=== PATIENT | male | born 1945 | race Caucasian/White ===

== ENCOUNTER 2016-03-31 12:54 | Emergency (ER) | payer MEDICAID, MEDICARE ==
--- NOTE | 2016-03-31 14:04 | ER Document Report ---
ED Respiratory Problem - General Chief Complaint: Shortness Of Breath Stated Complaint: DIFFICULTY BREATHING Mode of Arrival: Medic Information source: Patient, Relative, Emergency Med Personnel TRAVEL OUTSIDE OF THE [place] IN LAST 30 DAYS: No - HPI Patient complains to provider of: Cough, Short of breath, Other - CONGESTED Onset: This morning Duration: Intermittent episodes Quality of pain: No pain Context: Hx CHF, Other - OBESITY, NON-AMBULATORY Short of Breath: Mild Cough: Productive Sputum amount: Small Sputum color: White Sputum consistency: Mucoid At home treatment: CPAP - VENT @ NIGHT EMS treatments: Bronchodilators Associated symptoms: Congestion, Cough. denies: Ankle/leg swelling, Chills, Fever, Hurts to breathe, Sweaty, Wheezing Similar symptoms previously: Yes - NOT RECENT Recently seen / treated by doctor: No - Related Data Allergies/Adverse Reactions: indomethacin [From Indocin] Allergy (Unknown, Verified 01/09/16 12:57) Past Medical History - General Information source: Patient, Relative - Social History Smoking Status: Unknown if Ever Smoked Frequency of alcohol use: None Drug Abuse: None Family History: CAD Patient has suicidal ideation: No Patient has homicidal ideation: No - Past Medical History Cardiac Medical History: Reports: Hx Congestive Heart Failure, Hx Coronary Artery Disease, Hx Heart Attack - 2004, Hx Hypercholesterolemia, Hx Hypertension Pulmonary Medical History: Reports: Hx COPD - home O2 at 2-4 lmp, 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 Denies: Hx Peritoneal Dialysis Psychiatric Medical History: Reports: Hx Depression Past Surgical History: Reports: Hx Appendectomy, Hx Cardiac Surgery - bypass X 2 , CABG, Hx Coronary Artery Bypass Graft, Hx Tonsillectomy, Other - Tracheostomy Review of Systems - Review of Systems Constitutional: No symptoms reported EENT: No symptoms reported Cardiovascular: No symptoms reported Respiratory: See HPI Gastrointestinal: No symptoms reported Musculoskeletal: No symptoms reported Skin: No symptoms reported Neurological/Psychological: No symptoms reported Physical Exam - Vital signs Vitals: Resp Pulse Ox 15 100 03/31/16 13:10 03/31/16 13:10 Interpretation: Normal - General General appearance: Appears well, Alert In distress: None - HEENT Head: Normocephalic Eyes: Normal Conjunctiva: Normal Ears: Normal Nasal: Normal Mouth/Lips: Normal Mucous membranes: Normal Pharynx: Normal Neck: Other - INDWELLING TRACH. TUBE - Respiratory Respiratory status: No respiratory distress Chest status: Nontender Breath sounds: Rales - FEW, BIBASILAR - Cardiovascular Rhythm: Regular Heart sounds: Normal auscultation Murmur: No - Abdominal Inspection: Morbidly Obese - Extremities General upper extremity: Normal inspection General lower extremity: Normal inspection. No: Edema - Neurological Neuro grossly intact: Yes Cognition: Normal Orientation: AAOx4 - Psychological Associated symptoms: Normal affect, Normal mood - Skin Skin Temperature: Warm Skin Moisture: Dry Skin Color: Normal Skin Turgor: Elastic Course - Re-evaluation Re-evalutation: 03/31/16 17:26 Patient states he feels "great". Denies any dyspnea. Results of laboratory and radiographic evaluation discussed with patient and spouse. - Vital Signs Vital signs: Temp Pulse Resp BP Pulse Ox 98.1 F 57 L 14 126/75 H 100 03/31/16 13:56 03/31/16 13:56 03/31/16 14:00 03/31/16 13:56 03/31/16 14:00 - Laboratory Result Diagrams: 03/31/16 13:15 03/31/16 13:15 Laboratory results interpreted by me: 03/31/16 03/31/16 03/31/16 13:15 13:15 13:15 RBC 3.43 L Hgb 9.2 L Hct 28.2 L MCH 26.7 L RDW 18.0 H BUN 36 H Creatinine 2.54 H Est GFR ( Amer) 31 L Est GFR (Non-Af Amer) 25 L AST 16 L ALT 18 L NT-Pro-B Natriuret Pep 5180 H Discharge - Discharge Clinical Impression: CHF, acute on chronic Qualifiers: Congestive heart failure type: unspecified congestive heart failure type Qualified Code(s): I50.9 - Heart failure, unspecified Condition: Stable Disposition: HOME, SELF-CARE Additional Instructions: INCREASE YOU DOSE OF LASIX TO 80 mg PER DAY TODAY AND TOMORROW. CONTINUE ALL OTHER MEDS BEFORE. FOLLOW UP WITH DR. GLASER, CALL OFFICE SATURDAY FOR ADVICE. RETURN TO E.R. IF YOU GET WORSE, ANY TIME.
[2016-03-31 14:26] LABS: ABSOLUTE BASOPHILS # (AUTO) 0.1 10^3/uL (0.0-0.2); ABSOLUTE EOSINOPHILS # (AUTO) 0.2 10^3/uL (0.0-0.6); ABSOLUTE LYMPHOCYTES (AUTO) 1.7 10^3/uL (0.5-4.7); ABSOLUTE MONOCYTES (AUTO) 0.7 10^3/uL (0.1-1.4); ABSOLUTE NEUT (AUTO) 4.4 10^3/uL (1.7-8.2); EOSINOPHILS % (AUTO) 2.6 % (0-6); HEMATOCRIT 28.2 % (37.9-51.0); HEMOGLOBIN 9.2 g/dL (13.5-17.0); HGB HCT DIFFERENCE -0.6; LYMPHOCYTES % (AUTO) 23.6 % (13-45); MEAN CORPUSCULAR HEMOGLOBIN 26.7 pg (27.0-33.4); MEAN CORPUSCULAR HGB CONC 32.5 g/dL (32.0-36.0); MEAN CORPUSCULAR VOLUME 82 fl (80-97); MONOCYTES % (AUTO) 10.3 % (3-13); RED BLOOD COUNT 3.43 10^6/uL (4.35-5.55); SEGMENTED NEUTROPHILS % (AUTO) 62.5 % (42-78); WHITE BLOOD COUNT 7.1 10^3/uL (4.0-10.5)
[2016-03-31 14:40] LABS: ALANINE AMINOTRANSFERASE 18 U/L (21-72); ALBUMIN 3.6 g/dL (3.5-5.0); ALKALINE PHOSPHATASE 87 U/L (38-126); ANION GAP 11 (5-19); ASPARTATE AMINO TRANSFERASE 16 U/L (17-59); BILIRUBIN,TOTAL 0.5 mg/dL (0.2-1.3); BLOOD UREA NITROGEN 36 mg/dL (7-20); CALCIUM 9.8 mg/dL (8.4-10.2); CARBON DIOXIDE 30 mmol/L (22-30); CHLORIDE 101 mmol/L (98-107); CREATININE RESULT 2.54 mg/dL (0.52-1.25); GLUCOSE 103 mg/dL (75-110); POTASSIUM 4.3 mmol/L (3.6-5.0); SODIUM 142.3 mmol/L (137-145); TOTAL PROTEIN 6.7 g/dL (6.3-8.2)
[2016-03-31] MEDS ORDERED: IPRATROPIUM/ALBUTEROL 0.5-2.5 MG/3 ML AMPUL NEB ONE (17:06)
[2016-03-31 19:33] VITALS: BP 141/94
== END 2016-03-31 18:15 | disposition home or self-care (01) ==
LOC: ER 12:54
DX: I11.0 Hypertensive heart disease with heart failure (principal); I50.9 Heart failure, unspecified; I12.9 Hypertensive chronic kidney disease with stage 1 through stage 4 chronic kidney disease, or unspecified chronic kidney disease; E11.22 Type 2 diabetes mellitus with diabetic chronic kidney disease; N18.4 Chronic kidney disease, stage 4 (severe); I25.10 Atherosclerotic heart disease of native coronary artery without angina pectoris; I25.2 Old myocardial infarction; E66.9 Obesity, unspecified; Z68.41 Body mass index [BMI] 40.0-44.9, adult; J44.9 Chronic obstructive pulmonary disease, unspecified; Z99.81 Dependence on supplemental oxygen; R06.02 Shortness of breath; R05 Cough; Z88.8 Allergy status to other drugs, medicaments and biological substances; Z82.49 Family history of ischemic heart disease and other diseases of the circulatory system; Z95.1 Presence of aortocoronary bypass graft; Z93.0 Tracheostomy status
CPT/HCPCS: 36415; 71010; 80053; 83880; 85025; 99285

== ENCOUNTER → 2016-04-23 | Outpatient (CLI) | payer MEDICARE ==
[2016-04-23 15:42] LABS: HEMATOCRIT 28.1 % (37.9-51.0); HEMOGLOBIN 9.4 g/dL (13.5-17.0); HGB HCT DIFFERENCE 0.1; MEAN CORPUSCULAR HEMOGLOBIN 27.3 pg (27.0-33.4); MEAN CORPUSCULAR HGB CONC 33.6 g/dL (32.0-36.0); MEAN CORPUSCULAR VOLUME 81 fl (80-97); RED BLOOD COUNT 3.46 10^6/uL (4.35-5.55); RED CELL DISTRIBUTION WIDTH 17.1 % (11.5-14.0); WHITE BLOOD COUNT 8.7 10^3/uL (4.0-10.5)
[2016-04-23 15:58] LABS: AMORPHOUS SEDIMENT,URINE TRACE /HPF; APPEARANCE,URINE CLOUDY; BILIRUBIN,URINE NEGATIVE (NEGATIVE); GLUCOSE, URINE NEGATIVE (NEGATIVE); KETONES,URINE NEGATIVE (NEGATIVE); LEUKOCYTE ESTERASE,URINE LARGE (NEGATIVE); NITRITE,URINE POSITIVE (NEGATIVE); PROTEIN,URINE 30 mg/dL (NEGATIVE); UROBILINOGEN,URINE NEGATIVE mg/dL (<2.0)
[2016-04-23 16:03] LABS: ANION GAP 15 (5-19); BLOOD UREA NITROGEN 59 mg/dL (7-20); CALCIUM 10.2 mg/dL (8.4-10.2); CARBON DIOXIDE 26 mmol/L (22-30); CHLORIDE 97 mmol/L (98-107); CREATININE RESULT 2.86 mg/dL (0.52-1.25); GLUCOSE 130 mg/dL (75-110); POTASSIUM 4.7 mmol/L (3.6-5.0)
== END ==
LOC: OD 14:51
PROVIDERS: ATTEND Internal Medicine Nephrology
DX: N39.0 Urinary tract infection, site not specified (principal); I12.9 Hypertensive chronic kidney disease with stage 1 through stage 4 chronic kidney disease, or unspecified chronic kidney disease; N18.4 Chronic kidney disease, stage 4 (severe); E11.9 Type 2 diabetes mellitus without complications
CPT/HCPCS: 36415; 80048; 81001; 85027; 87086; 87088

== ENCOUNTER 2016-05-11 19:39 | Emergency (ER) | payer MEDICARE ==
--- NOTE | 2016-05-11 20:05 | ER Document Report ---
ED GI/ - General Stated Complaint: BLOOD IN URINE/RETENSION Time seen by provider: 20:05 Mode of Arrival: Ambulatory Information source: Patient TRAVEL OUTSIDE OF THE [place] IN LAST 30 DAYS: No - HPI Patient complains to provider of: Barragan catheter problem Onset: This afternoon Timing/Duration: Gradual, Persistent Quality of pain: Pressure Severity at maximum: Moderate Severity in ED: Moderate Pain Level: 3 Location: Suprapubic Associated symptoms: Hematuria Exacerbated by: Denies Relieved by: Denies Similar symptoms previously: Yes Recently seen / treated by doctor: No Notes: 05/12/16 04:54 Patient is a 70-year-old male presenting to the emergency room for complaints of fully catheter malfunction, patient has an indwelling Barragan catheter, and there is been no drainage from it throughout the day today, he reports there is sediment and blood clots in the tubing, patient is complaining of suprapubic pressure in the sensation of needing to urinate, he has a home health nurse that comes out and apparently attempted to irrigate the Barragan catheter but was unable to, patient denies any other complaints - Related Data Allergies/Adverse Reactions: indomethacin [From Indocin] Allergy (Unknown, Verified 01/09/16 12:57) Past Medical History - General Information source: Patient - Social History Smoking Status: Unknown if Ever Smoked Family History: CAD - Past Medical History Cardiac Medical History: Reports: Hx Congestive Heart Failure, Hx Coronary Artery Disease, Hx Heart Attack - 2004, Hx Hypercholesterolemia, Hx Hypertension Pulmonary Medical History: Reports: Hx COPD - home O2 at 2-4 lmp, 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 Denies: Hx Peritoneal Dialysis Psychiatric Medical History: Reports: Hx Depression Past Surgical History: Reports: Hx Appendectomy, Hx Cardiac Surgery - bypass X 2 , CABG, Hx Coronary Artery Bypass Graft, Hx Tonsillectomy, Other - Tracheostomy Review of Systems - Review of Systems Constitutional: No symptoms reported EENT: No symptoms reported Cardiovascular: No symptoms reported Respiratory: No symptoms reported Gastrointestinal: No symptoms reported Genitourinary: See HPI Male Genitourinary: No symptoms reported Musculoskeletal: No symptoms reported Skin: No symptoms reported Hematologic/Lymphatic: No symptoms reported Neurological/Psychological: No symptoms reported -: Yes All other systems reviewed and negative Physical Exam - Vital signs Vitals: Temp Pulse Resp BP Pulse Ox 98.2 F 89 20 147/76 H 100 05/11/16 19:54 05/11/16 19:54 05/11/16 19:54 05/11/16 19:54 05/11/16 19:54 Interpretation: Normal - General General appearance: Appears well, Alert In distress: None - HEENT Head: Normocephalic, Atraumatic Eyes: Normal Cornea: Normal Extraocular movements intact: Yes Neck: Other - Trach collar in place - Respiratory Respiratory status: No respiratory distress Chest status: Nontender Breath sounds: Normal Chest palpation: Normal - Cardiovascular Rhythm: Regular, Tachycardia - Abdominal Inspection: Normal Distension: No distension Bowel sounds: Normal Tenderness: Nontender Organomegaly: No organomegaly - Back Back: Normal - Extremities General upper extremity: Normal inspection General lower extremity: Normal inspection - Neurological Orientation: AAOx4 Margarita Coma Scale Eye Opening: Spontaneous Margarita Coma Scale Verbal: Oriented Margarita Coma Scale Motor: Obeys [employer] Coma Scale Total: 15 - Psychological Associated symptoms: Normal affect, Normal mood - Skin Skin Temperature: Warm Skin Moisture: Dry Skin Color: Normal Course - Re-evaluation Re-evalutation: 05/11/16 23:37 Nursing staff reports that patient's called and said he has not been using CPAP machine at home, and she requested that he have an ABG drawn to see what his CO2 levels are, nursing staff repeated patient's vital signs and reported him to be febrile with a temperature 101.7, when I evaluated patient and questioned him as to whether he is feeling short of breath or having any breathing difficulties he denied them, when asked why he is not wearing his CPap machine at night he stated that he does not like it and feels as though he does not need it, he was agreeable to having labs drawn 05/12/16 00:58 Patient was briefly discussed with the hospitalist for possible admission, he recommended patient receive IV fluids, antibiotics for urinary tract infection and be discharged home to 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 I reviewed patient's labs with at bedside, he is noted to have mildly worsening BUN, and signs of a urinary tract infection, his reports that his primary care provider gave her prescription for ciprofloxacin earlier in the day, patient has not received a dosage of this yet, I discussed the possibility of admission for patient, however he reported that he feels much better and wants to go home, patient's and son were at bedside who were in agreement with this plan, agreed to transport him home and follow-up with the primary care provider in the next 1-2 days, patient was noted to be mildly tachycardic, however he recently had a breathing treatment, lungs are clear to auscultation, he agrees to drink fluids once he returns home, and agrees to encourage plenty of fluids, therefore patient was discharged home with instructions for follow-up and advised to return if symptoms worsen in any way 05/12/16 04:48 I received a call from patient's , she is concerned because his heart rate is approximately 122 on the monitor at home, he is satting and 100% on 3 L, she reports that he was difficult to get in the house because he was quite tired in somewhat weak, and she read the side effect profile of ciprofloxacin which was prescribed by patient's primary care provider and she was concerned that all the side effects may be related to this medication, I reassured her that this is likely not side effects of ciprofloxacin, but she should return patient to the emergency room at any time if she is concerned for his health, patient's reported that she is going to give him a Pulmicort treatment, put him on the ventilator at home which she is supposed to be wearing at night, I'm assuming this is a C Pap machine, and if he does not seem to be doing much better she will call 911 and have patient brought back to the emergency room, I advised patient's that she could have him brought back to the emergency room at any time for reevaluation - Vital Signs Vital signs: Temp Pulse Resp BP Pulse Ox 99.6 F 118 H 20 124/68 99 05/12/16 01:25 05/12/16 01:25 05/12/16 01:25 05/12/16 01:25 05/12/16 01:25 - Laboratory Result Diagrams: 05/12/16 00:15 05/12/16 00:15 Laboratory results interpreted by me: 05/12/16 05/12/16 05/12/16 00:15 00:15 00:15 WBC 10.8 H RBC 3.99 L Hgb 10.8 L Hct 32.4 L RDW 17.1 H Seg Neuts % (Manual) 82 H Band Neutrophils % 6 H Lymphocytes % (Manual) 7 L Abs Neuts (Manual) 9.5 H Sodium 134.1 L Chloride 94 L BUN 70 H Creatinine 2.76 H Est GFR ( Amer) 28 L Est GFR (Non-Af Amer) 23 L Glucose 191 H Urine Protein 30 H Urine Blood LARGE H Ur Leukocyte Esterase SMALL H - Diagnostic Test Radiology reviewed: Image reviewed, Reports reviewed Discharge - Discharge Clinical Impression: Barragan catheter problem Qualifiers: Encounter type: initial encounter Qualified Code(s): T83.9XXA - Unspecified complication of genitourinary prosthetic device, implant and graft, initial encounter Condition: Stable Disposition: HOME, SELF-CARE Instructions: Barragan Catheter Care ([facility]) Additional Instructions: Follow up with your primary care provider in one to 2 days. Return to the emergency room immediately if symptoms worsen or any additional concerns.
[2016-05-11] MEDS ORDERED: LIDOCAINE 2% URO-JET 5 ML KIT MM ONE (20:37)
[2016-05-11] MEDS ORDERED: ACETAMINOPHEN 325 MG TABLET PO ONE (23:04)
[2016-05-11] MEDS ORDERED: IPRATROPIUM/ALBUTEROL 0.5-2.5 MG/3 ML AMPUL NEB ONE (23:05)
[2016-05-12 00:28] LABS: VENOUS BLOOD BASE EXCESS -2.3 mmol/L; VENOUS BLOOD PCO2 41.3 mmHg (35-63); VENOUS BLOOD PH 7.36 (7.30-7.42)
[2016-05-12 00:29] LABS: HEMATOCRIT 32.4 % (37.9-51.0); HEMOGLOBIN 10.8 g/dL (13.5-17.0); MEAN CORPUSCULAR HEMOGLOBIN 27.1 pg (27.0-33.4); MEAN CORPUSCULAR HGB CONC 33.4 g/dL (32.0-36.0); MEAN CORPUSCULAR VOLUME 81 fl (80-97); RED BLOOD COUNT 3.99 10^6/uL (4.35-5.55); RED CELL DISTRIBUTION WIDTH 17.1 % (11.5-14.0); WHITE BLOOD COUNT 10.8 10^3/uL (4.0-10.5)
[2016-05-12 00:35] LABS: APPEARANCE,URINE CLEAR; BILIRUBIN,URINE NEGATIVE (NEGATIVE); GLUCOSE, URINE NEGATIVE (NEGATIVE); KETONES,URINE NEGATIVE (NEGATIVE); LEUKOCYTE ESTERASE,URINE SMALL (NEGATIVE); NITRITE,URINE NEGATIVE (NEGATIVE); PROTEIN,URINE 30 mg/dL (NEGATIVE); URINE SPECIFIC GRAVITY 1.006; UROBILINOGEN,URINE NEGATIVE mg/dL (<2.0)
[2016-05-12 00:40] LABS: ALANINE AMINOTRANSFERASE 32 U/L (21-72); ALBUMIN 3.9 g/dL (3.5-5.0); ALKALINE PHOSPHATASE 81 U/L (38-126); ANION GAP 14 (5-19); ASPARTATE AMINO TRANSFERASE 26 U/L (17-59); BILIRUBIN,TOTAL 0.9 mg/dL (0.2-1.3); BLOOD UREA NITROGEN 70 mg/dL (7-20); CALCIUM 9.9 mg/dL (8.4-10.2); CARBON DIOXIDE 26 mmol/L (22-30); CHLORIDE 94 mmol/L (98-107); CREATININE RESULT 2.76 mg/dL (0.52-1.25); GLUCOSE 191 mg/dL (75-110); POTASSIUM 4.8 mmol/L (3.6-5.0); SODIUM 134.1 mmol/L (137-145); TOTAL PROTEIN 7.1 g/dL (6.3-8.2)
[2016-05-12 00:48] LABS: BAND NEUTROPHILS % (MANUAL) 6 % (3-5); BASOPHILS % (MANUAL) 0 % (0-2); EOSINOPHILS % (MANUAL) 0 % (0-6); LYMPHOCYTES % (MANUAL) 7 % (13-45); TOTAL CELLS COUNTED 100
[2016-05-12 00:50] LABS: ANISOCYTOSIS 1+; TOXIC GRANULATION SLIGHT
[2016-05-12 01:25] VITALS: BP 124/68
== END 2016-05-12 02:11 | disposition home or self-care (01) ==
LOC: ER 19:39
DX: T83.091A Other mechanical complication of indwelling urethral catheter, initial encounter (principal); R31.0 Gross hematuria; R33.9 Retention of urine, unspecified; Y84.6 Urinary catheterization as the cause of abnormal reaction of the patient, or of later complication, without mention of misadventure at the time of the procedure; J44.9 Chronic obstructive pulmonary disease, unspecified; Z99.81 Dependence on supplemental oxygen; Z91.14 Patient's other noncompliance with medication regimen; R00.0 Tachycardia, unspecified; R50.9 Fever, unspecified; I25.10 Atherosclerotic heart disease of native coronary artery without angina pectoris; I25.2 Old myocardial infarction; I10 Essential (primary) hypertension; E11.9 Type 2 diabetes mellitus without complications; Z88.8 Allergy status to other drugs, medicaments and biological substances; Z95.1 Presence of aortocoronary bypass graft; Z93.0 Tracheostomy status
CPT/HCPCS: 94640; 99283; 51702; 36415; 87086; 85025; 80053; 81001; 82803; 71010; A9270 ×3; J3490; J7620

== ENCOUNTER 2016-05-12 16:18 | Inpatient (IN) | payer MEDICARE ==
--- NOTE | 2016-05-12 16:45 | ER Document Report ---
ED Respiratory Problem - General Chief Complaint: Shortness Of Breath Stated Complaint: SHORTNESS OF BREATH Notes: The patient is a 70-year-old male, PMHx COPD, chronic respiratory failure on trach, CRE, presents by EMS after he was having increased shortness of breath, increased secretions from trach and fever since this morning. Temperature was 102 and he was given 1 g of Tylenol by EMS prior to arrival. The patient was seen in the emergency room last night for urinary retention. He denies chest pain, flank pain, abdominal pain, headache, neck stiffness, nausea, vomiting TRAVEL OUTSIDE OF THE [place] IN LAST 30 DAYS: No - Related Data Allergies/Adverse Reactions: indomethacin [From Indocin] Allergy (Unknown, Verified 01/09/16 12:57) Past Medical History - General Information source: Patient, Emergency Med Personnel - Social History Smoking Status: Current Every Day Smoker Family History: CAD - Past Medical History Cardiac Medical History: Reports: Hx Congestive Heart Failure, Hx Coronary Artery Disease, Hx Heart Attack - 2004, Hx Hypercholesterolemia, Hx Hypertension Pulmonary Medical History: Reports: Hx COPD - home O2 at 2-4 lmp, 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 Denies: Hx Peritoneal Dialysis Psychiatric Medical History: Reports: Hx Depression Past Surgical History: Reports: Hx Appendectomy, Hx Cardiac Surgery - bypass X 2 , CABG, Hx Coronary Artery Bypass Graft, Hx Tonsillectomy, Other - Tracheostomy Review of Systems - Review of Systems Notes: REVIEW OF SYSTEMS: CONSTITUTIONAL: +fevers, -chills EENT: -eye pain, -difficulty swallowing, -nasal congestion CARDIOVASCULAR: -chest pain, -syncope. RESPIRATORY: +cough, +SOB GASTROINTESTINAL: -abdominal pain, - nausea, -vomiting, -diarrhea GENITOURINARY: -dysuria, -hematuria MUSCULOSKELETAL: -back pain, -neck pain SKIN: -rash or skin lesions. HEMATOLOGIC: -easy bruising or bleeding. LYMPHATIC: -swollen, enlarged glands. NEUROLOGICAL: -altered mental status or loss of consciousness, -headache, - neurologic symptoms PSYCHIATRIC: -anxiety, -depression. ALL OTHER SYSTEMS REVIEWED AND NEGATIVE. Physical Exam - Vital signs Vitals: Temp Pulse Resp BP Pulse Ox 100.3 F 124 H 27 H 120/56 L 100 05/12/16 16:48 05/12/16 16:48 05/12/16 16:48 05/12/16 16:48 05/12/16 16:48 - Notes Notes: PHYSICAL EXAMINATION: GENERAL: Mild respiratory distress. HEAD: Atraumatic, normocephalic. EYES: Pupils equal round and reactive to light, extraocular movements intact, sclera anicteric, conjunctiva are normal. ENT: nares patent, oropharynx clear without exudates. Moist mucous membranes. NECK: Trach in place with yellow secretions. Normal range of motion, supple without lymphadenopathy LUNGS: Bilateral rhonchi and tachypnea. Right lower lung crackles. HEART: Tachycardia. Regular rhythm. ABDOMEN: Soft, nontender, normoactive bowel sounds. No guarding, no rebound. No masses appreciated. EXTREMITIES: Normal range of motion, no pitting or edema. No cyanosis. NEUROLOGICAL: Cranial nerves grossly intact. Normal sensory, motor, and reflex exams. PSYCH: Normal mood, normal affect. SKIN: Warm, Dry, normal turgor, no rashes or lesions noted. Course - Re-evaluation Re-evalutation: Patient in mild respiratory distress with tachypnea, tachycardia and fever. Will begin fluids and pain culture for presumed sepsis. Patient satting 100% on his normal humidified air 3 L. 05/12/16 18:29 Pt has vascular congestion on CXR, but no infiltrate. With the right lower lung crackles, tachypnea, fevers and tachycardia, patient has clinical evidence of pneumonia. Looking through prior cultures, will begin broad spectrum antibiotics with Vanc, Zosyn and Levaquin. Patient also has rhabdo and slightly elevated troponin, but EKG does not show any ST changes and patient has no chest pain. Suspect this is from his acute on chronic renal failure. Spoke to Dr. Smith and she has accepted patient as inpatient to ICU. - Vital Signs Vital signs: Temp Pulse Resp BP Pulse Ox 100.3 F 124 H 23 H 111/63 98 05/12/16 16:48 05/12/16 16:48 05/12/16 18:00 05/12/16 18:00 05/12/16 18:00 - Laboratory Result Diagrams: 05/12/16 16:20 05/12/16 16:20 Laboratory results interpreted by me: 05/12/16 05/12/16 05/12/16 16:20 16:20 16:20 RBC 3.76 L Hgb 10.1 L Hct 30.3 L MCH 26.9 L RDW 16.8 H Plt Count 140 L Seg Neuts % (Manual) 80 H Band Neutrophils % 16 H D Lymphocytes % (Manual) 1 L Monocytes % (Manual) 1 L Abs Neuts (Manual) 9.0 H Abs Lymphs (Manual) 0.3 L Sodium 135.4 L Chloride 97 L BUN 74 H Creatinine 3.22 H Est GFR ( Amer) 23 L Est GFR (Non-Af Amer) 19 L Glucose 194 H AST 63 H Creatine Kinase 1509 H NT-Pro-B Natriuret Pep 54947 H Total Protein 6.2 L Albumin 3.2 L - Diagnostic Test Radiology reviewed: Image reviewed, Reports reviewed Radiology results interpreted by me: CXR: Vascular congestion without focal infiltrate - EKG Interpretation by Me EKG shows normal: Sinus rhythm Rate: Tachycardia Buhler/QRS: RBBB When compared to previous EKG there are: Changes noted - Tachycardia Critical Care Note - Critical Care Note Total time excluding time spent on procedures (mins): 35 Discharge - Discharge Clinical Impression: HCAP (healthcare-associated pneumonia) Sepsis Qualifiers: Sepsis type: sepsis due to unspecified organism Qualified Code(s): A41.9 - Sepsis, unspecified organism Rhabdomyolysis Qualifiers: Rhabdomyolysis type: non-traumatic Qualified Code(s): M62.82 - Rhabdomyolysis Condition: Serious Disposition: ADMITTED INPATIENT Admitting Provider: [facility] Admitted: ICU
[2016-05-12 17:32] LABS: HEMATOCRIT 30.3 % (37.9-51.0); HEMOGLOBIN 10.1 g/dL (13.5-17.0); MEAN CORPUSCULAR HEMOGLOBIN 26.9 pg (27.0-33.4); MEAN CORPUSCULAR HGB CONC 33.4 g/dL (32.0-36.0); MEAN CORPUSCULAR VOLUME 80 fl (80-97); RED BLOOD COUNT 3.76 10^6/uL (4.35-5.55); RED CELL DISTRIBUTION WIDTH 16.8 % (11.5-14.0); WHITE BLOOD COUNT 9.4 10^3/uL (4.0-10.5)
[2016-05-12 17:45] LABS: ALANINE AMINOTRANSFERASE 29 U/L (21-72); ALBUMIN 3.2 g/dL (3.5-5.0); ALKALINE PHOSPHATASE 63 U/L (38-126); ANION GAP 16 (5-19); ASPARTATE AMINO TRANSFERASE 63 U/L (17-59); BLOOD UREA NITROGEN 74 mg/dL (7-20); CALCIUM 9.3 mg/dL (8.4-10.2); CARBON DIOXIDE 22 mmol/L (22-30); CHLORIDE 97 mmol/L (98-107); CREATINE KINASE 1509 U/L (55-170); CREATININE RESULT 3.22 mg/dL (0.52-1.25); GLUCOSE 194 mg/dL (75-110); POTASSIUM 4.3 mmol/L (3.6-5.0); SODIUM 135.4 mmol/L (137-145); TOTAL PROTEIN 6.2 g/dL (6.3-8.2)
[2016-05-12 18:00] LABS: TROPONIN I 0.219 ng/mL
[2016-05-12 18:01] LABS: BAND NEUTROPHILS % (MANUAL) 16 % (3-5); BASOPHILS % (MANUAL) 0 % (0-2); EOSINOPHILS % (MANUAL) 0 % (0-6); LYMPHOCYTES % (MANUAL) 1 % (13-45); TOTAL CELLS COUNTED 100
[2016-05-12 18:02] LABS: ANISOCYTOSIS 1+; HYPOCHROMASIA SLIGHT
[2016-05-12] MEDS ORDERED: VANCOMYCIN HCL INJ 1000 MG VIAL IV ONE (18:25)
[2016-05-12] MEDS ORDERED: PIPERACILLIN/TAZOBACTAM 3.375 GM VIAL IV ONE (18:26)
[2016-05-12] MEDS ORDERED: LEVOFLOXACIN 750 MG/D5W RTU 150 ML IV ONE (18:26)
[2016-05-12 18:48] LABS: AMORPHOUS SEDIMENT,URINE TRACE /HPF; APPEARANCE,URINE CLOUDY; BILIRUBIN,URINE NEGATIVE (NEGATIVE); GLUCOSE, URINE NEGATIVE (NEGATIVE); KETONES,URINE NEGATIVE (NEGATIVE); LEUKOCYTE ESTERASE,URINE LARGE (NEGATIVE); NITRITE,URINE NEGATIVE (NEGATIVE); PROTEIN,URINE 100 mg/dL (NEGATIVE); UROBILINOGEN,URINE NEGATIVE mg/dL (<2.0)
[2016-05-12] MEDS: NORMAL SALINE 1000 ML 1,000 ML IV PRN ×2 (18:53→18:55)
[2016-05-12] MEDS ORDERED: FUROSEMIDE INJ/PF 40 MG/4 ML SDV IV ONE ×2 (19:06)
[2016-05-12] MEDS ORDERED: VANCOMYCIN HCL 0 MG in DEXTROSE 5%-WATER 250 ML IV NR (19:15)
[2016-05-12] MEDS ORDERED: IPRATROPIUM/ALBUTEROL 0.5-2.5 MG/3 ML AMPUL NEB ONE (19:30)
[2016-05-12] MEDS ORDERED: LORAZEPAM 0.5 MG TABLET ONE (23:06)
[2016-05-12] MEDS: METHYLPREDNISOLONE INJ 125 MG/2 ML SDV IV SCH (23:22)
[2016-05-12] MEDS: HEPARIN SOD (PORCINE) 5,000 UNIT/ML 1 ML SYRINGE SUBCUT SCH (23:26)
[2016-05-12] MEDS: BUDESONIDE NEB 0.5 MG/2 ML AMPUL NEB SCH (23:26)
[2016-05-13 00:56] LABS: CREATINE KINASE MB 3.57 ng/mL (<4.55); TROPONIN I 0.193 ng/mL
[2016-05-13] MEDS ORDERED: PIPERACILLIN/TAZOBACTAM 2.25 GM VIAL IV ONE ×2 (02:38→06:21)
[2016-05-13] MEDS: PIPERACILLIN SODIUM/TAZOBACTAM 2.25 GM in NORMAL SALINE 50 ML IV SCH ×4 (02:58→22:04)
[2016-05-13] MEDS ORDERED: IPRATROPIUM/ALBUTEROL 0.5-2.5 MG/3 ML AMPUL NEB SCH (06:00)
[2016-05-13] MEDS: HEPARIN SOD (PORCINE) 5,000 UNIT/ML 1 ML SYRINGE SUBCUT SCH ×3 (06:15→22:01)
[2016-05-13] MEDS: METHYLPREDNISOLONE INJ 125 MG/2 ML SDV IV SCH ×3 (06:16→22:03)
[2016-05-13 06:57] LABS: ANION GAP 17 (5-19); BLOOD UREA NITROGEN 76 mg/dL (7-20); CALCIUM 9.2 mg/dL (8.4-10.2); CARBON DIOXIDE 21 mmol/L (22-30); CHLORIDE 100 mmol/L (98-107); CREATINE KINASE 1399 U/L (55-170); GLUCOSE 206 mg/dL (75-110); POTASSIUM 4.8 mmol/L (3.6-5.0); SODIUM 137.9 mmol/L (137-145)
[2016-05-13 07:08] LABS: CREATINE KINASE MB 3.18 ng/mL (<4.55); TROPONIN I 0.145 ng/mL
[2016-05-13] MEDS: BUDESONIDE NEB 0.5 MG/2 ML AMPUL NEB SCH ×2 (09:03→20:33)
--- NOTE | 2016-05-13 12:10 | EKG REPORT ---
SEVERITY:- ABNORMAL ECG - SINUS RHYTHM ATRIAL PREMATURE COMPLEX RIGHT BUNDLE BRANCH BLOCK BORDERLINE INFERIOR Q WAVES : Confirmed by: Lacey Whittaker MD 13-May-2016 12:10:01
--- NOTE | 2016-05-13 12:10 | EKG REPORT ---
SEVERITY:- ABNORMAL ECG - SINUS RHYTHM ATRIAL PREMATURE COMPLEX RIGHT BUNDLE BRANCH BLOCK BORDERLINE INFERIOR Q WAVES : Confirmed by: Lacey Whittaker MD 13-May-2016 12:09:51
[2016-05-13 13:49] LABS: CREATINE KINASE MB 3.05 ng/mL (<4.55); TROPONIN I 0.099 ng/mL
[2016-05-13] MEDS: IPRATROPIUM/ALBUTEROL 0.5-2.5 MG/3 ML AMPUL NEB SCH ×2 (14:54→20:34)
[2016-05-13] MEDS ORDERED: GLUCAGON,HUMAN RECOMB 1 MG INJ IM PRN (15:57)
[2016-05-13] MEDS ORDERED: DEXTROSE 40% GEL 15 GM TUBE PO PRN ×2 (15:57)
[2016-05-13] MEDS ORDERED: DEXTROSE 50%-WATER 25 GM/50 ML DISP.SYRIN IV PRN ×2 (15:57)
--- NOTE | 2016-05-13 16:05 | PDOC H&P ---
History of Present Illness Admission Date/PCP: 05/12/16 19:09 History of Present Illness: DIAMOND KHAN is a 70 year old male with past history of COPD, chronic respiratory failure on trach, CRE, presents by EMS after he was having increased shortness of breath, increased secretions from trach and fever since this morning. Temperature was 102 and he was given 1 g of Tylenol by EMS prior to arrival. The patient was seen in the emergency room last night for urinary retention. He denies chest pain, flank pain, abdominal pain, headache, neck stiffness, nausea, vomiting Upon evaluation in the emergency room the patient was found in mild respiratory distress with acute on chronic respiratory failure A chest x-ray was suggestive of CHF and or pneumonia Patient was febrile with leukocytosis had a high lactic acid He was treated with antibiotics , IV fluids and subsequently admitted to the intensive care unit for further evaluation and care Past Medical History Cardiac Medical History: Reports: Congestive Heart Failure, Coronary Artery Disease, Myocardial Infarction - 2004, Hyperlipidema, Hypertension Pulmonary Medical History: Reports: Chronic Obstructive Pulmonary Disease (COPD ) - home O2 at 2-4 lmp, Respiratory Failure - 4 L home oxygen dependent Endocrine Medical History: Reports: Diabetes Mellitus Type 2 Psychiatric Medical History: Reports: Depression Hematology: Reports: Anemia Past Surgical History Past Surgical History: Reports: Appendectomy, Coronary Artery Bypass Graft, Tonsillectomy, Other - Tracheostomy Social History Smoking Status: Unknown if Ever Smoked Frequency of Alcohol Use: None Hx Recreational Drug Use: No Drugs: None Hx Prescription Drug Abuse: No - Advance Directive Resuscitation Status: Full Code Surrogate healthcare decision maker:: Family History Family History: CAD Parental Family History Reviewed: Yes Children Family History Reviewed: Yes Sibling(s) Family History Reviewed.: Yes Medication/Allergy Home Medications: Aspirin [Aspirin EC] 81 mg PO DAILY 08/05/14 Docusate Sodium 100 mg PO DAILY 08/05/14 Lorazepam [Ativan 0.5 mg Tablet] 0.5 mg PO Q8HP PRN 01/08/16 Oxycodone HCl 5 mg PO Q6HP PRN 01/08/16 Budesonide [Pulmicort Neb 1 mg/2 mL Ampule] 1 inh PO RTBID 01/09/16 Chlorhexidine Gluconate 15 ml PO BID 01/09/16 Insulin Glargine,Hum.rec.anlog [Lantus Insulin 100 Unit/1 ml 10 ml] 30 unit SUBCUT QPM 01/09/16 Ipratropium/Albuterol Sulfate [Duoneb 3 ml Ampul] 3 ml NEB QID 01/09/16 Furosemide [Lasix 40 mg Tablet] 40 mg PO DAILY #90 tablet 01/12/16 Midodrine HCl [Proamatine 5 mg Tablet] 2.5 mg PO BID tablet 01/12/16 Colchicine [Colchicine 0.6 mg Tablet] 0.6 mg PO DAILY 05/13/16 Fluticasone Propionate [Flovent Hfa 44 Mcg Inhalation Aerosol 10.6 gm] 2 puff IH BID 05/13/16 Insulin Regular, Human [Novolin R (Reg) Insulin 100 unit/mL] 4 unit SUBCUT AC Lidocaine 1 applic TP DAILY 05/13/16 Metoprolol Tartrate [Lopressor 25 mg Tablet] 12.5 mg PO Q12 05/13/16 Nystatin 1 applic TP BID 05/13/16 Nystatin 1 each PO BID 05/13/16 Allergies/Adverse Reactions: indomethacin [From Indocin] Allergy (Unknown, Verified 01/09/16 12:57) Review of Systems ROS unobtainable: Due to mental status, Other - patient is dyspneic not able to communicate well Physical Exam Vital Signs: Temp Pulse Resp BP Pulse Ox 98.1 F 73 14 110/65 96 05/13/16 15:39 05/13/16 09:07 05/13/16 14:08 05/13/16 14:08 05/13/16 14:08 Intake & Output 05/12/16 05/13/16 05/14/16 00:59 00:59 00:59 Intake Total 550 Output Total 1850 Balance -1300 Weight 138.3 kg 138.3 kg General appearance: PRESENT: mild distress, morbidly obese Head exam: PRESENT: atraumatic, normocephalic Eye exam: PRESENT: conjunctiva pink, EOMI, PERRLA. ABSENT: scleral icterus Neck exam: ABSENT: carotid bruit, JVD, lymphadenopathy, thyromegaly Respiratory exam: PRESENT: accessory muscle use, decreased breath sounds, rales , wheezes Cardiovascular exam: PRESENT: RRR. ABSENT: diastolic murmur, rubs, systolic murmur GI/Abdominal exam: PRESENT: normal bowel sounds, soft. ABSENT: distended, guarding, mass, organolmegaly, rebound, tenderness Rectal exam: PRESENT: deferred Musculoskeletal exam: PRESENT: full ROM, normal inspection Neurological exam: PRESENT: awake, CN II-XII grossly intact Skin exam: PRESENT: dry, intact, warm. ABSENT: cyanosis, rash Results Laboratory Results: 05/13/16 06:30 05/13/16 05/13/16 06:30 06:30 Sodium 137.9 Potassium 4.8 Chloride 100 Carbon Dioxide 21 L Anion Gap 17 BUN 76 H Creatinine 3.20 H Est GFR ( Amer) 23 L Est GFR (Non-Af Amer) 19 L Glucose 206 H Calcium 9.2 TSH 0.76 05/13/16 05/13/16 05/13/16 00:10 00:10 06:30 Creatine Kinase 2109 H 1399 H CK-MB (CK-2) 3.57 Troponin I 0.193 NT-Pro-B Natriuret Pep 05/13/16 05/13/16 05/13/16 06:30 12:55 12:55 Creatine Kinase 954 H CK-MB (CK-2) 3.18 3.05 Troponin I 0.145 0.099 NT-Pro-B Natriuret Pep 81846 H 04/23/16 15:07 BUN 59 H Creatinine 2.86 H EKG Comments: [SR] . SINUS RHYTHM [APC] . ATRIAL PREMATURE COMPLEX [RBBB] . RIGHT BUNDLE BRANCH BLOCK [IMI3] . BORDERLINE INFERIOR Q WAVES Impressions: Chest X-Ray 05/13/16 06:00 IMPRESSION: STABLE APPEARANCE OF THE CHEST. SUPPORT DEVICES UNCHANGED. Assessment & Plan - Diagnosis (1) Acute and chronic respiratory failure Is this a current diagnosis for this admission?: YesPlan: Acute on chronic respiratory failure 1-acute on chronic systolic and diastolic CHF Previous echocardiogram showed an EF of 30-35% and diastolic dysfunction Chest x-ray shows fluid overload ; patient did get fluid boluses in the ER His blood pressure is adequate at this time we will decrease IV fluids and give the patient 60 mg of IV Lasix 2 pneumonia Patient has a history of CRE We will continue broad-spectrum antibiotics Obtain cultures of the blood and sputum; 3 patient has no known history of COPD; but wheezes are scattered bilaterally; we will add steroids and nebs 4 trach care Continue trach collar with humidified oxygen (2) Congestive heart failure Qualifiers: Congestive heart failure type: combined Congestive heart failure chronicity: acute on chronic Qualified Code(s): I50.43 - Acute on chronic combined systolic (congestive) and diastolic (congestive) heart failure Is this a current diagnosis for this admission?: YesPlan: See above (3) DVT prophylaxis Is this a current diagnosis for this admission?: Yes (4) Full code status Is this a current diagnosis for this admission?: Yes (5) HCAP (healthcare-associated pneumonia) Is this a current diagnosis for this admission?: Yes (6) Kidney disease, chronic, stage IV (GFR 15-29 ml/min) Is this a current diagnosis for this admission?: YesPlan: 05/12/16 05/13/16 16:20 06:30 BUN 74 H 76 H Creatinine 3.22 H 3.20 H Est GFR ( Amer) 23 L Acute on chronic renal failure last creatinine was 2.5 We will hold lisinopril prudent hydration (7) Rhabdomyolysis Qualifiers: Rhabdomyolysis type: non-traumatic Qualified Code(s): M62.82 - Rhabdomyolysis Is this a current diagnosis for this admission?: YesPlan: hydrate follow-up CPK (8) Sepsis Qualifiers: Sepsis type: sepsis due to unspecified organism Qualified Code(s): A41.9 - Sepsis, unspecified organism Is this a current diagnosis for this admission?: Yes (9) Elevated troponin Is this a current diagnosis for this admission?: YesPlan: Likely secondary to hypoxemia and early sepsis ; we will obtain serial troponins - Time Time Spent with patient: Patient will be admitted to the intensive care unit overnight Critical Time spent with patient: 25-34 minutes
[2016-05-13] MEDS ORDERED: PANTOPRAZOLE SODIUM 40 MG VIAL IV ONE (17:00)
[2016-05-13] MEDS: INSULIN LISPRO 100 UNIT/ML 3 ML VIAL SUBCUT PRN ×2 (17:25→22:00)
[2016-05-13] MEDS: CHLORHEXIDINE GLUCONATE 0.12% ORAL RINSE 15 ML UDC PO SCH (17:26)
[2016-05-13] MEDS: MIDODRINE HCL 5 MG TABLET PO SCH (17:27)
[2016-05-13] MEDS: METOPROLOL TARTRATE 50 MG TABLET PO SCH (17:27)
[2016-05-13] MEDS ORDERED: INSULIN GLARGINE,HUM.REC.ANLOG 1,000 UNIT/10 ML UNIT SUBCUT SCH (18:00)
[2016-05-13] MEDS ORDERED: BUDESONIDE PO SCH (18:00)
[2016-05-13] MEDS ORDERED: INSULIN GLARGINE,HUM.REC.ANLOG 300 UNIT/3 ML INSULN.PEN SUBCUT SCH (18:00)
[2016-05-13] MEDS: LORAZEPAM 0.5 MG TABLET PO PRN (20:16)
--- NOTE | 2016-05-13 20:39 | EKG REPORT ---
SEVERITY:- ABNORMAL ECG - SINUS TACHYCARDIA WITH IRREGULAR RATE [id number] RIGHT BUNDLE BRANCH BLOCK BORDERLINE INFERIOR Q WAVES : Confirmed by: Lacey Whittaker MD 13-May-2016 20:38:48
[2016-05-13] MEDS: LATANOPROST 0.005% OPH SOLN 2.5 ML OU SCH (22:00)
[2016-05-13] MEDS: FAMOTIDINE 20 MG TABLET PO SCH (22:02)
[2016-05-14] MEDS: METHYLPREDNISOLONE INJ 125 MG/2 ML SDV IV SCH ×3 (05:04→22:34)
[2016-05-14] MEDS: HEPARIN SOD (PORCINE) 5,000 UNIT/ML 1 ML SYRINGE SUBCUT SCH ×3 (05:05→22:33)
[2016-05-14] MEDS: PIPERACILLIN SODIUM/TAZOBACTAM 2.25 GM in NORMAL SALINE 50 ML IV SCH ×3 (05:06→22:34)
[2016-05-14] MEDS: METOPROLOL TARTRATE 50 MG TABLET PO SCH ×2 (05:06→18:07)
[2016-05-14] MEDS: PANTOPRAZOLE SODIUM 40 MG VIAL IV SCH ×2 (05:07→18:14)
--- NOTE | 2016-05-14 08:11 | PDOC PROGRESS REPORT ---
Subjective Progress Note for:: 05/13/16 Subjective:: Patient is feeling better, imroved SOB no chest pains , no fever no chills Physical Exam Vital Signs: Temp Pulse Resp BP Pulse Ox 97.0 F 64 21 H 140/78 H 98 05/14/16 00:00 05/13/16 23:00 05/14/16 06:00 05/14/16 04:08 05/14/16 00:52 Intake & Output 05/13/16 05/14/16 05/15/16 00:59 00:59 00:59 Intake Total 1130 100 Output Total 2900 675 Balance -1770 -575 Weight 138.3 kg 138.3 kg 137 kg General appearance: PRESENT: no acute distress, cooperative Head exam: PRESENT: atraumatic, normocephalic Eye exam: PRESENT: conjunctiva pink Neck exam: ABSENT: carotid bruit, JVD, lymphadenopathy, thyromegaly Respiratory exam: PRESENT: decreased breath sounds, wheezes. ABSENT: accessory muscle use, chest wall tenderness Cardiovascular exam: PRESENT: RRR. ABSENT: diastolic murmur, rubs, systolic murmur GI/Abdominal exam: PRESENT: normal bowel sounds, soft. ABSENT: distended, guarding, mass, organolmegaly, rebound, tenderness Neurological exam: PRESENT: alert, awake, oriented to person, oriented to place , oriented to time, oriented to situation, CN II-XII grossly intact. ABSENT: motor sensory deficit Results Laboratory Results: 05/13/16 06:30 05/13/16 05/13/16 05/13/16 00:10 00:10 06:30 Creatine Kinase 2109 H 1399 H CK-MB (CK-2) 3.57 Troponin I 0.193 NT-Pro-B Natriuret Pep 05/13/16 05/13/16 05/13/16 06:30 12:55 12:55 Creatine Kinase 954 H CK-MB (CK-2) 3.18 3.05 Troponin I 0.145 0.099 NT-Pro-B Natriuret Pep 79696 H Impressions: Chest X-Ray 05/13/16 06:00 IMPRESSION: STABLE APPEARANCE OF THE CHEST. SUPPORT DEVICES UNCHANGED. Assessment & Plan - Diagnosis (1) Acute and chronic respiratory failure Is this a current diagnosis for this admission?: Yes (2) Congestive heart failure Qualifiers: Congestive heart failure type: combined Congestive heart failure chronicity: acute on chronic Qualified Code(s): I50.43 - Acute on chronic combined systolic (congestive) and diastolic (congestive) heart failure Is this a current diagnosis for this admission?: Yes (3) DVT prophylaxis Is this a current diagnosis for this admission?: Yes (4) Full code status Is this a current diagnosis for this admission?: Yes (5) HCAP (healthcare-associated pneumonia) Is this a current diagnosis for this admission?: Yes (6) Kidney disease, chronic, stage IV (GFR 15-29 ml/min) Is this a current diagnosis for this admission?: Yes (7) Rhabdomyolysis Qualifiers: Rhabdomyolysis type: non-traumatic Qualified Code(s): M62.82 - Rhabdomyolysis Is this a current diagnosis for this admission?: Yes (8) Sepsis Qualifiers: Sepsis type: sepsis due to unspecified organism Qualified Code(s): A41.9 - Sepsis, unspecified organism Is this a current diagnosis for this admission?: Yes (9) Elevated troponin Is this a current diagnosis for this admission?: Yes - Time Time Spent with patient: will increase diet continue present management blood cultures pending Time Spent with patient: 15-24 minutes
[2016-05-14] MEDS: IPRATROPIUM/ALBUTEROL 0.5-2.5 MG/3 ML AMPUL NEB SCH ×3 (08:15→20:20)
[2016-05-14] MEDS: BUDESONIDE NEB 0.5 MG/2 ML AMPUL NEB SCH ×2 (08:15→20:20)
--- NOTE | 2016-05-14 08:56 | PDOC TRANSFER SUMMARY ---
General Admission Date/PCP: 05/12/16 19:09 Admission Date: 05/12/16 Transfer Date: 05/14/16 Accepting Facility: [facility] Accepting Physician: Dr Carreon Hospitalist Resuscitation Status: Full Code - Transfer Diagnosis (1) Acute and chronic respiratory failure Is this a current diagnosis for this admission?: Yes (2) Congestive heart failure Is this a current diagnosis for this admission?: Yes (3) DVT prophylaxis Is this a current diagnosis for this admission?: Yes (4) Full code status Is this a current diagnosis for this admission?: Yes (5) HCAP (healthcare-associated pneumonia) Is this a current diagnosis for this admission?: Yes (6) Kidney disease, chronic, stage IV (GFR 15-29 ml/min) Is this a current diagnosis for this admission?: Yes (7) Rhabdomyolysis Is this a current diagnosis for this admission?: Yes (8) Sepsis Is this a current diagnosis for this admission?: Yes (9) Elevated troponin Is this a current diagnosis for this admission?: Yes (10) Fungemia Is this a current diagnosis for this admission?: Yes - Transfer Medications Home Medications: Aspirin [Aspirin EC] 81 mg PO DAILY 08/05/14 Docusate Sodium 100 mg PO DAILY 08/05/14 Lorazepam [Ativan 0.5 mg Tablet] 0.5 mg PO Q8HP PRN 01/08/16 Oxycodone HCl 5 mg PO Q6HP PRN 01/08/16 Budesonide [Pulmicort Neb 1 mg/2 mL Ampule] 1 inh PO RTBID 01/09/16 Chlorhexidine Gluconate 15 ml PO BID 01/09/16 Insulin Glargine,Hum.rec.anlog [Lantus Insulin 100 Unit/1 ml 10 ml] 30 unit SUBCUT QPM 01/09/16 Ipratropium/Albuterol Sulfate [Duoneb 3 ml Ampul] 3 ml NEB QID 01/09/16 Colchicine [Colchicine 0.6 mg Tablet] 0.6 mg PO DAILY 05/13/16 Fluticasone Propionate [Flovent Hfa 44 Mcg Inhalation Aerosol 10.6 gm] 2 puff IH BID 05/13/16 Insulin Regular, Human [Novolin R (Reg) Insulin 100 unit/mL] 4 unit SUBCUT AC Lidocaine 1 applic TP DAILY 05/13/16 Metoprolol Tartrate [Lopressor 25 mg Tablet] 12.5 mg PO Q12 05/13/16 Nystatin 1 applic TP BID 05/13/16 Nystatin 1 each PO BID 05/13/16 Transfer Medications: Current Medications Albuterol/Ipratropium (Duoneb 3 Ml Ampul) 3 ml NEB [id number] DANIELLE Stop: 06/12/16 13:59 Last Admin: 05/14/16 08:15 Dose: 3 ml Amlodipine Besylate (Norvasc 5 Mg Tablet) 5 mg PO DAILY DANIELLE Stop: 06/13/16 09:59 Aspirin (Ecotrin 81 Mg Ec Tablet) 81 mg PO DAILY DANIELLE Stop: 06/13/16 09:59 Budesonide (Pulmicort Neb 0.5 Mg/2 Ml Ampul) 0.5 mg NEB RTQ12 DANIELLE Stop: 06/12/16 19:59 Last Admin: 05/14/16 08:15 Dose: 0.5 mg Chlorhexidine Gluconate (Periogard 0.12% Oral Rinse 15 Ml) 15 ml PO BID DANIELLE Stop: 06/12/16 17:59 Last Admin: 05/13/16 17:26 Dose: 15 ml Dextrose (Dextrose Inj 50% Syringe (25 Gm/50 Ml)) 12.5 gm IV PRN PRN; Protocol PRN Reason: FOR BG 50-69 IN ALERT PATIENT Stop: 06/12/16 15:56 Dextrose (Dextrose Inj 50% Syringe (25 Gm/50 Ml)) 25 gm IV PRN PRN PRN Reason: Protocol Stop: 06/12/16 15:56 Docusate Sodium (Colace 100 Mg Capsule) 100 mg PO DAILY DANIELLE Stop: 06/13/16 09:59 Escitalopram Oxalate (Lexapro 10 Mg Tablet) 10 mg PO DAILY DANIELLE Stop: 06/13/16 09:59 Famotidine (Pepcid 20 Mg Tablet) 20 mg PO QHS DANIELLE Stop: 06/12/16 21:59 Last Admin: 05/13/16 22:02 Dose: 20 mg Furosemide (Lasix 40 Mg Tablet) 40 mg PO DAILY DANIELLE Stop: 06/13/16 09:59 Glucagon (Glucagen Inj 1 Mg Vial) 1 mg IM PRN PRN; Protocol PRN Reason: Evaluate for BG < 70 Stop: 06/12/16 15:56 Glucose (Glutose 40% Gel 15 Gm Tube) 15 gm PO PRN PRN; Protocol PRN Reason: FOR BG 50-69 IN ALERT PATIENT Stop: 06/12/16 15:56 Glucose (Glutose 40% Gel 15 Gm Tube) 30 gm PO PRN PRN; Protocol PRN Reason: FOR BG < 50 IN ALERT PATIENT Stop: 06/12/16 15:56 Heparin Sodium (Porcine) (Heparin Inj 5,000 Units/Ml 1 Ml Syringe) 5,000 unit SUBCUT Q8 DANIELLE Stop: 06/11/16 21:59 Last Admin: 05/14/16 05:05 Dose: 5,000 unit Levofloxacin/Dextrose (Levaquin Rtu 500mg/D5w 100 Ml Premix) 100 mls @ 100 mls/ hr IV Q2DAYS DANIELLE Stop: 05/21/16 09:59 Piperacillin Sod/Tazobactam (Sod 2.25 gm/ Sodium Chloride) 50 mls @ 100 mls/hr IV Q8 DANIELLE Stop: 05/19/16 21:59 Last Admin: 05/14/16 05:06 Dose: 2.25 gm Vancomycin HCl 1,000 mg/ (Dextrose) 250 mls @ 166.667 mls/hr IV QAM [facility] Stop: 05/21/16 07:59 Micafungin Sodium 150 mg/ (Sodium Chloride) 100 mls @ 100 mls/hr IV DAILY DANIELLE Stop: 05/21/16 09:59 Insulin Glargine (Lantus Insulin Inj 300 Unit/3 Ml Pen) 20 unit SUBCUT Q12 DANIELLE Stop: 06/13/16 09:59 Insulin Human Lispro (Humalog Insulin 100 Unit/1 Ml 3 Ml Vial) 0 - 12 unit SUBCUT ACHSP PRN PRN Reason: Protocol Stop: 06/12/16 15:56 Last Admin: 05/13/16 22:00 Dose: 6 unit Latanoprost (Xalatan 0.005% Oph Soln 2.5 Ml) 1 drop OU QHS DANIELLE Stop: 06/12/16 21:59 Last Admin: 05/13/16 22:00 Dose: 1 drop Levothyroxine Sodium (Synthroid 0.088 Mg Tablet) 0.088 mg PO DAILY DANIELLE Stop: 06/13/16 09:59 Lorazepam (Ativan 0.5 Mg Tablet) 0.5 mg PO Q8HP PRN PRN Reason: ANXIETY Stop: 05/20/16 15:56 Last Admin: 05/13/16 20:16 Dose: 0.5 mg Methylprednisolone Sodium Succinate (Solu-Medrol Inj/Pf 125 Mg/2 Ml Sdv) 125 mg IV Q8 DANIELLE Stop: 06/11/16 21:59 Last Admin: 05/14/16 05:04 Dose: 125 mg Metoprolol Tartrate (Lopressor 50 Mg Tablet) 50 mg PO Q12A DANIELLE Stop: 06/12/16 17:59 Last Admin: 05/14/16 05:06 Dose: 50 mg Midodrine (Proamatine 5 Mg Tablet) 2.5 mg PO BID DANIELLE Stop: 06/12/16 17:59 Last Admin: 05/13/16 17:27 Dose: 2.5 mg Pantoprazole Sodium (Protonix Iv Inj 40 Mg Vial) 40 mg IV Q12A DANIELLE Stop: 05/17/16 05:59 Last Admin: 05/14/16 05:07 Dose: 40 mg Sodium Chloride (Saline Flush 2.5 Ml Monoject Prefil Syrin) 2.5 ml IV Q8 DANIELLE Stop: 06/11/16 21:59 Last Admin: 05/14/16 05:07 Dose: 2.5 ml - Allergies Allergies/Adverse Reactions: indomethacin [From Indocin] Allergy (Unknown, Verified 01/09/16 12:57) - Diet/Activity Discharge Diet: Cardiac, Diabetic Discharge Activity: Activity As Tolerated Hospital Course Hospital Course: DIAMOND KHAN is a 70 year old male with past history of COPD, chronic respiratory failure on trach, CRE, presents by EMS after he was having increased shortness of breath, increased secretions from trach and fever since this morning. Temperature was 102 and he was given 1 g of Tylenol by EMS prior to arrival. The patient was seen in the emergency room last night for urinary retention. He denies chest pain, flank pain, abdominal pain, headache, neck stiffness, nausea, vomiting Upon evaluation in the emergency room the patient was found in mild respiratory distress with acute on chronic respiratory failure A chest x-ray was suggestive of CHF and or pneumonia Patient was febrile with leukocytosis had a high lactic acid He was treated with antibiotics , IV fluids and subsequently admitted to the intensive care unit for further evaluation and care Upon initial evaluation the patient a was diagnosed of pneumonia and early sepsis Treated with fluid boluses and broad-spectrum antibiotics A chest x-ray was suggestive of CHF and or pneumonia IV fluids were discontinued and Lasix was added Patient's respiratory status improved and stabilized He is currently stable. With an O2 sat of 99% on 28% oxygen trach collar CK disease stage IV appears stable with a GFR of 19 Uncontrolled diabetes His hemoglobin A1c is more than 14 ; he was maintained on just 30 units of Lantus at night We increased his Lantus insulin to 20 units subcutaneous every 12; and continued lispro coverage Patient had elevated troponins on admission 05/12/16 05/13/16 05/13/16 16:20 00:10 06:30 Troponin I 0.219 0.193 0.145 05/13/16 12:55 Troponin I 0.099 The troponins are now in a downward trend ; EKGs were unchanged Elevated troponins were likely secondary to sepsis and hypoxemia Previous echocardiogram showed an EF of 35% with diastolic dysfunction Echocardiogram is pending prior to transfer Fungemia It is the reason for the transfer The source is unclear; patient does not have any indwelling catheters HARRISON is not available in our facility Micafungin IV was initiated prior to transfer after discussing the case with Dr. Carreon Physical Exam Vital Signs: Temp Pulse Resp BP Pulse Ox 97.1 F 64 21 H 140/78 H 98 05/14/16 08:00 05/13/16 23:00 05/14/16 06:00 05/14/16 04:08 05/14/16 00:52 Intake & Output 05/13/16 05/14/16 05/15/16 00:59 00:59 00:59 Intake Total 1130 100 Output Total 2900 675 Balance -1770 -575 Weight 138.3 kg 138.3 kg 137 kg General appearance: PRESENT: no acute distress Head exam: PRESENT: atraumatic, normocephalic Eye exam: PRESENT: conjunctiva pink, EOMI, PERRLA. ABSENT: scleral icterus Neck exam: ABSENT: carotid bruit, JVD, lymphadenopathy, thyromegaly Respiratory exam: PRESENT: decreased breath sounds. ABSENT: rales, rhonchi, wheezes Cardiovascular exam: PRESENT: RRR. ABSENT: diastolic murmur, rubs, systolic murmur GI/Abdominal exam: PRESENT: distended, normal bowel sounds, soft. ABSENT: guarding, mass, organolmegaly, rebound, tenderness Neurological exam: PRESENT: alert, awake, oriented to person, oriented to place , oriented to time, oriented to situation, CN II-XII grossly intact. ABSENT: motor sensory deficit Results Laboratory Results: 05/13/16 06:30 05/13/16 05/13/16 05/13/16 00:10 00:10 06:30 Creatine Kinase 2109 H 1399 H CK-MB (CK-2) 3.57 Troponin I 0.193 NT-Pro-B Natriuret Pep 05/13/16 05/13/16 05/13/16 06:30 12:55 12:55 Creatine Kinase 954 H CK-MB (CK-2) 3.18 3.05 Troponin I 0.145 0.099 NT-Pro-B Natriuret Pep 65353 H 05/12/16 16:20 05/13/16 06:30 MCV 80 fl (80-97) 05/12/16 16:20 MCH 26.9 pg (27.0-33.4) L 05/12/16 16:20 MCHC 33.4 g/dL (32.0-36.0) 05/12/16 16:20 RDW 16.8 % (11.5-14.0) H 05/12/16 16:20 Seg Neutrophils % Not Reportable 05/12/16 16:20 Lymphocytes % Not Reportable 05/12/16 16:20 Monocytes % Not Reportable 05/12/16 16:20 Eosinophils % Not Reportable 05/12/16 16:20 Basophils % Not Reportable 05/12/16 16:20 Absolute Neutrophils Not Reportable 05/12/16 16:20 Absolute Lymphocytes Not Reportable 05/12/16 16:20 Absolute Monocytes Not Reportable 05/12/16 16:20 Absolute Eosinophils Not Reportable 05/12/16 16:20 Absolute Basophils Not Reportable 05/12/16 16:20 Chloride 100 mmol/L (98-107) 05/13/16 06:30 Carbon Dioxide 21 mmol/L (22-30) L 05/13/16 06:30 Anion Gap 17 (5-19) 05/13/16 06:30 Est GFR ( Amer) 23 (>60) L 05/13/16 06:30 Est GFR (Non-Af Amer) 19 (>60) L 05/13/16 06:30 Glucose 206 mg/dL (75-110) H 05/13/16 06:30 Lactic Acid 1.8 mmol/L (0.7-2.1) 05/12/16 16:20 Calcium 9.2 mg/dL (8.4-10.2) 05/13/16 06:30 Total Bilirubin 1.0 mg/dL (0.2-1.3) 05/12/16 16:20 AST 63 U/L (17-59) H 05/12/16 16:20 ALT 29 U/L (21-72) 05/12/16 16:20 Alkaline Phosphatase 63 U/L (38-126) 05/12/16 16:20 Total Protein 6.2 g/dL (6.3-8.2) L 05/12/16 16:20 Albumin 3.2 g/dL (3.5-5.0) L 05/12/16 16:20 TSH 0.76 uIU/mL (0.47-4.68) 05/13/16 06:30 Urine Color YELLOW 05/12/16 18:00 Urine Appearance CLOUDY 05/12/16 18:00 Urine pH 5.0 (5.0-9.0) 05/12/16 18:00 Ur Specific [place] 1.010 05/12/16 18:00 Urine Protein 100 mg/dL (NEGATIVE) H 05/12/16 18:00 Urine Glucose (UA) NEGATIVE mg/dL (NEGATIVE) 05/12/16 18:00 Urine Ketones NEGATIVE mg/dL (NEGATIVE) 05/12/16 18:00 Urine Blood LARGE (NEGATIVE) H 05/12/16 18:00 Urine Nitrite NEGATIVE (NEGATIVE) 05/12/16 18:00 Ur Leukocyte Esterase LARGE (NEGATIVE) H 05/12/16 18:00 Urine WBC (Auto) >182 /HPF 05/12/16 18:00 Urine RBC (Auto) >182 /HPF 05/12/16 18:00 05/12/16 05/12/16 05/13/16 16:20 16:20 00:10 Creatine Kinase 1509 H 2109 H CK-MB (CK-2) Troponin I 0.219 NT-Pro-B Natriuret Pep 18365 H 05/13/16 05/13/16 05/13/16 00:10 06:30 06:30 Creatine Kinase 1399 H CK-MB (CK-2) 3.57 3.18 Troponin I 0.193 0.145 NT-Pro-B Natriuret Pep 47876 H 05/13/16 05/13/16 12:55 12:55 Creatine Kinase 954 H CK-MB (CK-2) 3.05 Troponin I 0.099 NT-Pro-B Natriuret Pep 05/13/16 02:00 Gram Stain - Preliminary Tracheal Aspirate Sputum Culture - Preliminary 05/12/16 18:15 Blood Culture - Preliminary Blood YEAST 05/12/16 18:00 Urine Culture - Preliminary Catheterized Urine NO GROWTH IN 1 DAY 05/12/16 16:20 Blood Culture - Preliminary Blood YEAST Impressions: Chest X-Ray 05/13/16 06:00 IMPRESSION: STABLE APPEARANCE OF THE CHEST. SUPPORT DEVICES UNCHANGED. Plan Discharge Plan: Transfer to [facility] when a bed is available Time Spent: Greater than 30 Minutes
[2016-05-14] MEDS: INSULIN GLARGINE,HUM.REC.ANLOG 300 UNIT/3 ML INSULN.PEN SUBCUT SCH ×2 (09:17→22:31)
[2016-05-14] MEDS: VANCOMYCIN HCL 1,000 MG in DEXTROSE 5%-WATER 250 ML IV SCH (09:18)
[2016-05-14] MEDS: MIDODRINE HCL 5 MG TABLET PO SCH ×2 (09:19→18:20)
[2016-05-14] MEDS: ESCITALOPRAM OXALATE 10 MG TABLET PO SCH (09:19)
[2016-05-14] MEDS: AMLODIPINE BESYLATE 5 MG TABLET PO SCH (09:19)
[2016-05-14] MEDS: CHLORHEXIDINE GLUCONATE 0.12% ORAL RINSE 15 ML UDC PO SCH ×2 (09:19→18:14)
[2016-05-14] MEDS: LEVOTHYROXINE SODIUM 0.088 MG TABLET PO SCH (09:20)
[2016-05-14] MEDS: ASPIRIN 81 MG TABLET, ENT COATED PO SCH (09:20)
[2016-05-14] MEDS: DOCUSATE SODIUM 100 MG CAPSULE PO SCH (09:37)
[2016-05-14] MEDS ORDERED: DOCUSATE SODIUM 100 MG PO SCH (10:00)
[2016-05-14] MEDS ORDERED: LEVOFLOXACIN 500 MG/D5W RTU 100 ML IV SCH (10:00)
[2016-05-14] MEDS ORDERED: FUROSEMIDE 40 MG TABLET PO SCH (10:00)
[2016-05-14] MEDS: MICAFUNGIN SODIUM 150 MG in NORMAL SALINE 100 ML IV SCH (10:37)
[2016-05-14] MEDS: LORAZEPAM 0.5 MG TABLET PO PRN ×2 (12:05→19:49)
[2016-05-14 15:02] LABS: PATH REVIEW PATHOLOGIST REVIEWED
[2016-05-14] MEDS: OXYCODONE HCL IR 5 MG TABLET PO PRN ×2 (15:56→22:30)
--- NOTE | 2016-05-14 16:42 | XCELERA REPORT ---
[address] [address] Transthoracic Echocardiogram Report Name: DIAMOND KHAN Age: 70 yrs Gender: Male : 1945 Patient Status: Inpatient Patient Location: ICU\S\609\S\A Study Date: 05/14/2016 10:06 AM Height: 66 in Weight: 302 lb BSA: 2.4 m2 Procedure: A complete two-dimensional transthoracic echocardiogram was performed (2D, M-mode, spectral and color flow Doppler). The study was technically difficult with many images being suboptimal in quality. Reason For Study: yeast in blood R/O endocarditis Ordering Physician: JASON WETZEL Performed By: Dwain Bravo Interpretation Summary LV EF is 50% Left ventricular systolic function is borderline reduced. The study was technically difficult with many images being suboptimal in quality. Doppler measurements suggest impaired left ventricular relaxation, which is associated with grade I/IV or mild diastolic dysfunction There is mild concentric left ventricular hypertrophy. The left ventricle is grossly normal size. Regional wall motion abnormalities cannot be excluded due to limited visualization. The right ventricular systolic function is normal. The left atrium is mildly dilated. The right atrium is mildly dilated. There is a trace amount of mitral regurgitation There is no mitral valve stenosis. No aortic regurgitation is present. There is no aortic valve stenosis There is a trace or physiologic amount of tricuspid regurgitation Tricuspid regurgitation jet envelope not well defined to measure RV systolic pressure accurately. The aortic root is not well visualized. The inferior vena cava was not well visualized There is no pericardial effusion. MMode/2D Measurements \T\ Calculations RVDd: 3.9 cm LVIDd: 6.1 cm FS: 26.2 % Ao root diam: 3.8 cm IVSd: 1.4 cm LVIDs: 4.5 cm EDV(Teich): 184.8 ml LVPWd: 1.2 cm ESV(Teich): 91.4 ml Ao root area: 11.4 cm2 EF(Teich): 50.6 % LA dimension: 4.4 cm Doppler Measurements \T\ Calculations MV E max maggy: MV P1/2t max maggy: Ao V2 max: LV V1 max P.7 cm/sec 67.5 cm/sec 131.9 cm/sec 2.8 mmHg MV A max maggy: MV P1/2t: 78.2 msec Ao max PG: LV V1 max: 85.0 cm/sec 7.0 mmHg 84.4 cm/sec MV E/A: 0.76 MVA(P1/2t): 2.8 cm2 MV dec slope: 252.6 cm/sec2 PA V2 max: TR max maggy: RAP systole: 102.2 cm/sec 196.7 cm/sec 10.0 mmHg PA max PG: TR max P.5 mmHg 4.2 mmHg RVSP(TR): 25.5 mmHg Left Ventricle The left ventricle is grossly normal size. There is mild concentric left ventricular hypertrophy. Left ventricular systolic function is borderline reduced. LV EF is 50%. Doppler measurements suggest impaired left ventricular relaxation, which is associated with grade I/IV or mild diastolic dysfunction. Regional wall motion abnormalities cannot be excluded due to limited visualization. Right Ventricle The right ventricle is grossly normal size. There is normal right ventricular wall thickness. The right ventricular systolic function is normal. Atria The right atrium is mildly dilated. The left atrium is mildly dilated. Interarterial septum not well visualized and not well dopplered. Cannot comment on ASD/PFO presence. Mitral Valve There is mild mitral annular calcification. There is no mitral valve stenosis. There is a trace amount of mitral regurgitation. Aortic Valve The aortic valve is not well visualized secondary to technical limitations. There is no aortic valve stenosis. No aortic regurgitation is present. Tricuspid Valve The tricuspid valve is not well visualized secondary to technical limitations. There is no tricuspid stenosis. There is a trace or physiologic amount of tricuspid regurgitation. Tricuspid regurgitation jet envelope not well defined to measure RV systolic pressure accurately. Pulmonic Valve The pulmonic valve is not well visualized. Great Vessels The aortic root is not well visualized. The inferior vena cava was not well visualized. Effusions There is no pericardial effusion. : JASON WETZEL > Vilma Ruth
[2016-05-14] MEDS: INSULIN LISPRO 100 UNIT/ML 3 ML VIAL SUBCUT PRN ×2 (18:21→22:30)
[2016-05-14] MEDS: FAMOTIDINE 20 MG TABLET PO SCH (22:30)
[2016-05-14] MEDS: LATANOPROST 0.005% OPH SOLN 2.5 ML OU SCH (22:49)
[2016-05-15] MEDS ORDERED: METOPROLOL TARTRATE PF/INJ 5 MG/5 ML SDV IV ONE (01:15)
[2016-05-15] MEDS: OXYCODONE HCL IR 5 MG TABLET PO PRN (02:16)
[2016-05-15 04:40] LABS: ANION GAP 18 (5-19); BLOOD UREA NITROGEN 93 mg/dL (7-20); CARBON DIOXIDE 19 mmol/L (22-30); CHLORIDE 101 mmol/L (98-107); CREATININE RESULT 2.85 mg/dL (0.52-1.25); GLUCOSE 275 mg/dL (75-110); MAGNESIUM 2.1 mg/dL (1.6-2.3); POTASSIUM 4.1 mmol/L (3.6-5.0); SODIUM 138.3 mmol/L (137-145)
[2016-05-15] MEDS: HEPARIN SOD (PORCINE) 5,000 UNIT/ML 1 ML SYRINGE SUBCUT SCH ×3 (05:34→21:49)
[2016-05-15] MEDS: METHYLPREDNISOLONE INJ 125 MG/2 ML SDV IV SCH (05:34)
[2016-05-15] MEDS: PANTOPRAZOLE SODIUM 40 MG VIAL IV SCH ×2 (05:34→19:07)
[2016-05-15] MEDS: LORAZEPAM 0.5 MG TABLET PO PRN ×2 (05:35→16:04)
[2016-05-15] MEDS: PIPERACILLIN SODIUM/TAZOBACTAM 2.25 GM in NORMAL SALINE 50 ML IV SCH ×3 (05:35→21:52)
[2016-05-15] MEDS: METOPROLOL TARTRATE 50 MG TABLET PO SCH ×2 (05:35→19:06)
--- NOTE | 2016-05-15 08:10 | EKG REPORT ---
SEVERITY:- ABNORMAL ECG - SINUS TACHYCARDIA RIGHT BUNDLE BRANCH BLOCK BORDERLINE INFERIOR Q WAVES : Confirmed by: Camden Blank MD 15-May-2016 08:09:58
[2016-05-15] MEDS: IPRATROPIUM/ALBUTEROL 0.5-2.5 MG/3 ML AMPUL NEB SCH ×3 (08:31→20:47)
[2016-05-15] MEDS: BUDESONIDE NEB 0.5 MG/2 ML AMPUL NEB SCH ×2 (08:31→20:47)
[2016-05-15] MEDS: VANCOMYCIN HCL 1,000 MG in DEXTROSE 5%-WATER 250 ML IV SCH (08:32)
[2016-05-15] MEDS: INSULIN GLARGINE,HUM.REC.ANLOG 300 UNIT/3 ML INSULN.PEN SUBCUT SCH ×2 (09:22→21:50)
[2016-05-15] MEDS: MIDODRINE HCL 5 MG TABLET PO SCH ×2 (09:23→19:07)
[2016-05-15] MEDS: AMLODIPINE BESYLATE 5 MG TABLET PO SCH (09:24)
[2016-05-15] MEDS: ESCITALOPRAM OXALATE 10 MG TABLET PO SCH (09:24)
[2016-05-15] MEDS: ASPIRIN 81 MG TABLET, ENT COATED PO SCH (09:24)
[2016-05-15] MEDS: DOCUSATE SODIUM 100 MG CAPSULE PO SCH (09:25)
[2016-05-15] MEDS: LEVOTHYROXINE SODIUM 0.088 MG TABLET PO SCH (09:25)
[2016-05-15] MEDS: CHLORHEXIDINE GLUCONATE 0.12% ORAL RINSE 15 ML UDC PO SCH ×2 (09:25→19:07)
[2016-05-15] MEDS: MICAFUNGIN SODIUM 150 MG in NORMAL SALINE 100 ML IV SCH (10:36)
--- NOTE | 2016-05-15 12:55 | PDOC PROGRESS REPORT ---
Subjective Progress Note for:: 05/15/16 Subjective:: Reason for visit: Follow-up respiratory failure, congestive heart failure, fungemia Hospital course: Per transfer summary "DIAMOND KHAN is a 70 year old male with past history of COPD, chronic respiratory failure on trach, CRE, presents by EMS after he was having increased shortness of breath, increased secretions from trach and fever since this morning. Temperature was 102 and he was given 1 g of Tylenol by EMS prior to arrival. The patient was seen in the emergency room last night for urinary retention. He denies chest pain, flank pain, abdominal pain, headache, neck stiffness, nausea, vomiting Upon evaluation in the emergency room the patient was found in mild respiratory distress with acute on chronic respiratory failure A chest x-ray was suggestive of CHF and or pneumonia Patient was febrile with leukocytosis had a high lactic acid He was treated with antibiotics , IV fluids and subsequently admitted to the intensive care unit for further evaluation and care Upon initial evaluation the patient a was diagnosed of pneumonia and early sepsis Treated with fluid boluses and broad-spectrum antibiotics A chest x-ray was suggestive of CHF and or pneumonia IV fluids were discontinued and Lasix was added Patient's respiratory status improved and stabilized He is currently stable. With an O2 sat of 99% on 28% oxygen trach collar CK disease stage IV appears stable with a GFR of 19 Uncontrolled diabetes His hemoglobin A1c is more than 14 ; he was maintained on just 30 units of Lantus at night We increased his Lantus insulin to 20 units subcutaneous every 12; and continued lispro coverage Patient had elevated troponins on admission" Subjective: The patient is awaiting bed [facility] [place]. He remained stable. He denies chest pain, palpitations, states he is short of breath with exertion but okay at rest and feels significantly better than when he arrived. Physical Exam Vital Signs: Temp Pulse Resp BP Pulse Ox 97.3 F 121 H 18 107/88 H 97 05/15/16 08:00 05/15/16 08:31 05/15/16 08:31 05/15/16 08:00 05/15/16 08:31 Intake & Output 05/14/16 05/15/16 05/16/16 06:59 06:59 06:59 Intake Total 1180 2510 177 Output Total 9909 6620 225 Balance -1495 -930 -48 Weight 137 kg 134.7 kg EXAM GENERAL: NAD; well developed, well nourished; morbid obese; alert and oriented to person, place, time, situation HEENT: normocephalic, atraumatic; no conjunctival injection, no scleral icterus ; oral mucosa moist; RESPIRATORY: no accessory muscle use, no increased WOB, good air entry bilaterally; no wheezes, rales, rhonchi; bilateral inspiratory crackles CARDIO: no JVD; RRR; no systolic murmur; sinus tachycardia GI: soft; nondistended; normal bowel sounds; massive pannus; no rebound, rigidity, guarding; nontender VASCULAR: no pallor; 2+ radial, DP pulse; normal capillary refill EXTREMITIES: no calf tender; no palpable cords in calf; no clubbing, cyanosis ; 1+ pedal edema PSYCH: normal affect, normal mood SKIN: warm; moist; no petechiae; no telengectasias; no jaundice; no rash Results Laboratory Results: 05/15/16 03:57 05/15/16 03:57 Sodium 138.3 Potassium 4.1 Chloride 101 Carbon Dioxide 19 L Anion Gap 18 BUN 93 H Creatinine 2.85 H Est GFR ( Amer) 27 L Est GFR (Non-Af Amer) 22 L Glucose 275 H Calcium 9.0 Magnesium 2.1 05/13/16 02:00 Tracheal Aspirate Gram Stain - Final 05/13/16 02:00 Tracheal Aspirate Sputum Culture - Final *Cre*Klebsiella Pneumoniae Corynebacterium Striatum Normal Jinny Absent 05/13/16 05/13/16 05/13/16 00:10 00:10 06:30 Creatine Kinase 2109 H 1399 H CK-MB (CK-2) 3.57 Troponin I 0.193 NT-Pro-B Natriuret Pep 05/13/16 05/13/16 05/13/16 06:30 12:55 12:55 Creatine Kinase 954 H CK-MB (CK-2) 3.18 3.05 Troponin I 0.145 0.099 NT-Pro-B Natriuret Pep 79414 H Impressions: Chest X-Ray 05/13/16 06:00 IMPRESSION: STABLE APPEARANCE OF THE CHEST. SUPPORT DEVICES UNCHANGED. Status: Imported from PACS Assessment & Plan - Diagnosis (1) Fungemia Is this a current diagnosis for this admission?: YesPlan: Continue micafungin. Awaiting transfer for trans-esophageal echocardiogram. (2) HCAP (healthcare-associated pneumonia) Is this a current diagnosis for this admission?: YesPlan: Continue current antibiotic coverage. (3) Acute and chronic respiratory failure Is this a current diagnosis for this admission?: YesPlan: Stable. (4) Congestive heart failure Qualifiers: Congestive heart failure type: combined Congestive heart failure chronicity: acute on chronic Qualified Code(s): I50.43 - Acute on chronic combined systolic (congestive) and diastolic (congestive) heart failure Is this a current diagnosis for this admission?: YesPlan: Seems compensated at present, we'll discontinue IV Lasix especially in light of his developing tachycardia (5) Diabetes mellitus Qualifiers: Diabetes mellitus type: type 2 Diabetes mellitus complication status: with kidney complications Diabetes mellitus complication detail: with chronic kidney disease Diabetes mellitus retirement insulin use: with retirement use Chronic kidney disease stage: stage 4 (severe) Qualified Code(s): E11.22 - Type 2 diabetes mellitus with diabetic chronic kidney disease ; N18.4 - Chronic kidney disease, stage 4 (severe); Z79.4 - correction (current) use of insulin Is this a current diagnosis for this admission?: YesPlan: Continue insulin coverage and begin to wean systemic steroids. - Time Time Spent with patient: 25-34 minutes Medications reviewed and adjusted accordingly: Yes Anticipated discharge: [facility] Within: within 24 hours
[2016-05-15] MEDS ORDERED: NORMAL SALINE 500 ML IV ONE (14:45)
--- NOTE | 2016-05-15 18:26 | EKG REPORT ---
SEVERITY:- ABNORMAL ECG - SINUS TACHYCARDIA FIRST DEGREE AV BLOCK LEFT ATRIAL ABNORMALITY RIGHT BUNDLE BRANCH BLOCK BORDERLINE INFERIOR Q WAVES : Confirmed by: Camden Blank MD 15-May-2016 18:25:27
[2016-05-15] MEDS: METHYLPREDNISOLONE INJ 40 MG/1 ML SDV IV SCH (19:08)
[2016-05-15] MEDS: METOPROLOL TARTRATE PF/INJ 5 MG/5 ML SDV IV PRN (19:48)
[2016-05-15] MEDS: FAMOTIDINE 20 MG TABLET PO SCH (21:49)
[2016-05-15] MEDS: LATANOPROST 0.005% OPH SOLN 2.5 ML OU SCH (23:05)
[2016-05-16] MEDS: METOPROLOL TARTRATE PF/INJ 5 MG/5 ML SDV IV PRN ×2 (01:45→12:12)
[2016-05-16 04:09] LABS: ABSOLUTE LYMPHOCYTES (AUTO) 0.4 10^3/uL (0.5-4.7); ABSOLUTE MONOCYTES (AUTO) 0.3 10^3/uL (0.1-1.4); BASOPHILS % (AUTO) 0.2 % (0-2); EOSINOPHILS % (AUTO) 0.1 % (0-6); HEMATOCRIT 28.3 % (37.9-51.0); HEMOGLOBIN 9.6 g/dL (13.5-17.0); HGB HCT DIFFERENCE 0.5; LYMPHOCYTES % (AUTO) 5.4 % (13-45); MEAN CORPUSCULAR HEMOGLOBIN 27.3 pg (27.0-33.4); MEAN CORPUSCULAR HGB CONC 33.8 g/dL (32.0-36.0); MEAN CORPUSCULAR VOLUME 81 fl (80-97); MONOCYTES % (AUTO) 3.6 % (3-13); SEGMENTED NEUTROPHILS % (AUTO) 90.7 % (42-78); WHITE BLOOD COUNT 7.7 10^3/uL (4.0-10.5)
[2016-05-16 04:13] LABS: ALANINE AMINOTRANSFERASE 31 U/L (21-72); ALBUMIN 3.3 g/dL (3.5-5.0); ALKALINE PHOSPHATASE 53 U/L (38-126); ANION GAP 18 (5-19); ASPARTATE AMINO TRANSFERASE 22 U/L (17-59); BILIRUBIN,DIRECT 0.5 mg/dL (0.0-0.4); BILIRUBIN,TOTAL 0.6 mg/dL (0.2-1.3); BLOOD UREA NITROGEN 95 mg/dL (7-20); CARBON DIOXIDE 20 mmol/L (22-30); CHLORIDE 100 mmol/L (98-107); CREATININE RESULT 2.82 mg/dL (0.52-1.25); GLUCOSE 277 mg/dL (75-110); MAGNESIUM 2.2 mg/dL (1.6-2.3); PHOSPHORUS 5.4 mg/dL (2.5-4.5); POTASSIUM 4.1 mmol/L (3.6-5.0); SODIUM 138.1 mmol/L (137-145); TOTAL PROTEIN 6.3 g/dL (6.3-8.2)
[2016-05-16] MEDS: HEPARIN SOD (PORCINE) 5,000 UNIT/ML 1 ML SYRINGE SUBCUT SCH ×3 (04:59→22:07)
[2016-05-16] MEDS: PANTOPRAZOLE SODIUM 40 MG VIAL IV SCH ×2 (05:00→17:37)
[2016-05-16] MEDS: METHYLPREDNISOLONE INJ 40 MG/1 ML SDV IV SCH (05:00)
[2016-05-16] MEDS: METOPROLOL TARTRATE 50 MG TABLET PO SCH ×2 (05:02→17:38)
[2016-05-16] MEDS: PIPERACILLIN SODIUM/TAZOBACTAM 2.25 GM in NORMAL SALINE 50 ML IV SCH ×2 (05:04→14:18)
[2016-05-16] MEDS: VANCOMYCIN HCL 1,000 MG in DEXTROSE 5%-WATER 250 ML IV SCH (07:45)
[2016-05-16] MEDS ORDERED: IPRATROPIUM BROMIDE 0.02% NEB 0.5 MG/2.5 ML AMPUL NEB PRN (08:12)
[2016-05-16] MEDS ORDERED: LEVOFLOXACIN 750 MG TABLET PO SCH (10:00)
[2016-05-16] MEDS: INSULIN LISPRO 100 UNIT/ML 3 ML VIAL SUBCUT PRN (10:13)
[2016-05-16] MEDS: INSULIN GLARGINE,HUM.REC.ANLOG 300 UNIT/3 ML INSULN.PEN SUBCUT SCH ×2 (10:14→22:09)
[2016-05-16] MEDS: BUDESONIDE NEB 0.5 MG/2 ML AMPUL NEB SCH ×2 (10:14→20:26)
[2016-05-16] MEDS: ASPIRIN 81 MG TABLET, ENT COATED PO SCH (10:15)
[2016-05-16] MEDS: LEVOTHYROXINE SODIUM 0.088 MG TABLET PO SCH (10:16)
[2016-05-16] MEDS: ESCITALOPRAM OXALATE 10 MG TABLET PO SCH (10:16)
[2016-05-16] MEDS: MIDODRINE HCL 5 MG TABLET PO SCH ×2 (10:16→17:37)
[2016-05-16] MEDS: MICAFUNGIN SODIUM 150 MG in NORMAL SALINE 100 ML IV SCH (10:17)
[2016-05-16] MEDS: DOCUSATE SODIUM 100 MG CAPSULE PO SCH (10:17)
[2016-05-16] MEDS: CHLORHEXIDINE GLUCONATE 0.12% ORAL RINSE 15 ML UDC PO SCH ×2 (10:17→17:37)
--- NOTE | 2016-05-16 15:40 | PDOC PROGRESS REPORT ---
Subjective Progress Note for:: 05/16/16 Subjective:: Reason for visit: Follow-up respiratory failure, congestive heart failure, fungemia Hospital course: Per transfer summary from Dr Smith: "DIAMOND KHAN is a 70 year old male with past history of COPD, chronic respiratory failure on trach, CRE, presents by EMS after he was having increased shortness of breath, increased secretions from trach and fever since this morning. Temperature was 102 and he was given 1 g of Tylenol by EMS prior to arrival. The patient was seen in the emergency room last night for urinary retention. He denies chest pain, flank pain, abdominal pain, headache, neck stiffness, nausea, vomiting Upon evaluation in the emergency room the patient was found in mild respiratory distress with acute on chronic respiratory failure A chest x-ray was suggestive of CHF and or pneumonia Patient was febrile with leukocytosis had a high lactic acid He was treated with antibiotics , IV fluids and subsequently admitted to the intensive care unit for further evaluation and care Upon initial evaluation the patient a was diagnosed of pneumonia and early sepsis Treated with fluid boluses and broad-spectrum antibiotics A chest x-ray was suggestive of CHF and or pneumonia IV fluids were discontinued and Lasix was added Patient's respiratory status improved and stabilized He is currently stable. With an O2 sat of 99% on 28% oxygen trach collar CK disease stage IV appears stable with a GFR of 19 Uncontrolled diabetes His hemoglobin A1c is more than 14 ; he was maintained on just 30 units of Lantus at night We increased his Lantus insulin to 20 units subcutaneous every 12; and continued lispro coverage Patient had elevated troponins on admission" - per dr smith presumably due to hypoxia and sepsis on admission his blood cultures are positive for fungus, not dewayne, and awaiting final reports from state lab. micafungin started 05/14/16. 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 I inherited his care 05/15/16 and he is still awaiting bed availability at [facility] in [place]. His HR is climbing into the 130's sustained sinus tach. He denies chest pain, palpitations, states he is short of breath with exertion but okay at rest and feels significantly better than when he arrived. I tried adding a low dose NS bolus thinking maybe we had over-diuresed him but it had no effect on either his HR or fortunately his breathing. I increased his metoprolol from 50mg bid to 75mg bid and added prn IV lopressor which gets his HR down but only temporarily. Subjective: still having tachycardia but is completely asymptomatic; ready to get on with transfer to [facility] but still no beds available. denies fevers/ chills, myalgias/arthralgias, N/V/D though he was incontinent of stool this morning. ROS: per HPI plus a total of 10 systems reviewed, pertinent positives and negatives noted above, remaining systems negative. Physical Exam Vital Signs: Temp Pulse Resp BP Pulse Ox 97.9 F 84 19 133/87 H 97 05/16/16 08:00 05/16/16 10:14 05/16/16 10:14 05/16/16 04:08 05/16/16 10:14 Intake & Output 05/15/16 05/16/16 05/17/16 06:59 06:59 06:59 Intake Total 2510 427 120 Output Total 3440 2217 350 Balance -930 -1790 -230 Weight 134.7 kg 136.6 kg EXAM GENERAL: NAD; well developed, well nourished; morbid obese; alert and oriented to person, place, time, situation HEENT: normocephalic, atraumatic; no conjunctival injection, no scleral icterus ; oral mucosa moist; trach has rim of erythema but no exudates or judy cellulitis, trach collar in place on FiO2 28% RESPIRATORY: no accessory muscle use, no increased WOB, good air entry bilaterally; no wheezes, rales, rhonchi; bilateral inspiratory crackles laterally and at the bases CARDIO: no JVD; no systolic murmur; sinus tachycardia GI: soft; nondistended; normal bowel sounds; massive pannus; no rebound, rigidity, guarding; nontender; + BM VASCULAR: no pallor; 2+ radial, DP pulse; normal capillary refill EXTREMITIES: no calf tender; no palpable cords in calf; no clubbing, cyanosis ; 1+ pedal edema PSYCH: normal affect, normal mood SKIN: warm; moist; no petechiae; no telengectasias; no jaundice; no rash Results Laboratory Results: 05/16/16 03:37 05/16/16 03:37 05/16/16 05/16/16 05/16/16 03:37 03:37 03:37 WBC 7.7 RBC 3.50 L Hgb 9.6 L Hct 28.3 L MCV 81 MCH 27.3 MCHC 33.8 RDW 17.0 H Plt Count 149 L Seg Neutrophils % 90.7 H Lymphocytes % 5.4 L Monocytes % 3.6 Eosinophils % 0.1 Basophils % 0.2 Absolute Neutrophils 7.0 Absolute Lymphocytes 0.4 L Absolute Monocytes 0.3 Absolute Eosinophils 0.0 Absolute Basophils 0.0 Sodium 138.1 Potassium 4.1 Chloride 100 Carbon Dioxide 20 L Anion Gap 18 BUN 95 H Creatinine 2.82 H Est GFR ( Amer) 27 L Est GFR (Non-Af Amer) 22 L Glucose 277 H Lactic Acid 2.4 H Calcium 9.0 Phosphorus 5.4 H Magnesium 2.2 Total Bilirubin 0.6 AST 22 ALT 31 Alkaline Phosphatase 53 Total Protein 6.3 Albumin 3.3 L 05/13/16 02:00 Tracheal Aspirate Gram Stain - Final 05/13/16 02:00 Tracheal Aspirate Sputum Culture - Final *Cre*Klebsiella Pneumoniae Corynebacterium Striatum Normal Jinny Absent 05/13/16 05/13/16 05/13/16 00:10 00:10 06:30 Creatine Kinase 2109 H 1399 H CK-MB (CK-2) 3.57 Troponin I 0.193 NT-Pro-B Natriuret Pep 05/13/16 05/13/16 05/13/16 06:30 12:55 12:55 Creatine Kinase 954 H CK-MB (CK-2) 3.18 3.05 Troponin I 0.145 0.099 NT-Pro-B Natriuret Pep 26387 H 05/16/16 03:37 Creatine Kinase CK-MB (CK-2) Troponin I 0.014 NT-Pro-B Natriuret Pep Assessment & Plan - Diagnosis (1) Fungemia Is this a current diagnosis for this admission?: YesPlan: Continue micafungin. Awaiting transfer for trans-esophageal echocardiogram. repeat blood cultures to see if clearing while we await transfer. d/c systemic steroids and monitor for hemodynamic instability/adrenal suppression. (2) HCAP (healthcare-associated pneumonia) Is this a current diagnosis for this admission?: YesPlan: Presumptive diagnosis, Continue current antibiotic coverage. consult pulmonary for possible bronch and BAL for culture, particularly in light of CRE in tracheal aspirate. (3) Acute and chronic respiratory failure Qualifiers: Respiratory failure complication: hypoxia Qualified Code(s): J96.21 - Acute and chronic respiratory failure with hypoxia Is this a current diagnosis for this admission?: YesPlan: No real change from yesterday. continue current care. Ck ct chest without contrast due to renal insufficiency to r/o pneumonia vs CHF (4) Congestive heart failure Qualifiers: Congestive heart failure type: combined Congestive heart failure chronicity: acute on chronic Qualified Code(s): I50.43 - Acute on chronic combined systolic (congestive) and diastolic (congestive) heart failure Is this a current diagnosis for this admission?: YesPlan: Seems at least marginally compensated at present, intermittent IV Lasix only as needed, especially in light of his refractory tachycardia. consult cardiology for their assistance. (5) Diabetes mellitus Qualifiers: Diabetes mellitus type: type 2 Diabetes mellitus complication status: with kidney complications Diabetes mellitus complication detail: with chronic kidney disease Diabetes mellitus correction insulin use: with correction use Chronic kidney disease stage: stage 4 (severe) Qualified Code(s): E11.22 - Type 2 diabetes mellitus with diabetic chronic kidney disease ; N18.1 - Chronic kidney disease, stage 1; Z79.4 - MCFP (current) use of insulin Is this a current diagnosis for this admission?: YesPlan: Continue insulin coverage and discontinue systemic steroids. (6) Elevated troponin Is this a current diagnosis for this admission?: YesPlan: probably Type 2 NSTEMI thought 2/2 demand ischemia from hypoxia. trending down. consult cardiology for their input. (7) Sepsis Qualifiers: Sepsis type: sepsis due to unspecified organism Qualified Code(s): A41.9 - Sepsis, unspecified organism Is this a current diagnosis for this admission?: YesPlan: evidenced by infection, tachycardia and hypoxia (8) Status post tracheostomy Is this a current diagnosis for this admission?: YesPlan: continue routine trach care. (9) Kidney disease, chronic, stage IV (GFR 15-29 ml/min) Is this a current diagnosis for this admission?: YesPlan: renal dose all antibiotics and avoid nephrotoxic meds. consult nephrology for their input. (10) Sinus tachycardia Is this a current diagnosis for this admission?: YesPlan: continue betablocker; consider adding clonidine as his BP will allow. d/c scheduled albuterol, using only prn xopenex at lowest dose. - Time Time Spent with patient: 35 or more minutes [facility] Within: within 24 hours
[2016-05-16] MEDS: OXYCODONE HCL IR 5 MG TABLET PO PRN (17:39)
[2016-05-16] MEDS ORDERED: NICARDIPINE HCL RTU, ISO-OS 20 MG/200 ML RTUINJ IV PRN (19:25)
[2016-05-16] MEDS ORDERED: DILTIAZEM HCL INJ 25 MG/5 ML VIAL IV ONE (19:30)
[2016-05-16] MEDS ORDERED: DILTIAZEM HCL/D5W 125 MG/125 ML RTUINJ IV PRN (19:39)
--- NOTE | 2016-05-16 20:46 | PDOC CONSULTATION ---
Consultation Consult Date: 05/16/16 Attending physician:: AJCKIE LOPES Consult reason:: Tachycardia, cardiac dysrhythmia History of Present Illness Admission Date/PCP: 05/12/16 19:09 Patient complains of: Tachycardia History of Present Illness: DIAMOND KHAN is a 70 year old male with past history of COPD, chronic respiratory failure on trach, CRE, presents by EMS after he was having increased shortness of breath, increased secretions from trach and fever since this morning. Temperature was 102 and he was given 1 g of Tylenol by EMS prior to arrival. The patient was seen in the emergency room last night for urinary retention. He denies chest pain, flank pain, abdominal pain, headache, neck stiffness, nausea, vomiting Upon evaluation in the emergency room the patient was found in mild respiratory distress with acute on chronic respiratory failure A chest x-ray was suggestive of CHF and or pneumonia Patient was febrile with leukocytosis had a high lactic acid He was treated with antibiotics , IV fluids and subsequently admitted to the intensive care unit for further evaluation and care. Patient has been noted to be tachycardic, mostly sinus tachycardia. However today he was noted to have persistent tachycardia in the 130s. Patient has baseline bundle branch block. I was therefore asked to evaluate patient because of persistent tachycardia. On questioning patient denied any chest pain. He has chronic shortness of breath. He seems to be maintaining his blood pressure well. Patient was observed for several minutes at the heart monitor. He had persistent tachycardia with heart rate at 1 36 bpm fixed indicative of some underlying ectopic rhythm disturbance. Subsequently patient was given IV Lopressor and also Cardizem and it seems patient has underlying atrial flutter fibrillation today. Previous EKGs and rhythm strips suggests sinus rhythm. Past Medical History Cardiac Medical History: Reports: Congestive Heart Failure, Coronary Artery Disease, Myocardial Infarction - 2004, Hyperlipidema, Hypertension Pulmonary Medical History: Reports: Chronic Obstructive Pulmonary Disease (COPD ) - home O2 at 2-4 lmp, Respiratory Failure - 4 L home oxygen dependent Endocrine Medical History: Reports: Diabetes Mellitus Type 2 Psychiatric Medical History: Reports: Depression Hematology: Reports: Anemia Past Surgical History Past Surgical History: Reports: Appendectomy, Coronary Artery Bypass Graft, Tonsillectomy, Other - Tracheostomy Social History Information Source: Patient Smoking Status: Unknown if Ever Smoked Frequency of Alcohol Use: None Hx Recreational Drug Use: No Drugs: None Hx Prescription Drug Abuse: No - Advance Directive Resuscitation Status: Full Code Surrogate healthcare decision maker:: Patient's Family History Family History: CAD Parental Family History Reviewed: Yes Children Family History Reviewed: Yes Sibling(s) Family History Reviewed.: Yes Medication/Allergy Home Medications: Aspirin [Aspirin EC] 81 mg PO DAILY 08/05/14 Docusate Sodium 100 mg PO DAILY 08/05/14 Lorazepam [Ativan 0.5 mg Tablet] 0.5 mg PO Q8HP PRN 01/08/16 Oxycodone HCl 5 mg PO Q6HP PRN 01/08/16 Budesonide [Pulmicort Neb 1 mg/2 mL Ampule] 1 inh PO RTBID 01/09/16 Chlorhexidine Gluconate 15 ml PO BID 01/09/16 Insulin Glargine,Hum.rec.anlog [Lantus Insulin 100 Unit/1 ml 10 ml] 30 unit SUBCUT QPM 01/09/16 Ipratropium/Albuterol Sulfate [Duoneb 3 ml Ampul] 3 ml NEB QID 01/09/16 Furosemide [Lasix 40 mg Tablet] 40 mg PO DAILY #90 tablet 01/12/16 Midodrine HCl [Proamatine 5 mg Tablet] 2.5 mg PO BID tablet 01/12/16 Colchicine [Colchicine 0.6 mg Tablet] 0.6 mg PO DAILY 05/13/16 Fluticasone Propionate [Flovent Hfa 44 Mcg Inhalation Aerosol 10.6 gm] 2 puff IH BID 05/13/16 Insulin Regular, Human [Novolin R (Reg) Insulin 100 unit/mL] 4 unit SUBCUT AC Lidocaine 1 applic TP DAILY 05/13/16 Metoprolol Tartrate [Lopressor 25 mg Tablet] 12.5 mg PO Q12 05/13/16 Nystatin 1 applic TP BID 05/13/16 Nystatin 1 each PO BID 05/13/16 Allergies/Adverse Reactions: indomethacin [From Indocin] Allergy (Unknown, Verified 01/09/16 12:57) Physical Exam Vital Signs: Temp Pulse Resp BP Pulse Ox 98.7 F 135 H 15 112/78 97 05/16/16 16:00 05/16/16 16:00 05/16/16 18:00 05/16/16 16:26 05/16/16 18:00 Intake & Output 05/15/16 05/16/1617 06:59 06:59 06:59 Intake Total 0960 427 1939 Output Total 5823 7007 1100 Balance -930 -1790 839 Weight 134.7 kg 136.6 kg Exam: GENERAL: well-nourished and in no acute distress. Alert and oriented x3 HEAD: Atraumatic, normocephalic. EYES: Pupils equal round and reactive to light, extraocular movements intact, sclera anicteric, conjunctiva are normal. ENT: TMs normal, nares patent, oropharynx clear without exudates. Moist mucous membranes. No oral ulcerations or bleeding gums noted NECK: supple without lymphadenopathy. Tracheostomy noted. No cervical or axillary lymphadenopathy noted. Carotids are 2+, JVD WNL LUNGS: Respiration seems nonlabored, no significant accessory muscle action noted. Bilateral basal fine crackles and mild wheezes noted CHEST: Palpation of the chest wall shows no significant chest wall tenderness. No other significant abnormalities noted. HEART: [place] STUDENT COUNSELLOR, No PSH, 1/6 CARLA aortic area, 1/6 [place] systolic murmur mitral area, no rubs, no gallops. ABDOMEN: Soft, no significant tenderness appreciated, normoactive bowel sounds. No guarding, no rebound. No rigidity noted . No masses appreciated. EXTREMITIES: Pedal pulses are 1-2+, no calf tenderness noted. No clubbing or cyanosis.1+ pedal edema noted NEUROLOGICAL: Focused neurological exam showed no significant neurologic deficit. Normal speech, no focal weakness appreciated. PSYCH: Normal mood, normal affect. Judgment and insight within normal limits. SKIN: No significant ecchymosis, rash, ulcerations or signs of pruritus noted. MUSCULOSKELETAL EXAM: No significant joint swelling noted. Results Laboratory Results: 05/16/16 03:37 05/16/16 03:37 05/16/16 05/16/16 05/16/16 03:37 03:37 03:37 WBC 7.7 RBC 3.50 L Hgb 9.6 L Hct 28.3 L MCV 81 MCH 27.3 MCHC 33.8 RDW 17.0 H Plt Count 149 L Seg Neutrophils % 90.7 H Lymphocytes % 5.4 L Monocytes % 3.6 Eosinophils % 0.1 Basophils % 0.2 Absolute Neutrophils 7.0 Absolute Lymphocytes 0.4 L Absolute Monocytes 0.3 Absolute Eosinophils 0.0 Absolute Basophils 0.0 Sodium 138.1 Potassium 4.1 Chloride 100 Carbon Dioxide 20 L Anion Gap 18 BUN 95 H Creatinine 2.82 H Est GFR ( Amer) 27 L Est GFR (Non-Af Amer) 22 L Glucose 277 H Lactic Acid 2.4 H Calcium 9.0 Phosphorus 5.4 H Magnesium 2.2 Total Bilirubin 0.6 AST 22 ALT 31 Alkaline Phosphatase 53 Total Protein 6.3 Albumin 3.3 L 05/13/16 05/13/16 05/13/16 00:10 00:10 06:30 Creatine Kinase 2109 H 1399 H CK-MB (CK-2) 3.57 Troponin I 0.193 NT-Pro-B Natriuret Pep 05/13/16 05/13/16 05/13/16 06:30 12:55 12:55 Creatine Kinase 954 H CK-MB (CK-2) 3.18 3.05 Troponin I 0.145 0.099 NT-Pro-B Natriuret Pep 56413 H 05/16/16 03:37 Creatine Kinase CK-MB (CK-2) Troponin I 0.014 NT-Pro-B Natriuret Pep Impressions: Chest X-Ray 05/13/16 06:00 IMPRESSION: STABLE APPEARANCE OF THE CHEST. SUPPORT DEVICES UNCHANGED. Chest CT 05/16/16 00:00 IMPRESSION: Cardiomegaly. Trace right pleural effusion. Assessment & Plan - Diagnosis (1) Atrial fibrillation and flutter Is this a current diagnosis for this admission?: Yes (2) Endocarditis Qualifiers: Endocarditis type: infective Infective endocarditis organism: unspecified organism Chronicity: unspecified Qualified Code(s): I33.0 - Acute and subacute infective endocarditis Is this a current diagnosis for this admission?: Yes (3) Sinus tachycardia Is this a current diagnosis for this admission?: Yes (4) Coronary artery disease Qualifiers: Coronary Disease-Associated Artery/Lesion type: [place] artery [place] vs. transplanted heart: [place] heart Associated angina: angina presence unspecified Qualified Code(s): I25.10 - Atherosclerotic heart disease of [place] coronary artery without angina pectoris Is this a current diagnosis for this admission?: Yes (5) Diabetes mellitus Qualifiers: Diabetes mellitus type: type 2 Diabetes mellitus complication status: with kidney complications Diabetes mellitus complication detail: with chronic kidney disease Diabetes mellitus assisted insulin use: with assisted use Chronic kidney disease stage: stage 4 (severe) Qualified Code(s): E11.22 - Type 2 diabetes mellitus with diabetic chronic kidney disease ; N18.1 - Chronic kidney disease, stage 1; 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 This is based on when IV Cardizem and IV Lopressor given and patient heart rate slows down. Endocarditis: This is being strongly suspected. Need confirmation by transesophageal echocardiogram. Patient awaiting a bed in [facility]. Sinus tachycardia: It was noted on telemetry review. Coronary artery disease: Symptomatically stable. Patient without any chest pain. Diabetes: Coming under better control. COPD: [place] to be severe. Patient on tracheostomy and bronchodilator therapy. He is also getting oxygen supplementation. Patient was noted to be tachycardic and felt to have underlying atrial flutter fibrillation. Patient was given IV Lopressor and then subsequently IV Cardizem. 2-D echo was reviewed. Patient waiting to get a bed at [facility]. - Time Time Spent: 30 to 50 Minutes - CODE STATUS was discussed, patient remains full code. Surrogate decision-maker patient's . Multiple medical problems were addressed.More than 50% of the time spent coordinating care, discussing management plans with involved caregivers. Management plans discussed with involved personnels. Medical decision making was of moderate complexity. Medications reviewed and adjusted accordingly: Yes
[2016-05-16] MEDS ORDERED: PANTOT AC/MIN OIL/PET HY-PHL OINT 50 GM TOP PRN (21:24)
[2016-05-16] MEDS: FAMOTIDINE 20 MG TABLET PO SCH (22:06)
[2016-05-16] MEDS: LATANOPROST 0.005% OPH SOLN 2.5 ML OU SCH (22:10)
[2016-05-16] MEDS: CLONIDINE HCL 0.1 MG TABLET PO SCH (22:15)
[2016-05-17 04:18] LABS: PROTHROMBIN TIME 14.5 SEC (11.4-15.4)
[2016-05-17 04:46] LABS: HEMATOCRIT 29.1 % (37.9-51.0); HEMOGLOBIN 9.7 g/dL (13.5-17.0); MEAN CORPUSCULAR HGB CONC 33.3 g/dL (32.0-36.0); MEAN CORPUSCULAR VOLUME 81 fl (80-97); RED CELL DISTRIBUTION WIDTH 16.8 % (11.5-14.0); WHITE BLOOD COUNT 8.8 10^3/uL (4.0-10.5)
[2016-05-17 04:51] LABS: ALANINE AMINOTRANSFERASE 41 U/L (21-72); ALBUMIN 3.4 g/dL (3.5-5.0); ALKALINE PHOSPHATASE 58 U/L (38-126); ANION GAP 15 (5-19); ASPARTATE AMINO TRANSFERASE 20 U/L (17-59); BILIRUBIN,DIRECT 0.6 mg/dL (0.0-0.4); BILIRUBIN,TOTAL 0.6 mg/dL (0.2-1.3); BLOOD UREA NITROGEN 101 mg/dL (7-20); CALCIUM 9.1 mg/dL (8.4-10.2); CARBON DIOXIDE 22 mmol/L (22-30); CHLORIDE 102 mmol/L (98-107); CREATINE KINASE 24 U/L (55-170); CREATININE RESULT 2.65 mg/dL (0.52-1.25); GLUCOSE 221 mg/dL (75-110); MAGNESIUM 2.3 mg/dL (1.6-2.3); PHOSPHORUS 4.6 mg/dL (2.5-4.5); POTASSIUM 4.2 mmol/L (3.6-5.0); SODIUM 139.1 mmol/L (137-145); TOTAL PROTEIN 6.3 g/dL (6.3-8.2)
[2016-05-17 05:06] LABS: BASOPHILS % (MANUAL) 0 % (0-2); EOSINOPHILS % (MANUAL) 0 % (0-6); LYMPHOCYTES % (MANUAL) 10 % (13-45); TOTAL CELLS COUNTED 100
[2016-05-17 05:07] LABS: ANISOCYTOSIS 1+; HYPOCHROMASIA SLIGHT; TOXIC GRANULATION SLIGHT
[2016-05-17 05:08] LABS: POLYCHROMASIA SLIGHT
[2016-05-17] MEDS: HEPARIN SOD (PORCINE) 5,000 UNIT/ML 1 ML SYRINGE SUBCUT SCH ×3 (05:29→22:20)
[2016-05-17] MEDS: METOPROLOL TARTRATE 50 MG TABLET PO SCH ×2 (05:30→17:46)
--- NOTE | 2016-05-17 08:10 | EKG REPORT ---
SEVERITY:- ABNORMAL ECG - A-FLUTTER/FIBRILLATION W/ COMPLETE AV BLOCK RIGHT BUNDLE BRANCH BLOCK : Confirmed by: Camden Blank MD 17-May-2016 08:09:40
[2016-05-17] MEDS: LEVALBUTEROL HCL NEB 0.63 MG/3 ML AMPUL NEB PRN (08:43)
[2016-05-17] MEDS: BUDESONIDE NEB 0.5 MG/2 ML AMPUL NEB SCH ×2 (08:44→21:05)
[2016-05-17] MEDS: MICAFUNGIN SODIUM 150 MG in NORMAL SALINE 100 ML IV SCH (10:11)
[2016-05-17] MEDS: CHLORHEXIDINE GLUCONATE 0.12% ORAL RINSE 15 ML UDC PO SCH ×2 (10:12→17:46)
[2016-05-17] MEDS: LEVOTHYROXINE SODIUM 0.088 MG TABLET PO SCH (10:12)
[2016-05-17] MEDS: MIDODRINE HCL 5 MG TABLET PO SCH ×2 (10:13→17:48)
[2016-05-17] MEDS: ASPIRIN 81 MG TABLET, ENT COATED PO SCH (10:13)
[2016-05-17] MEDS: CLONIDINE HCL 0.1 MG TABLET PO SCH ×2 (10:14→22:23)
[2016-05-17] MEDS: ESCITALOPRAM OXALATE 10 MG TABLET PO SCH (10:14)
[2016-05-17] MEDS: INSULIN GLARGINE,HUM.REC.ANLOG 300 UNIT/3 ML INSULN.PEN SUBCUT SCH ×2 (10:15→22:23)
[2016-05-17] MEDS: DOCUSATE SODIUM 100 MG CAPSULE PO SCH (10:17)
--- NOTE | 2016-05-17 10:21 | PDOC CONSULTATION ---
Consultation Consult Date: 05/17/16 Consult reason:: Acute kidney injury in the setting of fungemia History of Present Illness Admission Date/PCP: 05/12/16 19:09 History of Present Illness: DIAMOND KHAN is a 70 year old male with past history of COPD, chronic respiratory failure on trach, CRE, CKD stage III presents by EMS after he was having increased shortness of breath, increased secretions from trach and fever since this morning. Seen in the ER and evaluated. X-ray was suggestive of possible CHF versus early pneumonia. Patient was begun on antibiotics and admitted to ICU for further evaluations. Past Medical History Cardiac Medical History: Reports: CHF-Systolic, Coronary Artery Disease, Hyperlipidemia, Hypertension-primary, Myocardial Infarction - 2004 Pulmonary Medical History: Reports: Chronic Obstructive Pulmonary Disease (COPD ) - home O2 at 2-4 lmp, Respiratory Failure - 4 L home oxygen dependent Endocrine Medical History: Reports: Diabetes Mellitus Type 2 Renal/ Medical History: Reports: Chronic Kidney Disease Stage III Psychiatric Medical History: Reports: Depression Hematology Medical History: Reports Anemia Past Surgical History Past Surgical History: Reports: Appendectomy, Coronary Artery Bypass Graft, Tonsillectomy, Other - Tracheostomy Social History Smoking Status: Unknown if Ever Smoked Frequency of Alcohol Use: None Hx Recreational Drug Use: No Drugs: None Hx Prescription Drug Abuse: No - Advance Directive Resuscitation Status: Full Code Family History Parental Family History Reviewed: Yes - Negative for CKD. Children Family History Reviewed: Yes Sibling(s) Family History Reviewed.: Yes Medication/Allergy Home Medications: Aspirin [Aspirin EC] 81 mg PO DAILY 08/05/14 Docusate Sodium 100 mg PO DAILY 08/05/14 Budesonide [Pulmicort Neb 1 mg/2 mL Ampule] 1 inh PO RTBID 01/09/16 Chlorhexidine Gluconate 15 ml PO BID 01/09/16 Ipratropium/Albuterol Sulfate [Duoneb 3 ml Ampul] 3 ml NEB QID 01/09/16 Midodrine HCl [Proamatine 5 mg Tablet] 2.5 mg PO BID tablet 01/12/16 Fluticasone Propionate [Flovent Hfa 44 Mcg Inhalation Aerosol 10.6 gm] 2 puff IH BID 05/13/16 Insulin Regular, Human [Novolin R (Reg) Insulin 100 unit/mL] 4 unit SUBCUT AC Lidocaine 1 applic TP DAILY 05/13/16 Nystatin 1 applic TP BID 05/13/16 Nystatin 1 each PO BID 05/13/16 Apixaban [Eliquis 2.5 mg Tablet] 2.5 mg PO BID #60 tablet 05/21/16 Diltiazem HCl [Cardizem Cd 120 mg Capsule] 120 mg PO Q12 #60 cap.sr.24h Escitalopram Oxalate [Lexapro 10 mg Tablet] 10 mg PO DAILY tablet 05/21/16 Famotidine [Pepcid 20 mg Tablet] 20 mg PO QHS tablet 05/21/16 Fluconazole [Diflucan] 200 mg PO DAILY 10 Days 05/21/16 Insulin Glargine,Hum.rec.anlog [Lantus Insulin 100 Unit/mL] 20 unit SUBCUT Q12 # 1 insuln.pen 05/21/16 Latanoprost [Xalatan 0.005% Oph Soln 2.5 ml] 1 drop OU QHS bottle 05/21/16 Levothyroxine Sodium [Synthroid 0.088 mg Tablet] 0.088 mg PO DAILY tablet 05/21 Lorazepam [Ativan 0.5 mg Tablet] 0.5 mg PO Q8HP PRN #20 tablet 05/21/16 Metoprolol Tartrate [Lopressor 50 mg Tablet] 75 mg PO Q12A #60 tablet 05/21/16 Oxycodone HCl 5 mg PO Q6HP PRN #20 tablet 05/21/16 Allergies/Adverse Reactions: indomethacin [From Indocin] Allergy (Unknown, Verified 01/09/16 12:57) clonazepam [From Klonopin] Allergy (Verified 05/21/16 01:30) Review of Systems Review of Systems: Constitutional: PRESENT: as per HPI. ABSENT: ), headache(s), weight gain, weight loss Eyes: ABSENT: visual disturbances Ears: ABSENT: hearing changes Cardiovascular: ABSENT: chest pain, edema, orthropnea, palpitations Respiratory: ABSENT: cough, hemoptysis Gastrointestinal: ABSENT: abdominal pain, constipation, diarrhea, hematemesis, hematochezia, nausea, vomiting Genitourinary: ABSENT: dysuria, hematuria Musculoskeletal: ABSENT: joint swelling Integumentary: ABSENT: rash, wounds Neurological: ABSENT: abnormal gait, abnormal speech, confusion, dizziness, focal weakness, syncope Psychiatric: ABSENT: anxiety, depression, homicidal ideation, suicidal ideation Endocrine: ABSENT: cold intolerance, heat intolerance, , polydipsia, polyuria Hematologic/Lymphatic: ABSENT: easy bleeding, easy bruising, lymphadenopathy Constitutional: ABSENT: fever(s), headache(s), night sweats, weakness Cardiovascular: PRESENT: dyspnea on exertion. ABSENT: orthropnea Gastrointestinal: ABSENT: abdominal pain, bloating, diarrhea, dysphagia, heartburn, hematemesis, hematochezia Neurological: ABSENT: abnormal movements, abnormal speech, confusion, convulsions, focal weakness Psychiatric: PRESENT: as per HPI. ABSENT: hallucinations, homidical ideation, suicidal ideation Physical Exam Vital Signs: Temp Pulse Resp BP Pulse Ox 97.5 F 92 17 126/84 H 97 05/17/16 08:00 05/17/16 08:00 05/17/16 08:00 05/17/16 08:00 05/17/16 08:00 Intake & Output 05/16/16 05/17/16 05/18/16 06:59 06:59 06:59 Intake Total 427 2220 Output Total 2217 2490 Balance -1790 -270 Weight 136.6 kg 137.7 kg General appearance: PRESENT: no acute distress, obese Eye exam: PRESENT: EOMI, PERRLA. ABSENT: nystagmus, scleral icterus Ear exam: PRESENT: normal external ear exam Mouth exam: PRESENT: dry mucosa Neck exam: ABSENT: lymphadenopathy, meningismus, tenderness, thyromegaly, tracheal deviation Respiratory exam: PRESENT: clear to auscultation [place]. ABSENT: crackles, rhonchi Cardiovascular exam: PRESENT: +S1, +S2, systolic murmur GI/Abdominal exam: PRESENT: normal bowel sounds, soft. ABSENT: distended, firm , guarding, tenderness Extremities exam: ABSENT: pedal edema Neurological exam: PRESENT: alert, awake, oriented to person, oriented to place , oriented to time Skin exam: PRESENT: rash - Of venous stasis. ABSENT: cyanosis, dry, mottled Results Laboratory Results: 05/17/16 03:50 05/17/16 03:50 05/17/16 05/17/16 05/17/16 03:50 03:50 03:50 WBC 8.8 RBC 3.60 L Hgb 9.7 L Hct 29.1 L MCV 81 MCH 27.0 MCHC 33.3 RDW 16.8 H Plt Count 153 Seg Neutrophils % Not Reportable Lymphocytes % Not Reportable Monocytes % Not Reportable Eosinophils % Not Reportable Basophils % Not Reportable Absolute Neutrophils Not Reportable Absolute Lymphocytes Not Reportable Absolute Monocytes Not Reportable Absolute Eosinophils Not Reportable Absolute Basophils Not Reportable Sodium 139.1 Potassium 4.2 Chloride 102 Carbon Dioxide 22 Anion Gap 15 BUN 101 H Creatinine 2.65 H Est GFR ( Amer) 29 L Est GFR (Non-Af Amer) 24 L Glucose 221 H Lactic Acid 1.3 Calcium 9.1 Phosphorus 4.6 H Magnesium 2.3 Total Bilirubin 0.6 AST 20 ALT 41 Alkaline Phosphatase 58 Total Protein 6.3 Albumin 3.4 L 05/13/16 05/13/16 05/13/16 00:10 00:10 06:30 Creatine Kinase 2109 H 1399 H CK-MB (CK-2) 3.57 Troponin I 0.193 NT-Pro-B Natriuret Pep 05/13/16 05/13/16 05/13/16 06:30 12:55 12:55 Creatine Kinase 954 H CK-MB (CK-2) 3.18 3.05 Troponin I 0.145 0.099 NT-Pro-B Natriuret Pep 53199 H 05/16/16 05/17/16 05/17/16 03:37 03:50 03:50 Creatine Kinase 24 L CK-MB (CK-2) Troponin I 0.014 0.014 NT-Pro-B Natriuret Pep Impressions: Chest X-Ray 05/13/16 06:00 IMPRESSION: STABLE APPEARANCE OF THE CHEST. SUPPORT DEVICES UNCHANGED. Chest CT 05/16/16 00:00 IMPRESSION: Cardiomegaly. Trace right pleural effusion. Assessment & Plan - Diagnosis (1) Acute kidney injury Plan: Acute on chronic kidney injury improving continue present lines of management. (2) Fungemia Is this a current diagnosis for this admission?: YesPlan: On IV capsofungin. (3) Hypertension Plan: Stable (4) Kidney disease, chronic, stage IV (GFR 15-29 ml/min) Is this a current diagnosis for this admission?: YesPlan: Stable. No further changes for now. (5) Pneumonia Qualifiers: Lung location: unspecified part of lung Plan: As per hospitalist.
--- NOTE | 2016-05-17 11:31 | CONSULTATION REPORT E ---
Consultation Report NAME: DIAMOND KHAN : 1945 AGE: 70Y DATE: 05/16/2016 609 A TO: MARGE ACEVES M.D. FROM: Requesting Physician HISTORY OF PRESENT ILLNESS: The patient is a 70-year-old male who came in with history of COPD, chronic respiratory failure status post tracheostomy, presenting with increasing shortness of breath, chest pain, fever, increased tracheal secretions. The patient was given vancomycin and Levaquin on admission. The tracheostomy secretions came back positive for CRE Klebsiella pneumoniae. Consulted for possible bronchoscopy and bronchial washing and lavage. The patient was admitted on 05/12/2016, about 4 days. Currently, feeling slightly better. Fever was noted on admission but remained afebrile for the last few days. IV antibiotics were discontinued. Patient was noted to have atrial fibrillation with rapid ventricular response, and patient is scheduled for transesophageal echocardiography and scheduled for transfer to [facility]. He denies any increased tracheostomy secretion or diarrhea or vomitting or chest pain. PAST MEDICAL HISTORY: 1. History of congestive heart failure. 2. Coronary artery disease. 3. Myocardial infarction 2004. 5. Hypertension. 6. History of COPD on home oxygen therapy 2-4 L per minute. 7. Respiratory failure on 4 L . 8. History of diabetes type 2. 9. Depression. 10. Anemia. PAST SURGICAL HISTORY: 1. Appendectomy. 2. Coronary artery bypass graft. 3. Tonsillectomy. HABITS: The patient denies any smoking history or alcohol abuse. FAMILY HISTORY: Coronary artery disease. HOME MEDICATIONS: 1. Aspirin. 2. Docusate sodium. 3. Lorazepam. 4. Oxycodone. 5. Pulmicort. 6. Chlorhexidine gluconate. 7. Glargine insulin. 8. DuoNeb nebulizer. 9. Lasix. 10. Midodrine. 11. Colchicine. 12. Fluticasone HFA. 13. Regular insulin. 14. Metoprolol. REVIEW OF SYSTEMS: MENTAL STATUS: Appeared to be awake, alert, and coherent. CONSTITUTIONAL: Fever on admission but there is none after 24 hours, currently afebrile. No chills. EYES: No jaundice or pallor. EARS, NOSE AND THROAT: No increased secretions, shortness of breath and chest pain. Tracheostomy tube appeared to be in place. CARDIAC: No chest pain. The patient in atrial fibrillation with rapid ventricular response. No JVD or palpitations. GASTROINTESTINAL: No nausea, vomiting, diarrhea. GENITOURINARY: No dysuria but history of Pseudomonas in the urine. EXTREMITIES: No joint tenderness or cellulitis. PHYSICAL EXAMINATION: GENERAL: The patient is awake, alert, coherent, oriented not in apparent acute respiratory distress. VITAL SIGNS: Blood pressure 112/78. Heart rate is 105 to 136, up and down. Temperature is 98.7. Respiration is 17. Saturation 97% on 5 L flow rate. EYES: No jaundice of pallor. EARS, NOSE AND THROAT: No ear drainage. No sinusitis. HEAD AND NECK: No scalp tenderness. Neck is supple. CHEST/LUNGS: No wheezing. No rhonchi. No coarse crackles. CARDIOVASCULAR: S1, S2 distinct. Normal rate and regular rhythm. ABDOMEN: Flabby. Positive bowel sounds. Soft, nondistended, nontender. EXTREMITIES: No joint swelling or cellulitis. LABORATORY: CBC done on admission: White count is 9.4 which is normal; hemoglobin is 10.1; hematocrit is 30.3; platelet count is normal 140, but neutrophils are elevated at 16,000 which is interesting. The CBC done today, 05/16/2016 shows white count of 7.7 which is normal; hemoglobin is 9.6; hematocrit is 28.3; platelet count is 149. Chemistry done today showed sodium 138, potassium 4.1, chloride 100, CO2 20 from 19. BUN is 18. Estimated GFR is 37. Calcium is 9, and phosphorus is 5.4. Magnesium is 2.2. Direct bilirubin 0.5, albumin 3.3. Chest CT scan done today, 05/16/2016, showed some patchy infiltrate right lung base which could be inflammatory or early pneumonic process. Sputum culture done on 05/13/2016 showed CRE Klebsiella pneumoniae and Corynebacterium striatum. The patient has previous history of Pseudomonas and Achromobacter xylosoxidans , and patient also had Klebsiella pneumoniae and Corynebacterium in the sputum on 01/11/2016. ASSESSMENT: 1. Patchy infiltrate right lung base- most likely a pneumonic process, possibly early phase ( rather than a mere atelectasis with trace pleural effusion) , considering fever, increasing cough, respiratory distress and increased tracheal purulent secretions on presentation. Considering positive CRE Klebsiella pneumonia on sputum culture, I would recommend gentamicin or amikacin as part of the regimen of empiric broad spectrum antimicrobial therapy for pneumonia ( which should have anti-pseudomonal coverage). If the decision is taken not to treat the pneumonia at this time, there's an increased risk patient would come back in 30 days hospitalized for more severe pneumonia. At this time, blood cell count seemed stable but severity of the infection could not be fully assessed without the differential cell count. Patient does not need flexible bronchoscopy at this time. Patient appears to be doing well. There is no fever for the last few days. 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 I do not think at this time, that there is anything else that can be done differently which can be beneficial for this patient for doing flexible bronchoscopy. At this time, I do not think that flexible bronchoscopy is a medical necessity, considering what the patient has to go through in performing the flexible bronchoscopy - changing his current tracheostomy size 6 to size 8 ( because [facility] flexible bronchoscope could not pass through trach tube size 6); Use of Operating Room Resources (for tracheostomy stoma dilatation and changing tracheostomy tube); compliance of strict isolation protocol for CRE Klebsiella pneumonia and pseudomonas in urine; ENT or Surgeon's involvement (to dilate the current tracheostomy stoma); and the risk of bleeding from tracheostomy site and other bleeding complications; risk of patient decompensating clinically , during the procedure; and acute respiratory failure and risk for prolonged invasive mechanical ventilation and ARDS. I would recommend covering patient with antibiotics. Chest CT scan done today showing some patchy infiltrate at right lung base, with trace pleural effusion, which is suspicious for pneumonic process rather than atelectasis. Thank you for the pulmonary consult request. I will sign off tonight. If you have any questions, please feel free to call me. Spoke to hospitalist - Dr Landen Verdin this morning and discussed my assessment and recommendations. DICTATING PHYSICIAN: MARGE ACEVES MD,JACK,MPH [id number] PHY#: [id number] 1944 ID: [id number] JOB#: [id number] ACCT: [id number] cc:MARGE ACVEES M.D. > MTDD
[2016-05-17] MEDS: NYSTATIN CREAM 15 GM TP SCH ×2 (11:33→17:48)
[2016-05-17] MEDS: INSULIN LISPRO 100 UNIT/ML 3 ML VIAL SUBCUT PRN (11:49)
--- NOTE | 2016-05-17 13:21 | PDOC PROGRESS REPORT ---
Subjective Progress Note for:: 05/17/16 Subjective:: Reason for visit: Follow-up respiratory failure, congestive heart failure, fungemia Hospital course: Per transfer summary from Dr Smith: "DIAMOND KHAN is a 70 year old male with past history of COPD, chronic respiratory failure on trach, CRE, presents by EMS after he was having increased shortness of breath, increased secretions from trach and fever since this morning. Temperature was 102 and he was given 1 g of Tylenol by EMS prior to arrival. The patient was seen in the emergency room last night for urinary retention. He denies chest pain, flank pain, abdominal pain, headache, neck stiffness, nausea, vomiting Upon evaluation in the emergency room the patient was found in mild respiratory distress with acute on chronic respiratory failure A chest x-ray was suggestive of CHF and or pneumonia Patient was febrile with leukocytosis had a high lactic acid He was treated with antibiotics , IV fluids and subsequently admitted to the intensive care unit for further evaluation and care Upon initial evaluation the patient a was diagnosed of pneumonia and early sepsis Treated with fluid boluses and broad-spectrum antibiotics A chest x-ray was suggestive of CHF and or pneumonia IV fluids were discontinued and Lasix was added Patient's respiratory status improved and stabilized He is currently stable. With an O2 sat of 99% on 28% oxygen trach collar CK disease stage IV appears stable with a GFR of 19 Uncontrolled diabetes His hemoglobin A1c is more than 14 ; he was maintained on just 30 units of Lantus at night We increased his Lantus insulin to 20 units subcutaneous every 12; and continued lispro coverage Patient had elevated troponins on admission" - per dr smith presumably due to hypoxia and sepsis on admission his blood cultures are positive for fungus, not dewayne, and awaiting final reports from state lab. micafungin started 05/14/16. 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 I inherited his care 05/15/16 and he is still awaiting bed availability at [facility] in [place]. His HR is climbing into the 130's sustained sinus tach. He denies chest pain, palpitations, states he is short of breath with exertion but okay at rest and feels significantly better than when he arrived. I tried adding a low dose NS bolus thinking maybe we had over-diuresed him but it had no effect on either his HR or fortunately his breathing. I increased his metoprolol from 50mg bid to 75mg bid and added prn IV lopressor which gets his HR down but only temporarily. Subjective: tachycardia is better controlled after cardizem started by cardiology; ready to get on with transfer to [facility] but still no beds available. denies fevers/chills, myalgias/arthralgias, N/V/D. no new complaints for me this morning. ROS: per HPI plus a total of 10 systems reviewed, pertinent positives and negatives noted above, remaining systems negative. Physical Exam Vital Signs: Temp Pulse Resp BP Pulse Ox 97.6 F 97 14 126/84 H 98 05/17/16 12:00 05/17/16 12:00 05/17/16 12:00 05/17/16 12:00 05/17/16 12:00 Intake & Output 05/16/16 05/17/16 05/18/16 06:59 06:59 06:59 Intake Total 427 2220 177 Output Total 2217 2490 Balance -1790 -270 177 Weight 136.6 kg 137.7 kg EXAM GENERAL: NAD; well developed, well nourished; morbid obese; alert and oriented to person, place, time, situation HEENT: normocephalic, atraumatic; no conjunctival injection, no scleral icterus ; oral mucosa moist; trach collar in place on 5L/min RESPIRATORY: no accessory muscle use, no increased WOB, good air entry bilaterally; no wheezes, rales, rhonchi; bilateral inspiratory crackles laterally and at the bases CARDIO: no JVD; no systolic murmur; sinus tachycardia GI: soft; nondistended; normal bowel sounds; massive pannus; no rebound, rigidity, guarding; nontender; + BM VASCULAR: no pallor; 2+ radial, DP pulse; normal capillary refill EXTREMITIES: no calf tender; no palpable cords in calf; no clubbing, cyanosis ; 1+ pedal edema PSYCH: normal affect, normal mood SKIN: warm; moist; no petechiae; no telengectasias; no jaundice; no rash Results Laboratory Results: 05/17/16 03:50 05/17/16 03:50 05/17/16 05/17/16 05/17/16 03:50 03:50 03:50 WBC 8.8 RBC 3.60 L Hgb 9.7 L Hct 29.1 L MCV 81 MCH 27.0 MCHC 33.3 RDW 16.8 H Plt Count 153 Seg Neutrophils % Not Reportable Lymphocytes % Not Reportable Monocytes % Not Reportable Eosinophils % Not Reportable Basophils % Not Reportable Absolute Neutrophils Not Reportable Absolute Lymphocytes Not Reportable Absolute Monocytes Not Reportable Absolute Eosinophils Not Reportable Absolute Basophils Not Reportable Sodium 139.1 Potassium 4.2 Chloride 102 Carbon Dioxide 22 Anion Gap 15 BUN 101 H Creatinine 2.65 H Est GFR ( Amer) 29 L Est GFR (Non-Af Amer) 24 L Glucose 221 H Lactic Acid 1.3 Calcium 9.1 Phosphorus 4.6 H Magnesium 2.3 Total Bilirubin 0.6 AST 20 ALT 41 Alkaline Phosphatase 58 Total Protein 6.3 Albumin 3.4 L 05/13/16 05/13/16 05/13/16 00:10 00:10 06:30 Creatine Kinase 2109 H 1399 H CK-MB (CK-2) 3.57 Troponin I 0.193 NT-Pro-B Natriuret Pep 05/13/16 05/13/16 05/13/16 06:30 12:55 12:55 Creatine Kinase 954 H CK-MB (CK-2) 3.18 3.05 Troponin I 0.145 0.099 NT-Pro-B Natriuret Pep 57508 H 05/16/16 05/17/16 05/17/16 03:37 03:50 03:50 Creatine Kinase 24 L CK-MB (CK-2) Troponin I 0.014 0.014 NT-Pro-B Natriuret Pep Impressions: Chest CT 05/16/16 00:00 IMPRESSION: Cardiomegaly. Trace right pleural effusion. Assessment & Plan - Diagnosis (1) Fungemia Is this a current diagnosis for this admission?: YesPlan: Continue micafungin. Awaiting transfer for trans-esophageal echocardiogram. repeat blood cultures pending to see if clearing while we await transfer. d/c' d systemic steroids and monitoring for hemodynamic instability/adrenal suppression. (2) HCAP (healthcare-associated pneumonia) Is this a current diagnosis for this admission?: YesPlan: CT chest does NOT show consolidation or focal airspace disease. consulted pulmonary for possible bronch and BAL for culture, but he doesn't feel this is indicated at this time. I stopped his abx for HCAP, continue to monitor for recurrence. (3) Acute and chronic respiratory failure Qualifiers: Respiratory failure complication: hypoxia Qualified Code(s): J96.21 - Acute and chronic respiratory failure with hypoxia Is this a current diagnosis for this admission?: YesPlan: continue current care. wean o2 as tolerated but really seems at or near his baseline. (4) Congestive heart failure Qualifiers: Congestive heart failure type: combined Congestive heart failure chronicity: acute on chronic Qualified Code(s): I50.43 - Acute on chronic combined systolic (congestive) and diastolic (congestive) heart failure Is this a current diagnosis for this admission?: YesPlan: Seems at least marginally compensated at present, intermittent IV Lasix only as needed, especially in light of his refractory tachycardia. consult cardiology for their assistance. 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 Is this a current diagnosis for this admission?: Yes (6) Elevated troponin Is this a current diagnosis for this admission?: Yes (7) Sepsis Qualifiers: Sepsis type: sepsis due to unspecified organism Qualified Code(s): A41.9 - Sepsis, unspecified organism Is this a current diagnosis for this admission?: Yes (8) Status post tracheostomy Is this a current diagnosis for this admission?: Yes (9) Kidney disease, chronic, stage IV (GFR 15-29 ml/min) Is this a current diagnosis for this admission?: Yes (10) Sinus tachycardia Is this a current diagnosis for this admission?: YesPlan: continue betablocker; consider adding clonidine as his BP will allow. d/c scheduled albuterol, using only prn xopenex at lowest dose. - Time Time Spent with patient: 35 or more minutes Anticipated discharge: [facility] - Plan Summary Plan Summary: awaiting repeat blood cultures but still need HARRISON to help decide length of antifungals.
--- NOTE | 2016-05-17 20:01 | PDOC PROGRESS REPORT ---
Subjective Progress Note for:: 05/17/16 Subjective:: Patient seems to be doing better with gradual improvement. Pt is denying any chest arm or neck discomfort. Patient denying any PND, orthopnea. Patient denied any sustained palpitations, dizziness, syncope, near syncope. Patient denying any fever chills. Patient denying any other significant discomfort. Patient is maintaining atrial fibrillation, atrial flutter rhythm. Heart rate better controlled on Cardizem drip. Patient has tracheostomy but is able to speak. Review of systems: Rest review of systems negative. Medications: Medications have been reviewed. Physical Exam Vital Signs: Temp Pulse Resp BP Pulse Ox 98.2 F 97 14 107/70 97 05/17/16 16:00 05/17/16 12:00 05/17/16 18:00 05/17/16 16:10 05/17/16 18:00 Intake & Output 05/16/16 05/17/16 05/18/16 06:59 06:59 06:59 Intake Total 427 2220 309 Output Total 2217 2490 1200 Balance -1790 -270 -891 Weight 136.6 kg 137.7 kg Exam: GENERAL: well-nourished and in no acute distress. Alert and oriented x3 HEAD: Atraumatic, normocephalic. EYES: Pupils equal round and reactive to light, extraocular movements intact, sclera anicteric, conjunctiva are normal. ENT: TMs normal, nares patent, oropharynx clear without exudates. Moist mucous membranes. No oral ulcerations or bleeding gums noted NECK: supple without lymphadenopathy. Central tracheostomy tube is noted. No cervical or axillary lymphadenopathy noted. Carotids are 2+, JVD WNL LUNGS: Respiration seems nonlabored, no significant accessory muscle action noted. Bibasal crackles and mild wheezing noted. CHEST: Palpation of the chest wall shows no significant chest wall tenderness. No other significant abnormalities noted. 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 ABDOMEN: Soft, no significant tenderness appreciated, normoactive bowel sounds. No guarding, no rebound. No rigidity noted . No masses appreciated. EXTREMITIES: Pedal pulses are 1-2+, no calf tenderness noted. No clubbing or cyanosis.trace to 1+ pedal edema noted NEUROLOGICAL: Focused neurological exam showed no significant neurologic deficit. Normal speech, no focal weakness appreciated. PSYCH: Normal mood, normal affect. Judgment and insight within normal limits. SKIN: No significant ecchymosis, rash, ulcerations or signs of pruritus noted. MUSCULOSKELETAL EXAM: No significant joint swelling noted. Results Laboratory Results: 05/17/16 03:50 05/17/16 03:50 05/17/16 05/17/16 05/17/16 03:50 03:50 03:50 WBC 8.8 RBC 3.60 L Hgb 9.7 L Hct 29.1 L MCV 81 MCH 27.0 MCHC 33.3 RDW 16.8 H Plt Count 153 Seg Neutrophils % Not Reportable Lymphocytes % Not Reportable Monocytes % Not Reportable Eosinophils % Not Reportable Basophils % Not Reportable Absolute Neutrophils Not Reportable Absolute Lymphocytes Not Reportable Absolute Monocytes Not Reportable Absolute Eosinophils Not Reportable Absolute Basophils Not Reportable Sodium 139.1 Potassium 4.2 Chloride 102 Carbon Dioxide 22 Anion Gap 15 BUN 101 H Creatinine 2.65 H Est GFR ( Amer) 29 L Est GFR (Non-Af Amer) 24 L Glucose 221 H Lactic Acid 1.3 Calcium 9.1 Phosphorus 4.6 H Magnesium 2.3 Total Bilirubin 0.6 AST 20 ALT 41 Alkaline Phosphatase 58 Total Protein 6.3 Albumin 3.4 L 05/13/16 05/13/16 05/13/16 00:10 00:10 06:30 Creatine Kinase 2109 H 1399 H CK-MB (CK-2) 3.57 Troponin I 0.193 NT-Pro-B Natriuret Pep 05/13/16 05/13/16 05/13/16 06:30 12:55 12:55 Creatine Kinase 954 H CK-MB (CK-2) 3.18 3.05 Troponin I 0.145 0.099 NT-Pro-B Natriuret Pep 00170 H 05/16/16 05/17/16 05/17/16 03:37 03:50 03:50 Creatine Kinase 24 L CK-MB (CK-2) Troponin I 0.014 0.014 NT-Pro-B Natriuret Pep Impressions: Chest X-Ray 05/13/16 06:00 IMPRESSION: STABLE APPEARANCE OF THE CHEST. SUPPORT DEVICES UNCHANGED. Chest CT 05/16/16 00:00 IMPRESSION: Cardiomegaly. Trace right pleural effusion. Assessment & Plan - Diagnosis (3) Sinus tachycardia Is this a current diagnosis for this admission?: Yes (5) Diabetes mellitus Qualifiers: Diabetes mellitus type: type 2 Diabetes mellitus complication status: with kidney complications Diabetes mellitus complication detail: with chronic kidney disease Diabetes mellitus mcc insulin use: with mcc use Chronic kidney disease stage: stage 4 (severe) Qualified Code(s): E11.22 - Type 2 diabetes mellitus with diabetic chronic kidney disease ; N18.1 - Chronic kidney disease, stage 1; Z79.4 - retirement (current) use of insulin Is this a current diagnosis for this admission?: Yes - Notes Notes: Atrial flutter fibrillation: Rate reasonably well controlled. Currently not on chronic anticoagulation but may need to be considered. We will discuss with hospitalist. Endocarditis: Clinically suspected but need confirmation. Patient awaiting bed at [facility]. Coronary artery disease: Symptomatically improved. Diabetes: Currently stable. Continue current management plans - Time Time with patient: 15-25 minutes - CODE STATUS was discussed, patient remains full code. Surrogate decision-maker unchanged. Multiple medical problems were addressed.More than 50% of the time spent coordinating care, discussing management plans with involved caregivers. Management plans discussed with involved personnels. Medical decision making was of moderate complexity.
[2016-05-17] MEDS: LATANOPROST 0.005% OPH SOLN 2.5 ML OU SCH (22:19)
[2016-05-17] MEDS: FAMOTIDINE 20 MG TABLET PO SCH (22:19)
[2016-05-18] MEDS: LORAZEPAM 0.5 MG TABLET PO PRN ×2 (04:11→21:12)
[2016-05-18] MEDS: METOPROLOL TARTRATE 50 MG TABLET PO SCH ×2 (05:01→17:16)
[2016-05-18] MEDS: HEPARIN SOD (PORCINE) 5,000 UNIT/ML 1 ML SYRINGE SUBCUT SCH ×3 (05:02→21:12)
[2016-05-18 05:13] LABS: ANION GAP 11 (5-19); BLOOD UREA NITROGEN 100 mg/dL (7-20); CALCIUM 9.2 mg/dL (8.4-10.2); CARBON DIOXIDE 25 mmol/L (22-30); CHLORIDE 104 mmol/L (98-107); CREATININE RESULT 2.27 mg/dL (0.52-1.25); GLUCOSE 123 mg/dL (75-110); SODIUM 140.3 mmol/L (137-145)
[2016-05-18 05:29] LABS: HEMATOCRIT 29.3 % (37.9-51.0); HEMOGLOBIN 9.9 g/dL (13.5-17.0); HGB HCT DIFFERENCE 0.4; MEAN CORPUSCULAR HEMOGLOBIN 27.1 pg (27.0-33.4); MEAN CORPUSCULAR HGB CONC 33.8 g/dL (32.0-36.0); MEAN CORPUSCULAR VOLUME 80 fl (80-97); RED BLOOD COUNT 3.65 10^6/uL (4.35-5.55); RED CELL DISTRIBUTION WIDTH 16.9 % (11.5-14.0); WHITE BLOOD COUNT 9.5 10^3/uL (4.0-10.5)
[2016-05-18 05:47] LABS: BAND NEUTROPHILS % (MANUAL) 1 % (3-5); BASOPHILS % (MANUAL) 0 % (0-2); EOSINOPHILS % (MANUAL) 0 % (0-6); LYMPHOCYTES % (MANUAL) 13 % (13-45); TOTAL CELLS COUNTED 100
[2016-05-18 05:49] LABS: ANISOCYTOSIS 1+; TOXIC GRANULATION SLIGHT
[2016-05-18] MEDS: LEVALBUTEROL HCL NEB 0.63 MG/3 ML AMPUL NEB PRN ×2 (08:18→20:44)
[2016-05-18] MEDS: BUDESONIDE NEB 0.5 MG/2 ML AMPUL NEB SCH ×2 (08:18→20:44)
[2016-05-18] MEDS: MIDODRINE HCL 5 MG TABLET PO SCH ×2 (09:45→17:19)
[2016-05-18] MEDS: ESCITALOPRAM OXALATE 10 MG TABLET PO SCH (09:48)
[2016-05-18] MEDS: LEVOTHYROXINE SODIUM 0.088 MG TABLET PO SCH (09:51)
[2016-05-18] MEDS: ASPIRIN 81 MG TABLET, ENT COATED PO SCH (09:51)
[2016-05-18] MEDS: MICAFUNGIN SODIUM 150 MG in NORMAL SALINE 100 ML IV SCH (09:53)
[2016-05-18] MEDS: CHLORHEXIDINE GLUCONATE 0.12% ORAL RINSE 15 ML UDC PO SCH ×2 (09:53→17:16)
[2016-05-18] MEDS: INSULIN GLARGINE,HUM.REC.ANLOG 300 UNIT/3 ML INSULN.PEN SUBCUT SCH ×2 (09:54→21:11)
[2016-05-18] MEDS: DOCUSATE SODIUM 100 MG CAPSULE PO SCH (10:11)
[2016-05-18] MEDS: DILTIAZEM HCL 120 MG CAP.SR.24H PO SCH ×2 (10:14→21:13)
[2016-05-18] MEDS: NYSTATIN CREAM 15 GM TP SCH ×2 (10:22→17:16)
--- NOTE | 2016-05-18 10:56 | PDOC PROGRESS REPORT ---
Subjective Progress Note for:: 05/18/16 Subjective:: Patient was seen in the ICU today. He looks more awake and alert and responsive. Is able to talk with his tracheostomy. He says he feels better. Appetite is improving. He denies any history of fever chills. Physical Exam Vital Signs: Temp Pulse Resp BP Pulse Ox 98.1 F 109 H 19 137/85 H 98 05/18/16 08:00 05/18/16 08:00 05/18/16 08:00 05/18/16 08:00 05/18/16 08:00 Intake & Output 05/17/16 05/18/16 05/19/16 06:59 06:59 06:59 Intake Total 2220 429 Output Total 2490 2990 175 Balance -270 -2561 -175 Weight 137.7 kg 136.2 kg General appearance: PRESENT: no acute distress Respiratory exam: PRESENT: clear to auscultation rowan. ABSENT: crackles, rhonchi Cardiovascular exam: PRESENT: +S1, +S2, systolic murmur GI/Abdominal exam: PRESENT: normal bowel sounds, soft. ABSENT: distended, firm , guarding, tenderness Results Laboratory Results: 05/18/16 04:16 05/18/16 04:16 05/18/16 05/18/16 04:16 04:16 WBC 9.5 RBC 3.65 L Hgb 9.9 L Hct 29.3 L MCV 80 MCH 27.1 MCHC 33.8 RDW 16.9 H Plt Count 172 Seg Neutrophils % Not Reportable Lymphocytes % Not Reportable Monocytes % Not Reportable Eosinophils % Not Reportable Basophils % Not Reportable Absolute Neutrophils Not Reportable Absolute Lymphocytes Not Reportable Absolute Monocytes Not Reportable Absolute Eosinophils Not Reportable Absolute Basophils Not Reportable Sodium 140.3 Potassium 4.0 Chloride 104 Carbon Dioxide 25 Anion Gap 11 BUN 100 H Creatinine 2.27 H Est GFR ( Amer) 35 L Est GFR (Non-Af Amer) 29 L Glucose 123 H Calcium 9.2 05/13/16 05/13/16 05/13/16 00:10 00:10 06:30 Creatine Kinase 2109 H 1399 H CK-MB (CK-2) 3.57 Troponin I 0.193 NT-Pro-B Natriuret Pep 03/19/17 03/19/17 03/19/17 06:30 12:55 12:55 Creatine Kinase 954 H CK-MB (CK-2) 3.18 3.05 Troponin I 0.145 0.099 NT-Pro-B Natriuret Pep 37725 H 05/16/16 05/17/16 05/17/16 03:37 03:50 03:50 Creatine Kinase 24 L CK-MB (CK-2) Troponin I 0.014 0.014 NT-Pro-B Natriuret Pep Impressions: Chest X-Ray 05/13/16 06:00 IMPRESSION: STABLE APPEARANCE OF THE CHEST. SUPPORT DEVICES UNCHANGED. Chest CT 05/16/16 00:00 IMPRESSION: Cardiomegaly. Trace right pleural effusion. Assessment & Plan - Diagnosis (1) Acute kidney injury Plan: Acute on chronic kidney injury improving continue present lines of management. (2) Fungemia Is this a current diagnosis for this admission?: YesPlan: On IV capsofungin. (3) Hypertension Plan: Stable (4) Kidney disease, chronic, stage IV (GFR 15-29 ml/min) Is this a current diagnosis for this admission?: YesPlan: Stable. No further changes for now. (5) Pneumonia Qualifiers: Lung location: unspecified part of lung (6) Atrial fibrillation and flutter Plan: Rate controlled and hemodynamically stable.
--- NOTE | 2016-05-18 15:37 | PDOC PROGRESS REPORT ---
Subjective Progress Note for:: 05/18/16 Subjective:: Reason for visit: Follow-up respiratory failure, congestive heart failure, fungemia Hospital course: Per transfer summary from Dr Smith: "DIAMOND KHAN is a 70 year old male with past history of COPD, chronic respiratory failure on trach, CRE, presents by EMS after he was having increased shortness of breath, increased secretions from trach and fever since this morning. Temperature was 102 and he was given 1 g of Tylenol by EMS prior to arrival. The patient was seen in the emergency room last night for urinary retention. He denies chest pain, flank pain, abdominal pain, headache, neck stiffness, nausea, vomiting Upon evaluation in the emergency room the patient was found in mild respiratory distress with acute on chronic respiratory failure A chest x-ray was suggestive of CHF and or pneumonia Patient was febrile with leukocytosis had a high lactic acid He was treated with antibiotics , IV fluids and subsequently admitted to the intensive care unit for further evaluation and care Upon initial evaluation the patient a was diagnosed of pneumonia and early sepsis Treated with fluid boluses and broad-spectrum antibiotics A chest x-ray was suggestive of CHF and or pneumonia IV fluids were discontinued and Lasix was added Patient's respiratory status improved and stabilized He is currently stable. With an O2 sat of 99% on 28% oxygen trach collar CK disease stage IV appears stable with a GFR of 19 Uncontrolled diabetes His hemoglobin A1c is more than 14 ; he was maintained on just 30 units of Lantus at night We increased his Lantus insulin to 20 units subcutaneous every 12; and continued lispro coverage Patient had elevated troponins on admission" - per dr smith presumably due to hypoxia and sepsis on admission his blood cultures are positive for fungus, not dewayne, and awaiting final reports from state lab. micafungin started 05/14/16. 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 I inherited his care 05/15/16 and he is still awaiting bed availability at [facility] in [place]. His HR is climbing into the 130's sustained sinus tach. He denies chest pain, palpitations, states he is short of breath with exertion but okay at rest and feels significantly better than when he arrived. I tried adding a low dose NS bolus thinking maybe we had over-diuresed him but it had no effect on either his HR or fortunately his breathing. I increased his metoprolol from 50mg bid to 75mg bid and added prn IV lopressor which gets his HR down but only temporarily. tachycardia is better controlled after cardizem started by cardiology; ready to get on with transfer to [facility] but still no beds available. Subjective: denies fevers/chills, myalgias/arthralgias, N/V/D. no new complaints for me this morning. Just wants to go home ROS: per HPI plus a total of 10 systems reviewed, pertinent positives and negatives noted above, remaining systems negative. Physical Exam Vital Signs: Temp Pulse Resp BP Pulse Ox 98.2 F 114 H 16 140/87 H 97 05/18/16 12:00 05/18/16 12:00 05/18/16 12:00 05/18/16 12:00 05/18/16 12:00 Intake & Output 05/17/16 05/18/16 05/19/16 06:59 06:59 06:59 Intake Total 2220 429 Output Total 2490 2990 475 Balance -270 -2561 -475 Weight 137.7 kg 136.2 kg EXAM GENERAL: NAD; well developed, well nourished; morbid obese; alert and oriented to person, place, time, situation HEENT: normocephalic, atraumatic; no conjunctival injection, no scleral icterus ; oral mucosa moist; trach collar in place on FiO2 28% RESPIRATORY: no accessory muscle use, no increased WOB, good air entry bilaterally; no wheezes, rales, rhonchi; bilateral inspiratory crackles laterally and at the bases CARDIO: no JVD; no systolic murmur; sinus tachycardia GI: soft; nondistended; normal bowel sounds; massive pannus; no rebound, rigidity, guarding; nontender VASCULAR: no pallor; 2+ radial, DP pulse; normal capillary refill EXTREMITIES: no calf tender; no palpable cords in calf; no clubbing, cyanosis ; 1+ pedal edema; 18-gauge peripheral lines only PSYCH: normal affect, depressed mood SKIN: warm; moist; no petechiae; no telengectasias; no jaundice; mild erythematous rash about the tip of the penis Results Laboratory Results: 05/18/16 04:16 05/18/16 04:16 05/18/16 05/18/16 04:16 04:16 WBC 9.5 RBC 3.65 L Hgb 9.9 L Hct 29.3 L MCV 80 MCH 27.1 MCHC 33.8 RDW 16.9 H Plt Count 172 Seg Neutrophils % Not Reportable Lymphocytes % Not Reportable Monocytes % Not Reportable Eosinophils % Not Reportable Basophils % Not Reportable Absolute Neutrophils Not Reportable Absolute Lymphocytes Not Reportable Absolute Monocytes Not Reportable Absolute Eosinophils Not Reportable Absolute Basophils Not Reportable Sodium 140.3 Potassium 4.0 Chloride 104 Carbon Dioxide 25 Anion Gap 11 BUN 100 H Creatinine 2.27 H Est GFR ( Amer) 35 L Est GFR (Non-Af Amer) 29 L Glucose 123 H Calcium 9.2 05/13/16 05/13/16 05/13/16 00:10 00:10 06:30 Creatine Kinase 2109 H 1399 H CK-MB (CK-2) 3.57 Troponin I 0.193 NT-Pro-B Natriuret Pep 05/13/16 05/13/16 05/13/16 06:30 12:55 12:55 Creatine Kinase 954 H CK-MB (CK-2) 3.18 3.05 Troponin I 0.145 0.099 NT-Pro-B Natriuret Pep 97016 H 05/16/16 05/17/16 05/17/16 03:37 03:50 03:50 Creatine Kinase 24 L CK-MB (CK-2) Troponin I 0.014 0.014 NT-Pro-B Natriuret Pep Impressions: Chest X-Ray 05/13/16 06:00 IMPRESSION: STABLE APPEARANCE OF THE CHEST. SUPPORT DEVICES UNCHANGED. Chest CT 05/16/16 00:00 IMPRESSION: Cardiomegaly. Trace right pleural effusion. Assessment & Plan - Diagnosis (1) Fungemia Is this a current diagnosis for this admission?: YesPlan: Continue micafungin. Awaiting transfer for trans-esophageal echocardiogram. repeat blood cultures negative so far, we'll need to hold for a full 5 days for fungal culture. d/c'd systemic steroids and monitoring for hemodynamic instability/adrenal suppression. If by Saturday we are unable to get him transferred for transesophageal echocardiogram, and his repeat cultures remain negative for fungal elements, we' ll place PICC line and arrange home antibiotics for 2 weeks and micafungin and arrange for outpatient [facility]. (2) HCAP (healthcare-associated pneumonia) Is this a current diagnosis for this admission?: YesPlan: CT chest does NOT show consolidation or focal airspace disease. consulted pulmonary for possible bronch and BAL for culture, but he doesn't feel this is indicated at this time. I stopped his abx for HCAP, continue to monitor for recurrence. (3) Acute and chronic respiratory failure Qualifiers: Respiratory failure complication: hypoxia Qualified Code(s): J96.21 - Acute and chronic respiratory failure with hypoxia Is this a current diagnosis for this admission?: Yes (4) Congestive heart failure Qualifiers: Congestive heart failure type: combined Congestive heart failure chronicity: acute on chronic Qualified Code(s): I50.43 - Acute on chronic combined systolic (congestive) and diastolic (congestive) heart failure Is this a current diagnosis for this admission?: Yes (5) Diabetes mellitus Qualifiers: Diabetes mellitus type: type 2 Diabetes mellitus complication status: with kidney complications Diabetes mellitus complication detail: with chronic kidney disease Diabetes mellitus intermediate teacher insulin use: with intermediate teacher use Chronic kidney disease stage: stage 4 (severe) Qualified Code(s): E11.22 - Type 2 diabetes mellitus with diabetic chronic kidney disease ; N18.1 - Chronic kidney disease, stage 1; Z79.4 - intermediate (current) use of insulin Is this a current diagnosis for this admission?: Yes (6) Elevated troponin Is this a current diagnosis for this admission?: Yes (7) Sepsis Qualifiers: Sepsis type: sepsis due to unspecified organism Qualified Code(s): A41.9 - Sepsis, unspecified organism Is this a current diagnosis for this admission?: Yes (8) Status post tracheostomy Is this a current diagnosis for this admission?: Yes (9) Kidney disease, chronic, stage IV (GFR 15-29 ml/min) Is this a current diagnosis for this admission?: Yes (10) Atrial fibrillation and flutter Is this a current diagnosis for this admission?: YesPlan: Add oral Cardizem and monitor for rate control. Continue only DVT prophylaxis levels of anticoagulation at this point due to need for invasive procedures including transesophageal echocardiogram and PICC line placement. Will need anticoagulation with either Coumadin or Eliquis when able. - Time Time Spent with patient: 25-34 minutes Anticipated discharge: [facility] Within: within 24 hours
--- NOTE | 2016-05-18 20:18 | PDOC PROGRESS REPORT ---
Subjective Progress Note for:: 05/18/16 Subjective:: Patient seems to be doing better with gradual improvement. Pt is denying any chest arm or neck discomfort. Patient denying any PND, orthopnea. Patient denied any sustained palpitations, dizziness, syncope, near syncope. Patient denying any fever chills. Patient denying any other significant discomfort. Patient is maintaining atrial fibrillation, atrial flutter rhythm. Heart rate better controlled on Cardizem drip. Patient has tracheostomy but is able to speak. Review of systems: Rest review of systems negative. Medications: Medications have been reviewed. Patient today told me that he wants to go home but has multiple ongoing problems therefore cannot be discharged. Physical Exam Vital Signs: Temp Pulse Resp BP Pulse Ox 97.6 F 103 H 16 143/88 H 98 05/18/16 16:00 05/18/16 16:00 05/18/16 18:00 05/18/16 17:19 05/18/16 18:00 Intake & Output 05/17/16 05/18/16 05/19/16 06:59 06:59 06:59 Intake Total 2220 429 132 Output Total 2490 2990 1090 Balance -270 2565 -958 Weight 137.7 kg 136.2 kg Exam: GENERAL: well-nourished and in no acute distress. Alert and oriented x3 HEAD: Atraumatic, normocephalic. EYES: Pupils equal round and reactive to light, extraocular movements intact, sclera anicteric, conjunctiva are normal. ENT: TMs normal, nares patent, oropharynx clear without exudates. Moist mucous membranes. No oral ulcerations or bleeding gums noted NECK: supple without lymphadenopathy. Trachea is central with tracheostomy noted. No cervical or axillary lymphadenopathy noted. Carotids are 2+, JVD WNL LUNGS: Respiration seems nonlabored, no significant accessory muscle action noted. Bibasal a fine crackles and some wheezing noted. No dullness noted. CHEST: Palpation of the chest wall shows no significant chest wall tenderness. No other significant abnormalities noted. 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 ABDOMEN: Soft, no significant tenderness appreciated, normoactive bowel sounds. No guarding, no rebound. No rigidity noted . No masses appreciated. EXTREMITIES: Pedal pulses are 1-2+, no calf tenderness noted. No clubbing or cyanosis.1+ pedal edema noted NEUROLOGICAL: Focused neurological exam showed no significant neurologic deficit. Normal speech, no focal weakness appreciated. PSYCH: Normal mood, normal affect. Judgment and insight within normal limits. SKIN: No significant ecchymosis, rash, ulcerations or signs of pruritus noted. MUSCULOSKELETAL EXAM: No significant joint swelling noted. Results Laboratory Results: 05/18/16 04:16 05/18/16 04:16 05/18/16 05/18/16 04:16 04:16 WBC 9.5 RBC 3.65 L Hgb 9.9 L Hct 29.3 L MCV 80 MCH 27.1 MCHC 33.8 RDW 16.9 H Plt Count 172 Seg Neutrophils % Not Reportable Lymphocytes % Not Reportable Monocytes % Not Reportable Eosinophils % Not Reportable Basophils % Not Reportable Absolute Neutrophils Not Reportable Absolute Lymphocytes Not Reportable Absolute Monocytes Not Reportable Absolute Eosinophils Not Reportable Absolute Basophils Not Reportable Sodium 140.3 Potassium 4.0 Chloride 104 Carbon Dioxide 25 Anion Gap 11 BUN 100 H Creatinine 2.27 H Est GFR ( Amer) 35 L Est GFR (Non-Af Amer) 29 L Glucose 123 H Calcium 9.2 05/13/16 05/13/16 05/13/16 00:10 00:10 06:30 Creatine Kinase 2109 H 1399 H CK-MB (CK-2) 3.57 Troponin I 0.193 NT-Pro-B Natriuret Pep 05/13/16 05/13/16 05/13/16 06:30 12:55 12:55 Creatine Kinase 954 H CK-MB (CK-2) 3.18 3.05 Troponin I 0.145 0.099 NT-Pro-B Natriuret Pep 54788 H 05/16/16 05/17/16 05/17/16 03:37 03:50 03:50 Creatine Kinase 24 L CK-MB (CK-2) Troponin I 0.014 0.014 NT-Pro-B Natriuret Pep Impressions: Chest X-Ray 05/13/16 06:00 IMPRESSION: STABLE APPEARANCE OF THE CHEST. SUPPORT DEVICES UNCHANGED. Chest CT 05/16/16 00:00 IMPRESSION: Cardiomegaly. Trace right pleural effusion. Assessment & Plan - Diagnosis (1) Atrial fibrillation and flutter Is this a current diagnosis for this admission?: Yes (2) Endocarditis Qualifiers: Endocarditis type: infective Infective endocarditis organism: unspecified organism Chronicity: unspecified Qualified Code(s): I33.0 - Acute and subacute infective endocarditis Is this a current diagnosis for this admission?: Yes (3) Sinus tachycardia Is this a current diagnosis for this admission?: Yes (4) Coronary artery disease Qualifiers: Coronary Disease-Associated Artery/Lesion type: [place] artery [place] vs. transplanted heart: [place] heart Associated angina: angina presence unspecified Qualified Code(s): I25.10 - Atherosclerotic heart disease of [place] coronary artery without angina pectoris Is this a current diagnosis for this admission?: Yes (5) Diabetes mellitus Qualifiers: Diabetes mellitus type: type 2 Diabetes mellitus complication status: with kidney complications Diabetes mellitus complication detail: with chronic kidney disease Diabetes mellitus long term care social worker insulin use: with long term care social worker use Chronic kidney disease stage: stage 4 (severe) Qualified Code(s): E11.22 - Type 2 diabetes mellitus with diabetic chronic kidney disease ; N18.1 - Chronic kidney disease, stage 1; Z79.4 - senior living (current) use of insulin Is this a current diagnosis for this admission?: Yes (6) COPD, severe Is this a current diagnosis for this admission?: Yes (7) Chronic kidney disease (CKD) Qualifiers: Chronic kidney disease stage: unspecified stage Qualified Code(s): N18.9 - Chronic kidney disease, unspecified Is this a current diagnosis for this admission?: Yes - Notes Notes: Discussed chronic anticoagulation with hospitalist. Patient is scheduled to have multiple procedures therefore decided not to institute Coumadin therapy. Patient on DVT prophylaxis dose. Endocarditis: This is strongly suspected. Continue antibiotic therapy. Coronary artery disease: Symptomatically stable. Diabetes: Coming under better control. Chronic kidney disease: Patient being followed by cryptological technician. COPD: Patient seems to have underlying severe COPD. Will consider Multaq therapy but wanted patient to be on anticoagulation. - Time Time with patient: 15-25 minutes - CODE STATUS was discussed, patient remains full code. Surrogate decision-maker unchanged. Multiple medical problems were addressed.More than 50% of the time spent coordinating care, discussing management plans with involved caregivers. Management plans discussed with involved personnels. Medical decision making was of moderate complexity.
[2016-05-18] MEDS: FAMOTIDINE 20 MG TABLET PO SCH (21:12)
[2016-05-18] MEDS: LATANOPROST 0.005% OPH SOLN 2.5 ML OU SCH (21:18)
[2016-05-19] MEDS: HEPARIN SOD (PORCINE) 5,000 UNIT/ML 1 ML SYRINGE SUBCUT SCH ×3 (05:03→23:05)
[2016-05-19] MEDS: METOPROLOL TARTRATE 50 MG TABLET PO SCH ×2 (05:04→18:04)
[2016-05-19] MEDS: LORAZEPAM 0.5 MG TABLET PO PRN ×2 (08:00→18:04)
[2016-05-19] MEDS: OXYCODONE HCL IR 5 MG TABLET PO PRN (08:05)
[2016-05-19] MEDS: LEVALBUTEROL HCL NEB 0.63 MG/3 ML AMPUL NEB PRN ×2 (08:22→20:21)
[2016-05-19] MEDS: BUDESONIDE NEB 0.5 MG/2 ML AMPUL NEB SCH ×2 (08:22→20:21)
[2016-05-19] MEDS: ESCITALOPRAM OXALATE 10 MG TABLET PO SCH (11:00)
[2016-05-19] MEDS: DOCUSATE SODIUM 100 MG CAPSULE PO SCH (11:00)
[2016-05-19] MEDS: MIDODRINE HCL 5 MG TABLET PO SCH ×2 (11:01→18:04)
[2016-05-19] MEDS: MICAFUNGIN SODIUM 150 MG in NORMAL SALINE 100 ML IV SCH (11:01)
[2016-05-19] MEDS: ASPIRIN 81 MG TABLET, ENT COATED PO SCH (11:01)
[2016-05-19] MEDS: LEVOTHYROXINE SODIUM 0.088 MG TABLET PO SCH (11:01)
[2016-05-19] MEDS: DILTIAZEM HCL 120 MG CAP.SR.24H PO SCH ×2 (11:02→22:51)
[2016-05-19] MEDS: NYSTATIN CREAM 15 GM TP SCH ×2 (11:02→18:04)
[2016-05-19] MEDS: INSULIN GLARGINE,HUM.REC.ANLOG 300 UNIT/3 ML INSULN.PEN SUBCUT SCH ×2 (11:10→23:05)
[2016-05-19] MEDS: CHLORHEXIDINE GLUCONATE 0.12% ORAL RINSE 15 ML UDC PO SCH ×2 (11:10→18:03)
--- NOTE | 2016-05-19 12:48 | PDOC PROGRESS REPORT ---
Subjective Progress Note for:: 05/19/16 Subjective:: Patient seems to be doing better with gradual improvement. Pt is denying any chest arm or neck discomfort. Patient denying any PND, orthopnea. Patient denied any sustained palpitations, dizziness, syncope, near syncope. Patient denying any fever chills. Patient denying any other significant discomfort. Today in sinus rhythm. Patient has tracheostomy but is able to speak. Review of systems: Rest review of systems negative. Medications: Medications have been reviewed. Physical Exam Vital Signs: Temp Pulse Resp BP Pulse Ox 98.4 F 57 L 16 120/72 97 05/19/16 12:00 05/19/16 12:00 05/19/16 12:00 05/19/16 12:00 05/19/16 12:00 Intake & Output 05/18/16 05/19/16 05/20/16 06:59 06:59 06:59 Intake Total 429 132 237 Output Total 2990 2365 225 Balance -2561 -2233 12 Weight 136.2 kg 134.9 kg Exam: GENERAL: well-nourished and in no acute distress. Alert and oriented x3 HEAD: Atraumatic, normocephalic. EYES: Pupils equal round and reactive to light, extraocular movements intact, sclera anicteric, conjunctiva are normal. ENT: TMs normal, nares patent, oropharynx clear without exudates. Moist mucous membranes. No oral ulcerations or bleeding gums noted NECK: supple without lymphadenopathy. Tracheostomy noted. No cervical or axillary lymphadenopathy noted. Carotids are 2+, JVD WNL LUNGS: Respiration seems nonlabored, no significant accessory muscle action noted. Bilateral fine crackles and mild wheezing are noted. CHEST: Palpation of the chest wall shows no significant chest wall tenderness. No other significant abnormalities noted. 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 ABDOMEN: Soft, no significant tenderness appreciated, normoactive bowel sounds. No guarding, no rebound. No rigidity noted . No masses appreciated. EXTREMITIES: Pedal pulses are 1-2+, no calf tenderness noted. No clubbing or cyanosis.trace to 1+ pedal edema noted NEUROLOGICAL: Focused neurological exam showed no significant neurologic deficit. Normal speech, no focal weakness appreciated. PSYCH: Normal mood, normal affect. Judgment and insight within normal limits. SKIN: No significant ecchymosis, rash, ulcerations or signs of pruritus noted. MUSCULOSKELETAL EXAM: No significant joint swelling noted. Results Laboratory Results: 05/18/16 04:16 05/18/16 04:16 05/13/16 05/13/16 05/13/16 00:10 00:10 06:30 Creatine Kinase 2109 H 1399 H CK-MB (CK-2) 3.57 Troponin I 0.193 NT-Pro-B Natriuret Pep 05/13/16 05/13/16 05/13/16 06:30 12:55 12:55 Creatine Kinase 954 H CK-MB (CK-2) 3.18 3.05 Troponin I 0.145 0.099 NT-Pro-B Natriuret Pep 50601 H 05/16/16 05/17/16 05/17/16 03:37 03:50 03:50 Creatine Kinase 24 L CK-MB (CK-2) Troponin I 0.014 0.014 NT-Pro-B Natriuret Pep Impressions: Chest X-Ray 05/13/16 06:00 IMPRESSION: STABLE APPEARANCE OF THE CHEST. SUPPORT DEVICES UNCHANGED. Chest CT 05/16/16 00:00 IMPRESSION: Cardiomegaly. Trace right pleural effusion. Assessment & Plan - Diagnosis (1) Atrial fibrillation and flutter Is this a current diagnosis for this admission?: Yes (2) Endocarditis Qualifiers: Endocarditis type: infective Infective endocarditis organism: unspecified organism Chronicity: unspecified Qualified Code(s): I33.0 - Acute and subacute infective endocarditis Is this a current diagnosis for this admission?: Yes (3) Sinus tachycardia Is this a current diagnosis for this admission?: Yes (4) Coronary artery disease Qualifiers: Coronary Disease-Associated Artery/Lesion type: [place] artery [place] vs. transplanted heart: [place] heart Associated angina: angina presence unspecified Qualified Code(s): I25.10 - Atherosclerotic heart disease of [place] coronary artery without angina pectoris Is this a current diagnosis for this admission?: Yes (5) Diabetes mellitus Qualifiers: Diabetes mellitus type: type 2 Diabetes mellitus complication status: with kidney complications Diabetes mellitus complication detail: with chronic kidney disease Diabetes mellitus local company 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 insulin use: with local company 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 use Chronic kidney disease stage: stage 4 (severe) Qualified Code(s): E11.22 - Type 2 diabetes mellitus with diabetic chronic kidney disease ; N18.1 - Chronic kidney disease, stage 1; Z79.4 - vermin 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 (current) use of insulin Is this a current diagnosis for this admission?: Yes (6) COPD, severe Is this a current diagnosis for this admission?: Yes (7) Chronic kidney disease (CKD) Qualifiers: Chronic kidney disease stage: unspecified stage Qualified Code(s): N18.9 - Chronic kidney disease, unspecified Is this a current diagnosis for this admission?: Yes - Notes Notes: Patient converted to sinus rhythm and is maintaining adequate heart rate. At this point not on chronic anticoagulation. Discussed chronic anticoagulation with hospitalist. Patient is scheduled to have multiple procedures therefore decided not to institute Coumadin therapy. Patient on DVT prophylaxis dose. Endocarditis: This is strongly suspected. Continue antibiotic therapy. Coronary artery disease: Symptomatically stable. Diabetes: Coming under better control. Chronic kidney disease: Patient being followed by garage construction equipment mechanic. COPD: Patient seems to have underlying severe COPD. Will consider Multaq therapy but wanted patient to be on anticoagulation. - Time Time with patient: Greater than 35 minutes - CODE STATUS was discussed, patient remains full code. Surrogate decision-maker unchanged. Multiple medical problems were addressed.More than 50% of the time spent coordinating care, discussing management plans with involved caregivers. Management plans discussed with involved personnels. Medical decision making was of moderate complexity.
--- NOTE | 2016-05-19 17:51 | PDOC PROGRESS REPORT ---
Subjective Progress Note for:: 05/19/16 Subjective:: Reason for visit: Follow-up respiratory failure, congestive heart failure, fungemia Hospital course: Per transfer summary from Dr Smith: "DIAMOND KHAN is a 70 year old male with past history of COPD, chronic respiratory failure on trach, CRE, presents by EMS after he was having increased shortness of breath, increased secretions from trach and fever since this morning. Temperature was 102 and he was given 1 g of Tylenol by EMS prior to arrival. The patient was seen in the emergency room last night for urinary retention. He denies chest pain, flank pain, abdominal pain, headache, neck stiffness, nausea, vomiting Upon evaluation in the emergency room the patient was found in mild respiratory distress with acute on chronic respiratory failure A chest x-ray was suggestive of CHF and or pneumonia Patient was febrile with leukocytosis had a high lactic acid He was treated with antibiotics , IV fluids and subsequently admitted to the intensive care unit for further evaluation and care Upon initial evaluation the patient a was diagnosed of pneumonia and early sepsis Treated with fluid boluses and broad-spectrum antibiotics A chest x-ray was suggestive of CHF and or pneumonia IV fluids were discontinued and Lasix was added Patient's respiratory status improved and stabilized He is currently stable. With an O2 sat of 99% on 28% oxygen trach collar CK disease stage IV appears stable with a GFR of 19 Uncontrolled diabetes His hemoglobin A1c is more than 14 ; he was maintained on just 30 units of Lantus at night We increased his Lantus insulin to 20 units subcutaneous every 12; and continued lispro coverage Patient had elevated troponins on admission" - per dr smith presumably due to hypoxia and sepsis on admission his blood cultures are positive for fungus, not dewayne, and awaiting final reports from state lab. micafungin started 05/14/16. 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 I inherited his care 05/15/16 and he is still awaiting bed availability at [facility] in [place]. His HR is climbing into the 130's sustained sinus tach. He denies chest pain, palpitations, states he is short of breath with exertion but okay at rest and feels significantly better than when he arrived. I tried adding a low dose NS bolus thinking maybe we had over-diuresed him but it had no effect on either his HR or fortunately his breathing. I increased his metoprolol from 50mg bid to 75mg bid and added prn IV lopressor which gets his HR down but only temporarily. tachycardia is better controlled after cardizem started by cardiology; ready to get on with transfer to [facility] but still no beds available. Repeat blood cultures at 48 hours showed no growth, will need to be held for a full 5 days to confirm no fungal growth. If at that time they remain negative, PICC line can be placed for outpatient micafungin therapy for a minimum of 2 weeks from last clear culture. Subjective: denies fevers/chills, myalgias/arthralgias, N/V/D. no new complaints for me this morning. Just wants to go home ROS: per HPI plus a total of 10 systems reviewed, pertinent positives and negatives noted above, remaining systems negative. Physical Exam Vital Signs: Temp Pulse Resp BP Pulse Ox 98.4 F 66 16 110/67 98 05/19/16 16:00 05/19/16 16:00 05/19/16 16:00 05/19/16 16:00 05/19/16 16:00 Intake & Output 05/18/16 05/19/16 05/20/16 06:59 06:59 06:59 Intake Total 429 132 237 Output Total 2990 2365 575 Balance -2561 -2233 -338 Weight 136.2 kg 134.9 kg EXAM GENERAL: NAD; well developed, well nourished; morbid obese; alert and oriented to person, place, time, situation HEENT: normocephalic, atraumatic; no conjunctival injection, no scleral icterus ; oral mucosa moist; trach collar in place on FiO2 28% RESPIRATORY: no accessory muscle use, no increased WOB, good air entry bilaterally; no wheezes, rales, rhonchi; bilateral inspiratory crackles laterally and at the bases CARDIO: no JVD; no systolic murmur; sinus tachycardia GI: soft; nondistended; normal bowel sounds; massive pannus; no rebound, rigidity, guarding; nontender VASCULAR: no pallor; 2+ radial, DP pulse; normal capillary refill EXTREMITIES: no calf tender; no palpable cords in calf; no clubbing, cyanosis ; 1+ pedal edema; 18-gauge peripheral lines only PSYCH: normal affect, depressed mood SKIN: warm; moist; no petechiae; no telengectasias; no jaundice; mild erythematous rash about the tip of the penis Results Laboratory Results: 05/18/16 04:16 05/18/16 04:16 05/13/16 05/13/16 05/13/16 00:10 00:10 06:30 Creatine Kinase 2109 H 1399 H CK-MB (CK-2) 3.57 Troponin I 0.193 NT-Pro-B Natriuret Pep 05/13/16 05/13/16 05/13/16 06:30 12:55 12:55 Creatine Kinase 954 H CK-MB (CK-2) 3.18 3.05 Troponin I 0.145 0.099 NT-Pro-B Natriuret Pep 81295 H 05/16/16 05/17/16 05/17/16 03:37 03:50 03:50 Creatine Kinase 24 L CK-MB (CK-2) Troponin I 0.014 0.014 NT-Pro-B Natriuret Pep Impressions: Chest X-Ray 05/13/16 06:00 IMPRESSION: STABLE APPEARANCE OF THE CHEST. SUPPORT DEVICES UNCHANGED. Chest CT 05/16/16 00:00 IMPRESSION: Cardiomegaly. Trace right pleural effusion. Assessment & Plan - Diagnosis (1) Fungemia Is this a current diagnosis for this admission?: Yes (2) HCAP (healthcare-associated pneumonia) Is this a current diagnosis for this admission?: Yes (3) Acute and chronic respiratory failure Qualifiers: Respiratory failure complication: hypoxia Qualified Code(s): J96.21 - Acute and chronic respiratory failure with hypoxia Is this a current diagnosis for this admission?: Yes (4) Congestive heart failure Qualifiers: Congestive heart failure type: combined Congestive heart failure chronicity: acute on chronic Qualified Code(s): I50.43 - Acute on chronic combined systolic (congestive) and diastolic (congestive) heart failure Is this a current diagnosis for this admission?: Yes (5) Diabetes mellitus Qualifiers: Diabetes mellitus type: type 2 Diabetes mellitus complication status: with kidney complications Diabetes mellitus complication detail: with chronic kidney disease 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 mellitus 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 termite insulin use: with senior living use Chronic kidney disease stage: stage 4 (severe) Qualified Code(s): E11.22 - Type 2 diabetes mellitus with diabetic chronic kidney disease ; N18.1 - Chronic kidney disease, stage 1; Z79.4 - USP (current) use of insulin Is this a current diagnosis for this admission?: Yes (6) Elevated troponin Is this a current diagnosis for this admission?: Yes (7) Sepsis Qualifiers: Sepsis type: sepsis due to unspecified organism Qualified Code(s): A41.9 - Sepsis, unspecified organism Is this a current diagnosis for this admission?: Yes (8) Status post tracheostomy Is this a current diagnosis for this admission?: Yes (9) Kidney disease, chronic, stage IV (GFR 15-29 ml/min) Is this a current diagnosis for this admission?: Yes (10) Atrial fibrillation and flutter Is this a current diagnosis for this admission?: Yes - Time Time Spent with patient: 25-34 minutes - Plan Summary Plan Summary: Ideally he should have a transesophageal echocardiogram to confirm no endocarditis, however his repeat blood cultures are negative implying that we might get away with just continue antibiotics. As there does not seem to be a bed at [facility] available for him, if his cultures remain negative by Saturday will place a PICC line and arrange for home antibiotics with continue micafungin and an outpatient transesophageal echocardiogram. Patient is in agreement with this treatment plan and quite anxious for discharge home.
[2016-05-19] MEDS: LATANOPROST 0.005% OPH SOLN 2.5 ML OU SCH (22:50)
[2016-05-19] MEDS: FAMOTIDINE 20 MG TABLET PO SCH (22:51)
[2016-05-19] MEDS: INSULIN LISPRO 100 UNIT/ML 3 ML VIAL SUBCUT PRN (23:06)
[2016-05-20] MEDS: HEPARIN SOD (PORCINE) 5,000 UNIT/ML 1 ML SYRINGE SUBCUT SCH ×3 (06:10→21:06)
[2016-05-20] MEDS: METOPROLOL TARTRATE 50 MG TABLET PO SCH ×2 (06:12→17:00)
[2016-05-20] MEDS: LEVALBUTEROL HCL NEB 0.63 MG/3 ML AMPUL NEB PRN ×2 (08:34→20:44)
[2016-05-20] MEDS: BUDESONIDE NEB 0.5 MG/2 ML AMPUL NEB SCH ×2 (08:34→20:44)
[2016-05-20] MEDS: LORAZEPAM 0.5 MG TABLET PO PRN (08:37)
[2016-05-20] MEDS: ASPIRIN 81 MG TABLET, ENT COATED PO SCH (09:13)
[2016-05-20] MEDS: DILTIAZEM HCL 120 MG CAP.SR.24H PO SCH ×2 (09:13→21:06)
[2016-05-20] MEDS: LEVOTHYROXINE SODIUM 0.088 MG TABLET PO SCH (09:13)
[2016-05-20] MEDS: DOCUSATE SODIUM 100 MG CAPSULE PO SCH (09:14)
[2016-05-20] MEDS: MIDODRINE HCL 5 MG TABLET PO SCH ×2 (09:14→17:01)
[2016-05-20] MEDS: CHLORHEXIDINE GLUCONATE 0.12% ORAL RINSE 15 ML UDC PO SCH ×2 (09:15→17:01)
[2016-05-20] MEDS: ESCITALOPRAM OXALATE 10 MG TABLET PO SCH (09:15)
[2016-05-20] MEDS: MICAFUNGIN SODIUM 150 MG in NORMAL SALINE 100 ML IV SCH (09:16)
[2016-05-20] MEDS: NYSTATIN CREAM 15 GM TP SCH ×2 (09:16→17:01)
[2016-05-20] MEDS: INSULIN GLARGINE,HUM.REC.ANLOG 300 UNIT/3 ML INSULN.PEN SUBCUT SCH ×2 (09:17→21:06)
[2016-05-20] MEDS: OXYCODONE HCL IR 5 MG TABLET PO PRN (11:12)
--- NOTE | 2016-05-20 14:34 | PDOC PROGRESS REPORT ---
Subjective Progress Note for:: 05/20/16 Subjective:: Reason for visit: Follow-up respiratory failure, congestive heart failure, fungemia Hospital course: Per transfer summary from Dr Smith: "DIAMOND KHAN is a 70 year old male with past history of COPD, chronic respiratory failure on trach, CRE, presents by EMS after he was having increased shortness of breath, increased secretions from trach and fever since this morning. Temperature was 102 and he was given 1 g of Tylenol by EMS prior to arrival. The patient was seen in the emergency room last night for urinary retention. He denies chest pain, flank pain, abdominal pain, headache, neck stiffness, nausea, vomiting Upon evaluation in the emergency room the patient was found in mild respiratory distress with acute on chronic respiratory failure A chest x-ray was suggestive of CHF and or pneumonia Patient was febrile with leukocytosis had a high lactic acid He was treated with antibiotics , IV fluids and subsequently admitted to the intensive care unit for further evaluation and care Upon initial evaluation the patient a was diagnosed of pneumonia and early sepsis Treated with fluid boluses and broad-spectrum antibiotics A chest x-ray was suggestive of CHF and or pneumonia IV fluids were discontinued and Lasix was added Patient's respiratory status improved and stabilized He is currently stable. With an O2 sat of 99% on 28% oxygen trach collar CK disease stage IV appears stable with a GFR of 19 Uncontrolled diabetes His hemoglobin A1c is more than 14 ; he was maintained on just 30 units of Lantus at night We increased his Lantus insulin to 20 units subcutaneous every 12; and continued lispro coverage Patient had elevated troponins on admission" - per dr smith presumably due to hypoxia and sepsis on admission his blood cultures are positive for fungus, not dewayne, and awaiting final reports from state lab. micafungin started 05/14/16. 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 I inherited his care 05/15/16 and he is still awaiting bed availability at [facility] in [place]. His HR is climbing into the 130's sustained sinus tach. He denies chest pain, palpitations, states he is short of breath with exertion but okay at rest and feels significantly better than when he arrived. I tried adding a low dose NS bolus thinking maybe we had over-diuresed him but it had no effect on either his HR or fortunately his breathing. I increased his metoprolol from 50mg bid to 75mg bid and added prn IV lopressor which gets his HR down but only temporarily. tachycardia is better controlled after cardizem started by cardiology; ready to get on with transfer to [facility] but still no beds available. Repeat blood cultures at 72 hours show no growth, will need to be held for a full 5 days to confirm no fungal growth. If at that time they remain negative, PICC line can be placed for outpatient micafungin therapy for a minimum of 2 weeks from last clear culture. Subjective: denies fevers/chills, myalgias/arthralgias, N/V/D. no new complaints for me this morning. Just wants to go home ROS: per HPI plus a total of 10 systems reviewed, pertinent positives and negatives noted above, remaining systems negative. Physical Exam Vital Signs: Temp Pulse Resp BP Pulse Ox 97.5 F 61 16 132/83 H 97 05/20/16 12:00 05/20/16 14:00 05/20/16 14:00 05/20/16 12:55 05/20/16 14:00 Intake & Output 05/19/16 05/20/16 05/21/16 06:59 06:59 06:59 Intake Total 132 577 Output Total 2365 1425 Balance -2233 -848 Weight 134.9 kg 135.5 kg EXAM GENERAL: NAD; well developed, well nourished; morbid obese; alert and oriented to person, place, time, situation HEENT: normocephalic, atraumatic; no conjunctival injection, no scleral icterus ; oral mucosa moist; trach collar in place on FiO2 28% RESPIRATORY: no accessory muscle use, no increased WOB, good air entry bilaterally; no wheezes, rales, rhonchi; bilateral inspiratory crackles laterally and at the bases CARDIO: no JVD; no systolic murmur; sinus tachycardia GI: soft; nondistended; normal bowel sounds; massive pannus; no rebound, rigidity, guarding; nontender VASCULAR: no pallor; 2+ radial, DP pulse; normal capillary refill EXTREMITIES: no calf tender; no palpable cords in calf; no clubbing, cyanosis ; 1+ pedal edema; 18-gauge peripheral lines only PSYCH: normal affect, depressed mood SKIN: warm; moist; no petechiae; no telengectasias; no jaundice Results Laboratory Results: 05/18/16 04:16 05/18/16 04:16 05/13/16 05/13/16 05/13/16 00:10 00:10 06:30 Creatine Kinase 2109 H 1399 H CK-MB (CK-2) 3.57 Troponin I 0.193 NT-Pro-B Natriuret Pep 05/13/16 05/13/16 05/13/16 06:30 12:55 12:55 Creatine Kinase 954 H CK-MB (CK-2) 3.18 3.05 Troponin I 0.145 0.099 NT-Pro-B Natriuret Pep 75586 H 05/16/16 05/17/16 05/17/16 03:37 03:50 03:50 Creatine Kinase 24 L CK-MB (CK-2) Troponin I 0.014 0.014 NT-Pro-B Natriuret Pep Impressions: Chest X-Ray 05/13/16 06:00 IMPRESSION: STABLE APPEARANCE OF THE CHEST. SUPPORT DEVICES UNCHANGED. Chest CT 05/16/16 00:00 IMPRESSION: Cardiomegaly. Trace right pleural effusion. Assessment & Plan - Diagnosis (1) Fungemia Is this a current diagnosis for this admission?: Yes (2) HCAP (healthcare-associated pneumonia) Is this a current diagnosis for this admission?: Yes (3) Acute and chronic respiratory failure Qualifiers: Respiratory failure complication: hypoxia Qualified Code(s): J96.21 - Acute and chronic respiratory failure with hypoxia Is this a current diagnosis for this admission?: Yes (4) Congestive heart failure Qualifiers: Congestive heart failure type: combined Congestive heart failure chronicity: acute on chronic Qualified Code(s): I50.43 - Acute on chronic combined systolic (congestive) and diastolic (congestive) heart failure Is this a current diagnosis for this admission?: Yes (5) Diabetes mellitus Qualifiers: Diabetes mellitus type: type 2 Diabetes mellitus complication status: with kidney complications Diabetes mellitus complication detail: with chronic kidney disease 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 mellitus 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 insulin use: with detention use Chronic kidney disease stage: stage 4 (severe) Qualified Code(s): E11.22 - Type 2 diabetes mellitus with diabetic chronic kidney disease ; N18.1 - Chronic kidney disease, stage 1; Z79.4 - MCFP (current) use of insulin Is this a current diagnosis for this admission?: Yes (6) Elevated troponin Is this a current diagnosis for this admission?: Yes (7) Sepsis Qualifiers: Sepsis type: sepsis due to unspecified organism Qualified Code(s): A41.9 - Sepsis, unspecified organism Is this a current diagnosis for this admission?: Yes (8) Status post tracheostomy Is this a current diagnosis for this admission?: Yes (9) Kidney disease, chronic, stage IV (GFR 15-29 ml/min) Is this a current diagnosis for this admission?: Yes (10) Atrial fibrillation and flutter Is this a current diagnosis for this admission?: Yes - Time Time Spent with patient: 15-24 minutes - Plan Summary Plan Summary: Scheduled for PICC line tomorrow afternoon, waiting until lab reports about culture results at noon and assuming they remain no growth. At that point we can begin pursuing placement at home for continued IV micafungin.
[2016-05-20] MEDS: INSULIN LISPRO 100 UNIT/ML 3 ML VIAL SUBCUT PRN ×2 (17:01→21:06)
--- NOTE | 2016-05-20 17:26 | PDOC PROGRESS REPORT ---
Subjective Progress Note for:: 05/20/16 Subjective:: Patient seems to be doing better with gradual improvement. Pt is denying any chest arm or neck discomfort. Patient denying any PND, orthopnea. Patient denied any sustained palpitations, dizziness, syncope, near syncope. Patient denying any fever chills. Patient denying any other significant discomfort. Patient maintaining sinus rhythm. Patient has tracheostomy but is able to speak. Review of systems: Rest review of systems negative. Medications: Medications have been reviewed. Physical Exam Vital Signs: Temp Pulse Resp BP Pulse Ox 99.1 F 66 17 126/61 H 98 05/20/16 16:00 05/20/16 16:00 05/20/16 16:00 05/20/16 16:00 05/20/16 16:00 Intake & Output 05/19/16 05/20/16 05/21/16 06:59 06:59 06:59 Intake Total 132 577 250 Output Total 2365 1425 1025 Balance -2233 -848 -775 Weight 134.9 kg 135.5 kg Exam: GENERAL: well-nourished and in no acute distress. Alert and oriented x3 HEAD: Atraumatic, normocephalic. EYES: Pupils equal round and reactive to light, extraocular movements intact, sclera anicteric, conjunctiva are normal. ENT: TMs normal, nares patent, oropharynx clear without exudates. Moist mucous membranes. No oral ulcerations or bleeding gums noted NECK: supple without lymphadenopathy. Trachea is central with tracheostomy being present. No cervical or axillary lymphadenopathy noted. Carotids are 2+ , JVD WNL LUNGS: Respiration seems nonlabored, no significant accessory muscle action noted. Breath sounds clear to auscultation bilaterally and equal noted. No wheezes rales or rhonchi noted. No significant dullness noted on percussion. CHEST: Palpation of the chest wall shows no significant chest wall tenderness. No other significant abnormalities noted. 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 ABDOMEN: Soft, no significant tenderness appreciated, normoactive bowel sounds. No guarding, no rebound. No rigidity noted . No masses appreciated. EXTREMITIES: Pedal pulses are 1-2+, no calf tenderness noted. No clubbing or cyanosis.trace to 1+ pedal edema noted NEUROLOGICAL: Focused neurological exam showed no significant neurologic deficit. Normal speech, no focal weakness appreciated. PSYCH: Normal mood, normal affect. Judgment and insight within normal limits. SKIN: No significant ecchymosis, rash, ulcerations or signs of pruritus noted. MUSCULOSKELETAL EXAM: No significant joint swelling noted. Results Laboratory Results: 05/18/16 04:16 05/18/16 04:16 05/13/16 05/13/16 05/13/16 00:10 00:10 06:30 Creatine Kinase 2109 H 1399 H CK-MB (CK-2) 3.57 Troponin I 0.193 NT-Pro-B Natriuret Pep 05/13/16 05/13/16 05/13/16 06:30 12:55 12:55 Creatine Kinase 954 H CK-MB (CK-2) 3.18 3.05 Troponin I 0.145 0.099 NT-Pro-B Natriuret Pep 19033 H 05/16/16 05/17/16 05/17/16 03:37 03:50 03:50 Creatine Kinase 24 L CK-MB (CK-2) Troponin I 0.014 0.014 NT-Pro-B Natriuret Pep Impressions: Chest X-Ray 05/13/16 06:00 IMPRESSION: STABLE APPEARANCE OF THE CHEST. SUPPORT DEVICES UNCHANGED. Chest CT 05/16/16 00:00 IMPRESSION: Cardiomegaly. Trace right pleural effusion. Assessment & Plan - Diagnosis (1) Atrial fibrillation and flutter Is this a current diagnosis for this admission?: Yes (2) Endocarditis Qualifiers: Endocarditis type: infective Infective endocarditis organism: unspecified organism Chronicity: unspecified Qualified Code(s): I33.0 - Acute and subacute infective endocarditis Is this a current diagnosis for this admission?: Yes (3) Sinus tachycardia Is this a current diagnosis for this admission?: Yes (4) Coronary artery disease Qualifiers: Coronary Disease-Associated Artery/Lesion type: [place] artery [place] vs. transplanted heart: [place] heart Associated angina: angina presence unspecified Qualified Code(s): I25.10 - Atherosclerotic heart disease of [place] coronary artery without angina pectoris Is this a current diagnosis for this admission?: Yes (5) Diabetes mellitus Qualifiers: Diabetes mellitus type: type 2 Diabetes mellitus complication status: with kidney complications Diabetes mellitus complication detail: with chronic kidney disease Diabetes mellitus terminologist insulin use: with terminologist use Chronic kidney disease stage: stage 4 (severe) Qualified Code(s): E11.22 - Type 2 diabetes mellitus with diabetic chronic kidney disease ; N18.1 - Chronic kidney disease, stage 1; Z79.4 - terminologist (current) use of insulin Is this a current diagnosis for this admission?: Yes (6) COPD, severe Is this a current diagnosis for this admission?: Yes (7) Chronic kidney disease (CKD) Qualifiers: Chronic kidney disease stage: unspecified stage Qualified Code(s): N18.9 - Chronic kidney disease, unspecified Is this a current diagnosis for this admission?: Yes - Notes Notes: Patient converted to sinus rhythm and is maintaining adequate heart rate over last 48 hours. At this point not on chronic anticoagulation as there are procedures scheduled. Discussed chronic anticoagulation with hospitalist. Patient is scheduled to have multiple procedures therefore decided not to institute Coumadin therapy. Patient on DVT prophylaxis dose. Endocarditis: This is strongly suspected. Continue antibiotic therapy. Coronary artery disease: Symptomatically stable. Diabetes: Coming under better control. Chronic kidney disease: Patient being followed by slat basket top maker. COPD: Patient seems to have underlying severe COPD. Will consider Multaq therapy but wanted patient to be on anticoagulation. Patient generally stable from cardiac standpoint. Dr. Whittaker to follow from tomorrow. - Time Time with patient: 15-25 minutes - CODE STATUS was discussed, patient remains full code. Surrogate decision-maker unchanged. Multiple medical problems were addressed.More than 50% of the time spent coordinating care, discussing management plans with involved caregivers. Management plans discussed with involved personnels. Medical decision making was of moderate complexity.
[2016-05-20] MEDS: FAMOTIDINE 20 MG TABLET PO SCH (21:08)
[2016-05-20] MEDS: LATANOPROST 0.005% OPH SOLN 2.5 ML OU SCH (21:09)
[2016-05-21] MEDS: HEPARIN SOD (PORCINE) 5,000 UNIT/ML 1 ML SYRINGE SUBCUT SCH ×2 (05:02→15:22)
[2016-05-21] MEDS: METOPROLOL TARTRATE 50 MG TABLET PO SCH (05:02)
[2016-05-21 05:20] LABS: PROTHROMBIN TIME 13.5 SEC (11.4-15.4)
[2016-05-21] MEDS: LORAZEPAM 0.5 MG TABLET PO PRN (07:43)
[2016-05-21] MEDS: BUDESONIDE NEB 0.5 MG/2 ML AMPUL NEB SCH (08:43)
[2016-05-21] MEDS: LEVALBUTEROL HCL NEB 0.63 MG/3 ML AMPUL NEB PRN (08:43)
[2016-05-21] MEDS ORDERED: MICAFUNGIN SODIUM 100 MG in NORMAL SALINE 100 ML IV SCH (10:00)
[2016-05-21] MEDS: LEVOTHYROXINE SODIUM 0.088 MG TABLET PO SCH (10:28)
[2016-05-21] MEDS: MIDODRINE HCL 5 MG TABLET PO SCH (10:28)
[2016-05-21] MEDS: DOCUSATE SODIUM 100 MG CAPSULE PO SCH (10:28)
[2016-05-21] MEDS: INSULIN GLARGINE,HUM.REC.ANLOG 300 UNIT/3 ML INSULN.PEN SUBCUT SCH (10:28)
[2016-05-21] MEDS: CHLORHEXIDINE GLUCONATE 0.12% ORAL RINSE 15 ML UDC PO SCH (10:29)
[2016-05-21] MEDS: DILTIAZEM HCL 120 MG CAP.SR.24H PO SCH (10:29)
[2016-05-21] MEDS: ESCITALOPRAM OXALATE 10 MG TABLET PO SCH (10:29)
[2016-05-21] MEDS: ASPIRIN 81 MG TABLET, ENT COATED PO SCH (10:29)
[2016-05-21] MEDS: NYSTATIN CREAM 15 GM TP SCH (10:29)
[2016-05-21 12:54] VITALS: BP 131/68
--- NOTE | 2016-05-21 13:44 | PDOC DISCHARGE SUMMARY ---
General - Admit/Disc Date/PCP Admission Date/Primary Care Provider: 05/12/16 19:09 Discharge Date: 05/21/16 - Discharge Diagnosis (1) Fungemia Is this a current diagnosis for this admission?: YesSummary: Repeat cultures from 05/16 show no growth as of today. I spoke with Dr Henriquez, ID referral who confirmed 05/12 cultures grew Lary Glibrata which can be covered with oral fluconazole and should take for 14d from 05/16, the first negative culture. He is also recommending outpt f/u with opthamology for eye exam for othalmic lary. (2) HCAP (healthcare-associated pneumonia) Is this a current diagnosis for this admission?: YesSummary: adequately treated with broad spectrum abx; ct chest shows no residual airspace disease. (3) Acute and chronic respiratory failure Is this a current diagnosis for this admission?: YesSummary: back to baseline. did not require mechanical ventilation (4) Congestive heart failure Is this a current diagnosis for this admission?: YesSummary: diuresed to resolution (5) Diabetes mellitus Is this a current diagnosis for this admission?: Yes (6) Elevated troponin Is this a current diagnosis for this admission?: YesSummary: thought secondary to troponin leak related to sepsis at presentation. cardiology followed in house; f/u dr griffin 1-2 wks (7) Sepsis Is this a current diagnosis for this admission?: YesSummary: resolved (8) Status post tracheostomy Is this a current diagnosis for this admission?: Yes (9) Kidney disease, chronic, stage IV (GFR 15-29 ml/min) Is this a current diagnosis for this admission?: YesSummary: followed by dr monique; at baseline. abx appropriately dose adjusted for renal function. (10) Atrial fibrillation and flutter Is this a current diagnosis for this admission?: YesSummary: paroxysmal and better control with higher dose toprol and addition of cardizem. f/u with dr griffin in 2 wks. needs empiric anticoagulation, will start eliquis due to his renal function. - Additional Information Resuscitation Status: Full Code Discharge Diet: Cardiac, Diabetic Discharge Activity: Activity As Tolerated Home Medications: Aspirin [Aspirin EC] 81 mg PO DAILY 08/05/14 Docusate Sodium 100 mg PO DAILY 08/05/14 Oxycodone HCl 5 mg PO Q6HP PRN 01/08/16 Budesonide [Pulmicort Neb 1 mg/2 mL Ampule] 1 inh PO RTBID 01/09/16 Chlorhexidine Gluconate 15 ml PO BID 01/09/16 Ipratropium/Albuterol Sulfate [Duoneb 3 ml Ampul] 3 ml NEB QID 01/09/16 Midodrine HCl [Proamatine 5 mg Tablet] 2.5 mg PO BID tablet 01/12/16 Fluticasone Propionate [Flovent Hfa 44 Mcg Inhalation Aerosol 10.6 gm] 2 puff IH BID 05/13/16 Insulin Regular, Human [Novolin R (Reg) Insulin 100 unit/mL] 4 unit SUBCUT AC Lidocaine 1 applic TP DAILY 05/13/16 Nystatin 1 applic TP BID 05/13/16 Nystatin 1 each PO BID 05/13/16 Diltiazem HCl [Cardizem Cd 120 mg Capsule] 120 mg PO Q12 #60 cap.sr.24h Escitalopram Oxalate [Lexapro 10 mg Tablet] 10 mg PO DAILY tablet 05/21/16 Famotidine [Pepcid 20 mg Tablet] 20 mg PO QHS tablet 05/21/16 Fluconazole [Diflucan] 200 mg PO DAILY 10 Days 05/21/16 Insulin Glargine,Hum.rec.anlog [Lantus Insulin 100 Unit/mL] 20 unit SUBCUT Q12 # 1 insuln.pen 05/21/16 Latanoprost [Xalatan 0.005% Oph Soln 2.5 ml] 1 drop OU QHS bottle 05/21/16 Levothyroxine Sodium [Synthroid 0.088 mg Tablet] 0.088 mg PO DAILY tablet 05/21 Lorazepam [Ativan 0.5 mg Tablet] 0.5 mg PO Q8HP PRN #20 tablet 05/21/16 Metoprolol Tartrate [Lopressor 50 mg Tablet] 75 mg PO Q12A #60 tablet 05/21/16 History of Present Illness Patient complains of: soa History of Present Illness: DIAMOND KHAN is a 70 year old male with past history of COPD, chronic respiratory failure on trach, CRE, presents by EMS after he was having increased shortness of breath, increased secretions from trach and fever since this morning. Hospital Course Hospital Course: Temperature was 102 and he was given 1 g of Tylenol by EMS prior to arrival. The patient was seen in the emergency room last night for urinary retention. He denies chest pain, flank pain, abdominal pain, headache, neck stiffness, nausea, vomiting Upon evaluation in the emergency room the patient was found in mild respiratory distress with acute on chronic respiratory failure A chest x-ray was suggestive of CHF and or pneumonia Patient was febrile with leukocytosis had a high lactic acid He was treated with antibiotics , IV fluids and subsequently admitted to the intensive care unit for further evaluation and care Upon initial evaluation the patient a was diagnosed of pneumonia and early sepsis Treated with fluid boluses and broad-spectrum antibiotics A chest x-ray was suggestive of CHF and or pneumonia IV fluids were discontinued and Lasix was added Patient's respiratory status improved and stabilized He is currently stable. With an O2 sat of 99% on 28% oxygen trach collar CK disease stage IV appears stable with a GFR of 19 Uncontrolled diabetes His hemoglobin A1c is more than 14 ; he was maintained on just 30 units of Lantus at night We increased his Lantus insulin to 20 units subcutaneous every 12; and continued lispro coverage Patient had elevated troponins on admission" - per dr hardin presumably due to hypoxia and sepsis on admission his blood cultures are positive for fungus, not lary, and awaiting final reports from state lab. micafungin started 05/14/16. 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 I inherited his care 05/15/16 and he is still awaiting bed availability at [facility] in [place]. His HR is climbing into the 130's sustained sinus tach. He denies chest pain, palpitations, states he is short of breath with exertion but okay at rest and feels significantly better than when he arrived. I tried adding a low dose NS bolus thinking maybe we had over-diuresed him but it had no effect on either his HR or fortunately his breathing. I increased his metoprolol from 50mg bid to 75mg bid and added prn IV lopressor which gets his HR down but only temporarily. tachycardia is better controlled after cardizem started by cardiology; ready to get on with transfer to [facility] but still no beds available. Repeat blood cultures at 72 hours show no growth, will need to be held for a full 5 days to confirm no fungal growth. If at that time they remain negative, PICC line can be placed for outpatient micafungin therapy for a minimum of 2 weeks from last clear culture. I spoke with DR Henriquez, ID referral, who graciously reviewed the patients chart and culture results and discovered original blood cultures turned up positive for lary glibrata in which case he can be treated with oral fluconazole in renal daily dosing for 2 weeks ending 05/29/2016. he also recommended referral to opthamologist to evaluate for opthalmic lary spread in next 2 wks. He is now stable for d/c home, family day carer to arrange transport. Physical Exam Vital Signs: Temp Pulse Resp BP Pulse Ox 98.5 F 67 19 131/68 H 98 05/21/16 12:00 05/21/16 12:00 05/21/16 12:00 05/21/16 12:00 05/21/16 12:00 Intake & Output 05/20/16 05/21/16 05/22/16 06:59 06:59 06:59 Intake Total 577 350 240 Output Total 1425 2275 520 Balance -798 -1925 -280 Weight 135.5 kg 133.2 kg EXAM GENERAL: NAD; well developed, well nourished; morbid obese; alert and oriented to person, place, time, situation HEENT: normocephalic, atraumatic; no conjunctival injection, no scleral icterus ; oral mucosa moist; trach collar in place on FiO2 28% RESPIRATORY: no accessory muscle use, no increased WOB, good air entry bilaterally; no wheezes, rales, rhonchi; bilateral inspiratory crackles laterally and at the bases CARDIO: no JVD; no systolic murmur; sinus tachycardia GI: soft; nondistended; normal bowel sounds; massive pannus; no rebound, rigidity, guarding; nontender : lary rash on tip of penis VASCULAR: no pallor; 2+ radial, DP pulse; normal capillary refill EXTREMITIES: no calf tender; no palpable cords in calf; no clubbing, cyanosis ; 1+ pedal edema; PSYCH: normal affect, depressed mood SKIN: warm; moist; no petechiae; no telengectasias; no jaundice Results Laboratory Results: 05/18/16 04:16 05/18/16 04:16 05/13/16 05/13/16 05/13/16 00:10 00:10 06:30 Creatine Kinase 2109 H 1399 H CK-MB (CK-2) 3.57 Troponin I 0.193 NT-Pro-B Natriuret Pep 05/13/16 05/13/16 05/13/16 06:30 12:55 12:55 Creatine Kinase 954 H CK-MB (CK-2) 3.18 3.05 Troponin I 0.145 0.099 NT-Pro-B Natriuret Pep 50180 H 05/16/16 05/17/16 05/17/16 03:37 03:50 03:50 Creatine Kinase 24 L CK-MB (CK-2) Troponin I 0.014 0.014 NT-Pro-B Natriuret Pep Impressions: Chest X-Ray 05/13/16 06:00 IMPRESSION: STABLE APPEARANCE OF THE CHEST. SUPPORT DEVICES UNCHANGED. Chest CT 05/16/16 00:00 IMPRESSION: Cardiomegaly. Trace right pleural effusion. Qualifiers PATEINT BEING DISCHARGED WITH ANY OF THE FOLLOWING DIAGNOSIS?: No VTE patient discharged on overlapping Therapy?: No Reason(s) for not prescribing Overlap Therapy:: Not indicated Plan Discharge Plan: d/c home. f/u PCP in one week; nephro and cardio in 2 wks; return to the ED for worsesning conditoin including high fevers, blindness, worsening soa.
--- NOTE | 2016-05-21 16:02 | EKG REPORT ---
SEVERITY:- ABNORMAL ECG - SINUS BRADYCARDIA RIGHT BUNDLE BRANCH BLOCK : Confirmed by: Vilma Ruth 21-May-2016 16:01:47
== END 2016-05-21 15:25 | disposition home or self-care (01) | DRG 867 ==
LOC: ER 16:18 → EH 19:09 → ICU 05-13 00:44
PROVIDERS: ADMIT Emergency Medicine; ATTEND Emergency Medicine
DX: B49 Unspecified mycosis (principal); J96.21 Acute and chronic respiratory failure with hypoxia; J15.0 Pneumonia due to Klebsiella pneumoniae; I50.43 Acute on chronic combined systolic (congestive) and diastolic (congestive) heart failure; I33.0 Acute and subacute infective endocarditis; I13.0 Hypertensive heart and chronic kidney disease with heart failure and stage 1 through stage 4 chronic kidney disease, or unspecified chronic kidney disease; N18.4 Chronic kidney disease, stage 4 (severe); I48.92 Unspecified atrial flutter; M62.82 Rhabdomyolysis; Z68.42 Body mass index [BMI] 45.0-49.9, adult; Z99.81 Dependence on supplemental oxygen; I48.0 Paroxysmal atrial fibrillation; E11.22 Type 2 diabetes mellitus with diabetic chronic kidney disease; E11.65 Type 2 diabetes mellitus with hyperglycemia; Z93.0 Tracheostomy status; J44.9 Chronic obstructive pulmonary disease, unspecified; R33.9 Retention of urine, unspecified; D64.9 Anemia, unspecified; E78.5 Hyperlipidemia, unspecified; I25.10 Atherosclerotic heart disease of native coronary artery without angina pectoris; E66.01 Morbid (severe) obesity due to excess calories; Z79.4 Long term (current) use of insulin; Z79.82 Long term (current) use of aspirin; Z79.899 Other long term (current) drug therapy; Z88.8 Allergy status to other drugs, medicaments and biological substances; I25.2 Old myocardial infarction; Z95.1 Presence of aortocoronary bypass graft
CPT/HCPCS: 36415; 51702; 71010; 71250; 80048; 80053; 80076; 80202; 81001; 82550; 82553; 82803; 82962; 83036; 83605; 83735; 83880; 84100; 84443; 84484; 85025; 85610; 87040; 87070; 87077; 87086; 87186; 87205; 93005; 93010; 93306; 94640; 99283; 99291; J1644; J1815; J1940; J1956; J2248; J2543; J2920; J2930; J3370; J3490; J7030; J7040; J7060; J7614; J7620; S0164

== ENCOUNTER → 2016-05-30 | Outpatient (CLI) | payer MEDICARE ==
[2016-05-30 15:41] LABS: HEMATOCRIT 27.4 % (37.9-51.0); HGB HCT DIFFERENCE -0.4; MEAN CORPUSCULAR HEMOGLOBIN 26.9 pg (27.0-33.4); MEAN CORPUSCULAR HGB CONC 32.7 g/dL (32.0-36.0); MEAN CORPUSCULAR VOLUME 82 fl (80-97); RED BLOOD COUNT 3.34 10^6/uL (4.35-5.55)
[2016-05-30 15:46] LABS: AMORPHOUS SEDIMENT,URINE TRACE /HPF; APPEARANCE,URINE CLOUDY; BILIRUBIN,URINE NEGATIVE (NEGATIVE); GLUCOSE, URINE NEGATIVE (NEGATIVE); KETONES,URINE NEGATIVE (NEGATIVE); LEUKOCYTE ESTERASE,URINE NEGATIVE (NEGATIVE); NITRITE,URINE NEGATIVE (NEGATIVE); PROTEIN,URINE 100 mg/dL (NEGATIVE); URINE SPECIFIC GRAVITY 1.006; UROBILINOGEN,URINE NEGATIVE mg/dL (<2.0)
[2016-05-30 16:02] LABS: ANION GAP 9 (5-19); BLOOD UREA NITROGEN 36 mg/dL (7-20); CALCIUM 9.1 mg/dL (8.4-10.2); CARBON DIOXIDE 28 mmol/L (22-30); CHLORIDE 102 mmol/L (98-107); CREATININE RESULT 2.06 mg/dL (0.52-1.25); GLUCOSE 188 mg/dL (75-110); POTASSIUM 4.6 mmol/L (3.6-5.0); SODIUM 139.1 mmol/L (137-145)
[2016-06-01 16:39] LABS: A/G RATIO 0.9 (0.7-1.7); ALBUMIN 2 2.9 g/dL (2.9-4.4); ALPHA-1-GLOBULIN 2 0.3 g/dL (0.0-0.4); GAMMA GLOBULIN 1.1 g/dL (0.4-1.8); PROTEIN TOTAL SERUM 6.1 g/dL (6.0-8.5)
== END ==
LOC: OD 14:45
PROVIDERS: ATTEND Internal Medicine Nephrology
DX: N18.4 Chronic kidney disease, stage 4 (severe) (principal); D64.9 Anemia, unspecified; E11.9 Type 2 diabetes mellitus without complications; E87.5 Hyperkalemia
CPT/HCPCS: 36415; 80048; 81001; 83540; 83550; 84165; 84443; 85027

== ENCOUNTER 2016-06-25 15:48 | Emergency (ER) | payer MEDICARE ==
[2016-06-25] MEDS ORDERED: HYDROMORPHONE HCL INJ/PF 2 MG/ML AMPULE IM ONE (18:18)
--- NOTE | 2016-06-25 18:30 | ER Document Report ---
ED General - General Chief Complaint: Hand Pain Stated Complaint: HAND PAIN Mode of Arrival: Medic Information source: Patient Notes: 70-year-old male history of trach gout with allergy to indomethacin with chronic kidney disease presents with complaints of pain pain. Patient notes he has chronic hand pain has had this for years, no set the pain has just worsened. Patient denies any fevers or chills nausea vomiting or diarrhea. Patient had recent admission with CRE. Denies any current complaints except for the hand pain Denies history of diabetes TRAVEL OUTSIDE OF THE [place] IN LAST 30 DAYS: No - HPI Onset: Other Onset/Duration: Persistent Quality of pain: Achy Severity: Moderate Pain Level: 3 Associated symptoms: Other Exacerbated by: Denies Relieved by: Denies Similar symptoms previously: Yes Recently seen / treated by doctor: Yes - Related Data Allergies/Adverse Reactions: indomethacin [From Indocin] Allergy (Unknown, Verified 01/09/16 12:57) clonazepam [From Klonopin] Allergy (Verified 05/21/16 01:30) Past Medical History - Social History Smoking Status: Former Smoker Cigarette use (# per day): No Chew tobacco use (# tins/day): No Smoking Education Provided: No Family History: CAD - Past Medical History Cardiac Medical History: Reports: Hx Congestive Heart Failure, Hx Coronary Artery Disease, Hx Heart Attack - 2004, Hx Hypercholesterolemia, Hx Hypertension Pulmonary Medical History: Reports: Hx COPD - home O2 at 2-4 lmp, 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 Denies: Hx Peritoneal Dialysis Psychiatric Medical History: Reports: Hx Depression Past Surgical History: Reports: Hx Appendectomy, Hx Cardiac Surgery - bypass X 2 , CABG, Hx Coronary Artery Bypass Graft, Hx Tonsillectomy, Other - Tracheostomy Review of Systems - Review of Systems Notes: REVIEW OF SYSTEMS: CONSTITUTIONAL : Denies fever, chills, or sweats. Denies recent illness. EENT: Denies eye, ear, throat, or mouth pain or symptoms. Denies nasal or sinus congestion or discharge. Denies throat, tongue, or mouth swelling or difficulty swallowing. CARDIOVASCULAR: Denies chest pain. Denies palpitations or racing or irregular heart beat. Denies ankle edema. RESPIRATORY: Denies cough, cold, or chest congestion. Denies shortness of breath, difficulty breathing, or wheezing. GASTROINTESTINAL: Denies abdominal pain or distention. Denies nausea, vomiting , or diarrhea. Denies blood in vomitus, stools, or per rectum. Denies black, tarry stools. Denies constipation. GENITOURINARY: Denies difficulty urinating, painful urination, burning, frequency, blood in urine, or discharge. MUSCULOSKELETAL: Admits to hand pain SKIN: Denies rash, lesions or sores. HEMATOLOGIC : Denies easy bruising or bleeding. LYMPHATIC: Denies swollen, enlarged glands. NEUROLOGICAL: Denies confusion or altered mental status. Denies passing out or loss of consciousness. Denies dizziness or lightheadedness. Denies headache. Denies weakness or paralysis or loss of use of either side. Denies problems with gait or speech. Denies sensory loss, numbness, or tingling. Denies seizures. PSYCHIATRIC: Denies anxiety or stress. Denies depression, suicidal ideation, or homicidal ideation. ALL OTHER SYSTEMS REVIEWED AND NEGATIVE. Dictation was performed using [employer] voice recognition software PHYSICAL EXAMINATION: GENERAL: Chronically ill-appearing male but no respiratory distress HEAD: Atraumatic, normocephalic. EYES: Pupils equal round and reactive to light, extraocular movements intact, sclera anicteric, conjunctiva are normal. ENT: Nares patent, oropharynx clear without exudates. Moist mucous membranes. NECK: Normal range of motion, supple without lymphadenopathy trachea in place satting 100% LUNGS: Breath sounds clear to auscultation bilaterally and equal. No wheezes rales or rhonchi. HEART: Regular rate and rhythm without murmurs ABDOMEN: Soft, nontender, nondistended abdomen. No guarding, no rebound. No masses appreciated. Musculoskeletal: Normal range of motion, left hand mildly edematous at the base of the second third digits tender to palpation +2 pitting edema bilateral lower extremities NEUROLOGICAL: Cranial nerves grossly intact. Normal speech, normal gait. Normal sensory, motor exams PSYCH: Normal mood, normal affect. SKIN: Warm, Dry, normal turgor, no rashes or lesions noted. Physical Exam - Vital signs Vitals: Temp Pulse Resp BP Pulse Ox 98.1 F 57 L 18 111/67 99 06/25/16 16:40 06/25/16 16:40 06/25/16 16:40 06/25/16 16:40 06/25/16 16:40 Course - Re-evaluation Re-evalutation: 06/25/16 18:30 Patient appears to have gouty arthritis, he'll be treated with pain control. 06/25/16 20:23 Patient has been resting comfortably after pain control was given I will discharge home with pain medication and follow-up with his own primary care physician regarding his gout After performing a Medical Screening Examination, I estimate there is LOW risk for OPEN FRACTURE, COMPARTMENT SYNDROME, TENDON RUPTURE, ACUTE NEUROVASCULAR INJURY, or RETAINED FOREIGN BODY, thus I consider the discharge disposition reasonable. Also, there is no evidence or peritonitis, sepsis, or toxicity. I have reevaluated this patient multiple times and no significant life threatening changes are noted. The patient and I have discussed the diagnosis and risks, and we agree with discharging home with close follow-up with the understanding that symptoms and presentations can change. We also discussed returning to the Emergency Department immediately if new or worsening symptoms occur. We have discussed the symptoms which are most concerning (e.g., changing or worsening pain, fever, numbness, weakness, cool or painful digits) that necessitate immediate return. 06/25/16 20:24 - Vital Signs Vital signs: Temp Pulse Resp BP Pulse Ox 98.1 F 57 L 18 111/67 99 06/25/16 16:40 06/25/16 16:40 06/25/16 16:40 06/25/16 16:40 06/25/16 16:40 - Laboratory Laboratory results interpreted by me: 06/25/16 18:22 POC Glucose 134 H Discharge - Discharge Clinical Impression: Gouty arthritis Hand pain Qualifiers: Laterality: left Qualified Code(s): M79.642 - Pain in left hand Condition: Stable Disposition: HOME, SELF-CARE Instructions: Gout ([facility]), Gout Diet ([facility]) Additional Instructions: Follow up with your physician tomorrow for further care or return to the ED IMMEDIATELY if symptoms worsen or new concerns occur. If you cannot afford to follow up with your primary care physician a list of low cost clinics have been provided at the end of your discharge papers as well. Prescriptions: Hydromorphone HCl [Dilaudid] 4 mg PO Q8 #14 tablet
[2016-06-25] MEDS ORDERED: HYDROMORPHONE HCL INJ/PF 2 MG/ML AMPULE IV ONE (21:22)
[2016-06-25 21:44] VITALS: BP 124/86
== END 2016-06-25 21:45 | disposition home or self-care (01) ==
LOC: ER 15:48
DX: M10.9 Gout, unspecified (principal); M79.642 Pain in left hand; G89.29 Other chronic pain; I12.9 Hypertensive chronic kidney disease with stage 1 through stage 4 chronic kidney disease, or unspecified chronic kidney disease; E11.22 Type 2 diabetes mellitus with diabetic chronic kidney disease; N18.4 Chronic kidney disease, stage 4 (severe); I25.10 Atherosclerotic heart disease of native coronary artery without angina pectoris; I25.2 Old myocardial infarction; R60.0 Localized edema; J44.9 Chronic obstructive pulmonary disease, unspecified; Z99.81 Dependence on supplemental oxygen; Z88.8 Allergy status to other drugs, medicaments and biological substances; Z95.1 Presence of aortocoronary bypass graft
CPT/HCPCS: 99283; 96372; 96374; 82962; J1170

== ENCOUNTER 2016-07-31 01:29 | Emergency (ER) | payer MEDICARE ==
--- NOTE | 2016-07-31 02:27 | ER Document Report ---
ED GI/ - General Chief Complaint: Blood in Catheter Stated Complaint: BLOOD IN URINE Time Seen by Provider: 07/31/16 01:53 Notes: The patient is a 70-year-old male, past medical history trach, chronic Barragan due to inability to walk, presents with blood clots out of his Barragan and inability to urinate. Barragan was changed today and there was hematuria and suprapubic pain after the change. Denies nausea, vomiting, fevers, flank pain or other abdominal pain. TRAVEL OUTSIDE OF THE [place] IN LAST 30 DAYS: No - Related Data Allergies/Adverse Reactions: indomethacin [From Indocin] Allergy (Unknown, Verified 01/09/16 12:57) clonazepam [From Klonopin] Allergy (Verified 05/21/16 01:30) Past Medical History - General Information source: Patient - Social History Smoking Status: Unknown if Ever Smoked Family History: CAD - Past Medical History Cardiac Medical History: Reports: Hx Congestive Heart Failure, Hx Coronary Artery Disease, Hx Heart Attack - 2004, Hx Hypercholesterolemia, Hx Hypertension Pulmonary Medical History: Reports: Hx COPD - home O2 at 2-4 lmp, 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 Denies: Hx Peritoneal Dialysis Psychiatric Medical History: Reports: Hx Depression Past Surgical History: Reports: Hx Appendectomy, Hx Cardiac Surgery - bypass X 2 , CABG, Hx Coronary Artery Bypass Graft, Hx Tonsillectomy, Other - Tracheostomy - Immunizations Hx Diphtheria, Pertussis, Tetanus Vaccination: Yes Review of Systems - Review of Systems Notes: REVIEW OF SYSTEMS: CONSTITUTIONAL: -fevers, -chills EENT: -eye pain, -difficulty swallowing, -nasal congestion CARDIOVASCULAR:-chest pain, -syncope. RESPIRATORY: -cough, -SOB GASTROINTESTINAL: -abdominal pain, -nausea, -vomiting, -diarrhea GENITOURINARY: -dysuria, +hematuria MUSCULOSKELETAL: -back pain, -neck pain SKIN: -rash or skin lesions. HEMATOLOGIC: -easy bruising or bleeding. LYMPHATIC: -swollen, enlarged glands. NEUROLOGICAL: -altered mental status or loss of consciousness, -headache, - neurologic symptoms PSYCHIATRIC: -anxiety, -depression. ALL OTHER SYSTEMS REVIEWED AND NEGATIVE. Physical Exam - Vital signs Vitals: Temp Pulse BP Pulse Ox 98.0 F 83 172/87 H 98 07/31/16 03:03 07/31/16 03:03 07/31/16 03:03 07/31/16 03:03 - Notes Notes: PHYSICAL EXAMINATION: GENERAL: No acute distress. HEAD: Atraumatic, normocephalic. EYES: Pupils equal round and reactive to light, extraocular movements intact, sclera anicteric, conjunctiva are normal. ENT: nares patent, oropharynx clear without exudates. Moist mucous membranes. NECK: Trach in place without discharge. LUNGS: Breath sounds clear to auscultation bilaterally and equal. No wheezes rales or rhonchi. HEART: Regular rate and rhythm without murmurs ABDOMEN: Soft, mild suprapubic tenderness, normoactive bowel sounds. Barragan in place with hematuria and clots. No guarding, no rebound. No masses appreciated. EXTREMITIES: Normal range of motion, no pitting or edema. No cyanosis. NEUROLOGICAL: Cranial nerves grossly intact. Normal speech, normal gait. Normal sensory and motor exams. PSYCH: Normal mood, normal affect. SKIN: Warm, Dry, normal turgor, no rashes or lesions noted. Course - Re-evaluation Re-evalutation: Barragan irrigated with return of blood clots and fluids. Patient feels better. Urinalysis shows RBCs and WBCs with Leuk Esterase. Will send urine culture and begin Levaquin based on old culture results. Instructed patient to follow-up with his urologist. Given strict return precautions and he understands. - Vital Signs Vital signs: Temp Pulse Resp BP Pulse Ox 98.0 F 83 172/87 H 98 07/31/16 03:03 07/31/16 03:03 07/31/16 03:03 07/31/16 03:03 - Laboratory Laboratory results interpreted by me: 07/31/16 02:37 Urine Protein 100 H Urine Blood LARGE H Ur Leukocyte Esterase MODERATE H Discharge - Discharge Clinical Impression: Hematuria Barragan catheter problem Qualifiers: Encounter type: initial encounter Qualified Code(s): T83.9XXA - Unspecified complication of genitourinary prosthetic device, implant and graft, initial encounter UTI (urinary tract infection) Qualifiers: Urinary tract infection type: catheter-associated UTI Indwelling urinary catheter type: indwelling urethral catheter Encounter type: initial encounter Qualified Code(s): T83.511A - Infection and inflammatory reaction due to indwelling urethral catheter, initial encounter Condition: Stable Disposition: HOME, SELF-CARE Additional Instructions: Hematuria Hematuria, or blood in your urine, can be caused by minor medical problems , such as a bladder infection, or by more serious medical conditions, such as kidney stones or even tumors of the bladder or kidney. If the cause of the hematuria is known (such as a bladder infection) and can be treated, it may not need further evaluation. If the cause is not known, it will usually require further evaluation by a specialist, such as a urologist. In particular, unexplained hematuria in the older patient must be evaluated to rule out a serious condition, such as a bladder or kidney tumor. If the hematuria worsens or you are passing clots and then are unable to urinate, you should be re-evaluated. A catheter may need to be placed in the bladder to permit passage of urine. If you develop high fever, severe pain, or other new or worsening symptoms, return to the Emergency Department for re- evaluation. Prescriptions: Levofloxacin [Levaquin 750 mg Tablet] 750 mg PO DAILY #5 tablet Phenazopyridine HCl [Pyridium 100 Mg Tablet] 100 mg PO Q8H PRN #9 tablet PRN Reason: Referrals: SAMARIA LIMON PA-C [Primary Care Provider] - Follow up as needed
[2016-07-31] MEDS ORDERED: OXYCODONE HCL IR 5 MG TABLET PO ONE (02:44)
[2016-07-31 03:08] LABS: APPEARANCE,URINE SLIGHTLY-CLOUDY; BILIRUBIN,URINE NEGATIVE (NEGATIVE); GLUCOSE, URINE NEGATIVE (NEGATIVE); KETONES,URINE NEGATIVE (NEGATIVE); LEUKOCYTE ESTERASE,URINE MODERATE (NEGATIVE); NITRITE,URINE NEGATIVE (NEGATIVE); PROTEIN,URINE 100 mg/dL (NEGATIVE); URINE SPECIFIC GRAVITY 1.006; UROBILINOGEN,URINE NEGATIVE mg/dL (<2.0)
[2016-07-31] MEDS ORDERED: LEVOFLOXACIN 750 MG TABLET PO ONE (03:23)
[2016-07-31] MEDS ORDERED: PHENAZOPYRIDINE HCL 200 MG TABLET PO ONE (03:28)
[2016-07-31 03:59] VITALS: BP 183/91
== END 2016-07-31 04:00 | disposition home or self-care (01) ==
LOC: ER 01:29
DX: T83.511A Infection and inflammatory reaction due to indwelling urethral catheter, initial encounter (principal); T83.83XA Hemorrhage due to genitourinary prosthetic devices, implants and grafts, initial encounter; R31.9 Hematuria, unspecified
CPT/HCPCS: 99283; 81001; A9270 ×3; J3490

== ENCOUNTER 2016-07-31 11:35 | Emergency (ER) | payer MEDICARE ==
--- NOTE | 2016-07-31 12:31 | ER Document Report ---
ED GI/ - General Mode of Arrival: Medic Information source: Patient, [facility] Records TRAVEL OUTSIDE OF THE [place] IN LAST 30 DAYS: No - HPI Patient complains to provider of: Hematuria Onset: Other - 07/27/2016 Timing/Duration: Gradual, Persistent Associated symptoms: Hematuria Recently seen / treated by doctor: Yes - Today - [facility] ED - General Chief Complaint: Blood in Catheter Stated Complaint: URINARY ISSUE Time Seen by Provider: 07/31/16 12:08 Notes: Patient is a 70-year-old male presenting to the emergency department for the second time today with complaints hematuria and pain from his torrez catheter. Patient he tried to go to his urologist, but fell out of his wheelchair in his van, so he was picked up by EMS. At this point, patient did not feel well enough to go into the doctor, so he went home. Turns out that this incident with the wheelchair did not occur today, and patient now returns to the emergency department secondary to continued penile pain and hematuria. Patient states that he just wants us to "fix it." Patient was discharged from [facility] ED at 0100 this morning. Patient is not sure about a new follow-up appointment with the urologist, he states that his schedules all his appointments. Patient was initially referred by his primary care provider, Samaria Mirza ([place]ES) - Related Data Allergies/Adverse Reactions: indomethacin [From Indocin] Allergy (Unknown, Verified 07/31/16 11:52) clonazepam [From Klonopin] Allergy (Verified 07/31/16 11:52) Past Medical History - General Information source: Patient, [facility] Records - Social History Smoking Status: Never Smoker Lives with: Spouse/Significant other Family History: CAD - Past Medical History Cardiac Medical History: Reports: Hx Congestive Heart Failure, Hx Coronary Artery Disease, Hx Heart Attack - 2004, Hx Hypercholesterolemia, Hx Hypertension Pulmonary Medical History: Reports: Hx COPD - home O2 at 2-4 lmp, 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 Denies: Hx Peritoneal Dialysis Psychiatric Medical History: Reports: Hx Depression Past Surgical History: Reports: Hx Appendectomy, Hx Cardiac Surgery - bypass X 2 , CABG, Hx Coronary Artery Bypass Graft, Hx Tonsillectomy, Other - Tracheostomy - Immunizations Hx Diphtheria, Pertussis, Tetanus Vaccination: Yes Review of Systems - Review of Systems Constitutional: No symptoms reported EENT: No symptoms reported Cardiovascular: No symptoms reported Respiratory: No symptoms reported Gastrointestinal: No symptoms reported Genitourinary: See HPI, Hematuria, Pain - Secondary to Torrez catheter placement Male Genitourinary: No symptoms reported Musculoskeletal: No symptoms reported Skin: No symptoms reported Hematologic/Lymphatic: No symptoms reported Neurological/Psychological: No symptoms reported -: Yes All other systems reviewed and negative Physical Exam - General General appearance: Alert - HEENT Head: Normocephalic, Atraumatic Eyes: Normal Pupils: PERRL - Respiratory Respiratory status: No respiratory distress Chest status: Nontender Breath sounds: Normal Chest palpation: Normal - Cardiovascular Rhythm: Regular Heart sounds: Normal auscultation Murmur: No - Abdominal Inspection: Morbidly Obese Tenderness: Nontender - Genitourinary Tenderness: Other - Tenderness to penis, Torrez catheter placed with blood passing - Back Back: Normal, Nontender - Extremities General upper extremity: Normal inspection, Nontender General lower extremity: Normal inspection, Nontender - Neurological Neuro grossly intact: Yes Cognition: Normal Orientation: AAOx4 Margarita Coma Scale Eye Opening: Spontaneous Gilmer Coma Scale Verbal: Oriented Margarita Coma Scale Motor: Obeys Commands Gilmer Coma Scale Total: 15 Speech: Normal - Psychological Associated symptoms: Normal affect, Normal mood - Skin Skin Temperature: Warm Skin Moisture: Dry Skin Color: Normal - Vital signs Vitals: Temp Pulse Resp BP Pulse Ox 97.5 F 85 17 158/92 H 100 07/31/16 11:40 07/31/16 11:40 07/31/16 11:40 07/31/16 11:40 07/31/16 11:40 - General Notes: Appears uncomfortable (GUME AVILES) Course - Re-evaluation Re-evalutation: 07/31/16 12:35 Patient presents to the emergency department via EMS with blood in his Torrez catheter. Patient was just discharged from our emergency department at 5:00 this morning diagnosed with hematuria Torrez catheter is in place and given antibiotics and has a urologist he supposed to follow-up with. He is back now his did not get the antibiotic filled he still has blood in the catheter and he wants us to make the blood go away. He has no new or different symptoms today than he did at 5:00 this morning no nausea vomiting abdominal pain fever chills or cough. He is chronically trached and has multiple medical conditions. His is not with him at the bedside. On examination he is baseline mental status no acute distress abdomen is morbidly obese soft no guarding rebound rigidity Torrez catheter is in place draining hematuric blood. There is no clotting of the catheter is draining well the penis itself has no signs of trauma no testicular swelling or signs of necrotizing fasciitis. Patient is going to be given some lidocaine to numb up the area where the catheter is Levaquin dose here since he did not get his antibiotic filled yet and be discharged to follow-up with the urologist as previously discussed. No need for additional emergent testing at this time. And discussed reasons for ED return sooner (ARIANA NEVES) - Vital Signs Vital signs: Temp Pulse Resp BP Pulse Ox 97.5 F 83 18 172/88 H 100 07/31/16 11:40 07/31/16 15:05 07/31/16 15:05 07/31/16 15:05 07/31/16 15:05 Discharge - Discharge Clinical Impression: hematuria with torrez catheter, uti Condition: Stable Disposition: HOME, SELF-CARE Additional Instructions: Hematuria Hematuria, or blood in your urine, can be caused by minor medical problems , such as a bladder infection, or by more serious medical conditions, such as kidney stones or even tumors of the bladder or kidney. If the cause of the hematuria is known (such as a bladder infection) and can be treated, it may not need further evaluation. If the cause is not known, it will usually require further evaluation by a specialist, such as a urologist. In particular, unexplained hematuria in the older patient must be evaluated to rule out a serious condition, such as a bladder or kidney tumor. If the hematuria worsens or you are passing clots and then are unable to urinate, you should be re-evaluated. A catheter may need to be placed in the bladder to permit passage of urine. If you develop high fever, severe pain, or other new or worsening symptoms, return to the Emergency Department for re- evaluation. Urinary Tract Infection Your evaluation indicates that you have a urinary tract infection. This is due to germs growing in the bladder. This is a common problem. This infection usually responds quickly to antibiotics. Your antibiotic should be taken exactly as prescribed. Drink plenty of fluids -- three to four quarts a day. Occasionally, a bladder anesthetic will be prescribed to help stop the feeling of urgency until the antibiotic has a chance to clear the infection. This may cause your urine to be dark orange. Certain urine infections require a culture. If the doctor obtained a culture, the results will be back in two days. You should call to see if a change in treatment is needed. A repeat urinalysis after you finish treatment is often recommended. The physician will let you know if further testing is required. Call the doctor if you develop fever, chills, flank pain, inability to urinate, or blood in the urine. Follow-up with your urologist in 1-2 days return for increased worsening or new symptoms Referrals: SAMARIA LIMON PA-C [Primary Care Provider] - Follow up as needed Scribe Attestation: 07/31/16 12:35 I personally performed the services described in the documentation, reviewed and edited the documentation which was dictated to my scribe in my presence, and it accurately records my words and actions. (ARIANA NEVES) Scribe Documentation - Scribe Written by Tevin:: Tevin Barrientos, 07/31/2016 1246 acting as scribe for :: Vic
[2016-07-31 15:35] VITALS: BP 172/88
== END 2016-07-31 15:05 | disposition home or self-care (01) ==
LOC: ER 11:35
DX: T83.9XXA Unspecified complication of genitourinary prosthetic device, implant and graft, initial encounter (principal); R31.9 Hematuria, unspecified; N39.0 Urinary tract infection, site not specified
CPT/HCPCS: 81001; 99283; J3490

== ENCOUNTER → 2016-08-08 | Outpatient (CLI) | payer MEDICARE ==
[2016-08-08 09:07] LABS: HEMATOCRIT 25.9 % (37.9-51.0); HEMOGLOBIN 8.3 g/dL (13.5-17.0); MEAN CORPUSCULAR HEMOGLOBIN 25.9 pg (27.0-33.4); MEAN CORPUSCULAR HGB CONC 32.2 g/dL (32.0-36.0); MEAN CORPUSCULAR VOLUME 81 fl (80-97); RED BLOOD COUNT 3.21 10^6/uL (4.35-5.55)
[2016-08-08 09:25] LABS: ANION GAP 13 (5-19); BLOOD UREA NITROGEN 59 mg/dL (7-20); CARBON DIOXIDE 28 mmol/L (22-30); CHLORIDE 99 mmol/L (98-107); CREATININE RESULT 3.45 mg/dL (0.52-1.25); GLUCOSE 87 mg/dL (75-110); POTASSIUM 4.5 mmol/L (3.6-5.0); SODIUM 140.3 mmol/L (137-145)
[2016-08-09 16:40] LABS: ALBUMIN 2 3.3 g/dL (2.9-4.4); ALPHA-1-GLOBULIN 2 0.3 g/dL (0.0-0.4); GAMMA GLOBULIN 1.2 g/dL (0.4-1.8); PROTEIN TOTAL SERUM 6.7 g/dL (6.0-8.5)
== END ==
LOC: OD 08:23
PROVIDERS: ATTEND Internal Medicine Nephrology
DX: N18.4 Chronic kidney disease, stage 4 (severe) (principal); D64.9 Anemia, unspecified; E11.9 Type 2 diabetes mellitus without complications; R80.9 Proteinuria, unspecified
CPT/HCPCS: 36415; 80048; 82728; 83540; 83550; 83735; 84165; 85027

== ENCOUNTER 2016-08-26 18:56 | Emergency (ER) | payer MEDICARE ==
[2016-08-26] MEDS ORDERED: DOCUSATE SODIUM 100 MG CAPSULE PO ONE (20:10)
--- NOTE | 2016-08-26 20:12 | ER Document Report ---
ED General - General Chief Complaint: Urinary Retention Stated Complaint: URINARY ISSUES Time Seen by Provider: 08/26/16 19:58 Notes: Patient is a 70-year-old male who comes emergency department for chief complaint of urinary retention. He states that he does urinate but since Saturday when his Barragan catheter was removed he only has occasional dribbling. Patient denies dysuria, abdominal pain, vomiting, fever, flank pain. He states he is not sure why he had a Barragan, he is unsure if he has an enlarged prostate, he states he had an indwelling Barragan for a long time before it was removed. Patient also states she is slightly constipated and for the past couple of days he has had formed harder bowel movements, denies blood, states he is on pain medication but he is not taking a stool softener right now. TRAVEL OUTSIDE OF THE [place] IN LAST 30 DAYS: No - Related Data Allergies/Adverse Reactions: indomethacin [From Indocin] Allergy (Unknown, Verified 07/31/16 11:52) clonazepam [From Klonopin] Allergy (Verified 07/31/16 11:52) Past Medical History - General Information source: Patient - Social History Smoking Status: Never Smoker Drug Abuse: None Lives with: Family Family History: CAD - Past Medical History Cardiac Medical History: Reports: Hx Congestive Heart Failure, Hx Coronary Artery Disease, Hx Heart Attack - 2004, Hx Hypercholesterolemia, Hx Hypertension Pulmonary Medical History: Reports: Hx COPD - home O2 at 2-4 lmp, 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 Denies: Hx Peritoneal Dialysis Psychiatric Medical History: Reports: Hx Depression Past Surgical History: Reports: Hx Appendectomy, Hx Cardiac Surgery - bypass X 2 , CABG, Hx Coronary Artery Bypass Graft, Hx Tonsillectomy, Other - Tracheostomy - Immunizations Hx Diphtheria, Pertussis, Tetanus Vaccination: Yes Review of Systems - Review of Systems Constitutional: No symptoms reported EENT: No symptoms reported Cardiovascular: No symptoms reported Respiratory: No symptoms reported Gastrointestinal: No symptoms reported Genitourinary: See HPI Male Genitourinary: No symptoms reported Musculoskeletal: No symptoms reported Skin: No symptoms reported Hematologic/Lymphatic: No symptoms reported Neurological/Psychological: No symptoms reported Physical Exam - Vital signs Vitals: Resp Pulse Ox 20 94 08/26/16 19:25 08/26/16 19:25 Interpretation: Normal - General General appearance: Appears well In distress: None - HEENT Head: Normocephalic, Atraumatic Eyes: Normal Eyelashes: Normal Pupils: PERRL Nasal: Normal Mouth/Lips: Normal Mucous membranes: Normal Pharynx: Normal Neck: Normal - Respiratory Respiratory status: No respiratory distress Chest status: Nontender Breath sounds: Normal Chest palpation: Normal - Cardiovascular Rhythm: Regular Heart sounds: Normal auscultation Murmur: No - Abdominal Inspection: Normal Distension: No distension Bowel sounds: Normal Tenderness: Nontender. No: Tender, Guarding Organomegaly: No organomegaly - Genitourinary Inspection: No: Blood at meatus, Penile discharge Tenderness: No: Testicle tender, Epididymis tender Cremasteric reflex: Normal Scrotum: Normal. No: Swelling, Redness, Hot to touch - Back Back: Normal, Nontender. No: Tender, CVA tenderness - Extremities General upper extremity: Normal inspection, Nontender, Normal ROM, Normal strength General lower extremity: Normal inspection, Nontender, Normal ROM, Normal strength - Neurological Neuro grossly intact: Yes Cognition: Normal Orientation: AAOx4 [place] Coma Scale Eye Opening: Spontaneous Margarita Coma Scale Verbal: Oriented Margarita Coma Scale Motor: Obeys Commands [place]bin Coma Scale Total: 15 Speech: Normal Motor strength normal: LUE, RUE, LLE, RLE Sensory: Normal - Psychological Associated symptoms: Normal affect, Normal mood - Skin Skin Temperature: Warm Skin Moisture: Dry Skin Color: Normal Course - Re-evaluation Re-evalutation: Catheter was ordered because of difficulty with urination, however I was asked to come to the bedside by the tech after difficulty, I found that patient had a very large clot in this had entered into the Barragan, tech was unable to move the Barragan further, removed the Barragan, removed several large clots in succession from the urethra. After this normal urine was obtained. Patient was reevaluated and was found to have nonbloody urination into his urinal. Patient is excited about this, he states he does not want a Barragan, he states that he wants to go home now and that he has a follow-up with urology that they are calling about tomorrow, he states he will return if he has any difficulties. Urine contaminated by Barragan attempt, culture placed, patient was placed on Keflex because of retention duration and history of difficulties with this. Discussed return precautions, patient states satisfaction in agreement - Vital Signs Vital signs: Temp Pulse Resp BP Pulse Ox 98.8 F 20 133/66 H 100 08/27/16 00:07 08/27/16 00:07 08/27/16 00:07 08/27/16 00:07 - Laboratory Laboratory results interpreted by me: 08/26/16 21:35 Urine Protein 100 H Urine Blood LARGE H Ur Leukocyte Esterase LARGE H Discharge - Discharge Clinical Impression: Urine retention Condition: Stable Disposition: HOME, SELF-CARE Additional Instructions: Multiple clots were removed, this should help with passage of urine. Urine culture is growing, take antibiotic as prescribed because of the urine retention that happened to avoid a growing infection. Follow up closely with Urology. Return to the ED for any concerning symptoms - fever, vomiting, abdominal pain, inability to urinate, etc. Prescriptions: Cephalexin Monohydrate [Keflex 500 mg Capsule] 500 mg PO BID #10 capsule Referrals: SAMARIA LIMON PA-C [Primary Care Provider] - Follow up as needed
[2016-08-26] MEDS ORDERED: LIDOCAINE 2% URO-JET 5 ML KIT MM ONE (20:50)
[2016-08-26 22:13] LABS: AMORPHOUS SEDIMENT,URINE TRACE /HPF; APPEARANCE,URINE CLOUDY; BILIRUBIN,URINE NEGATIVE (NEGATIVE); GLUCOSE, URINE NEGATIVE (NEGATIVE); KETONES,URINE NEGATIVE (NEGATIVE); LEUKOCYTE ESTERASE,URINE LARGE (NEGATIVE); NITRITE,URINE NEGATIVE (NEGATIVE); PROTEIN,URINE 100 mg/dL (NEGATIVE); URINE SPECIFIC GRAVITY 1.008; UROBILINOGEN,URINE NEGATIVE mg/dL (<2.0)
[2016-08-26] MEDS ORDERED: CEPHALEXIN 500 MG CAPSULE PO ONE (22:52)
[2016-08-27 00:27] VITALS: BP 133/66
== END 2016-08-27 00:30 | disposition home or self-care (01) ==
LOC: ER 18:56
DX: R33.9 Retention of urine, unspecified (principal); K59.00 Constipation, unspecified; I12.9 Hypertensive chronic kidney disease with stage 1 through stage 4 chronic kidney disease, or unspecified chronic kidney disease; E11.22 Type 2 diabetes mellitus with diabetic chronic kidney disease; N18.4 Chronic kidney disease, stage 4 (severe); I25.10 Atherosclerotic heart disease of native coronary artery without angina pectoris; I25.2 Old myocardial infarction; J44.9 Chronic obstructive pulmonary disease, unspecified; Z79.899 Other long term (current) drug therapy; Z98.890 Other specified postprocedural states; Z88.8 Allergy status to other drugs, medicaments and biological substances; Z95.1 Presence of aortocoronary bypass graft
CPT/HCPCS: 81001; 87086; 87088; 87186; 99283

== ENCOUNTER 2016-08-27 12:47 | Emergency (ER) | payer MEDICARE ==
[2016-08-27] MEDS ORDERED: LIDOCAINE 2% URO-JET 5 ML KIT MM ONE (13:34)
--- NOTE | 2016-08-27 13:38 | ER Document Report ---
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 Pt noted to be seen yesterday had large clots removed, pt was able to urinate, now states he has had retention all day. TRAVEL OUTSIDE OF THE [place] IN LAST 30 DAYS: No - HPI Onset: Just prior to arrival Onset/Duration: Sudden Quality of pain: Achy Severity: Mild Pain Level: 1 Associated symptoms: Other Exacerbated by: Denies Relieved by: Denies Similar symptoms previously: Yes Recently seen / treated by doctor: Yes - Related Data Allergies/Adverse Reactions: indomethacin [From Indocin] Allergy (Unknown, Verified 07/31/16 11:52) clonazepam [From Klonopin] Allergy (Verified 07/31/16 11:52) Past Medical History - Social History Smoking Status: Never Smoker Cigarette use (# per day): No Chew tobacco use (# tins/day): No Smoking Education Provided: No Family History: CAD - Past Medical History Cardiac Medical History: Reports: Hx Congestive Heart Failure, Hx Coronary Artery Disease, Hx Heart Attack - 2004, Hx Hypercholesterolemia, Hx Hypertension Pulmonary Medical History: Reports: Hx COPD - home O2 at 2-4 lmp, 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 Denies: Hx Peritoneal Dialysis Psychiatric Medical History: Reports: Hx Depression Past Surgical History: Reports: Hx Appendectomy, Hx Cardiac Surgery - bypass X 2 , CABG, Hx Coronary Artery Bypass Graft, Hx Tonsillectomy, Other - Tracheostomy - Immunizations Hx Diphtheria, Pertussis, Tetanus Vaccination: Yes Review of Systems - Review of Systems Notes: REVIEW OF SYSTEMS: CONSTITUTIONAL : Denies fever, chills, or sweats. Denies recent illness. EENT: Denies eye, ear, throat, or mouth pain or symptoms. Denies nasal or sinus congestion or discharge. Denies throat, tongue, or mouth swelling or difficulty swallowing. CARDIOVASCULAR: Denies chest pain. Denies palpitations or racing or irregular heart beat. Denies ankle edema. RESPIRATORY: Denies cough, cold, or chest congestion. Denies shortness of breath, difficulty breathing, or wheezing. GASTROINTESTINAL: Denies abdominal pain or distention. Denies nausea, vomiting , or diarrhea. Denies blood in vomitus, stools, or per rectum. Denies black, tarry stools. Denies constipation. GENITOURINARY: Admits difficulty urinating MUSCULOSKELETAL: Denies back or neck pain or stiffness. Denies joint pain or swelling. SKIN: Denies rash, lesions or sores. HEMATOLOGIC : Denies easy bruising or bleeding. LYMPHATIC: Denies swollen, enlarged glands. NEUROLOGICAL: Denies confusion or altered mental status. Denies passing out or loss of consciousness. Denies dizziness or lightheadedness. Denies headache. Denies weakness or paralysis or loss of use of either side. Denies problems with gait or speech. Denies sensory loss, numbness, or tingling. Denies seizures. PSYCHIATRIC: Denies anxiety or stress. Denies depression, suicidal ideation, or homicidal ideation. ALL OTHER SYSTEMS REVIEWED AND NEGATIVE. Dictation was performed using [employer] voice recognition software PHYSICAL EXAMINATION: GENERAL: Chronically ill-appearing HEAD: Atraumatic, normocephalic. EYES: Pupils equal round and reactive to light, extraocular movements intact, sclera anicteric, conjunctiva are normal. ENT: Nares patent, oropharynx clear without exudates. Moist mucous membranes. NECK: Normal range of motion, supple without lymphadenopathy LUNGS: Breath sounds clear to auscultation bilaterally and equal. No wheezes rales or rhonchi. HEART: Regular rate and rhythm without murmurs ABDOMEN: Soft, nontender, nondistended abdomen. No guarding, no rebound. No masses appreciated. Musculoskeletal: Normal range of motion, no pitting or edema. No cyanosis. NEUROLOGICAL: Cranial nerves grossly intact. Normal speech, normal gait. Normal sensory, motor exams PSYCH: Normal mood, normal affect. SKIN: Warm, Dry, normal turgor, no rashes or lesions noted. Course - Re-evaluation Re-evalutation: 08/27/16 13:38 Torrez placement will be attempted 08/27/16 14:52 Torrez placed successfully, large clots and blood resolved, will dc with torrez bag in place and follow up with urology After performing a Medical Screening Examination, I estimate there is LOW risk for ACUTE APPENDICITIS, BOWEL OBSTRUCTION, ACUTE CHOLECYSTITIS, PERFORATED DIVERTICULITIS, INCARCERATED HERNIA, PANCREATITIS, or PERFORATED ULCER, thus I consider the discharge disposition reasonable. Also, there is no evidence or peritonitis, sepsis, or toxicity. I have reevaluated this patient multiple times and no significant life threatening changes are noted. The patient and I have discussed the diagnosis and risks, and we agree with discharging home with close follow-up with the understanding that symptoms and presentations can change. We also discussed returning to the Emergency Department immediately if new or worsening symptoms occur. We have discussed the symptoms which are most concerning (e.g., bloody stool, fever, changing or worsening pain, intractable vomiting - standard verbal up date) that necessitate immediate return. Discharge - Discharge Clinical Impression: Retention of urine, Torrez catheter in place UTI (urinary tract infection) Qualifiers: Urinary tract infection type: site unspecified Hematuria presence: with hematuria Qualified Code(s): N39.0 - Urinary tract infection, site not specified ; R31.9 - Hematuria, unspecified Condition: Stable Instructions: Urinary Tract Infection ([facility]) Referrals: SAMARIA LIMON PA-C [Primary Care Provider] - Follow up as needed JOSUE FROST MD [ACTIVE STAFF] - Follow up tomorrow
[2016-08-27] MEDS ORDERED: OXYCODONE-ACETAMINOPHEN 5-325 MG TABLET PO ONE (15:36)
[2016-08-27 17:40] VITALS: BP 119/64
== END 2016-08-27 17:41 | disposition home or self-care (01) ==
LOC: ER 12:47
DX: N39.0 Urinary tract infection, site not specified (principal); R31.9 Hematuria, unspecified; R33.9 Retention of urine, unspecified; E11.22 Type 2 diabetes mellitus with diabetic chronic kidney disease; I13.2 Hypertensive heart and chronic kidney disease with heart failure and with stage 5 chronic kidney disease, or end stage renal disease; N18.5 Chronic kidney disease, stage 5; J44.9 Chronic obstructive pulmonary disease, unspecified; I50.9 Heart failure, unspecified; I25.10 Atherosclerotic heart disease of native coronary artery without angina pectoris; E78.00 Pure hypercholesterolemia, unspecified; I25.2 Old myocardial infarction; Z99.81 Dependence on supplemental oxygen
CPT/HCPCS: 99284; 51702; A9270

== ENCOUNTER 2016-09-02 13:37 | Emergency (ER) | payer MEDICARE ==
[2016-09-02] MEDS ORDERED: HYDROMORPHONE HCL INJ/PF 2 MG/ML AMPULE IM ONE ×2 (14:08→17:03)
--- NOTE | 2016-09-02 14:19 | ER Document Report ---
ED General - General Stated Complaint: PAIN ALL OVER Time Seen by Provider: 09/02/16 13:47 Mode of Arrival: Medic Information source: Patient Notes: 70-year-old man with a history of COPD, respiratory failure with trach, CRE, morbid obesity who presents to the emergency room with left lower extremity pain. The patient states that he has had the pain for 3-4 weeks and he hurt his leg while transferring from bed to commode. He states that the pain is from the knee down. Denies any fever, chills, nausea vomiting The patient does have a history of chronic pain of all his extremities and he has been referred to a pain specialist and he states that he is not been accepted into the pain clinic. TRAVEL OUTSIDE OF THE [place] IN LAST 30 DAYS: No - HPI Onset: Other - Weeks Onset/Duration: Gradual Quality of pain: Dull Severity: Moderate Pain Level: 3 Associated symptoms: denies: Chills, Fever, Shortness of breath Exacerbated by: Movement Relieved by: Denies Similar symptoms previously: Yes Recently seen / treated by doctor: Yes - Related Data Allergies/Adverse Reactions: indomethacin [From Indocin] Allergy (Unknown, Verified 09/02/16 14:13) clonazepam [From Klonopin] Allergy (Verified 09/02/16 14:13) Past Medical History - General Information source: Patient - Social History Smoking Status: Former Smoker Cigarette use (# per day): No Chew tobacco use (# tins/day): No Frequency of alcohol use: None Drug Abuse: None Lives with: Family Family History: CAD Patient has suicidal ideation: No Patient has homicidal ideation: No - Past Medical History Cardiac Medical History: Reports: Hx Congestive Heart Failure, Hx Coronary Artery Disease, Hx Heart Attack - 2004, Hx Hypercholesterolemia, Hx Hypertension Pulmonary Medical History: Reports: Hx COPD - home O2 at 2-4 lmp, 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 Denies: Hx Peritoneal Dialysis Psychiatric Medical History: Reports: Hx Depression Past Surgical History: Reports: Hx Appendectomy, Hx Cardiac Surgery - bypass X 2 , CABG, Hx Coronary Artery Bypass Graft, Hx Tonsillectomy, Other - Tracheostomy - Immunizations Hx Diphtheria, Pertussis, Tetanus Vaccination: Yes Review of Systems - Review of Systems Constitutional: denies: Chills, Fever EENT: No symptoms reported Cardiovascular: No symptoms reported Respiratory: No symptoms reported Gastrointestinal: No symptoms reported Genitourinary: No symptoms reported Male Genitourinary: No symptoms reported Musculoskeletal: See HPI Skin: No symptoms reported Hematologic/Lymphatic: No symptoms reported Neurological/Psychological: No symptoms reported Physical Exam - Vital signs Vitals: Temp Pulse Resp BP Pulse Ox 98.3 F 70 15 132/65 H 100 09/02/16 13:40 09/02/16 13:40 09/02/16 13:40 09/02/16 13:40 09/02/16 13:40 Notes: Physical exam: GENERAL: The obese 70-year-old man lying in stretcher, alert and oriented 3 HEAD: Atraumatic, normocephalic. EYES: Pupils equal round and reactive to light, extraocular movements intact, sclera anicteric, conjunctiva are normal. ENT: TMs normal, nares patent, oropharynx clear without exudates. Moist mucous membranes. NECK: Normal range of motion, supple without lymphadenopathy or JVD. LUNGS: Breath sounds clear to auscultation bilaterally and equal. No wheezes rales or rhonchi. HEART: Regular rate and rhythm without murmurs, rubs or gallops. ABDOMEN: Soft, normoactive bowel sounds. No tenderness to palpation. No guarding, no rebound. No masses appreciated. EXTREMITIES: Does have left lower extremity pain with range of motion. There is no erythema or warmth over the knee. There is no deformities of the tib-fib area. He does have chronic swelling in the foot but it looks approximately the same as the right side. Ultrasound shows good dorsal pedal pulse and posterior tibial pulse. Foot is warm and there is good cap refill. Seems to have some tenderness to the touch skin over the tib-fib. NEUROLOGICAL: Cranial nerves II through XII grossly intact. Normal speech, bring all extremities PSYCH: Normal mood, normal affect. SKIN: Warm, Dry, normal turgor, no rashes or lesions noted. Course - Vital Signs Vital signs: Temp Pulse Resp BP Pulse Ox 98.3 F 70 16 123/76 100 09/02/16 13:40 09/02/16 13:40 09/02/16 16:01 09/02/16 16:01 09/02/16 16:01 - Diagnostic Test Radiology reviewed: Image reviewed, Reports reviewed - Tib-fib no obvious deformities or fractures Discharge - Discharge Clinical Impression: Musculoskeletal pain Condition: Stable Disposition: HOME, SELF-CARE Additional Instructions: The x-rays lower legs shows no fractures and the blood supply to the lower leg look good today. Follow-up with Samaria damon to come up with a plan for follow-up with her chronic pain doctor. Medicine as prescribed Prescriptions: Oxycodone HCl 5 mg PO Q6HP PRN #25 tablet PRN Reason: Referrals: SAMARIA DAMON PA-C [Primary Care Provider] - Follow up tomorrow
--- NOTE | 2016-09-02 15:18 | RADIOLOGY REPORT (SQ) ---
EXAM DESCRIPTION: TIBIA FIBULA LEFT COMPLETED DATE/TIME: 09/02/2016 2:40 pm REASON FOR STUDY: left lower extremity pain COMPARISON: None. NUMBER OF VIEWS: Two views. TECHNIQUE: Two radiographic images acquired of the left tibia and fibula to include the knee and ank le in at least one projection. LIMITATIONS: Study is limited somewhat due to the portable technique. FINDINGS: MINERALIZATION: Normal. BONES: No acute fracture or dislocation. No worrisome bone lesions. SOFT TISSUES: No obvious swelling or foreign body. OTHER: Extensive vascular calcifications are identified. IMPRESSION: No evidence for acute fracture or dislocation. Other findings as noted above TECHNICAL DOCUMENTATION: JOB ID: [id number] [employer]- All Rights Reserved
[2016-09-02 17:03] VITALS: BP 129/64
== END 2016-09-02 18:25 | disposition home or self-care (01) ==
LOC: ER 13:37
DX: M25.562 Pain in left knee (principal); M79.662 Pain in left lower leg; M79.89 Other specified soft tissue disorders; J44.9 Chronic obstructive pulmonary disease, unspecified; I25.10 Atherosclerotic heart disease of native coronary artery without angina pectoris; I25.2 Old myocardial infarction; I10 Essential (primary) hypertension; E11.9 Type 2 diabetes mellitus without complications; Z95.1 Presence of aortocoronary bypass graft; Z87.891 Personal history of nicotine dependence; Z88.8 Allergy status to other drugs, medicaments and biological substances; E66.01 Morbid (severe) obesity due to excess calories; Z68.42 Body mass index [BMI] 45.0-49.9, adult
CPT/HCPCS: 99284; 96372; 73590; J1170

== ENCOUNTER 2016-09-08 19:53 | Inpatient (IN) | payer MEDICARE ==
[2016-09-08] MEDS ORDERED: NORMAL SALINE 1000 ML 1,000 ML IV ONE (20:18)
[2016-09-08] MEDS ORDERED: CEFEPIME 2 GM/D5W RTU 50 ML IV ONE (20:19)
[2016-09-08] MEDS ORDERED: VANCOMYCIN HCL INJ 1000 MG VIAL IV ONE (20:19)
--- NOTE | 2016-09-08 20:20 | ER Document Report ---
ED General - General Stated Complaint: ALTERED MENTAL STATUS Time Seen by Provider: 09/08/16 20:00 Cannot obtain history due to: Altered mental status Notes: Patient is a 70 year old male, history of morbid obesity with associated obesity hypoventilation requiring tracheostomy with trach in place, Barragan catheter chronically secondary to immobility due to morbid obesity, who presents with increased altered mental status per family who is not present at the bedside and does not plan to come to the hospital. Patient himself is unable to provide any meaningful history. He is only able to tell me that he is in the hospital. EMS apparently reports the patient over the last 2 days has become increasingly confused. He apparently also does not get out of bed for unclear reasons although appears related to chronic bilateral extremity pain in both upper and lower extremities. TRAVEL OUTSIDE OF THE [place] IN LAST 30 DAYS: No - Related Data Allergies/Adverse Reactions: indomethacin [From Indocin] Allergy (Unknown, Verified 09/02/16 14:13) clonazepam [From Klonopin] Allergy (Verified 09/02/16 14:13) Past Medical History - General Information source: Emergency Med Personnel Cannot obtain history due to: Altered mental status - Social History Smoking Status: Unknown if Ever Smoked Lives with: Family Family History: CAD - Past Medical History Cardiac Medical History: Reports: Hx Congestive Heart Failure, Hx Coronary Artery Disease, Hx Heart Attack - 2004, Hx Hypercholesterolemia, Hx Hypertension Pulmonary Medical History: Reports: Hx COPD - home O2 at 2-4 lmp, 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 Denies: Hx Peritoneal Dialysis Psychiatric Medical History: Reports: Hx Depression Past Surgical History: Reports: Hx Appendectomy, Hx Cardiac Surgery - bypass X 2 , CABG, Hx Coronary Artery Bypass Graft, Hx Tonsillectomy, Other - Tracheostomy - Immunizations Hx Diphtheria, Pertussis, Tetanus Vaccination: Yes Review of Systems - Review of Systems -: Yes ROS unobtainable due to patient's medical condition Physical Exam - Vital signs Vitals: Temp Resp BP Pulse Ox 98.8 F 22 H 168/97 H 100 09/08/16 20:05 09/08/16 20:05 09/08/16 20:05 09/08/16 20:05 Interpretation: Tachycardic Notes: PHYSICAL EXAMINATION: GENERAL: The obese male, appears uncomfortable but in no acute distress HEAD: Atraumatic, normocephalic. EYES: Pupils equal round and reactive to light, extraocular movements intact, sclera anicteric, conjunctiva are normal. ENT: nares patent, oropharynx clear without exudates. Moderately dry mucous membranes. NECK: Tracheostomy in place, trach collar over tracheostomy tube. LUNGS: Breath sounds clear to auscultation bilaterally and equal. No wheezes rales or rhonchi. HEART: Regular tachycardia without murmurs ABDOMEN: Morbidly obese abdomen. Soft, nontender, normoactive bowel sounds. No guarding, no rebound. No masses appreciated. EXTREMITIES: Normal range of motion, no pitting or edema. No cyanosis. NEUROLOGICAL: No focal neurological deficits. Moves all extremities spontaneously PSYCH: Oriented only to location and name SKIN: Warm, Dry, normal turgor, no rashes or lesions noted. Course - Re-evaluation Re-evalutation: 09/08/16 20:19 Patient arrives with vitals and history concerning for sepsis likely from a urinary source. Patient is very strongly malodorous, foul-smelling urine after the Barragan catheter was changed out for an appropriate specimen sampling. Patient is unable to provide any meaningful history, is able to tell me only that he is at the hospital unable to answer any additional questions. Initial vitals show tachycardia, mild tachypnea, saturating 100% on 4 L by trach collar. Will obtain sepsis laboratories, begin cefepime and vancomycin, reassess frequently as patient is at risk for rapidly worsening illness. 09/08/16 21:25 Labs show leukocytosis, neutrophilic predominance, no lactate elevation. Heart rate improved after initial fluid bolus. Urinalysis does show findings consistent with pylo, urosepsis. Blood pressures remained stable and patient continues to saturate 100% on a trach collar at 4 L. I discussed with Dr. Koroma who will admit. - Vital Signs Vital signs: Temp Pulse Resp BP Pulse Ox 99.3 F 86 34 H 133/77 H 94 09/09/16 01:17 09/09/16 01:17 09/09/16 01:17 09/09/16 01:17 09/09/16 01:17 - Laboratory Result Diagrams: 09/08/16 20:20 09/08/16 20:20 Laboratory results interpreted by me: 09/08/16 09/08/16 09/08/16 20:20 20:20 20:20 WBC 19.9 H RBC 3.49 L Hgb 8.9 L Hct 27.9 L MCH 25.4 L MCHC 31.7 L RDW 16.5 H Plt Count 520 H Seg Neuts % (Manual) 82 H Band Neutrophils % 2 L Lymphocytes % (Manual) 5 L Abs Neuts (Manual) 16.7 H Abs Monocytes (Manual) 2.2 H Chloride 91 L BUN 88 H Creatinine 2.95 H Est GFR ( Amer) 26 L Est GFR (Non-Af Amer) 21 L Glucose 160 H Total Bilirubin 2.2 H Direct Bilirubin 1.6 H Alkaline Phosphatase 288 H Albumin 3.4 L Urine Protein 100 H Urine Blood LARGE H Urine Urobilinogen 2.0 H Ur Leukocyte Esterase LARGE H - Diagnostic Test Radiology reviewed: Image reviewed, Reports reviewed Radiology results interpreted by me: 09/08/16 21:30 Chest x-ray: No acute infiltrate, cardiomegaly Discharge - Discharge Clinical Impression: Status post tracheostomy, Sinus tachycardia, Pyelonephritis Chronic kidney disease (CKD) Qualifiers: Chronic kidney disease stage: unspecified stage Qualified Code(s): N18.9 - Chronic kidney disease, unspecified Sepsis Qualifiers: Sepsis type: sepsis due to unspecified organism Qualified Code(s): A41.9 - Sepsis, unspecified organism Disposition: ADMITTED INPATIENT Admitting Provider: [facility] Unit Admitted: [facility]
[2016-09-08 20:35] LABS: VENOUS BLOOD BASE EXCESS 3.7 mmol/L; VENOUS BLOOD HCO3 29.3 mmol/L (20-32); VENOUS BLOOD PCO2 48.4 mmHg (35-63); VENOUS BLOOD PH 7.4 (7.30-7.42)
[2016-09-08 20:37] LABS: HEMATOCRIT 27.9 % (37.9-51.0); HEMOGLOBIN 8.9 g/dL (13.5-17.0); HGB HCT DIFFERENCE -1.2; MEAN CORPUSCULAR HEMOGLOBIN 25.4 pg (27.0-33.4); MEAN CORPUSCULAR HGB CONC 31.7 g/dL (32.0-36.0); MEAN CORPUSCULAR VOLUME 80 fl (80-97); RED BLOOD COUNT 3.49 10^6/uL (4.35-5.55); RED CELL DISTRIBUTION WIDTH 16.5 % (11.5-14.0); WHITE BLOOD COUNT 19.9 10^3/uL (4.0-10.5)
[2016-09-08 20:44] LABS: AMORPHOUS SEDIMENT,URINE 1+ /HPF; BILIRUBIN,URINE NEGATIVE (NEGATIVE); GLUCOSE, URINE NEGATIVE (NEGATIVE); KETONES,URINE NEGATIVE (NEGATIVE); LEUKOCYTE ESTERASE,URINE LARGE (NEGATIVE); NITRITE,URINE NEGATIVE (NEGATIVE); PROTEIN,URINE 100 mg/dL (NEGATIVE)
[2016-09-08 20:48] LABS: APPEARANCE,URINE CLOUDY
[2016-09-08 20:51] LABS: ALANINE AMINOTRANSFERASE 24 U/L (21-72); ALBUMIN 3.4 g/dL (3.5-5.0); ALKALINE PHOSPHATASE 288 U/L (38-126); ANION GAP 17 (5-19); ASPARTATE AMINO TRANSFERASE 33 U/L (17-59); BILIRUBIN,DIRECT 1.6 mg/dL (0.0-0.4); BILIRUBIN,TOTAL 2.2 mg/dL (0.2-1.3); BLOOD UREA NITROGEN 88 mg/dL (7-20); CARBON DIOXIDE 29 mmol/L (22-30); CHLORIDE 91 mmol/L (98-107); CREATININE RESULT 2.95 mg/dL (0.52-1.25); GLUCOSE 160 mg/dL (75-110); TOTAL PROTEIN 7.6 g/dL (6.3-8.2)
[2016-09-08 21:00] LABS: BAND NEUTROPHILS % (MANUAL) 2 % (3-5); BASOPHILS % (MANUAL) 0 % (0-2); EOSINOPHILS % (MANUAL) 0 % (0-6); LYMPHOCYTES % (MANUAL) 5 % (13-45); TOTAL CELLS COUNTED 100
--- NOTE | 2016-09-08 21:01 | RADIOLOGY REPORT (SQ) ---
EXAM DESCRIPTION: CHEST SINGLE VIEW COMPLETED DATE/TIME: 09/08/2016 8:54 pm REASON FOR STUDY: sepsis, trach COMPARISON: 05/13/2016. NUMBER OF VIEWS: One view. TECHNIQUE: Single frontal radiographic view of the chest acquired. LIMITATIONS: None. FINDINGS: LUNGS AND PLEURA: No opacities, masses or pneumothorax. No pleural effusion. MEDIASTINUM AND HILAR STRUCTURES: No masses or contour abnormality. HEART AND VASCULATURE: Cardiac enlargement. Mild vascular congestion. BONES: No acute findings. HARDWARE: Sternotomy wires. Tracheostomy tube. OTHER: No other significant finding. IMPRESSION: CARDIAC ENLARGEMENT. MILD VASCULAR CONGESTION. NO CHANGE IN APPEARANCE OF THE CHEST. TECHNICAL DOCUMENTATION: JOB ID: [id number] [employer]- All Rights Reserved
[2016-09-08 21:03] LABS: ANISOCYTOSIS 1+; HYPOCHROMASIA SLIGHT; MICROCYTOSIS SLIGHT; POIKILOCYTOSIS SLIGHT; POLYCHROMASIA SLIGHT; TOXIC GRANULATION SLIGHT
[2016-09-09 00:45] LABS: ADD ON TESTING BLD IN LAB ACKNOWLEDGE
[2016-09-09 01:03] LABS: MAGNESIUM 2.3 mg/dL (1.6-2.3)
[2016-09-09] MEDS ORDERED: GLUCAGON,HUMAN RECOMB 1 MG INJ IM PRN (01:04)
[2016-09-09] MEDS ORDERED: DEXTROSE 50%-WATER 25 GM/50 ML DISP.SYRIN IV PRN ×2 (01:04)
[2016-09-09] MEDS ORDERED: NORMAL SALINE 1000 ML 1,000 ML IV PRN ×2 (01:04→02:41)
[2016-09-09] MEDS ORDERED: DEXTROSE 40% GEL 15 GM TUBE PO PRN ×2 (01:04)
[2016-09-09 01:23] LABS: VENOUS BLOOD BASE EXCESS 2.5 mmol/L; VENOUS BLOOD HCO3 27.6 mmol/L (20-32); VENOUS BLOOD PCO2 44.8 mmHg (35-63); VENOUS BLOOD PH 7.41 (7.30-7.42)
[2016-09-09] MEDS ORDERED: VANCOMYCIN HCL 0 MG in DEXTROSE 5%-WATER 250 ML IV NR (02:30)
[2016-09-09] MEDS ORDERED: PHARMACY COMMUNICATION ORDER MC SCH (02:30)
[2016-09-09] MEDS ORDERED: IPRATROPIUM/ALBUTEROL 0.5-2.5 MG/3 ML AMPUL NEB PRN (02:31)
[2016-09-09] MEDS ORDERED: ACETAMINOPHEN 650 MG SUPP.RECT PR PRN (02:39)
[2016-09-09] MEDS ORDERED: PROMETHAZINE HCL 25 MG SUPP.RECT PR PRN (02:41)
[2016-09-09] MEDS ORDERED: LINEZOLID 300 ML IV ONE ×2 (02:58→03:00)
[2016-09-09] MEDS: INSULIN LISPRO 100 UNIT/ML 3 ML VIAL SUBCUT PRN ×2 (06:51→11:36)
[2016-09-09 07:02] LABS: VENOUS BLOOD BASE EXCESS 0.3 mmol/L; VENOUS BLOOD HCO3 24.2 mmol/L (20-32); VENOUS BLOOD PCO2 36.3 mmHg (35-63); VENOUS BLOOD PH 7.44 (7.30-7.42)
[2016-09-09 07:10] LABS: HEMATOCRIT 26.4 % (37.9-51.0); HEMOGLOBIN 8.4 g/dL (13.5-17.0); HGB HCT DIFFERENCE -1.2; MEAN CORPUSCULAR HEMOGLOBIN 25.1 pg (27.0-33.4); MEAN CORPUSCULAR HGB CONC 31.7 g/dL (32.0-36.0); MEAN CORPUSCULAR VOLUME 79 fl (80-97); RED BLOOD COUNT 3.33 10^6/uL (4.35-5.55); RED CELL DISTRIBUTION WIDTH 16.7 % (11.5-14.0); WHITE BLOOD COUNT 25.9 10^3/uL (4.0-10.5)
[2016-09-09 07:27] LABS: BAND NEUTROPHILS % (MANUAL) 4 % (3-5); BASOPHILS % (MANUAL) 0 % (0-2); EOSINOPHILS % (MANUAL) 0 % (0-6); LYMPHOCYTES % (MANUAL) 2 % (13-45); TOTAL CELLS COUNTED 100
[2016-09-09 07:29] LABS: ANISOCYTOSIS 1+; MICROCYTOSIS SLIGHT
[2016-09-09 07:30] LABS: HYPOCHROMASIA SLIGHT
[2016-09-09 07:56] LABS: ALANINE AMINOTRANSFERASE 23 U/L (21-72); ALKALINE PHOSPHATASE 246 U/L (38-126); ANION GAP 16 (5-19); ASPARTATE AMINO TRANSFERASE 29 U/L (17-59); BILIRUBIN,DIRECT 1.8 mg/dL (0.0-0.4); BILIRUBIN,TOTAL 2.2 mg/dL (0.2-1.3); BLOOD UREA NITROGEN 83 mg/dL (7-20); CALCIUM 9.7 mg/dL (8.4-10.2); CARBON DIOXIDE 25 mmol/L (22-30); CHLORIDE 96 mmol/L (98-107); CREATININE RESULT 2.92 mg/dL (0.52-1.25); GLUCOSE 188 mg/dL (75-110); SODIUM 137.4 mmol/L (137-145); TOTAL PROTEIN 6.8 g/dL (6.3-8.2)
--- NOTE | 2016-09-09 08:28 | PDOC H&P ---
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 Patient has been discussed with emergency room physician who evaluated the patient. Patient is globally disoriented and is able to provide no history whatsoever in terms of acute or chronic events, review of systems, personal habits, family history, etc. No friends or family are present. Old inpatient records are reviewed. Per emergency room records, patient had been bedridden for a week, decreased appetite, increased shortness of breath, and having hallucinations. Initial evaluation revealed very strong malodorous foul-smelling urine after Barragan catheter was changed out for an appropriate specimen sampling. Testing of the urine revealed obvious urinary tract infection. Has remained hemodynamically stable. No further information available this point in time. Hospitalized on our service May 12- of this year with final diagnoses including fungemia, healthcare associated pneumonia, elevated troponin, sepsis, and acute and chronic respiratory failure. History and physical and discharge summary reviewed.. Laboratory results are listed in [facility] and are reviewed. X-ray summary results are listed below, with full report(s) reviewed. . Social history/personal habits: . No further information available this point in time. Allergies/adverse reactions are listed in [facility] and are reviewed. Home medications initially autopopulated into [facility] may not accurately reflect patient's true medications, dosages, and/or frequencies. cardiac cath lab radiology technologist to reconcile medications. Unfortunately, patient cannot provide any information related to medications/ dosages/frequencies. REVIEW OF SYSTEMS: See history and present illness. No further information available this point in time. PHYSICAL EXAMINATION: 5 feet 7 inches tall. 134.2 kg. BMI 46.3 kg/m. Blood pressure 146/91. Pulse 114 and regular. 98% saturation on 4 L oxygen per trach collar. Respirations are 22, with patient making only occasional brief use of his accessory respiratory muscles. Temperature 99.1. Morbidly obese somewhat chronically ill-appearing bearded male who appears not to feel very well. Somewhat anxious, although no judy agitation. Skin is warm and dry. No grossly obvious evidence of rash in areas of skin examined. No subcutaneous nodules palpated. ENT: Hearing grossly normal to normal conversation. Tongue midline on protrusion pink and slightly tacky. Eyes: No scleral icterus. Pupils equal and reactive to light at 4 mm. [place] conjunctivae. Neck is supple and nontender to gentle active range of motion and palpation. Midline trachea. No palpable thyroid nodule mass enlargement or tenderness. Exam quite limited by trach collar, and tracheostomy device with associated strap. Lymphatic: No palpable cervical or clavicular nodes. Neck and lymphatic exams limited by patient body habitus. Exam quite limited by trach collar, and tracheostomy device with associated strap. Psychiatric: Globally disoriented. Lungs: Auscultation reveals equal breath sounds bilaterally. Mild occasional use of accessory respiratory muscles. Slightly coarse breath sounds, felt likely due at least partly to upper airway sounds. Cardiovascular: Heart regular rate and rhythm, without gallop murmur or rub. No abdominal aortic bruits. Mild symmetric bilateral slightly pitting ankle and pedal edema. Faintly palpable dorsalis pedis pulses. Difficult to evaluate for carotid bruit due to tracheostomy device strap. Abdomen:soft obese nontender with positive bowel sounds. Unable to adequately evaluate abdomen for masses or organomegaly due to body habitus. Extremities: Feet are warm and dry. No calf tenderness to compression. No grossly obvious visual evidence of calf swelling. Neurologic: Moves upper extremities grossly normally. Patellar reflexes absent. Absent Babinski. Light touch cannot be evaluated adequately due to his mental status. Does not follow request for dorsiflexion and plantarflexion of feet. Past Medical History Past Medical History: Information from review of old records along with discussion with the ER staff. Patient not able to provide any information. Cardiac Medical History: Reports: Congestive Heart Failure, Coronary Artery Disease, Myocardial Infarction - 2004, Hyperlipidema, Hypertension Pulmonary Medical History: Reports: Chronic Obstructive Pulmonary Disease (COPD ) - home O2 at 2-4 lmp, Respiratory Failure - 2.5 l home oxygen dependent, Other - 2-1/2 L oxygen per trach cannula since February of this year. Does not require home ventilator. Endocrine Medical History: Reports: Diabetes Mellitus Type 1, Hypothyroidism Denies: Hyperthyroidism Renal/ Medical History: Reports: Chronic Kidney Disease - Stage IV Psychiatric Medical History: Reports: Depression Hematology: Reports: Anemia Past Surgical History Past Surgical History: Information from review of old records along with discussion with the ER staff. Patient not able to provide any information. Past Surgical History: Reports: Appendectomy, Coronary Artery Bypass Graft, Tonsillectomy, Other - Tracheostomy Social History Information Source: Emergency Med Personnel, [facility] Records Lives with: Family Smoking Status: Unknown if Ever Smoked Frequency of Alcohol Use: None Hx Recreational Drug Use: No Drugs: None Hx Prescription Drug Abuse: No - Advance Directive Resuscitation Status: Full Code Surrogate healthcare decision maker:: Reportedly by old records; patient not able to provide any information related to same. Family History Family History: CAD Parental Family History Reviewed: No - Patient unable to provide any information. Children Family History Reviewed: No - Patient unable to provide any information. Sibling(s) Family History Reviewed.: No - Patient unable to provide any information. Medication/Allergy Home Medications: Apixaban [Eliquis 2.5 mg Tablet] 2.5 mg PO Q12 09/09/16 Budesonide [Pulmicort Neb 0.5 mg/2 ml Ampul] 0.5 mg NEB RTQ12 09/09/16 Colchicine [Colchicine 0.6 mg Tablet] 0.6 mg PO DAILY 09/09/16 Diltiazem HCl [Cartia Xt] 120 mg PO Q12 09/09/16 Escitalopram Oxalate [Lexapro 10 mg Tablet] 10 mg PO DAILY 09/09/16 Famotidine [Pepcid 20 mg Tablet] 20 mg PO QHS 09/09/16 Ferrous Sulfate [Iron] 325 mg PO DAILY 09/09/16 Fluticasone Propionate [Flovent HFA 44 mcg MDI] 2 puff IH Q12 09/09/16 Furosemide [Lasix] 40 mg PO BID 09/09/16 Insulin Detemir [Levemir Flextouch] 30 units SQ QHS 09/09/16 Insulin Regular, Human [Novolin R (Reg) Insulin 100 unit/mL] 4 unit SQ AC Ipratropium/Albuterol Sulfate [Duoneb 3 ml Ampul] 3 ml NEB RTQ6 09/09/16 Lorazepam [Ativan 1 mg Tablet] 1 mg PO Q12HP PRN 09/09/16 Metoprolol Tartrate [Lopressor 25 mg Tablet] 75 mg PO Q12 09/09/16 Oxycodone HCl [Oxy-Ir 5 mg Tablet] 5 mg PO Q8HP PRN 09/09/16 Tamsulosin HCl [Flomax 0.4 mg Cap.sr] 0.4 mg PO DAILY 09/09/16 Allergies/Adverse Reactions: indomethacin [From Indocin] Allergy (Unknown, Verified 09/02/16 14:13) clonazepam [From Klonopin] Allergy (Verified 09/02/16 14:13) Physical Exam Vital Signs: Temp Pulse Resp BP Pulse Ox 100.8 F H 114 H 33 H 160/76 H 90 L 09/09/16 03:53 09/09/16 07:00 09/09/16 03:53 09/09/16 03:53 09/09/16 04:19 Intake & Output 09/08/16 09/09/16 09/10/16 00:59 00:59 00:59 Intake Total 1688 Balance 1688 Results Laboratory Results: 09/09/16 06:50 09/09/16 09/09/16 09/09/16 06:50 06:50 06:50 WBC 25.9 H RBC 3.33 L Hgb 8.4 L Hct 26.4 L MCV 79 L MCH 25.1 L MCHC 31.7 L RDW 16.7 H Plt Count 490 H Seg Neutrophils % Not Reportable Lymphocytes % Not Reportable Monocytes % Not Reportable Eosinophils % Not Reportable Basophils % Not Reportable Absolute Neutrophils Not Reportable Absolute Lymphocytes Not Reportable Absolute Monocytes Not Reportable Absolute Eosinophils Not Reportable Absolute Basophils Not Reportable VBG pH 7.44 H VBG pCO2 36.3 VBG HCO3 24.2 VBG Base Excess 0.3 Sodium Cancelled Potassium Cancelled Chloride Cancelled Carbon Dioxide Cancelled Anion Gap Cancelled BUN Cancelled Creatinine Cancelled Est GFR ( Amer) Cancelled Est GFR (Non-Af Amer) Cancelled Glucose Cancelled Calcium Cancelled Total Bilirubin Cancelled AST Cancelled ALT Cancelled Alkaline Phosphatase Cancelled Total Protein Cancelled Albumin Cancelled Impressions: Chest X-Ray 09/08/16 20:18 IMPRESSION: CARDIAC ENLARGEMENT. MILD VASCULAR CONGESTION. NO CHANGE IN APPEARANCE OF THE CHEST. Assessment & Plan - Diagnosis (1) Anticoagulated Is this a current diagnosis for this admission?: YesPlan: Resume home medications as appropriate once these have been determined and reviewed. (2) Hypothyroid Qualifiers: Hypothyroidism type: unspecified Qualified Code(s): E03.9 - Hypothyroidism, unspecified Is this a current diagnosis for this admission?: YesPlan: Resume home medications as appropriate once these have been determined and reviewed. (3) Diabetes mellitus type 1 Qualifiers: Diabetes mellitus complication status: with unspecified complications Qualified Code(s): E10.8 - Type 1 diabetes mellitus with unspecified complications Is this a current diagnosis for this admission?: YesPlan: Accu-Cheks with appropriate sliding scale coverage. Resume home medications as appropriate once these have been determined and reviewed. (4) Tracheostomy dependence Is this a current diagnosis for this admission?: Yes (5) UTI (urinary tract infection) Qualifiers: Urinary tract infection type: catheter-associated UTI Indwelling urinary catheter type: indwelling urethral catheter Encounter type: initial encounter Qualified Code(s): T83.511A - Infection and inflammatory reaction due to indwelling urethral catheter, initial encounter; N39.0 - Urinary tract infection, site not specified Is this a current diagnosis for this admission?: YesPlan: Urine culture results from the second of this month reviewed. Antibiotic coverage to consist of intravenous Linezolid, along with intravenous vancomycin. Pharmacy to assist with dosing. Knee high SCDs for DVT prophylaxis; with patient reportedly on Eliquis, we will forego Lovenox or heparin at this point in time. Time spent in evaluation and management of patient: 60 minutes. (6) Acute encephalopathy Is this a current diagnosis for this admission?: YesPlan: Likely secondary to urinary tract infection. Should resolve with time and treatment. (7) Kidney disease, chronic, stage IV (GFR 15-29 ml/min) Is this a current diagnosis for this admission?: Yes (8) Atrial fibrillation and flutter Is this a current diagnosis for this admission?: YesPlan: Resume home medications as appropriate once these have been determined and reviewed. - Time Anticipated discharge: Home Within: Other - Inpatient Certification Based on my medical assessment, after consideration of the patient's comorbidities, presenting symptoms, or acuity I expect that the services needed warrant INPATIENT care.: Yes I certify that my determination is in accordance with my understanding of Medicare's requirements for reasonable and necessary INPATIENT services [42 CFR 412.3e].: Yes Medical Necessity: Significant Comorbidiites Make Outpatient Treatment Too Risky , Need Close Monitoring Due to Risk of Patient Decompensation, Need For Continuous Telemetry Monitoring, Need for IV Antibiotics, Risk of Complication if Not Cared For in Hospital Post Hospital Care: D/C or Transfer Summary
[2016-09-09] MEDS ORDERED: FUROSEMIDE INJ/PF 40 MG/4 ML SDV IV ONE (09:11)
[2016-09-09] MEDS ORDERED: FUROSEMIDE INJ/PF 40 MG/4 ML SDV ONE (09:18)
[2016-09-09 09:45] LABS: ARTERIAL BLOOD BASE EXCESS 3.9 mmol/L; ARTERIAL BLOOD O2 SATURATION 95.9 % (94-98)
[2016-09-09] MEDS ORDERED: PHARMACY COMMUNICATION ORDER MC NR (09:45)
[2016-09-09] MEDS ORDERED: ONDANSETRON HCL INJ/PF 4 MG/2 ML SDV IV PRN (09:47)
[2016-09-09] MEDS ORDERED: DILTIAZEM HCL/D5W 125 ML IV PRN (09:58)
[2016-09-09] MEDS ORDERED: GENTAMICIN SULFATE 0 MG in DEXTROSE 5%-WATER 100 ML IV NR (10:00)
[2016-09-09] MEDS ORDERED: LEVALBUTEROL HCL NEB 0.63 MG/3 ML AMPUL NEB PRN (10:01)
[2016-09-09] MEDS ORDERED: PANTOPRAZOLE SODIUM 40 MG VIAL IV ONE ×2 (10:15→12:30)
[2016-09-09] MEDS ORDERED: PROPOFOL 100 ML IV PRN (11:05)
[2016-09-09] MEDS ORDERED: PROMETHAZINE HCL INJ 25 MG/1 ML VIAL IV PRN (11:06)
[2016-09-09] MEDS ORDERED: MIDAZOLAM HCL 100 ML IV PRN (11:10)
[2016-09-09] MEDS ORDERED: MIDAZOLAM HCL 100 ML IV ONE (11:12)
--- NOTE | 2016-09-09 11:16 | Progress Note ---
Provider Note Provider Note: ERIN FIELDS Search Criteria: Last Name 'Erin' and First Name 'Hakeem' and = '' and Request Period = '03/13/16' to 09/09/16' - 2 out of 2 Recipients Selected. Fill Date Product, Str, Form Qty Days Pt ID Prescriber Written RX# N/R* Pharm MED+ ------ ---- --------- --- ------- ----- --------- ------ 08/23/2016 OXYCODONE HCL 5 MG CAPSULE 30.00 5 [id number] 08/23/2016 [id number] R [id number] 45.0 07/19/2016 LORAZEPAM 1 MG TABLET 60.00 30 [id number] 06/28/2016 [id number] R [id number] 00.0 06/28/2016 OXYCODONE HCL 5 MG CAPSULE 30.00 5 [id number] 06/28/2016 [id number] R [id number] 45.0 06/26/2016 HYDROMORPHONE 4 MG TABLET 14.00 5 [id number] 06/25/2016 [id number] N [id number] 44.8 06/25/2016 LORAZEPAM 1 MG TABLET 60.00 30 [id number] 02/08/2016 [id number] R [id number] 00.0 06/20/2016 OXYCODONE HCL 5 MG CAPSULE 30.00 10 [id number] 06/12/2016 [id number] N [id number] 22.5 06/12/2016 LORAZEPAM 0.5 MG TABLET 60.00 30 [id number] 06/12/2016 [id number] N [id number] 00.0 05/21/2016 OXYCODONE HCL 5 MG TABLET 20.00 5 [id number] 05/21/2016 [id number] N [id number] 30.0 05/21/2016 OXYCODONE HCL 5 MG TABLET 20.00 5 [id number] 05/21/2016 [id number] N [id number] 30.0 05/21/2016 LORAZEPAM 0.5 MG TABLET 20.00 7 [id number] 05/21/2016 [id number] N [id number] 00.0 05/21/2016 LORAZEPAM 0.5 MG TABLET 20.00 7 [id number] 05/21/2016 [id number] N [id number] 00.0 04/12/2016 LORAZEPAM 0.5 MG TABLET 90.00 30 [id number] 04/12/2016 [id number] N [id number] 00.0 04/12/2016 OXYCODONE HCL 5 MG TABLET 90.00 30 [id number] 04/12/2016 [id number] N [id number] 22.5 [id number] MILDRED GUSMAN K, DELIVERY ARCHITECT-C; [facility], [address] [address] [id number] JACKIE LOPES JR.; [facility], [address] [place] [address] [id number] SAMARIA LIMON PA-C; [facility], [address] [address] [id number] SANGITA LINDSAY (DO); [facility], [address] [place] [address], MEDICAL STAFF OFFICE, [address] [place] [address] [id number] ISAK RESENDEZ; LIMITED TO OFFICIAL FED[employer]AL DUTIES ONLY, [facility], [address] [facility], [facility] [address]
--- NOTE | 2016-09-09 11:29 | RADIOLOGY REPORT (SQ) ---
EXAM DESCRIPTION: KUB/ABDOMEN (SINGLE VIEW) COMPLETED DATE/TIME: 09/09/2016 11:13 am REASON FOR STUDY: NGT placement, vomiting, hypoxia, tachypnea COMPARISON: None. NUMBER OF VIEWS: One view. TECHNIQUE: Supine radiographic image of the abdomen acquired. LIMITATIONS: Limited positioning. FINDINGS: BOWEL GAS PATTERN: Distended stomach. CALCIFICATIONS: No suspicious calcifications. SOFT TISSUES: No gross mass or suggestion of organomegaly. HARDWARE: Nasogastric tube with the tip in the stomach. BONES: No acute fracture. No worrisome bone lesions. OTHER: No other significant finding. IMPRESSION: LIMITED STUDY. DISTENDED STOMACH. TIP OF THE NASOGASTRIC TUBE IN THE STOMACH. TECHNICAL DOCUMENTATION: JOB ID: [id number] [employer]- All Rights Reserved
[2016-09-09] MEDS ORDERED: NORMAL SALINE 100 ML with PANTOPRAZOLE SODIUM 80 MG IV PRN ×2 (13:00)
--- NOTE | 2016-09-09 13:21 | RADIOLOGY REPORT (SQ) ---
EXAM DESCRIPTION: U/S ABDOMEN LIMITED W/O DOP COMPLETED DATE/TIME: 09/09/2016 12:58 pm REASON FOR STUDY: Fever, elevated LFTs COMPARISON: None. TECHNIQUE: Dynamic and static grayscale images acquired of the abdomen and recorded on PACS. Additio nal selected color Doppler and spectral images recorded. LIMITATIONS: Markedly limited due to the patient's obesity and clinical condition. FINDINGS: PANCREAS: Not visualized. LIVER: Limited visualization. LIVER VASCULATURE: Unable to perform Doppler. GALLBLADDER: Limited visualization. Possible stones. ULTRASOUND-DETECTED MOFFETT'S SIGN: Not applicable. INTRAHEPATIC DUCTS AND COMMON DUCT: Not visualized. INFERIOR VENA CAVA: Not visualized. AORTA: Not visualized. RIGHT KIDNEY: Not visualized. PERITONEAL AND RIGHT PLEURAL SPACE: Not visualized. OTHER: No other significant findings. IMPRESSION: MARKEDLY LIMITED STUDY, ESSENTIALLY NONDIAGNOSTIC. POSSIBLE GALLSTONES. TECHNICAL DOCUMENTATION: JOB ID: [id number] [employer]- All Rights Reserved
[2016-09-09] MEDS ORDERED: POTASSI CL 20 MEQ/50 ML RIDER 20 MEQ/50 ML RTUPB IV ONE (13:30)
[2016-09-09] MEDS ORDERED: LEVALBUTEROL HCL NEB 1.25 MG/3 ML AMPUL NEB SCH (14:00)
[2016-09-09 15:07] LABS: HEMATOCRIT 24.2 % (37.9-51.0); HGB HCT DIFFERENCE -1.1; MEAN CORPUSCULAR HEMOGLOBIN 25.1 pg (27.0-33.4); MEAN CORPUSCULAR VOLUME 79 fl (80-97); RED BLOOD COUNT 3.09 10^6/uL (4.35-5.55); RED CELL DISTRIBUTION WIDTH 16.9 % (11.5-14.0); WHITE BLOOD COUNT 26.7 10^3/uL (4.0-10.5)
[2016-09-09 15:21] LABS: ANION GAP 14 (5-19); BLOOD UREA NITROGEN 89 mg/dL (7-20); CALCIUM 9.4 mg/dL (8.4-10.2); CARBON DIOXIDE 25 mmol/L (22-30); CHLORIDE 97 mmol/L (98-107); CREATININE RESULT 2.82 mg/dL (0.52-1.25); GLUCOSE 157 mg/dL (75-110); POTASSIUM 4.9 mmol/L (3.6-5.0); SODIUM 136.4 mmol/L (137-145)
[2016-09-09 15:28] LABS: HEMOGLOBIN 7.7 g/dL (13.5-17.0)
[2016-09-09] MEDS ORDERED: LINEZOLID 300 ML IV SCH (16:00)
[2016-09-09 17:32] LABS: FOLATE 5.69 ng/mL (>2.76)
--- NOTE | 2016-09-09 17:59 | TRANSFER SUMMARY E ---
Transfer Summary NAME: DIAMOND KHAN : 1945 AGE: 70Y ADMITTED: 09/09/2016 TRANSFERRED: 09/09/2016 CODE STATUS: FULL CODE. PRIMARY CARE PROVIDER: [facility] [place]. TRANSFER DIAGNOSES: Includes: 1. Acute on chronic diastolic congestive heart failure. 2. CRE pneumonia. 3. Sepsis secondary to the above. 4. Acute on chronic hypoxemic respiratory failure. 5. Trach dependency. 6. Elevated LFTs. 7. 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 Baseline creatinine is 3.45. 8. Gram negative vance urinary tract infection with a history of VRE and Acinetobacter urinary tract infections. 9. History of fungal bacteremia. 10. Paroxysmal atrial fibrillation currently in sinus rhythm. 11. Chronic anticoagulation of Eliquis. 12. Gout. 13. Iron deficiency anemia. 14. Acute upper GI bleed. 15. History of malignant hypertension. 16. Benign prostatic hyperplasia. CURRENT MEDICATIONS: At time of transfer: 1. Linezolid 600 mg q.12 hours. 2. Gentamicin 140 mg IV q.24 hours. 3. Phenergan 25 mg IV q.4 hours p.r.n. 4. Xopenex 0.63 mg nebs q.4 hours p.r.n. 5. Xopenex 1.25 mg nebs q.6 hours while awake. 6. Cardizem 60 mg p.o. q.6 hours. 7. Tylenol 650 mg per rectal q.8 hours p.r.n. 8. Versed drip. 9. Bumex 2 mg IV b.i.d. 10. Sliding scale coverage. 11. Protonix drip. 12. Novolog sliding scale coverage. DIET: N.p.o. ACTIVITY: Bed rest. HISTORY OF PRESENT ILLNESS: The patient is a 70-year-old male with a past medical history of trach dependency, CRE, VRE and multiple medical problems. The patient was brought in to the Emergency Department via EMS due to encephalopathy. The patient is a home O2 dependent COPD with underlying diastolic CHF, known coronary artery disease with a prior myocardial infarction in 2004, atrial fibrillation currently in sinus rhythm, and diabetes mellitus type 2, as well as a chronic indwelling Barragan. The patient was brought into the Emergency Department via EMS and family has been unavailable since the patient's presentation as myself has made numerous attempts to contact them throughout the course of the stay. The patient is globally disoriented and is unable to provide any history whatsoever in terms of acute or chronic events. As per Emergency Room records, it appears the patient had been bedridden for over a week with decreased appetite and shortness of breath and was having hallucinations. Initial evaluation revealed very strong, foul smelling urine after his Barragan catheter was changed out for specimen. The patient has been hospitalized on our service 05/12/2016 through 05/21/2016 with a final diagnosis of fungemia and healthcare associated pneumonia, as well as elevated troponin, sepsis, and acute on chronic respiratory failure. Upon presentation to the Emergency Department, the patient was noted to be septic with a white count of 20,000; bands of 2; however, his blood gas was stable. The patient's C-reactive protein was 373 with a creatinine of 2.95 with his baseline creatinines normally of 3.45. The patient's chest x-ray was a mixed picture of pneumonia, as well as volume overload, and the patient was referred to the hospital for admission and management. The patient was admitted to [facility]. The patient was placed on nebulizers and was started on Zyvox. However, the patient's condition continued to deteriorate overnight and into the morning hours. The patient's white count went from 20,000 to 27,000, as well as his bands went from 2 to 4. The patient did develop a fever of 101, tachycardia from 110 to 130. It did appear to be sinus tach and the patient's bilirubin was noted to be 2.2, which was unusual for this patient as he normally has no issue with his LFTs. His alk phos was also found to be 288. During the morning, I was notified by nursing staff that the patient was ever increasing tachypneic. Upon evaluation, the patient was found to be pale, diaphoretic, completely obtunded and breathing approximately 40 times a minute. The patient was transferred to ICU and was placed on the vent. Copious amounts of secretions were obtained and sent for specimen, given the patient's history of CRE. The patient was diuresed initially with 40 of Lasix and then with only minimal response was given 2 of Bumex with a more improved response. The patient was noted to have 2 episodes of vomitus that were of coffee-ground, GI bleed smelling vomitus and the patient was started on a Protonix drip. The patient's hemoglobin went from 8.9 on admission to 7.7 in spite of being diuresed. Therefore, it was consistent with GI bleed. Given the patient's bilirubin and sepsis, an ultrasound was obtained which was non-diagnostic, given the patient's body habitus. The patient was added gentamicin and in spite of this, his white count continued to trend up and the patient did remain ill. The patient is normally quite hypertensive with systolic blood pressures in the 180s-200s. However, at this time, the patient's blood pressure did drop to as low as 89 systolically but is currently sitting around 110, mapping around 70 at this current time. The patient has not been placed on pressors. The patient still has pending blood and sputum cultures; however, urine culture does reveal a gram-negative vance. The patient still remains febrile in spite of antibiotic coverage. Giving the lack of the infectious disease support, as well as screen printing supervisor and GI support, [facility] has been contacted. They graciously agreed to accept the patient for transfer. DIAGNOSTICS: Lab values are as follows: Hematology obtained on 09/09/2016, WBCs are 26.7, hemoglobin 7.7, hematocrit is 24.2, platelet count is 504,000, segs 89, and neutrophils are 24. ABG obtained on 09/09/2016, pH of 7.45, PCO2 is 42, PO2 is 77.5, bicarb is 28.3, total CO2 is 29.6, oxygen saturation 95.9 with 40% FiO2. Chemistry obtained on 09/09/2016, sodium is 137, potassium 5.0, chloride is 96, carbon dioxide of 25, BUN 83, creatinine is 2.92, glucose 188. Lactic acid is 1.7, calcium is 9.7, magnesium is 2.3. Bilirubin is 2.2. Direct bilirubin is 1.8. AST 29, ALT is 23, alk phos 246, total protein 6.8, albumin 3.0. Troponin is 0.063. C-reactive protein is 373.9. Iron studies are pending. Urinalysis obtained on 09/08/2016, color yellow appearance, cloudy, pH is 5.0, specific gravity is 1.010, protein 100, glucose 98, ketones negative, occult blood large, nitrite negative, bilirubin negative, urobilinogen is 2.0, leukocyte esterase is large, WBCs greater than 182, RBCs 66. Microbiology: Blood cultures obtained on 09/09/2016 are pending. Urine culture obtained on 09/08/2016, gram-negative rods. Sputum culture obtained on 09/09/2016 is pending. Chest x-ray obtained on 09/08/2016 reveals cardiac enlargement, mild vascular congestion. Abdominal ultrasound obtained on 09/09/2016 reveals markedly limited study, essentially non-diagnostic. Possible gallstones. KUB obtained on 09/09/2016 reveals a limited study, distended stomach. Tip of the NG tube in the stomach. PHYSICAL EXAMINATION: GENERAL: On examination the patient is a frail, chronically sick-appearing, who will respond to noxious stimuli, 70-year-old male who does appear to still be in some mild distress. VITAL SIGNS: Temperature is 100.1, pulse 110, respirations 24, blood pressure is 109/63, oxygen saturation is 96% on 40% FiO2. SKIN: Pale, mildly diaphoretic, but is warm, he is not cool. HEENT: Tracheostomy is in place. Mucous membranes are moist. JVP to the level of the right clavicle. CARDIOVASCULAR: Heart is regular. There is no rub. Chest is rhonchorous breath sounds are noted throughout both lung jane with coarse sounds, symmetrical, is somewhat labored. ABDOMEN: Obese, distended. No area of focal tenderness. EXTREMITIES: No clubbing, cyanosis. There is evidence of chronic edema but his lower extremities are warm. GENITOURINARY : Barragan is draining dark, yellow urine. PSYCHIATRIC: Unable to assess. NEUROLOGICAL: Unable to cooperate for examination. TRANSFER PLANNIN. The patient will be received to the services of the screen printing supervisor at the medical intensive care unit at [facility]. 2. And as always, the hospitalist at [facility] would like to thank [facility] for graciously participating in the care of this patient. Time spent on this transfer summary, including assessment and plan, physical examination, attempted patient education, and specialty collaboration and resource alignment is 90 minutes. DICTATING PHYSICIAN: GENE OLIVO NP [id number] PHY#: [id number] ID: [id number] JOB#: [id number] ACCT: [id number] cc:GENE OLIVO NP >
[2016-09-09] MEDS ORDERED: GENTAMICIN SULFATE 140 MG in DEXTROSE 5%-WATER 100 ML IV SCH (18:00)
[2016-09-09] MEDS ORDERED: DILTIAZEM HCL 60 MG TABLET PO SCH (18:00)
[2016-09-09] MEDS ORDERED: BUMETANIDE INJ/PF 1 MG/4 ML SDV IV SCH (18:00)
--- NOTE | 2016-09-09 18:04 | PROGRESS NOTE E ---
Progress Note NAME: DIAMOND KHAN : 1945 AGE: 70Y DATE: 09/09/2016 ROOM: 609 SUBJECTIVE: The patient was seen earlier today on rounds. I was notified by nursing staff that the patient was increasingly tachypneic and obtunded, that the patient was for the most part unarousable and was diaphoretic, and per nurse assessment patient did have crackling breath sounds. At that time, IV fluids were held and 40 IV of Lasix was given. Upon bedside assessment of the patient, he was found to be minimally responsive and was not conversational which is not at the patient's baseline. Also it appeared the patient has a history of significant hypertension with systolics around the 200 range. However, his current systolic blood pressure is around 120. The patient has had a bump in his white count since admission, and the patient is in acute distress with tachypneic breaths around 20 a minute. The patient also had an episode of vomitus that was not witnessed by myself, but the second episode of vomitus was. Findings were consistent with coffee-ground/rust-colored emesis. Given the patient's sheer work of breathing, unresponsiveness to Trach collar or diuresis, the patient was transferred to ICU. Upon arrival to the ICU, the patient was once again diuresed with Bumex, was loaded with Protonix and started on a PPI drip, as well as the patient was placed on ventilator settings consisting of 5 of PEEP, a rate of 12, and an FIO2 of 30%. The patient remained quite anxious and was placed on a Versed drip which did help calm the patient. The patient's blood pressure did lower with this drip, and this has been watched with a goal to maintain a MAP of greater than 65%. The patient has remained low-grade temperature from 100.1 to 100.8; this is axillary though. The patient was also noted to be tachycardic with rate of 120 to 130. On initial presentation, it appeared the patient did have irregular strips more consistent with atrial fibrillation. However, the patient did have a P-wave upon presentation to the ICU. A stat blood gas was not ominous; however, the patient's clinical picture was that of impending decompensation given the patient's rate of breathing and uncertain of septic source. REVIEW OF SYSTEMS: A full review of systems cannot be appreciated given the patient's mental status. MEDICATIONS: Medications have been reviewed. OBJECTIVE: GENERAL: The patient is a 70-year-old male who is obtunded. He would respond to noxious stimuli, otherwise not responsive and was initially found to be in marked distress. VITAL SIGNS: As follows: Temperature is 100.1, pulse 110, respirations 34, blood pressure is 121/83, oxygen saturation is 98% on Trach collar. SKIN: Pale. He is diaphoretic and has saturated his gown. HEENT: Conjunctiva is pale. NECK: There is no JVP. CARDIOVASCULAR SYSTEM: Heart is tachycardic, but it sounds regular at this time. No murmur or rub. CHEST: The patient does have coarse breath sounds throughout but appears breathing is symmetrical. It is labored and tachypneic. ABDOMEN: Distended but no area of focal tenderness. Quite difficult to do full examination given body habitus, but no bruising noted. EXTREMITIES: No clubbing, cyanosis, with evidence of chronic edema of the lower extremities. GENITOURINARY: Barragan is draining dark-yellow urine, has been a decent output from Lasix. PSYCHIATRIC: Unable to fully assess. NEUROLOGICAL: Non-cooperative. DIAGNOSTICS: Lab values are as follows: Hematology obtained on 09/09/2016; WBCs are 25.9, hemoglobin is 8.4, hematocrit is 26.4, platelet count is 490,000. Blood gas obtained on 09/09/2016; pH of 7.45, pCO2 is 42.1, pO2 is 77.6, bicarbonate is 28.3, total CO2 is 29.6. Chemistry obtained on 09/09/2016: Sodium is 137, potassium 5.0, chloride is 96, carbon dioxide 25, BUN 83, creatinine is 2.83, glucose 188, lactic acid is 1.8, calcium is 9.7, bilirubin is 2.2, AST 29, ALT is 23, alkaline phosphatase 246, troponin is 0.063, C-reactive protein is 7.73, total protein 6.8, albumin 3.0. Urine culture obtained on 09/09/2016 reveals gram-negative rods. Blood cultures obtained on 09/08/2016 are pending. Sputum culture obtained on 09/09/2016 is pending. IMPRESSION AND PLAN: 1. ACUTE ON CHRONIC DIASTOLIC CONGESTIVE HEART FAILURE. The patient was diuresed, and will repeat and schedule diuresis. Will maintain and monitor strict Is and Os and will repeat a chest x-ray in the a.m. and follow. 2. GRAM-NEGATIVE JAMIE URINARY TRACT INFECTION. Will await culture and sensitivity. The patient has had multiple polymicrobial infections. Will continue the current course and follow. 3. POSSIBLE PNEUMONIA. The patient had significant amount of tracheal aspirate respiratory distress. Will await culture and sensitivity. The patient does have a history of VRE. Given the patient's state, will go ahead and add gentamicin. 4. SEPSIS SECONDARY TO THE ABOVE. The patient's C-reactive protein is 373 with a white count of 26.9. Fortunately, it does not appear that the patient is making lactic acid. Will follow. 5. CHRONIC KIDNEY DISEASE, STAGE 3 TO STAGE 4. The patient's creatinine is not far from baseline. Will repeat chemistries and follow. 6. HYPONATREMIA. This is mild and most likely being from volume up. Hopefully this will improve with diuresis. 7. DIABETES MELLITUS TYPE 2. The patient is currently NPO. Therefore, will discontinue with sliding scale coverage and follow. 8. ACUTE ON CHRONIC HYPOXEMIC RESPIRATORY FAILURE. The patient will be ventilated, will place on a set rate as well as will monitor closely. The patient most likely will require some sedation. Will proceed with Versed drip given the patient is benzodiazepine dependent. 9. DVT PROPHYLAXIS. Concern for possible bleeding, therefore will hold prophylaxis for now and follow. 10. PAROXYSMAL ATRIAL FIBRILLATION. The patient is currently in sinus rhythm. Will resume patient's Cardizem if his blood pressure can tolerate it. Once again, will defer anticoagulation for now due to concerns for possible bleeding. Will follow. DISPOSITION: The patient is a FULL CODE. I have made two separate attempts to contact the patient's surrogate decision maker, his . However, not only is there is no answer, voicemail has not been set up, therefore will continue with the current dose and re-evaluate as needed. ADDENDUM: I have been notified by nursing staff that the patient's repeat labs produced a hemoglobin of 7.7. This is down from 8.9 on admission in spite of being diuresed which I would have thought would actually increase the patient's hemoglobin, so there is concern for GI bleeding. Given lack of GI support and the patient's multiple comorbidities, will attempt transfer to tertiary care center. Given the patient's elevation of bilirubin and septic state, will scan the patient's belly. Time spent on these critical care visits including assessment, plan, physical examination, attempted patient education, and multiple visits is 60 minutes. DICTATING PHYSICIAN: GENE OLIVO NP [id number] PHY#: [id number] ID: [id number] JOB#: [id number] ACCT: [id number] cc:GENE OLIVO NP >
[2016-09-09 18:45] VITALS: BP 107/63
== END 2016-09-09 19:23 | disposition short-term general hospital (02) | DRG 871 ==
LOC: ER 19:53 → EH 21:46 → UNDOADMIN 21:46 → EH 09-09 01:04 → 3N 09-09 01:04 → EH 09-09 02:31 → ICU 09-09 10:11
PROVIDERS: ADMIT Family Medicine; ATTEND Family Medicine
PROC: 5A1935Z Respiratory Ventilation, Less than 24 Consecutive Hours (ICD-10-PCS; principal; 2016-09-09)
DX: A41.9 Sepsis, unspecified organism (principal); I50.33 Acute on chronic diastolic (congestive) heart failure; G93.40 Encephalopathy, unspecified; J15.0 Pneumonia due to Klebsiella pneumoniae; J96.21 Acute and chronic respiratory failure with hypoxia; I13.0 Hypertensive heart and chronic kidney disease with heart failure and stage 1 through stage 4 chronic kidney disease, or unspecified chronic kidney disease; T83.511A Infection and inflammatory reaction due to indwelling urethral catheter, initial encounter; N39.0 Urinary tract infection, site not specified; N18.4 Chronic kidney disease, stage 4 (severe); E66.2 Morbid (severe) obesity with alveolar hypoventilation; Z68.42 Body mass index [BMI] 45.0-49.9, adult; E87.1 Hypo-osmolality and hyponatremia; K92.2 Gastrointestinal hemorrhage, unspecified; I25.10 Atherosclerotic heart disease of native coronary artery without angina pectoris; E78.5 Hyperlipidemia, unspecified; J44.9 Chronic obstructive pulmonary disease, unspecified; E03.9 Hypothyroidism, unspecified; I48.0 Paroxysmal atrial fibrillation; M10.9 Gout, unspecified; D50.9 Iron deficiency anemia, unspecified; N40.0 Benign prostatic hyperplasia without lower urinary tract symptoms; E10.22 Type 1 diabetes mellitus with diabetic chronic kidney disease; I25.2 Old myocardial infarction; Z93.0 Tracheostomy status; Z99.81 Dependence on supplemental oxygen; Z79.82 Long term (current) use of aspirin; Z79.4 Long term (current) use of insulin; Z79.01 Long term (current) use of anticoagulants; Z79.2 Long term (current) use of antibiotics; Z79.51 Long term (current) use of inhaled steroids; Z79.899 Other long term (current) drug therapy
CPT/HCPCS: 36415; 71010; 74000; 76705; 80048; 80053; 81001; 82607; 82728; 82746; 82803; 82962; 83540; 83550; 83605; 83735; 84466; 84484; 85025; 85027; 85045; 86140; 86850; 86900; 86901; 87040; 87070; 87077; 87086; 87088; 87186; 87205; 94002; 96365; 96367; 99285; J0692; J1580; J1815; J1940; J2020; J2250; J3370; J3480; J3490; J7030; S0164

== ENCOUNTER 2016-12-15 15:07 | Emergency (ER) | payer MEDICARE ==
--- NOTE | 2016-12-15 15:14 | ER Document Report ---
ED GI/ - General Chief Complaint: Testicular Problem Stated Complaint: TESTICLES BLEEDING Time Seen by Provider: 12/15/16 15:13 Notes: The patient is a 70-year-old male, past medical history trach dependent, chronic indwelling Torrez, presents after he noticed some bleeding around his Torrez. His Torrez is was to be changed every month, but it was last changed 6 weeks ago. His home nursing never came. He denies fevers, testicular bleeding , testicular pain, nausea, vomiting, flank pain, suprapubic pain, chest pain or shortness of breath. TRAVEL OUTSIDE OF THE [place] IN LAST 30 DAYS: No - Related Data Allergies/Adverse Reactions: indomethacin [From Indocin] Allergy (Unknown, Verified 09/02/16 14:13) clonazepam [From Klonopin] Allergy (Verified 09/02/16 14:13) Past Medical History - General Information source: Patient - Social History Smoking Status: Former Smoker Family History: CAD - Past Medical History Cardiac Medical History: Reports: Hx Congestive Heart Failure, Hx Coronary Artery Disease, Hx Heart Attack - 2004, Hx Hypercholesterolemia, Hx Hypertension Pulmonary Medical History: Reports: Hx COPD - home O2 at 2-4 lmp, Hx Respiratory Failure - 2.5 l home oxygen dependent Endocrine Medical History: Reports: Hx Diabetes Mellitus Type 1, Hx Diabetes Mellitus Type 2, Hx Hypothyroidism. Denies: Hx Hyperthyroidism Renal/ Medical History: Reports: Hx Renal Insufficiency - Chronic kidney disease stage IV. Denies: Hx Peritoneal Dialysis Psychiatric Medical History: Reports: Hx Depression Past Surgical History: Reports: Hx Appendectomy, Hx Cardiac Surgery - bypass X 2 , CABG, Hx Coronary Artery Bypass Graft, Hx Tonsillectomy, Other - Tracheostomy - Immunizations Hx Diphtheria, Pertussis, Tetanus Vaccination: Yes Review of Systems - Review of Systems Notes: REVIEW OF SYSTEMS: CONSTITUTIONAL: -fevers, -chills EENT: -eye pain, -difficulty swallowing, -nasal congestion CARDIOVASCULAR:-chest pain, -syncope. RESPIRATORY: -cough, -SOB GASTROINTESTINAL: -abdominal pain, -nausea, -vomiting, -diarrhea GENITOURINARY: -dysuria, -hematuria, +penile bleeding MUSCULOSKELETAL: -back pain, -neck pain SKIN: -rash or skin lesions. HEMATOLOGIC: -easy bruising or bleeding. LYMPHATIC: -swollen, enlarged glands. NEUROLOGICAL: -altered mental status or loss of consciousness, -headache, - neurologic symptoms PSYCHIATRIC: -anxiety, -depression. ALL OTHER SYSTEMS REVIEWED AND NEGATIVE. Physical Exam - Notes Notes: PHYSICAL EXAMINATION: GENERAL: In no acute distress. HEAD: Atraumatic, normocephalic. EYES: Pupils equal round and reactive to light, extraocular movements intact, sclera anicteric, conjunctiva are normal. ENT: nares patent, oropharynx clear without exudates. Moist mucous membranes. NECK: Normal range of motion, supple without lymphadenopathy, trach in place without any drainage LUNGS: Breath sounds clear to auscultation bilaterally and equal. No wheezes rales or rhonchi. HEART: Regular rate and rhythm without murmurs ABDOMEN: Soft, nontender, normoactive bowel sounds. No guarding, no rebound. No masses appreciated. : Indwelling torrez with small amount of bleeding around torrez. Crusted urine in torrez tubing with yellow urine in bag. No testicular swelling or bleeding. EXTREMITIES: Normal range of motion, no pitting or edema. No cyanosis. NEUROLOGICAL: Cranial nerves grossly intact. Normal sensory and motor exams. PSYCH: Normal mood, normal affect. SKIN: Warm, Dry, normal turgor, no rashes or lesions noted. Course - Re-evaluation Re-evalutation: Patient's Torrez was last seen 6 weeks ago. Removed old Torrez and placed new Torrez with return of yellow urine. He does not have evidence of pyelonephritis or sepsis. A small amount of bleeding from his urethra around the Torrez is most likely from the irritation from 6 weeks of indwelling Torrez. Trach checked and appears to be in place working appropriately. Satting 100%. Instructed to call home nursing to reschedule a visit and follow-up with urologist and surgeon for further evaluation and treatment. Discharge - Discharge Clinical Impression: Penile bleeding Torrez catheter problem Qualifiers: Encounter type: initial encounter Qualified Code(s): T83.9XXA - Unspecified complication of genitourinary prosthetic device, implant and graft, initial encounter Condition: Stable Disposition: HOME, SELF-CARE Additional Instructions: Torrez Catheter Care Tube Position: Keep the catheter connected to the drainage tubing at all times. Avoid pulling on the catheter. Keep the drainage tube taped to the mid- thigh, on top of your leg (not underneath it). Be sure there are no kinks or loops in the tube. Keep the drainage bag below the bladder. When in bed, the drainage bag should hang below the abdomen but should not lie on the floor. The drainage bag has hooks at the top so it can be hung on a chair or bed. Daily Cleaning: Wash your hands with soap and water before and after caring for your catheter. Twice a day, clean yourself where the catheter goes into the urethra. Use a warm, soapy wash cloth to clean around the urethral opening and the first few inches of the catheter. Females should wash from front to back to decrease the risk of infection from fecal material. After washing with soap, rinse the area with water. Do not put powder around the catheter. Apply ointment only if instructed by your doctor or nurse. Follow up if you develop fever or chills, flank or abdominal pain, blood in the urine, or if urine is not draining into the catheter. Referrals: MEGHA BAY MD [ACTIVE STAFF] - Follow up as needed
[2016-12-15 18:22] VITALS: BP 122/58
[2016-12-15] MEDS ORDERED: ACETAMINOPHEN 325 MG TABLET PO ONE (19:06)
[2016-12-15] MEDS ORDERED: PHENAZOPYRIDINE HCL 200 MG TABLET PO ONE (19:06)
== END 2016-12-15 19:50 | disposition home or self-care (01) ==
LOC: ER 15:07
DX: T83.9XXA Unspecified complication of genitourinary prosthetic device, implant and graft, initial encounter (principal); Z87.891 Personal history of nicotine dependence
CPT/HCPCS: 99283; 51702; A9270 ×2; J3490

== ENCOUNTER 2017-01-15 18:26 | Emergency (ER) | payer MEDICARE ==
--- NOTE | 2017-01-15 19:41 | ER Document Report ---
ED General - General Chief Complaint: General Weakness Stated Complaint: ALTERED MENTAL STATUS Time Seen by Provider: 01/15/17 19:11 Notes: Patient is a 71-year-old male comes emergency department by EMS for chief complaint of productive cough and general malaise. He denies shortness of breath, chest pain, dizziness, vomiting, fever. He states that he thinks he might be getting pneumonia and he wants to "catch it before it happens". Patient has a complicated medical history including COPD with tracheostomy and oxygen dependence, CHF, CAD, atrial fibrillation (Eliquis), chronic kidney disease, and an indwelling Barragan. He denies recent hospital admission. He lives at home with his family. TRAVEL OUTSIDE OF THE [place] IN LAST 30 DAYS: No - Related Data Allergies/Adverse Reactions: indomethacin [From Indocin] Allergy (Unknown, Verified 01/15/17 18:33) clonazepam [From Klonopin] Allergy (Verified 01/15/17 18:33) Past Medical History - General Information source: Patient - Social History Smoking Status: Former Smoker Frequency of alcohol use: None Drug Abuse: None Lives with: Family Family History: CAD Patient has suicidal ideation: No Patient has homicidal ideation: No - Past Medical History Cardiac Medical History: Reports: Hx Congestive Heart Failure, Hx Coronary Artery Disease, Hx Heart Attack - 2004, Hx Hypercholesterolemia, Hx Hypertension Pulmonary Medical History: Reports: Hx COPD - home O2 trach at 2-4 lmp, Hx Respiratory Failure - 2.5 l home oxygen dependent Endocrine Medical History: Reports: Hx Diabetes Mellitus Type 1, Hx Diabetes Mellitus Type 2, Hx Hypothyroidism. Denies: Hx Hyperthyroidism Renal/ Medical History: Reports: Hx Renal Insufficiency - Chronic kidney disease stage IV. Denies: Hx Peritoneal Dialysis Psychiatric Medical History: Reports: Hx Depression Past Surgical History: Reports: Hx Appendectomy, Hx Cardiac Surgery - bypass X 2 , CABG, Hx Coronary Artery Bypass Graft, Hx Tonsillectomy, Other - Tracheostomy - Immunizations Hx Diphtheria, Pertussis, Tetanus Vaccination: Yes Review of Systems - Review of Systems Constitutional: See HPI EENT: No symptoms reported Cardiovascular: No symptoms reported Respiratory: See HPI Gastrointestinal: No symptoms reported Genitourinary: No symptoms reported Male Genitourinary: No symptoms reported Musculoskeletal: No symptoms reported Skin: No symptoms reported Hematologic/Lymphatic: No symptoms reported Neurological/Psychological: No symptoms reported Physical Exam - Vital signs Vitals: Temp Pulse Resp BP Pulse Ox 97.7 F 57 L 16 115/71 100 01/15/17 18:28 01/15/17 18:28 01/15/17 18:28 01/15/17 18:28 01/15/17 18:28 Interpretation: Normal - General General appearance: Appears well, Alert In distress: None - HEENT Head: Normocephalic, Atraumatic Eyes: Normal Conjunctiva: Normal Extraocular movements intact: Yes Eyelashes: Normal Pupils: PERRL Mouth/Lips: Normal Mucous membranes: Normal Pharynx: Normal Neck: No: Normal - Tracheostomy in place - Respiratory Respiratory status: No respiratory distress. No: Respiratory distress, Labored , Tachypnea Chest status: Nontender Breath sounds: Normal. No: Decreased air movement, Nonproductive cough, Wheezing Chest palpation: Normal - Cardiovascular Rhythm: Regular. No: Tachycardia Heart sounds: Normal auscultation, S1 appreciated, S2 appreciated Murmur: No - Abdominal Inspection: Normal Distension: No distension Bowel sounds: Normal Tenderness: Nontender. No: Tender, Guarding - Back Back: Normal, Nontender. No: Tender - Extremities General upper extremity: Normal inspection, Nontender, Normal strength, Normal temperature General lower extremity: Normal inspection, Nontender, Normal temperature - Neurological Neuro grossly intact: Yes Cognition: Normal Orientation: AAOx4 Margarita Coma Scale Eye Opening: Spontaneous [place] Coma Scale Verbal: Oriented Margarita Coma Scale Motor: Obeys Commands [place] Coma Scale Total: 15 Speech: Normal Motor strength normal: LUE, RUE, LLE, RLE Sensory: Normal - Psychological Associated symptoms: Normal affect, Normal mood - Skin Skin Temperature: Warm Skin Moisture: Dry Skin Color: Normal Course - Re-evaluation Re-evalutation: Patient does not have any tachypnea, labored breathing, hypoxia. Chest x-ray unremarkable. No fever. However when patient is suctioned a moderately large amount of greenish yellowish mucus is suctioned out. This was cultured. Workup shows chronic anemia, chronic kidney disease, questionable urinary tract infection. Indwelling Barragan in place. Urine culture sent as well. Patient's is not at bedside. Patient remains well-appearing on reevaluation's. He states he actually feels good and he wants to leave, he states that he wants to be treated for potentially developing pneumonia because he is afraid of getting it again with his symptoms. agrees with this. Because of yellow-green sputum suctioned out of his lungs, patient will be started on doxycycline. Patient has history of VRE and multiple resistances, no tetracycline resistance, will try this. Patient is to follow close with his provider, discussed return precautions in detail, patient and state satisfaction and agreement. - Vital Signs Vital signs: Temp Pulse Resp BP Pulse Ox 97.7 F 57 L 16 127/72 H 100 01/15/17 18:28 01/15/17 18:28 01/15/17 18:28 01/15/17 22:08 01/15/17 22:08 - Laboratory Result Diagrams: 01/15/17 19:50 01/15/17 19:50 Laboratory results interpreted by me: 01/15/17 01/15/17 01/15/17 19:00 19:50 19:50 RBC 3.12 L Hgb 8.8 L Hct 26.1 L RDW 17.1 H BUN 44 H Creatinine 3.26 H Est GFR ( Amer) 23 L Est GFR (Non-Af Amer) 19 L Glucose 123 H Direct Bilirubin 0.5 H AST 16 L ALT 17 L Urine Protein 100 H Urine Blood MODERATE H Ur Leukocyte Esterase LARGE H Discharge - Discharge Clinical Impression: Productive cough Joint pain Qualifiers: Joint pain location: hand Laterality: bilateral Qualified Code(s): M25.541 - Pain in joints of right hand Condition: Stable Disposition: HOME, SELF-CARE Additional Instructions: We have sputum and urine cultures pending. Take the doxycycline as prescribed. Please follow-up closely with pain management for additional evaluation and treatment of chronic pain. Return to the emergency department for any concerning or worsening symptoms including fever, difficulty breathing, or any other concerning symptoms. Prescriptions: Doxycycline Hyclate 100 mg PO BID #14 capsule Oxycodone HCl/Acetaminophen [Percocet 5-325 mg Tablet] 1 - 2 tab PO TID #15 tablet Referrals: SAMARIA FRYE PA [Primary Care Provider] - Follow up as needed
[2017-01-15] MEDS ORDERED: OXYCODONE-ACETAMINOPHEN 5-325 MG TABLET PO ONE ×2 (19:55→21:37)
[2017-01-15 19:59] LABS: AMORPHOUS SEDIMENT,URINE TRACE /HPF; APPEARANCE,URINE CLOUDY; BILIRUBIN,URINE NEGATIVE (NEGATIVE); GLUCOSE, URINE NEGATIVE (NEGATIVE); KETONES,URINE NEGATIVE (NEGATIVE); LEUKOCYTE ESTERASE,URINE LARGE (NEGATIVE); NITRITE,URINE NEGATIVE (NEGATIVE); PROTEIN,URINE 100 mg/dL (NEGATIVE); URINE SPECIFIC GRAVITY 1.009; UROBILINOGEN,URINE NEGATIVE mg/dL (<2.0)
[2017-01-15 20:05] LABS: HEMATOCRIT 26.1 % (37.9-51.0); HEMOGLOBIN 8.8 g/dL (13.5-17.0); HGB HCT DIFFERENCE 0.3; MEAN CORPUSCULAR HEMOGLOBIN 28.3 pg (27.0-33.4); MEAN CORPUSCULAR HGB CONC 33.7 g/dL (32.0-36.0); MEAN CORPUSCULAR VOLUME 84 fl (80-97); RED BLOOD COUNT 3.12 10^6/uL (4.35-5.55); RED CELL DISTRIBUTION WIDTH 17.1 % (11.5-14.0); WHITE BLOOD COUNT 8.7 10^3/uL (4.0-10.5)
[2017-01-15 20:20] LABS: ALANINE AMINOTRANSFERASE 17 U/L (21-72); ALBUMIN 3.5 g/dL (3.5-5.0); ALKALINE PHOSPHATASE 82 U/L (38-126); ANION GAP 14 (5-19); ASPARTATE AMINO TRANSFERASE 16 U/L (17-59); BILIRUBIN,DIRECT 0.5 mg/dL (0.0-0.4); BILIRUBIN,TOTAL 0.5 mg/dL (0.2-1.3); BLOOD UREA NITROGEN 44 mg/dL (7-20); CALCIUM 9.6 mg/dL (8.4-10.2); CARBON DIOXIDE 25 mmol/L (22-30); CHLORIDE 104 mmol/L (98-107); CREATININE RESULT 3.26 mg/dL (0.52-1.25); GLUCOSE 123 mg/dL (75-110); POTASSIUM 4.5 mmol/L (3.6-5.0); SODIUM 143.3 mmol/L (137-145); TOTAL PROTEIN 7.1 g/dL (6.3-8.2)
[2017-01-15 20:21] LABS: BASOPHILS % (MANUAL) 0 % (0-2); EOSINOPHILS % (MANUAL) 4 % (0-6); LYMPHOCYTES % (MANUAL) 20 % (13-45); TOTAL CELLS COUNTED 100
[2017-01-15 20:22] LABS: ANISOCYTOSIS 1+; HYPOCHROMASIA SLIGHT
--- NOTE | 2017-01-15 20:32 | RADIOLOGY REPORT (SQ) ---
EXAM DESCRIPTION: CHEST SINGLE VIEW COMPLETED DATE/TIME: 01/15/2017 8:22 pm REASON FOR STUDY: productive cough COMPARISON: August 2016 EXAM PARAMETERS: NUMBER OF VIEWS: One view. TECHNIQUE: Single frontal radiographic view of the chest acquired. RADIATION DOSE: NA LIMITATIONS: Patient is rotated on the current study P FINDINGS: LUNGS AND PLEURA: No opacities, masses or pneumothorax. No pleural effusion. MEDIASTINUM AND HILAR STRUCTURES: No masses. Contour normal. HEART AND VASCULAR STRUCTURES: Allowing for the rotation the configuration of the heart and mediastin al structures is unchanged. BONES: No acute findings. HARDWARE: Patient is status post median sternotomy. Tracheostomy tube is identified in position. OTHER: No other significant finding. IMPRESSION: No significant interval change. No acute changes. Other findings as noted above. TECHNICAL DOCUMENTATION: JOB ID: [id number] [employer]- All Rights Reserved
[2017-01-15] MEDS ORDERED: DOXYCYCLINE HYCLATE 100 MG TABLET PO ONE (21:37)
[2017-01-15 22:04] VITALS: BP 127/72
== END 2017-01-15 22:25 | disposition home or self-care (01) ==
LOC: ER 18:26
DX: M25.541 Pain in joints of right hand (principal); R05 Cough; R53.1 Weakness; R41.82 Altered mental status, unspecified; R53.81 Other malaise; J44.9 Chronic obstructive pulmonary disease, unspecified; Z93.0 Tracheostomy status; Z87.891 Personal history of nicotine dependence; Z99.81 Dependence on supplemental oxygen
CPT/HCPCS: 99285; 36415; 87070; 87086; 87205; 85025; 87088; 80053; 81001; 87186; 71010; A9270 ×2

== ENCOUNTER 2017-02-11 13:50 | Emergency (ER) | payer MEDICARE ==
--- NOTE | 2017-02-11 14:25 | ER Document Report ---
ED Extremity Problem, Lower - General Stated Complaint: LEG PAIN Time Seen by Provider: 02/11/17 14:17 Notes: Patient has a lump in the right lower leg, posterior inner proximal aspect that has been present for a couple of days. His called their family physician who advised her to have him checked in the emergency department for a blood clot. Patient has a history of blood clots and is on Eliquis at this time. He denies having any pain at that lump unless he "bumps it". If it is left alone, it does not hurt. Patient is not ambulatory. Denies any chest pains, shortness of breath out of the his usual, patient has a tracheostomy. Patient has no other symptoms. Has not been having a significant cough. No chest pains. No abdominal pains. No vomiting or diarrhea. Denies any fever. Only complaint is of this lump on his inner lower right leg. TRAVEL OUTSIDE OF THE [place] IN LAST 30 DAYS: No - Related Data Allergies/Adverse Reactions: indomethacin [From Indocin] Allergy (Unknown, Verified 01/15/17 18:33) clonazepam [From Klonopin] Allergy (Verified 01/15/17 18:33) Past Medical History - Social History Smoking Status: Unknown if Ever Smoked Cigarette use (# per day): No Family History: Reviewed & Not Pertinent, CAD - Past Medical History Cardiac Medical History: Reports: Hx Congestive Heart Failure, Hx Coronary Artery Disease, Hx Heart Attack - 2004, Hx Hypercholesterolemia, Hx Hypertension Pulmonary Medical History: Reports: Hx COPD - home O2 trach at 2-4 lmp, Hx Respiratory Failure - 2.5 l home oxygen dependent, Other - Patient has a tracheostomy. Endocrine Medical History: Reports: Hx Diabetes Mellitus Type 1, Hx Diabetes Mellitus Type 2, Hx Hypothyroidism. Denies: Hx Hyperthyroidism Renal/ Medical History: Reports: Hx Benign Prostatic Hyperplasia - Has an indwelling Barragan catheter., Hx Renal Insufficiency - Chronic kidney disease stage IV Psychiatric Medical History: Reports: Hx Depression Past Surgical History: Reports: Hx Appendectomy, Hx Cardiac Surgery - bypass X 2 , CABG, Hx Coronary Artery Bypass Graft, Hx Tonsillectomy, Other - Tracheostomy - Immunizations Hx Diphtheria, Pertussis, Tetanus Vaccination: Yes Review of Systems - Review of Systems Notes: REVIEW OF SYSTEMS: CONSTITUTIONAL : Denies fever. Alert and answers questions appropriately. Vital signs are all essentially normal. EENT: Denies eye, ear, nose or mouth or throat pain or other symptoms. CARDIOVASCULAR: Denies chest pain. RESPIRATORY: Denies cough, chest congestion, or shortness of breath, any more than his chronic pulmonary condition. GASTROINTESTINAL: Denies abdominal pain or nausea, vomiting, or diarrhea. GENITOURINARY: Denies difficulty or painful urinating, urinary frequency, blood in urine. Has a Barragan catheter. MUSCULOSKELETAL: Denies back or neck pain. Denies joint pain or swelling. SKIN: Denies rash or skin lesions. NEUROLOGICAL: Denies LOC or altered mental status. Denies headache. Patient is not ambulatory. He is wheelchair confined. ALL OTHER SYSTEMS REVIEWED AND NEGATIVE. Physical Exam - Vital signs Vitals: BP 127/83 H 02/11/17 14:36 Interpretation: Normal - Notes Notes: PHYSICAL EXAMINATION: GENERAL: Well-appearing, in no acute distress. HEAD: Atraumatic, normocephalic. EYES: Pupils equal round and reactive to light, extraocular movements intact. ENT: oropharynx clear without exudates. Moist mucous membranes. NECK: Normal range of motion, supple. LUNGS: Breath sounds clear and equal bilaterally. HEART: Regular rate and rhythm without murmurs. ABDOMEN: Soft, nontender. No guarding or rebound. BACK: No tenderness throughout entire back. EXTREMITIES: Normal range of motion without pain. Small, tender around swelling in the inner posterior proximal aspect of the right lower leg, distal to the knee joint. Tender to touch. Not erythematous. No increased heat to the touch. Does not feel fluctuant. Negative Homans bilaterally. NEUROLOGICAL: Normal speech, not ambulatory. Moves all 4 extremities. Unable to stand or walk. Awake, alert, and oriented x3. PSYCH: Normal mood, normal affect. Seems somewhat depressed. SKIN: Warm, dry, no rashes. Course - Vital Signs Vital signs: Temp Pulse Resp BP Pulse Ox 98 F 22 H 105/90 H 95 02/11/17 19:00 02/11/17 19:00 02/11/17 18:43 02/11/17 19:00 - Diagnostic Test Radiology reviewed: Image reviewed, Reports reviewed - Venous Doppler of the right lower extremity reveals a small mass at is felt to likely be a hematoma. No evidence of a deep venous thrombosis. Discharge - Discharge Clinical Impression: Mass of right lower leg, Hematoma Condition: Stable Disposition: HOME, SELF-CARE Additional Instructions: CONTUSION with hematoma formation: Your injury has resulted in a contusion -- a crushing of the deep tissues. No injury to important structures was detected during the physician's exam. Contusions vary in the amount of pain they cause, and in the length of time required for healing. Typically, the area will become bruised, and will remain painful to touch for two or three weeks. However, most patients are back to working and playing within a few days. After the initial period of rest and cold-packs, your symptoms (together with the doctor's recommendations) will determine how rapidly you can get back to full activity. Usually this means "do what feels okay, but don't do things that hurt." If re-examination was recommended, it's important to follow up as instructed. Call the doctor or return any time if pain increases, if swelling becomes severe, if you develop numbness or weakness in an injured extremity, or if any other alarming symptoms occur. USE OF TYLENOL (ACETAMINOPHEN): Acetaminophen may be taken for pain relief or fever control. It's much safer than aspirin, offering a wider range of "safe" dosages. It is safe during . Some brand names are Tylenol, Panadol, Datril, Anacin 3, Tempra, and Liquiprin. Acetaminophen can be repeated every four hours. The following are maximum recommended dosages: WEIGHT Dose Drops Elixir Chewable( 80mg) (LBS.) drprs=droppers tsp=teaspoon >89 pounds or adults 650 mg to 900 mg Acetaminophen can be repeated every four hours. Maximum dose not to exceed 4000 mg a day. These maximum recommended dosages are slightly higher than the dosages written on the product container, but these dosages are very safe and below the toxic dosage for acetaminophen. FOLLOW-UP CARE: If you have been referred to a physician for follow-up care, call the physician s office for an appointment as you were instructed or within the next two days. If you experience worsening or a significant change in your symptoms, notify the physician immediately or return to the Emergency Department at any time for re-evaluation. Referrals: SAMARIA LIMON PA-C [Primary Care Provider] - Follow up as needed
[2017-02-11 15:50] VITALS: BP 105/90
--- NOTE | 2017-02-11 15:57 | XCELERA REPORT ---
[address] [address] Lower Extremity Venous Evaluation Name: DIAMOND KHAN SR Age: 71 yrs Gender: Male : 1945 Patient Status: Emergency Patient Location: ER Study Date: 02/11/2017 02:51 PM Procedure: Color flow and duplex imaging of the veins of the right lower extremity as well as the left Common Femoral vein. Reason For Study: Swollen lump proximal inner right lower leg Ordering Physician: KOBE RODRIGUEZ Performed By: Mireya Mcdonald Right Sided Venous Evaluation Abnormal mass in the calf, complex, about 2.87 cms x 1.44 cms. in dimensions. Normal vessel filling wall to wall, compression and augmentation as well as Colour flow down to the infrageniculate veins. Left Sided Venous Evaluation The left common femoral vein is fully compressible. Spontaneous and phasic flow is present in the left common femoral vein. Interpretation Summary Complex mass in the right calf, probably hematoma, if no trauma Hx. consider further imaging. No duplex evidence of DVT or obstruction in the right lower extremity nor in the left Common Femoral vein. n. : KOBE RODRIGUEZ > Dell Wilks
== END 2017-02-11 19:04 | disposition home or self-care (01) ==
LOC: ER 13:50
DX: S80.11XA Contusion of right lower leg, initial encounter (principal); M79.604 Pain in right leg; Z79.01 Long term (current) use of anticoagulants; X58.XXXA Exposure to other specified factors, initial encounter
CPT/HCPCS: 93971; 99284

== ENCOUNTER 2017-03-18 15:05 | Inpatient (IN) | payer MEDICARE ==
--- NOTE | 2017-03-18 16:11 | ER Document Report ---
ED General - General Stated Complaint: DIFFICULTY BREATHING Time Seen by Provider: 03/18/17 15:12 Mode of Arrival: Medic Information source: Patient Notes: 71-year-old male history of trach due to previous respiratory failure presents with complaints of shortness of breath since this morning. Patient has a history of chronic kidney disease notes he has been a little dehydrated. He denies any fevers or chills denies any nausea vomiting or diarrhea TRAVEL OUTSIDE OF THE [place] IN LAST 30 DAYS: No - HPI Onset: This morning Onset/Duration: Sudden Quality of pain: No pain Severity: Mild Pain Level: Denies Associated symptoms: Nonproductive cough, Shortness of breath Exacerbated by: Denies Relieved by: Denies Similar symptoms previously: Yes Recently seen / treated by doctor: Yes - Related Data Allergies/Adverse Reactions: indomethacin [From Indocin] Allergy (Unknown, Verified 01/15/17 18:33) clonazepam [From Klonopin] Allergy (Verified 01/15/17 18:33) Past Medical History - Social History Smoking Status: Never Smoker Cigarette use (# per day): No Chew tobacco use (# tins/day): No Smoking Education Provided: No Family History: Reviewed & Not Pertinent, CAD - Past Medical History Cardiac Medical History: Reports: Hx Congestive Heart Failure, Hx Coronary Artery Disease, Hx Heart Attack - 2004, Hx Hypercholesterolemia, Hx Hypertension Pulmonary Medical History: Reports: Hx COPD - home O2 trach at 2-4 lmp, Hx Respiratory Failure - 2.5 l home oxygen dependent Endocrine Medical History: Reports: Hx Diabetes Mellitus Type 1, Hx Diabetes Mellitus Type 2, Hx Hypothyroidism. Denies: Hx Hyperthyroidism Renal/ Medical History: Reports: Hx Benign Prostatic Hyperplasia - Has an indwelling Barragan catheter., Hx Renal Insufficiency - Chronic kidney disease stage IV. Denies: Hx Peritoneal Dialysis Psychiatric Medical History: Reports: Hx Depression Past Surgical History: Reports: Hx Appendectomy, Hx Cardiac Surgery - bypass X 2 , CABG, Hx Coronary Artery Bypass Graft, Hx Tonsillectomy, Other - Tracheostomy - Immunizations Hx Diphtheria, Pertussis, Tetanus Vaccination: Yes Review of Systems - Review of Systems Notes: REVIEW OF SYSTEMS: CONSTITUTIONAL : Denies fever, chills, or sweats. Denies recent illness. EENT: Denies eye, ear, throat, or mouth pain or symptoms. Denies nasal or sinus congestion or discharge. Denies throat, tongue, or mouth swelling or difficulty swallowing. CARDIOVASCULAR: Denies chest pain. Denies palpitations or racing or irregular heart beat. Denies ankle edema. RESPIRATORY: Admits to shortness breath difficulty breathing GASTROINTESTINAL: Denies abdominal pain or distention. Denies nausea, vomiting , or diarrhea. Denies blood in vomitus, stools, or per rectum. Denies black, tarry stools. Denies constipation. GENITOURINARY: Denies difficulty urinating, painful urination, burning, frequency, blood in urine, or discharge. MUSCULOSKELETAL: Denies back or neck pain or stiffness. Denies joint pain or swelling. SKIN: Denies rash, lesions or sores. HEMATOLOGIC : Denies easy bruising or bleeding. LYMPHATIC: Denies swollen, enlarged glands. NEUROLOGICAL: Denies confusion or altered mental status. Denies passing out or loss of consciousness. Denies dizziness or lightheadedness. Denies headache. Denies weakness or paralysis or loss of use of either side. Denies problems with gait or speech. Denies sensory loss, numbness, or tingling. Denies seizures. PSYCHIATRIC: Denies anxiety or stress. Denies depression, suicidal ideation, or homicidal ideation. ALL OTHER SYSTEMS REVIEWED AND NEGATIVE. Dictation was performed using [employer] voice recognition software PHYSICAL EXAMINATION: GENERAL: Obese chronically ill-appearing male HEAD: Atraumatic, normocephalic. EYES: Pupils equal round and reactive to light, extraocular movements intact, sclera anicteric, conjunctiva are normal. ENT: Nares patent, oropharynx clear without exudates. Moist mucous membranes. NECK: trach in place LUNGS: Intermittent rhonchi HEART: Regular rate and rhythm without murmurs ABDOMEN: Soft, nontender, nondistended abdomen. No guarding, no rebound. No masses appreciated. Musculoskeletal: Normal range of motion, no pitting or edema. No cyanosis. NEUROLOGICAL: Cranial nerves grossly intact. Normal speech, normal gait. Normal sensory, motor exams PSYCH: Normal mood, normal affect. SKIN: Warm, Dry, normal turgor, no rashes or lesions noted. Physical Exam - Vital signs Vitals: Temp BP 97.9 F 126/71 H 03/18/17 15:32 03/18/17 15:32 Course - Re-evaluation Re-evalutation: 03/18/17 18:49 On my evaluation the patient appears to have chronic respiratory issues, it is noted the patient is in chronic kidney disease, his creatinine has worsened as has his BUN, as a result it appears that he is in severe hyperkalemia, no EKG changes consistent with hyperkalemia noted therefore patient was started on albuterol bicarb insulin dextrose, I spoke with the hospitalist and they will consider Kayexalate. Overall the patient appears stable but given his congestive heart failure chronic kidney disease and hyperkalemia admission is required - Vital Signs Vital signs: Temp Pulse Resp BP Pulse Ox 98.2 F 24 H 134/84 H 91 L 03/18/17 18:02 03/18/17 18:02 03/18/17 18:02 03/18/17 18:02 - Laboratory Result Diagrams: 03/18/17 15:43 03/18/17 15:43 Laboratory results interpreted by me: 03/18/17 03/18/17 03/18/17 15:43 15:43 15:43 RBC 3.12 L Hgb 9.0 L Hct 27.7 L RDW 18.0 H Potassium 6.4 H* BUN 74 H Creatinine 4.27 H Est GFR ( Amer) 17 L Est GFR (Non-Af Amer) 14 L Glucose 143 H Direct Bilirubin 0.5 H ALT 16 L NT-Pro-B Natriuret Pep 02896 H Urine Protein Urine Blood Ur Leukocyte Esterase 03/18/17 15:43 RBC Hgb Hct RDW Potassium BUN Creatinine Est GFR ( Amer) Est GFR (Non-Af Amer) Glucose Direct Bilirubin ALT NT-Pro-B Natriuret Pep Urine Protein 100 H Urine Blood MODERATE H Ur Leukocyte Esterase LARGE H - Diagnostic Test Radiology reviewed: Image reviewed, Reports reviewed Critical Care Note - Critical Care Note Total time excluding time spent on procedures (mins): 38 Comments: 38 minutes of critical care time spent in direct contact evaluating and reevaluating the patient, treating symptoms, reviewing labs and studies and speaking with family and consultants excluding any procedures Discharge - Discharge Clinical Impression: Kidney disease, chronic, stage IV (GFR 15-29 ml/min), Hyperkalemia, Status post tracheostomy Congestive heart failure Qualifiers: Congestive heart failure type: unspecified Congestive heart failure chronicity : unspecified Qualified Code(s): I50.9 - Heart failure, unspecified Pulmonary edema Qualifiers: Chronicity: acute Qualified Code(s): J81.0 - Acute pulmonary edema Condition: Stable Disposition: ADMITTED INPATIENT Admitting Provider: Hospitalist Unit Admitted: Telemetry
[2017-03-18 16:16] LABS: HEMATOCRIT 27.7 % (37.9-51.0); MEAN CORPUSCULAR HGB CONC 32.7 g/dL (32.0-36.0); MEAN CORPUSCULAR VOLUME 89 fl (80-97); PLATELET COUNT 228 10^3/uL (150-450); RED BLOOD COUNT 3.12 10^6/uL (4.35-5.55); WHITE BLOOD COUNT 7.3 10^3/uL (4.0-10.5)
[2017-03-18 16:33] LABS: ABSOLUTE LYMPHOCYTES# (MANUAL) 1.6 10^3/uL (0.5-4.7); ABSOLUTE MONOCYTES # (MANUAL) 0.7 10^3/uL (0.1-1.4); ABSOLUTE NEUTROPHILS# (MANUAL) 4.7 10^3/uL (1.7-8.2); BASOPHILS % (MANUAL) 1 % (0-2); EOSINOPHILS % (MANUAL) 3 % (0-6); LYMPHOCYTES % (MANUAL) 21 % (13-45); MONOCYTES % (MANUAL) 10 % (3-13); SEGMENTED NEUTROPHILS % (MAN) 64 % (42-78); TOTAL CELLS COUNTED 100
[2017-03-18 16:34] LABS: ANISOCYTOSIS 1+; HYPOCHROMASIA SLIGHT
[2017-03-18 16:35] LABS: ALANINE AMINOTRANSFERASE 16 U/L (21-72); ALKALINE PHOSPHATASE 93 U/L (38-126); ANION GAP 12 (5-19); ASPARTATE AMINO TRANSFERASE 17 U/L (17-59); BILIRUBIN,DIRECT 0.5 mg/dL (0.0-0.4); BILIRUBIN,TOTAL 0.5 mg/dL (0.2-1.3); BLOOD UREA NITROGEN 74 mg/dL (7-20); CALCIUM 9.6 mg/dL (8.4-10.2); CARBON DIOXIDE 23 mmol/L (22-30); CHLORIDE 102 mmol/L (98-107); CREATINE KINASE 55 U/L (55-170); GLUCOSE 143 mg/dL (75-110); PLATELET COMMENT ADEQUATE; TOTAL PROTEIN 7.6 g/dL (6.3-8.2)
[2017-03-18 16:37] LABS: POTASSIUM 6.4 mmol/L (3.6-5.0)
[2017-03-18] MEDS ORDERED: SODIUM BICARBONATE 8.4% INJ 50 MEQ/50 ML DISP.SYRIN IV ONE (16:39)
[2017-03-18] MEDS ORDERED: INSULIN REG, HUMAN 100 UNIT/ML 3 ML VIAL (PYX) IV ONE (16:39)
[2017-03-18] MEDS ORDERED: DEXTROSE 50%-WATER 25 GM/50 ML DISP.SYRIN IV ONE (16:39)
[2017-03-18] MEDS ORDERED: ALBUTEROL SULFATE 0.083% NEB 2.5 MG/3 ML AMPUL NEB ONE (16:39)
--- NOTE | 2017-03-18 16:39 | RADIOLOGY REPORT (SQ) ---
EXAM DESCRIPTION: CHEST SINGLE VIEW COMPLETED DATE/TIME: 03/18/2017 4:23 pm REASON FOR STUDY: dyspnea COMPARISON: 01/15/2017 EXAM PARAMETERS: NUMBER OF VIEWS: One view. TECHNIQUE: Single frontal radiographic view of the chest acquired. RADIATION DOSE: NA LIMITATIONS: None. FINDINGS: LUNGS AND PLEURA: There is increasing airspace disease on the right consistent with effusi on an asymmetric edema or pneumonia. Interstitial markings are prominent on the left as well. Trach eostomy tube remains in place. MEDIASTINUM AND HILAR STRUCTURES: No masses. Contour normal. HEART AND VASCULAR STRUCTURES: Stable in appearance. BONES: No acute findings. HARDWARE: Sternotomy wires are in place. OTHER: No other significant finding. IMPRESSION: Increasing bilateral airspace disease right greater than left. This most likely represe nts edema with superimposed effusion on the right. TECHNICAL DOCUMENTATION: JOB ID: [id number] [employer]- All Rights Reserved
[2017-03-18] MEDS ORDERED: FUROSEMIDE INJ/PF 40 MG/4 ML SDV IV ONE (16:40)
[2017-03-18 16:45] LABS: CREATINE KINASE MB 2.96 ng/mL (<4.55); NT PRO BNP 11400 pg/mL (5-900)
[2017-03-18 16:46] LABS: TROPONIN I < 0.012 ng/mL
[2017-03-18] MEDS ORDERED: MAGNESIUM HYDROXIDE SUSP 30 ML UDCUP PO PRN (17:05)
[2017-03-18] MEDS ORDERED: ONDANSETRON HCL INJ/PF 4 MG/2 ML SDV IV PRN (17:05)
[2017-03-18 17:35] LABS: APPEARANCE,URINE TURBID; BILIRUBIN,URINE NEGATIVE (NEGATIVE); COLOR,URINE YELLOW; GLUCOSE, URINE NEGATIVE (NEGATIVE); KETONES,URINE NEGATIVE (NEGATIVE); LEUKOCYTE ESTERASE,URINE LARGE (NEGATIVE); NITRITE,URINE NEGATIVE (NEGATIVE); PROTEIN,URINE 100 mg/dL (NEGATIVE); URINE SPECIFIC GRAVITY 1.012; UROBILINOGEN,URINE NEGATIVE mg/dL (<2.0)
[2017-03-18] MEDS ORDERED: DEXTROSE 50%-WATER 25 GM/50 ML DISP.SYRIN IV PRN ×2 (18:19)
[2017-03-18] MEDS ORDERED: DEXTROSE 40% GEL 15 GM TUBE PO PRN ×2 (18:19)
[2017-03-18] MEDS ORDERED: GLUCAGON,HUMAN RECOMB 1 MG INJ IM PRN (18:19)
--- NOTE | 2017-03-18 18:38 | PDOC H&P ---
History of Present Illness Admission Date/PCP: 03/18/17 17:14 SAMARIA LIMON PA-C Patient complains of: Increasing shortness of breath History of Present Illness: DIAMOND KHAN SR is a 71 year old male with past medical history of chronic tracheostomy secondary to COPD, sleep apnea, anemia of chronic disease, chronic diastolic heart failure, morbid obesity, chronic kidney disease stage IV with a baseline creatinine of 3.5 and essential hypertension; presents to the emergency room with increasing shortness of breath over the last 2 days. The patient lives at home with family and is cared for by them. There is presently no family at the bedside. Patient is presently on trach collar 28% with adequate oxygenation. He is not dyspneic at rest. He reports increasing dyspnea with any exertion. Although he does admit he is bedbound for the last 2 years. He denies any productive cough. He denies any fever chills. He denies any nausea, vomiting or abdominal pain. He denies any diarrhea or dysuria. He states he follows with Dr. Burk for his heart locally and Dr Dilip Daniels for his chronic kidney disease. His primary care provider is the [place] Past Medical History Cardiac Medical History: Reports: Congestive Heart Failure, Coronary Artery Disease, Myocardial Infarction - 2004, Hyperlipidema, Hypertension Pulmonary Medical History: Reports: Chronic Obstructive Pulmonary Disease (COPD ) - home O2 trach at 2-4 lmp, Respiratory Failure - 2.5 l home oxygen dependent Endocrine Medical History: Reports: Diabetes Mellitus Type 1, Diabetes Mellitus Type 2, Hypothyroidism Denies: Hyperthyroidism Renal/ Medical History: Reports: Chronic Kidney Disease Malignancy Medical History: Reports: None GI Medical History: Reports: None Musculoskeltal Medical History: Reports: None Skin Medical History: Reports: None Psychiatric Medical History: Reports: None, Depression Hematology: Reports: Anemia Infectious Medical History: Reports: None Past Surgical History Past Surgical History: Reports: Appendectomy, Coronary Artery Bypass Graft, Tonsillectomy, Other - Tracheostomy Social History Information Source: Patient Lives with: Family Smoking Status: Never Smoker Frequency of Alcohol Use: None Hx Recreational Drug Use: No Drugs: None Hx Prescription Drug Abuse: No - Advance Directive Resuscitation Status: Full Code Surrogate healthcare decision maker:: is healthcare decision maker surrogate if he becomes unable to make decisions for himself Family History Family History: CAD, COPD, DM, Hypertension Parental Family History Reviewed: Yes Children Family History Reviewed: Yes Sibling(s) Family History Reviewed.: Yes Medication/Allergy Allergies/Adverse Reactions: indomethacin [From Indocin] Allergy (Unknown, Verified 01/15/17 18:33) clonazepam [From Klonopin] Allergy (Verified 01/15/17 18:33) Review of Systems Constitutional: PRESENT: fatigue Eyes: ABSENT: visual disturbances Ears: ABSENT: hearing changes Cardiovascular: PRESENT: dyspnea on exertion Respiratory: PRESENT: cough, dyspnea Gastrointestinal: ABSENT: abdominal pain, constipation, diarrhea, hematemesis, hematochezia, nausea, vomiting Genitourinary: ABSENT: dysuria, hematuria Musculoskeletal: ABSENT: joint swelling Integumentary: ABSENT: rash, wounds Neurological: ABSENT: abnormal gait, abnormal speech, confusion, dizziness, focal weakness, syncope Psychiatric: ABSENT: anxiety, depression, homidical ideation, suicidal ideation Endocrine: ABSENT: cold intolerance, heat intolerance, polydipsia, polyuria Hematologic/Lymphatic: ABSENT: easy bleeding, easy bruising Physical Exam Vital Signs: Temp Pulse Resp BP Pulse Ox 97.9 F 28 H 146/81 H 90 L 03/18/17 15:32 03/18/17 16:02 03/18/17 16:02 03/18/17 16:02 General appearance: PRESENT: disheveled, morbidly obese, well-developed, well- nourished, other - Permanent trach to trach collar Head exam: PRESENT: atraumatic, normocephalic Eye exam: PRESENT: conjunctiva pink, EOMI, PERRLA. ABSENT: scleral icterus Ear exam: PRESENT: normal external ear exam Mouth exam: PRESENT: moist, tongue midline Teeth exam: PRESENT: poor dentation Neck exam: ABSENT: carotid bruit, JVD, lymphadenopathy, thyromegaly Respiratory exam: PRESENT: crackles, decreased breath sounds - right base, symmetrical, unlabored Cardiovascular exam: PRESENT: irregular rhythm, +S1, +S2 Pulses: PRESENT: normal carotid pulses, normal radial pulses Vascular exam: PRESENT: normal capillary refill GI/Abdominal exam: PRESENT: normal bowel sounds, soft. ABSENT: distended, guarding, mass, organolmegaly, rebound, tenderness Rectal exam: PRESENT: deferred Extremities exam: PRESENT: full ROM. ABSENT: calf tenderness, clubbing, pedal edema Musculoskeletal exam: PRESENT: full ROM Neurological exam: PRESENT: alert, awake, oriented to person, oriented to place , oriented to time, oriented to situation, CN II-XII grossly intact. ABSENT: motor sensory deficit Psychiatric exam: PRESENT: flat affect Skin exam: PRESENT: dry - right great toe, skin tears, warm Results Impressions: Chest X-Ray 03/18/17 15:42 IMPRESSION: Increasing bilateral airspace disease right greater than left. This most likely represents edema with superimposed effusion on the right. Assessment & Plan - Diagnosis (1) Acute and chronic respiratory failure Qualifiers: Respiratory failure complication: hypoxia Qualified Code(s): J96.21 - Acute and chronic respiratory failure with hypoxia Is this a current diagnosis for this admission?: Yes Plan: Oxygen saturations above 90% now after IV lasix. Secondary to acute on chronic diastolic heart failure. (2) Acute kidney injury Is this a current diagnosis for this admission?: Yes Plan: Patient's creatinine is slightly elevated from baseline of 3.5. He appears volume overloaded on chest xray and NTBNP of 11,400. Will repeat BMP at 2000 after IV lasix and assess (3) Hyperkalemia Is this a current diagnosis for this admission?: Yes Plan: IV lasix, D50 and insulin and kayexylate and reevaluate. He follows with Dr Daniels (4) Kidney disease, chronic, stage IV (GFR 15-29 ml/min) Is this a current diagnosis for this admission?: Yes Plan: Avoid nephrotoxic dosages and medications (5) Anticoagulated Is this a current diagnosis for this admission?: Yes Plan: Takes eliquis at home for paroxymal atrial fibrillation (6) Atrial fibrillation and flutter Is this a current diagnosis for this admission?: Yes Plan: Presently rated controlled on eliquis (7) COPD, severe Is this a current diagnosis for this admission?: Yes Plan: ABG pending (8) Hypertension Qualifiers: Hypertension type: essential hypertension Qualified Code(s): I10 - Essential (primary) hypertension Is this a current diagnosis for this admission?: Yes Plan: Continue home medications (9) Coronary artery disease Qualifiers: Coronary Disease-Associated Artery/Lesion type: [place] artery [place] vs. transplanted heart: [place] heart Associated angina: angina presence unspecified Qualified Code(s): I25.10 - Atherosclerotic heart disease of [place] coronary artery without angina pectoris Plan: History of CABG, continue statin and aspirin (10) Diabetes mellitus Qualifiers: Diabetes mellitus type: type 2 Diabetes mellitus complication status: with kidney complications Diabetes mellitus complication detail: with chronic kidney disease Diabetes mellitus acute specialist insulin use: with acute specialist use Chronic kidney disease stage: stage 4 (severe) Qualified Code(s): E11.22 - Type 2 diabetes mellitus with diabetic chronic kidney disease; N18.4 - Chronic kidney disease, stage 4 (severe); N18.4 - Chronic kidney disease, stage 4 ( severe); N18.4 - Chronic kidney disease, stage 4 (severe); N18.4 - Chronic kidney disease, stage 4 (severe); Z79.4 - longterm (current) use of insulin; Z79.4 - longterm (current) use of insulin; Z79.4 - beading sawyer (current) use of insulin; Z79.4 - longterm (current) use of insulin Is this a current diagnosis for this admission?: Yes Plan: Home medications and sliding scale coverage (11) Dyslipidemia Is this a current diagnosis for this admission?: Yes Plan: Continue statin (12) Hypothyroid Qualifiers: Hypothyroidism type: acquired Qualified Code(s): E03.9 - Hypothyroidism, unspecified Is this a current diagnosis for this admission?: Yes Plan: Continue synthroid (13) Tracheostomy dependence Is this a current diagnosis for this admission?: Yes Plan: Trach collar presently at 28%. ABG pending (14) Acute on chronic diastolic (congestive) heart failure Is this a current diagnosis for this admission?: Yes Plan: Patient appears volume overloaded, despite worsening BUN/Cr - Time Time Spent: Greater than 70 Minutes Critical Time spent with patient: 25-34 minutes Medications reviewed and adjusted accordingly: Yes Anticipated discharge: Home with Homehealth
[2017-03-18] MEDS ORDERED: SODIUM POLYSTYRENE SULFONATE 15 GM/60 ML PO ONE (19:30)
[2017-03-18 21:45] LABS: ANION GAP 9 (5-19); BLOOD UREA NITROGEN 58 mg/dL (7-20); CARBON DIOXIDE 17 mmol/L (22-30); CHLORIDE 112 mmol/L (98-107); GLUCOSE 116 mg/dL (75-110); SODIUM 138.2 mmol/L (137-145)
[2017-03-18 22:02] LABS: CALCIUM 7.1 mg/dL (8.4-10.2)
[2017-03-18 22:03] LABS: POTASSIUM 4.6 mmol/L (3.6-5.0)
--- NOTE | 2017-03-18 23:23 | EKG REPORT ---
SEVERITY:- ABNORMAL ECG - ATRIAL FIBRILLATION REC REPEAT EKG DUE TO BASELINE ARIFACT : Confirmed by: Vilma Ruth 18-Mar-2017 23:22:59
[2017-03-19] MEDS: INSULIN LISPRO 100 UNIT/ML 3 ML VIAL SUBCUT PRN ×3 (01:57→22:43)
[2017-03-19] MEDS ORDERED: INFLUENZA ADLT QUAD (36MOS+) 2017-18 VAC 0.5 ML SYR IM PRN (05:16)
[2017-03-19 06:34] LABS: ARTERIAL BLOOD BASE EXCESS -3.8 mmol/L; ARTERIAL BLOOD H2CO3 1.75 mmol/L (1.05-1.35); ARTERIAL BLOOD HCO3 23.9 mmol/L (20-26); ARTERIAL BLOOD O2 SATURATION 93.4 % (94-98); ARTERIAL BLOOD PCO2 58.3 mmHg (35-45); ARTERIAL BLOOD PH 7.23 (7.35-7.45); ARTERIAL BLOOD TOTAL CO2 25.7 mmol/L (23-27)
[2017-03-19 06:35] LABS: ARTERIAL BLOOD FIO2 50%
[2017-03-19 06:41] LABS: ABSOLUTE LYMPHOCYTES (AUTO) 0.4 10^3/uL (0.5-4.7); ABSOLUTE MONOCYTES (AUTO) 0.1 10^3/uL (0.1-1.4); ABSOLUTE NEUT (AUTO) 5.9 10^3/uL (1.7-8.2); BASOPHILS % (AUTO) 0.1 % (0-2); HEMATOCRIT 26.9 % (37.9-51.0); HEMOGLOBIN 8.8 g/dL (13.5-17.0); LYMPHOCYTES % (AUTO) 5.6 % (13-45); MEAN CORPUSCULAR HEMOGLOBIN 28.5 pg (27.0-33.4); MEAN CORPUSCULAR HGB CONC 32.6 g/dL (32.0-36.0); MEAN CORPUSCULAR VOLUME 87 fl (80-97); MONOCYTES % (AUTO) 1.4 % (3-13); PLATELET COUNT 217 10^3/uL (150-450); RED BLOOD COUNT 3.08 10^6/uL (4.35-5.55); RED CELL DISTRIBUTION WIDTH 17.6 % (11.5-14.0); SEGMENTED NEUTROPHILS % (AUTO) 92.9 % (42-78); TOTAL CELLS COUNTED % (AUTO) 100 %; WHITE BLOOD COUNT 6.4 10^3/uL (4.0-10.5)
[2017-03-19 07:06] LABS: ALANINE AMINOTRANSFERASE 20 U/L (21-72); ALBUMIN 3.9 g/dL (3.5-5.0); ALKALINE PHOSPHATASE 80 U/L (38-126); ANION GAP 18 (5-19); ASPARTATE AMINO TRANSFERASE 14 U/L (17-59); BILIRUBIN,DIRECT 0.5 mg/dL (0.0-0.4); BILIRUBIN,TOTAL 0.5 mg/dL (0.2-1.3); CALCIUM 9.7 mg/dL (8.4-10.2); CARBON DIOXIDE 19 mmol/L (22-30); CHLORIDE 103 mmol/L (98-107); GLUCOSE 163 mg/dL (75-110); SODIUM 139.9 mmol/L (137-145); TOTAL PROTEIN 7.1 g/dL (6.3-8.2)
[2017-03-19 07:12] LABS: NT PRO BNP 13200 pg/mL (5-900)
[2017-03-19 07:14] LABS: POTASSIUM 6.1 mmol/L (3.6-5.0)
[2017-03-19 07:16] LABS: TROPONIN I < 0.012 ng/mL
[2017-03-19 07:28] LABS: BLOOD UREA NITROGEN 80 mg/dL (7-20)
[2017-03-19] MEDS ORDERED: SODIUM POLYSTYRENE SULFONATE 15 GM/60 ML PO ONE (10:28)
[2017-03-19] MEDS ORDERED: INSULIN REG, HUMAN 100 UNIT/ML 3 ML VIAL (PYX) IV ONE (10:31)
[2017-03-19] MEDS ORDERED: DEXTROSE 50%-WATER 25 GM/50 ML DISP.SYRIN IV ONE (10:32)
[2017-03-19] MEDS: ACETAMINOPHEN 325 MG TABLET PO PRN (13:30)
[2017-03-19] MEDS ORDERED: FUROSEMIDE INJ/PF 40 MG/4 ML SDV IV ONE (15:36)
[2017-03-19] MEDS ORDERED: BUDESONIDE NEB 0.5 MG/2 ML AMPUL NEB ONE (16:00)
--- NOTE | 2017-03-19 16:43 | PDOC PROGRESS REPORT ---
Subjective Progress Note for:: 03/19/17 Subjective:: Feels anxious. He wants a neb because it helps him cough. Reason For Visit: ACUTE RESPIRATORY FAILURE WITH HYPOXEMIA Physical Exam Vital Signs: Temp Pulse Resp BP Pulse Ox 98.6 F 95 18 144/56 H 97 03/19/17 08:05 03/19/17 14:00 03/19/17 08:05 03/19/17 08:05 03/19/17 11:17 Intake & Output 03/18/17 03/19/17 03/20/17 06:59 06:59 06:59 Intake Total 3 Output Total 0 Balance 3 Weight 135.8 kg General appearance: PRESENT: no acute distress, morbidly obese Head exam: PRESENT: atraumatic, normocephalic Respiratory exam: PRESENT: clear to auscultation rowan, unlabored Cardiovascular exam: PRESENT: RRR. ABSENT: diastolic murmur, rubs, systolic murmur GI/Abdominal exam: PRESENT: soft. ABSENT: tenderness Extremities exam: ABSENT: calf tenderness, pedal edema Neurological exam: PRESENT: alert, awake, oriented to person, oriented to place , oriented to time, oriented to situation, CN II-XII grossly intact. ABSENT: motor sensory deficit Psychiatric exam: PRESENT: appropriate affect, normal mood. ABSENT: homicidal ideation, suicidal ideation Skin exam: PRESENT: dry, intact, warm. ABSENT: cyanosis, rash Results Laboratory Results: 03/19/17 05:41 03/19/17 14:45 03/18/17 03/19/17 03/19/17 21:20 04:35 05:41 WBC 6.4 RBC 3.08 L Hgb 8.8 L Hct 26.9 L MCV 87 MCH 28.5 MCHC 32.6 RDW 17.6 H Plt Count 217 Seg Neutrophils % 92.9 H Lymphocytes % 5.6 L Monocytes % 1.4 L Eosinophils % 0.0 Basophils % 0.1 Absolute Neutrophils 5.9 Absolute Lymphocytes 0.4 L Absolute Monocytes 0.1 Absolute Eosinophils 0.0 Absolute Basophils 0.0 Carbonic Acid 1.75 H HCO3/H2CO3 Ratio 13:1 ABG pH 7.23 L ABG pCO2 58.3 H ABG pO2 80.0 ABG HCO3 23.9 ABG O2 Saturation 93.4 L ABG Base Excess -3.8 FiO2 50% Sodium 138.2 Potassium 4.6 D Chloride 112 H Carbon Dioxide 17 L Anion Gap 9 BUN 58 H Creatinine 3.04 H Est GFR ( Amer) 25 L Est GFR (Non-Af Amer) 20 L Glucose 116 H Calcium 7.1 L Magnesium Total Bilirubin AST ALT Alkaline Phosphatase Total Protein Albumin 03/19/17 03/19/17 03/19/17 05:41 08:37 14:45 WBC RBC Hgb Hct MCV MCH MCHC RDW Plt Count Seg Neutrophils % Lymphocytes % Monocytes % Eosinophils % Basophils % Absolute Neutrophils Absolute Lymphocytes Absolute Monocytes Absolute Eosinophils Absolute Basophils Carbonic Acid HCO3/H2CO3 Ratio ABG pH ABG pCO2 ABG pO2 ABG HCO3 ABG O2 Saturation ABG Base Excess FiO2 Sodium 139.9 Potassium 6.1 H* D 6.1 H* 5.2 H Chloride 103 Carbon Dioxide 19 L Anion Gap 18 BUN 80 H D Creatinine 4.14 H Est GFR ( Amer) 17 L Est GFR (Non-Af Amer) 14 L Glucose 163 H Calcium 9.7 Magnesium 2.0 Total Bilirubin 0.5 AST 14 L ALT 20 L Alkaline Phosphatase 80 Total Protein 7.1 Albumin 3.9 03/18/17 03/18/17 03/19/17 18:10 23:40 05:41 Troponin I < 0.012 < 0.012 < 0.012 NT-Pro-B Natriuret Pep 39324 H Impressions: Chest X-Ray 03/18/17 15:42 IMPRESSION: Increasing bilateral airspace disease right greater than left. This most likely represents edema with superimposed effusion on the right. Assessment & Plan - Diagnosis (1) Acute on chronic diastolic (congestive) heart failure Is this a current diagnosis for this admission?: Yes Plan: This is based on his symptoms, elevated BNP, and echocardiogram results April 2016. He received a dose of IV Lasix at the time of admission. However his creatinine was higher than it is at baseline, thus limiting its use. Check echocardiogram. For some reason, we do not have a current list of his home medications. I have asked his to bring a copy of them today. (2) Hyperkalemia Is this a current diagnosis for this admission?: Yes Plan: He was treated with insulin and dextrose as well as Kayexalate yesterday, without improvement. It was repeated again today. His potassium came down to 5.2. (3) Kidney disease, chronic, stage IV (GFR 15-29 ml/min) Is this a current diagnosis for this admission?: Yes Plan: It appears that his function has declined over the past year or so. In December 2016 his creatinine was 3.26. Today, it is 4.14. Continue to monitor. Notify his mixer dry food products. (4) COPD, severe Is this a current diagnosis for this admission?: Yes Plan: Reorder Pulmicort and DuoNeb nebs. Continue oxygen. (5) Hypothyroid Qualifiers: Hypothyroidism type: acquired Qualified Code(s): E03.9 - Hypothyroidism, unspecified Is this a current diagnosis for this admission?: Yes Plan: Check TSH. His last one was May 2016. At that time was 2.42. (6) Tracheostomy dependence Is this a current diagnosis for this admission?: Yes Plan: His requests that he be seen by ENT specialist. - Time Time Spent with patient: 25-34 minutes Medications reviewed and adjusted accordingly: Yes Anticipated discharge: Home - Inpatient Certification Based on my medical assessment, after consideration of the patient's comorbidities, presenting symptoms, or acuity I expect that the services needed warrant INPATIENT care.: Yes I certify that my determination is in accordance with my understanding of Medicare's requirements for reasonable and necessary INPATIENT services [42 CFR 412.3e].: Yes Medical Necessity: Significant Comorbidiites Make Outpatient Treatment Too Risky , Need for Nebulizer Therapy and Monitoring of Response
[2017-03-19] MEDS: BUDESONIDE NEB 0.5 MG/2 ML AMPUL NEB SCH (19:58)
[2017-03-19] MEDS: IPRATROPIUM/ALBUTEROL 0.5-2.5 MG/3 ML AMPUL NEB SCH (19:58)
[2017-03-19] MEDS ORDERED: LORAZEPAM 1 MG TABLET PO ONE (22:30)
[2017-03-20] MEDS: IPRATROPIUM/ALBUTEROL 0.5-2.5 MG/3 ML AMPUL NEB SCH ×4 (02:09→19:53)
[2017-03-20] MEDS: ACETAMINOPHEN 325 MG TABLET PO PRN (03:30)
[2017-03-20 05:27] LABS: ANION GAP 14 (5-19); BLOOD UREA NITROGEN 90 mg/dL (7-20); CALCIUM 9.1 mg/dL (8.4-10.2); CARBON DIOXIDE 26 mmol/L (22-30); CHLORIDE 102 mmol/L (98-107); GLUCOSE 158 mg/dL (75-110); POTASSIUM 4.8 mmol/L (3.6-5.0)
[2017-03-20 07:03] LABS: ARTERIAL BLOOD BASE EXCESS -1.2 mmol/L; ARTERIAL BLOOD H2CO3 1.45 mmol/L (1.05-1.35); ARTERIAL BLOOD HCO3 24.8 mmol/L (20-26); ARTERIAL BLOOD PCO2 48.3 mmHg (35-45); ARTERIAL BLOOD PH 7.33 (7.35-7.45); ARTERIAL BLOOD PO2 97.9 mmHg (80-100); ARTERIAL BLOOD TOTAL CO2 26.3 mmol/L (23-27)
[2017-03-20 07:04] LABS: ARTERIAL BLOOD FIO2 35%
[2017-03-20] MEDS ORDERED: INSULIN GLARGINE,HUM.REC.ANLOG 1,000 UNIT/10 ML UNIT SUBCUT SCH (08:00)
[2017-03-20] MEDS: LORAZEPAM 1 MG TABLET PO PRN ×2 (08:44→21:11)
[2017-03-20] MEDS: BUDESONIDE NEB 0.5 MG/2 ML AMPUL NEB SCH ×2 (09:21→19:53)
[2017-03-20] MEDS ORDERED: LORAZEPAM 1 MG TABLET PO PRN (11:52)
[2017-03-20] MEDS ORDERED: INSULIN REGULAR HUMAN SUBCUT PRN ×2 (11:52→12:17)
[2017-03-20] MEDS ORDERED: [UNRECOGNIZED DRUG - OTHER] SUBCUT PRN ×2 (11:52→12:17)
[2017-03-20] MEDS ORDERED: IPRATROPIUM/ALBUTEROL 0.5-2.5 MG/3 ML AMPUL NEB SCH (12:00)
--- NOTE | 2017-03-20 12:20 | PDOC PROGRESS REPORT ---
Subjective Progress Note for:: 03/20/17 Subjective:: Not feeling much better today. He has some concerns about his trach collar. He requested to be seen by his smudger and bleacher operator. He has also requested PT. Reason For Visit: ACUTE RESPIRATORY FAILURE WITH HYPOXEMIA Physical Exam Vital Signs: Temp Pulse Resp BP Pulse Ox 99.0 F 113 H 18 153/93 H 93 03/20/17 08:20 03/20/17 09:20 03/20/17 09:20 03/20/17 08:20 03/20/17 09:20 Intake & Output 03/19/17 03/20/17 03/21/17 06:59 06:59 06:59 Intake Total 3 1275 Output Total 0 3500 Balance 3 -2225 Weight 135.8 kg 140.6 kg General appearance: PRESENT: no acute distress Head exam: PRESENT: atraumatic, normocephalic Eye exam: PRESENT: EOMI, PERRLA Respiratory exam: PRESENT: decreased breath sounds, unlabored. ABSENT: accessory muscle use, wheezes Cardiovascular exam: PRESENT: RRR. ABSENT: diastolic murmur, rubs, systolic murmur GI/Abdominal exam: PRESENT: soft Neurological exam: PRESENT: alert, awake, oriented to person, oriented to place , oriented to time, oriented to situation, CN II-XII grossly intact Psychiatric exam: PRESENT: appropriate affect, normal mood. ABSENT: homicidal ideation, suicidal ideation Skin exam: PRESENT: dry, intact, warm. ABSENT: cyanosis, rash Results Laboratory Results: 03/19/17 05:41 03/20/17 04:33 03/19/17 03/19/17 03/20/17 14:45 14:45 04:33 Carbonic Acid HCO3/H2CO3 Ratio ABG pH ABG pCO2 ABG pO2 ABG HCO3 ABG O2 Saturation ABG Base Excess FiO2 Sodium 142.0 Potassium 5.2 H 4.8 Chloride 102 Carbon Dioxide 26 Anion Gap 14 BUN 90 H Creatinine 3.85 H Est GFR ( Amer) 19 L Est GFR (Non-Af Amer) 16 L Glucose 158 H Calcium 9.1 TSH 1.68 03/20/17 06:45 Carbonic Acid 1.45 H HCO3/H2CO3 Ratio 17:1 ABG pH 7.33 L ABG pCO2 48.3 H ABG pO2 97.9 ABG HCO3 24.8 ABG O2 Saturation 97.0 ABG Base Excess -1.2 FiO2 35% Sodium Potassium Chloride Carbon Dioxide Anion Gap BUN Creatinine Est GFR ( Amer) Est GFR (Non-Af Amer) Glucose Calcium TSH 03/18/17 03/18/17 03/19/17 18:10 23:40 05:41 Troponin I < 0.012 < 0.012 < 0.012 NT-Pro-B Natriuret Pep [id number] H Impressions: Chest X-Ray 03/18/17 15:42 IMPRESSION: Increasing bilateral airspace disease right greater than left. This most likely represents edema with superimposed effusion on the right. Assessment & Plan - Diagnosis (1) Acute on chronic diastolic (congestive) heart failure Is this a current diagnosis for this admission?: Yes Plan: This is based on his symptoms, elevated BNP, and echocardiogram results April 2016. He received a dose of IV Lasix at the time of admission. However, his creatinine was higher than it is at baseline, thus limiting its use. Echocardiogram pending. I spoke with his bleacher operator, but he is out of town. (2) Hyperkalemia Is this a current diagnosis for this admission?: Yes Plan: Resolved. (3) Kidney disease, chronic, stage IV (GFR 15-29 ml/min) Is this a current diagnosis for this admission?: Yes Plan: It appears that his function has declined over the past year or so. In December 2016 his creatinine was 3.26. Today, it is 4.14. Continue to monitor. Consult Dr. Daniels, nephrology. (4) COPD, severe Is this a current diagnosis for this admission?: Yes Plan: Pulmicort and DuoNeb nebs. Continue oxygen. (5) Hypothyroid Qualifiers: Hypothyroidism type: acquired Qualified Code(s): E03.9 - Hypothyroidism, unspecified Is this a current diagnosis for this admission?: Yes Plan: Stable (6) Tracheostomy dependence Is this a current diagnosis for this admission?: Yes Plan: His requests that he be seen by ENT specialist. - Time Time Spent with patient: 25-34 minutes Anticipated discharge: Home - Inpatient Certification Medical Necessity: Failure to Improve With Outpatient Therapy, Significant Comorbidiites Make Outpatient Treatment Too Risky, Need Close Monitoring Due to Risk of Patient Decompensation
[2017-03-20] MEDS ORDERED: COLCHICINE 0.6 MG TABLET PO PRN (12:28)
[2017-03-20] MEDS: TAMSULOSIN HCL 0.4 MG CAP.SR.24H PO SCH (17:45)
[2017-03-20] MEDS: CHLORHEXIDINE GLUCONATE 0.12% ORAL RINSE 15 ML UDC MM SCH (17:46)
[2017-03-20] MEDS: MIDODRINE HCL 5 MG TABLET PO SCH (17:46)
[2017-03-20] MEDS: FERROUS SULFATE 325 MG TABLET PO SCH (17:52)
[2017-03-20] MEDS ORDERED: FUROSEMIDE 40 MG TABLET PO SCH (18:00)
--- NOTE | 2017-03-20 20:14 | PDOC CONSULTATION ---
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 His was concerned so she had him go to the ER. At the time he was not having any chest pain, heart palpitations, fevers, chills or cough. He does have dyspnea with exertion He presented to the emergency room with increasing shortness of breath over the last 2 days. In the ER the patient was on trach collar 28% with adequate oxygenation. In the ER labs were drawn and a chest x-ray was done. The labs showed increased creatinine to 4.2 with hyperkalemia. His chest x-ray showed pulmonary congestion. He was given one dose of IV lasix and urinated out a significant amount. He was also given kayexelate which brought his potassium down to a safe range. During the exam: He denies any productive cough. He denies any fever chills. He denies any nausea, vomiting or abdominal pain. He denies any diarrhea or dysuria. Past Medical History Cardiac Medical History: Reports: CHF-Systolic, Coronary Artery Disease, Hyperlipidemia, Hypertension-primary, Myocardial Infarction - 2004 Pulmonary Medical History: Reports: Chronic Obstructive Pulmonary Disease (COPD ) - home O2 trach at 2-4 lmp, Respiratory Failure - 2.5 l home oxygen dependent Endocrine Medical History: Reports: Diabetes Mellitus Type 1, Diabetes Mellitus Type 2, Hypothyroidism Denies: Hyperthyroidism Renal/ Medical History: Reports: None, Benign Prostatic Hyperplasia - Has an indwelling Barragan catheter., Chronic Kidney Disease Stage III Malignancy Medical History: Reports: None GI Medical History: Reports: None Musculoskeltal Medical History: Reports: None Skin Medical History: Reports: None Psychiatric Medical History: Reports: None, Depression Infectious Medical History: Reports: None Past Surgical History Past Surgical History: Reports: Appendectomy, Coronary Artery Bypass Graft, Tonsillectomy, Other - Tracheostomy Social History Lives with: Family Smoking Status: Former Smoker Frequency of Alcohol Use: None Hx Recreational Drug Use: No Drugs: None Hx Prescription Drug Abuse: No - Advance Directive Resuscitation Status: Full Code Family History Parental Family History Reviewed: No Children Family History Reviewed: NA Sibling(s) Family History Reviewed.: NA Medication/Allergy Home Medications: Apixaban [Eliquis 2.5 mg Tablet] 2.5 mg PO Q12 03/19/17 Diltiazem HCl [Diltiazem ER] 120 mg PO Q12 03/19/17 Duloxetine HCl [Cymbalta] 60 mg PO DAILY 03/19/17 Famotidine [Pepcid] 20 mg PO QHS 03/19/17 Ferrous Sulfate [Feosol 325 mg Tablet] 325 mg PO BID 03/19/17 Furosemide [Lasix 40 mg Tablet] 40 mg PO BID 03/19/17 Insulin Regular, Human [Novolin R (Reg) Insulin 100 unit/mL] 2 unit SUBCUT PRN PRN 03/19/17 Ipratropium/Albuterol Sulfate [Duoneb 3 ml Ampul] 1 vial NEB Q6 03/19/17 Lorazepam [Ativan 1 mg Tablet] 1 mg PO Q12HP PRN 03/19/17 Tamsulosin HCl [Flomax 0.4 mg Cap.sr] 0.4 mg PO DAILY 03/19/17 Allergies/Adverse Reactions: indomethacin [From Indocin] Allergy (Unknown, Verified 01/15/17 18:33) clonazepam [From Klonopin] Allergy (Verified 01/15/17 18:33) Review of Systems Constitutional: PRESENT: weakness. ABSENT: chills, fever(s) Cardiovascular: PRESENT: dyspnea on exertion, edema, orthropnea. ABSENT: chest pain, palpitations Respiratory: PRESENT: dyspnea. ABSENT: cough, sputum Gastrointestinal: ABSENT: abdominal pain, constipation, diarrhea, nausea, vomiting Genitourinary: ABSENT: dysuria - m Musculoskeletal: PRESENT: muscle weakness. ABSENT: joint swelling Neurological: PRESENT: weakness. ABSENT: confusion, dizziness, numbness Physical Exam Vital Signs: Temp Pulse Resp BP Pulse Ox 98.0 F 102 H 20 162/61 H 98 03/20/17 16:09 03/20/17 16:09 03/20/17 16:09 03/20/17 16:09 03/20/17 16:09 Intake & Output 03/19/17 03/20/17 03/21/17 06:59 06:59 06:59 Intake Total 3 1275 956 Output Total 0 9063 4504 Balance 3 -6787 -000 Weight 135.8 kg 140.6 kg General appearance: PRESENT: no acute distress, well-developed, well-nourished Mouth exam: PRESENT: moist, tongue midline Neck exam: PRESENT: full ROM. ABSENT: JVD Respiratory exam: PRESENT: crackles, rales. ABSENT: accessory muscle use, chest wall tenderness, clear to auscultation rowan, rhonchi, wheezes Cardiovascular exam: PRESENT: RRR, +S1, +S2 GI/Abdominal exam: PRESENT: soft. ABSENT: ascites, firm, guarding, tenderness Extremities exam: PRESENT: pedal edema - -trace+. ABSENT: tenderness Musculoskeletal exam: PRESENT: normal inspection. ABSENT: tenderness Neurological exam: PRESENT: alert, awake, oriented to person, oriented to place , oriented to time, oriented to situation Psychiatric exam: PRESENT: appropriate affect, normal mood Skin exam: PRESENT: dry, intact, warm. ABSENT: rash Results Laboratory Results: 03/19/17 05:41 03/20/17 04:33 03/20/17 03/20/17 04:33 06:45 Carbonic Acid 1.45 H HCO3/H2CO3 Ratio 17:1 ABG pH 7.33 L ABG pCO2 48.3 H ABG pO2 97.9 ABG HCO3 24.8 ABG O2 Saturation 97.0 ABG Base Excess -1.2 FiO2 35% Sodium 142.0 Potassium 4.8 Chloride 102 Carbon Dioxide 26 Anion Gap 14 BUN 90 H Creatinine 3.85 H Est GFR ( Amer) 19 L Est GFR (Non-Af Amer) 16 L Glucose 158 H Calcium 9.1 03/18/17 03/18/17 03/19/17 18:10 23:40 05:41 Troponin I < 0.012 < 0.012 < 0.012 NT-Pro-B Natriuret Pep 20742 H Impressions: Chest X-Ray 03/18/17 15:42 IMPRESSION: Increasing bilateral airspace disease right greater than left. This most likely represents edema with superimposed effusion on the right. Assessment & Plan - Diagnosis (1) Acute on chronic diastolic (congestive) heart failure Is this a current diagnosis for this admission?: Yes Plan: Will adjust lasix dose to be a light IV bolus of 20mg qd. (2) Acute kidney injury Is this a current diagnosis for this admission?: Yes Plan: Creatinine is currently trending down. At the time of admission to the hospital the kidneys could be showing the effects of the stress from the CHF. I do not suspect that it was from ATN or an infection. No current indications for an infection. Do not suspect that hypotension as the cause. Blood pressures were normal when he arrived to the hospital. (3) Pulmonary edema Qualifiers: Chronicity: acute Qualified Code(s): J81.0 - Acute pulmonary edema Plan: Starting IV lasix at a light dose of 20mg daily (4) Kidney disease, chronic, stage IV (GFR 15-29 ml/min) Is this a current diagnosis for this admission?: Yes Plan: Creatinine is currently trending down. baseline creatinine is 3.4 at last visit. (5) Acute and chronic respiratory failure Qualifiers: Respiratory failure complication: hypoxia and hypercapnia Qualified Code(s) : J96.21 - Acute and chronic respiratory failure with hypoxia; J96.22 - Acute and chronic respiratory failure with hypercapnia; J96.22 - Acute and chronic respiratory failure with hypercapnia; J96.22 - Acute and chronic respiratory failure with hypercapnia Is this a current diagnosis for this admission?: Yes Plan: currently on oxygen (6) Anemia Plan: most likely due to CKD, will draw iron studies also to rule out iron anemia. (7) COPD, severe Is this a current diagnosis for this admission?: Yes (8) Hypertension Qualifiers: Hypertension type: essential hypertension Qualified Code(s): I10 - Essential (primary) hypertension Is this a current diagnosis for this admission?: Yes Plan: looks to be varying, will reassess once more fluid is removed (9) Diabetes mellitus Qualifiers: Diabetes mellitus type: type 2 Diabetes mellitus complication status: with kidney complications Diabetes mellitus complication detail: with chronic kidney disease Diabetes mellitus termite technician insulin use: with correction use Chronic kidney disease stage: stage 4 (severe) Qualified Code(s): E11.22 - Type 2 diabetes mellitus with diabetic chronic kidney disease; N18.4 - Chronic kidney disease, stage 4 (severe); N18.4 - Chronic kidney disease, stage 4 ( severe); N18.4 - Chronic kidney disease, stage 4 (severe); N18.4 - Chronic kidney disease, stage 4 (severe); Z79.4 - rat 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 (current) use of insulin; Z79.4 - senior care (current) use of insulin; Z79.4 - senior care (current) use of insulin; Z79.4 - senior care (current) use of insulin Is this a current diagnosis for this admission?: Yes Plan: varying (10) Hyperkalemia Is this a current diagnosis for this admission?: Yes Plan: Currently stable
[2017-03-20] MEDS: METOPROLOL TARTRATE 50 MG TABLET PO SCH (21:10)
[2017-03-20] MEDS: APIXABAN 2.5 MG TABLET PO SCH (21:11)
[2017-03-20] MEDS: FAMOTIDINE 20 MG TABLET PO SCH (21:11)
[2017-03-20] MEDS: DILTIAZEM HCL 120 MG CAP.SR.24H PO SCH (21:11)
[2017-03-20] MEDS ORDERED: (PENDING PHARMACY ID) (Diltiazem Hcl [Diltiazem Er] 120 MG) PO SCH (22:00)
[2017-03-21] MEDS: IPRATROPIUM/ALBUTEROL 0.5-2.5 MG/3 ML AMPUL NEB SCH ×4 (02:47→20:12)
[2017-03-21] MEDS: LATANOPROST 0.005% OPH SOLN 2.5 ML OU SCH ×2 (03:30→22:31)
[2017-03-21 06:20] LABS: HEMATOCRIT 28.4 % (37.9-51.0); HEMOGLOBIN 9.5 g/dL (13.5-17.0); MEAN CORPUSCULAR HEMOGLOBIN 28.8 pg (27.0-33.4); MEAN CORPUSCULAR HGB CONC 33.4 g/dL (32.0-36.0); MEAN CORPUSCULAR VOLUME 86 fl (80-97); PLATELET COUNT 236 10^3/uL (150-450); RED BLOOD COUNT 3.29 10^6/uL (4.35-5.55); RED CELL DISTRIBUTION WIDTH 17.4 % (11.5-14.0); WHITE BLOOD COUNT 6.9 10^3/uL (4.0-10.5)
[2017-03-21 06:41] LABS: ALANINE AMINOTRANSFERASE 26 U/L (21-72); ALBUMIN 3.6 g/dL (3.5-5.0); ALKALINE PHOSPHATASE 68 U/L (38-126); ANION GAP 13 (5-19); ASPARTATE AMINO TRANSFERASE 16 U/L (17-59); BILIRUBIN,DIRECT 0.4 mg/dL (0.0-0.4); BILIRUBIN,TOTAL 0.5 mg/dL (0.2-1.3); BLOOD UREA NITROGEN 86 mg/dL (7-20); CALCIUM 9.5 mg/dL (8.4-10.2); CARBON DIOXIDE 27 mmol/L (22-30); CHLORIDE 104 mmol/L (98-107); GLUCOSE 106 mg/dL (75-110); IRON(TIBC) 50.5 ug/dL (49-181); MAGNESIUM 1.8 mg/dL (1.6-2.3); POTASSIUM 4.2 mmol/L (3.6-5.0); SODIUM 143.6 mmol/L (137-145); TOTAL PROTEIN 6.6 g/dL (6.3-8.2)
[2017-03-21] MEDS: BUDESONIDE NEB 0.5 MG/2 ML AMPUL NEB SCH ×2 (08:32→20:12)
[2017-03-21] MEDS: LEVOTHYROXINE SODIUM 0.088 MG TABLET PO SCH (09:05)
--- NOTE | 2017-03-21 09:46 | XCELERA REPORT ---
[address] [address] Transthoracic Echocardiogram Report Name: DIAMOND KHAN SR Age: 71 yrs Gender: Male : 1945 Patient Status: Inpatient Patient Location: [address] [place] [address] Study Date: 03/20/2017 03:16 PM Height: 67 in Weight: 299 lb BSA: 2.4 m2 Procedure: A two-dimensional transthoracic echocardiogram with color flow and Doppler was performed in limited views only. The study was technically limited with all images being suboptimal in quality. Reason For Study: Heart failure Ordering Physician: NENA HERRERA Performed By: Mireya Mcdonald Interpretation Summary Left ventricular systolic function is mildly reduced. Consider additional methods to assess LVEF such as MUGA scan, CTA heart, cardiac MRI, HARRISON, etc. if clinically indicated. There is mild concentric left ventricular hypertrophy. The left ventricle is grossly normal size. Doppler measurements suggest pseudonormalized left ventricular relaxation, which is associated with grade II/IV or mild to moderate diastolic dysfunction Regional wall motion abnormalities cannot be excluded due to limited visualization. The right ventricle is mildly dilated. Right atrium not well visualized secondary to technical limitations The left atrium is mildly dilated. There is a trace amount of mitral regurgitation There is no mitral valve stenosis. No aortic regurgitation is present. There is no aortic valve stenosis There is a trace or physiologic amount of tricuspid regurgitation Tricuspid regurgitation jet envelope not well defined to measure RV systolic pressure accurately. There is no pericardial effusion. The study was technically limited with all images being suboptimal in quality. MMode/2D Measurements & Calculations RVDd: 3.6 cm LVIDd: 4.7 cm FS: 22.9 % Ao root diam: 3.0 cm IVSd: 1.3 cm LVIDs: 3.6 cm EDV(Teich): 103.3 ml LVPWd: 1.3 cm ESV(Teich): 55.9 ml Ao root area: 7.0 cm2 EF(Teich): 45.9 % LA dimension: 4.4 cm Doppler Measurements & Calculations MV E max maggy: MV P1/2t max maggy: Ao V2 max: LV V1 max P.3 cm/sec 50.8 cm/sec 149.3 cm/sec 3.4 mmHg MV A max maggy: MV P1/2t: 70.8 msec Ao max PG: LV V1 max: 87.4 cm/sec 8.9 mmHg 91.8 cm/sec MV E/A: 0.58 MVA(P1/2t): 3.1 cm2 MV dec slope: 210.3 cm/sec2 TR max maggy: 283.7 cm/sec TR max P.2 mmHg Left Ventricle The left ventricle is grossly normal size. There is mild concentric left ventricular hypertrophy. Left ventricular systolic function is mildly reduced. Consider additional methods to assess LVEF such as MUGA scan, CTA heart, cardiac MRI, HARRISON, etc. if clinically indicated. Doppler measurements suggest pseudonormalized left ventricular relaxation, which is associated with grade II/IV or mild to moderate diastolic dysfunction. Regional wall motion abnormalities cannot be excluded due to limited visualization. Right Ventricle The right ventricle is mildly dilated. Atria Right atrium not well visualized secondary to technical limitations. The left atrium is mildly dilated. Interarterial septum not well visualized and not well dopplered. Cannot comment on ASD/PFO presence. Mitral Valve The mitral valve is not well visualized. There is no mitral valve stenosis. There is a trace amount of mitral regurgitation. Aortic Valve The aortic valve is not well visualized secondary to technical limitations. There is no aortic valve stenosis. No aortic regurgitation is present. Tricuspid Valve The tricuspid valve is not well visualized secondary to technical limitations. There is no tricuspid stenosis. There is a trace or physiologic amount of tricuspid regurgitation. Tricuspid regurgitation jet envelope not well defined to measure RV systolic pressure accurately. Pulmonic Valve The pulmonic valve is not well visualized. Great Vessels The aortic root is not well visualized. The inferior vena cava was not well visualized. Effusions There is no pericardial effusion. : NENA HERRERA > Vilma Ruth
[2017-03-21] MEDS ORDERED: FUROSEMIDE 80 MG TABLET PO SCH (10:00)
[2017-03-21] MEDS: APIXABAN 2.5 MG TABLET PO SCH ×2 (10:22→22:30)
[2017-03-21] MEDS: ASPIRIN 81 MG TABLET, CHEWABLE PO SCH (10:22)
[2017-03-21] MEDS: METOPROLOL TARTRATE 50 MG TABLET PO SCH ×2 (10:22→22:29)
[2017-03-21] MEDS: MIDODRINE HCL 5 MG TABLET PO SCH ×2 (10:23→17:58)
[2017-03-21] MEDS: FERROUS SULFATE 325 MG TABLET PO SCH ×2 (10:25→17:58)
[2017-03-21] MEDS: DILTIAZEM HCL 120 MG CAP.SR.24H PO SCH ×2 (10:25→22:30)
[2017-03-21] MEDS: DULOXETINE HCL 30 MG CAPSULE.DR PO SCH (10:26)
[2017-03-21] MEDS: CHLORHEXIDINE GLUCONATE 0.12% ORAL RINSE 15 ML UDC MM SCH ×2 (10:26→17:57)
[2017-03-21] MEDS: FUROSEMIDE INJ/PF 20 MG/2 ML SDV IV SCH (10:26)
[2017-03-21] MEDS: INSULIN GLARGINE,HUM.REC.ANLOG 300 UNIT/3 ML INSULN.PEN SUBCUT SCH (10:27)
[2017-03-21 10:42] LABS: ARTERIAL BLOOD BASE EXCESS 2.8 mmol/L; ARTERIAL BLOOD FIO2 35%; ARTERIAL BLOOD H2CO3 1.65 mmol/L (1.05-1.35); ARTERIAL BLOOD HCO3 29.2 mmol/L (20-26); ARTERIAL BLOOD O2 SATURATION 76.2 % (94-98); ARTERIAL BLOOD PCO2 54.9 mmHg (35-45); ARTERIAL BLOOD PH 7.34 (7.35-7.45); ARTERIAL BLOOD PO2 43.9 mmHg (80-100); ARTERIAL BLOOD TOTAL CO2 30.8 mmol/L (23-27)
--- NOTE | 2017-03-21 11:33 | PDOC PROGRESS REPORT ---
Subjective Progress Note for:: 03/21/17 Subjective:: He is a bit more sleepy this morning. Supposedly, he slept all night. He says he is tired because he did not sleep 2 nights ago. His nurse reports that he was twitching earlier. Today he feels cold, when usually he is hot. Reason For Visit: ACUTE RESPIRATORY FAILURE WITH HYPOXEMIA Physical Exam Vital Signs: Temp Pulse Resp BP Pulse Ox 97.8 F 89 22 H 138/79 H 97 03/21/17 08:16 03/21/17 08:41 03/21/17 08:41 03/21/17 08:16 03/21/17 08:41 Intake & Output 03/20/17 03/21/17 03/22/17 06:59 06:59 06:59 Intake Total 1275 1370 Output Total 3500 3305 Balance -5 -193 Weight 140.6 kg 136.4 kg General appearance: PRESENT: no acute distress, morbidly obese Eye exam: PRESENT: EOMI, PERRLA Neck exam: PRESENT: tracheostomy Respiratory exam: PRESENT: decreased breath sounds - At bases. However, he is unable to sit upright adequate examination., unlabored Cardiovascular exam: PRESENT: RRR. ABSENT: diastolic murmur, rubs, systolic murmur GI/Abdominal exam: PRESENT: normal bowel sounds, soft. ABSENT: distended, guarding, mass, organolmegaly, rebound, tenderness Neurological exam: PRESENT: alert, awake, oriented to person, oriented to place , oriented to time, oriented to situation, CN II-XII grossly intact. ABSENT: motor sensory deficit Psychiatric exam: PRESENT: appropriate affect, normal mood. ABSENT: homicidal ideation, suicidal ideation Results Laboratory Results: 03/21/17 05:30 03/21/17 05:30 03/21/17 03/21/17 03/21/17 05:30 05:30 10:30 WBC 6.9 RBC 3.29 L Hgb 9.5 L Hct 28.4 L MCV 86 MCH 28.8 MCHC 33.4 RDW 17.4 H Plt Count 236 Carbonic Acid 1.65 H HCO3/H2CO3 Ratio 17:1 ABG pH 7.34 L ABG pCO2 54.9 H ABG pO2 43.9 L ABG HCO3 29.2 H ABG O2 Saturation 76.2 L ABG Base Excess 2.8 FiO2 35% Sodium 143.6 Potassium 4.2 Chloride 104 Carbon Dioxide 27 Anion Gap 13 BUN 86 H Creatinine 3.35 H Est GFR ( Amer) 22 L Est GFR (Non-Af Amer) 18 L Glucose 106 Calcium 9.5 Magnesium 1.8 Iron 50.5 TIBC 282 % Saturation 18 Ferritin 141.00 Total Bilirubin 0.5 AST 16 L ALT 26 Alkaline Phosphatase 68 Total Protein 6.6 Albumin 3.6 03/18/17 03/18/17 03/19/17 18:10 23:40 05:41 Troponin I < 0.012 < 0.012 < 0.012 NT-Pro-B Natriuret Pep 72298 H Impressions: Chest X-Ray 03/18/17 15:42 IMPRESSION: Increasing bilateral airspace disease right greater than left. This most likely represents edema with superimposed effusion on the right. Assessment & Plan - Diagnosis (1) Acute and chronic respiratory failure Qualifiers: Respiratory failure complication: hypoxia and hypercapnia Qualified Code(s) : J96.21 - Acute and chronic respiratory failure with hypoxia; J96.22 - Acute and chronic respiratory failure with hypercapnia; J96.22 - Acute and chronic respiratory failure with hypercapnia; J96.22 - Acute and chronic respiratory failure with hypercapnia Is this a current diagnosis for this admission?: Yes Plan: Secondary to COPD, O2 dependent, and acute diastolic HF. His blood gas this morning is abnormal, particularly O2. I suspect that this was a venous sample. I will repeat his chest x-ray to see if there is any correlation to the abnormal ABG this morning. (2) Acute on chronic diastolic (congestive) heart failure Is this a current diagnosis for this admission?: Yes Plan: This is based on his symptoms, elevated BNP, and echocardiogram results April 2016. He received a dose of IV Lasix at the time of admission. However, his creatinine was higher than it is at baseline, thus limiting its use. Echocardiogram demonstrated mild decrease in systolic function, and mild to moderate diastolic dysfunction. He is diuresing well. (3) Hyperkalemia Is this a current diagnosis for this admission?: Yes Plan: Resolved. (4) Kidney disease, chronic, stage IV (GFR 15-29 ml/min) Is this a current diagnosis for this admission?: Yes Plan: It appears that his function has declined over the past year or so. In December 2016 his creatinine was 3.26. Creatinine has improved. Appreciate nephrology consult. (5) COPD, severe Is this a current diagnosis for this admission?: Yes Plan: Pulmicort and DuoNeb nebs. Continue oxygen. (6) Hypothyroid Qualifiers: Hypothyroidism type: acquired Qualified Code(s): E03.9 - Hypothyroidism, unspecified Is this a current diagnosis for this admission?: Yes Plan: Stable (7) Tracheostomy dependence Is this a current diagnosis for this admission?: Yes Plan: His requests that he be seen by ENT specialist. - Time Time Spent with patient: 25-34 minutes Medications reviewed and adjusted accordingly: Yes - Inpatient Certification Based on my medical assessment, after consideration of the patient's comorbidities, presenting symptoms, or acuity I expect that the services needed warrant INPATIENT care.: Yes I certify that my determination is in accordance with my understanding of Medicare's requirements for reasonable and necessary INPATIENT services [42 CFR 412.3e].: Yes Medical Necessity: Failure to Improve With Outpatient Therapy, Significant Comorbidiites Make Outpatient Treatment Too Risky, Need For Continuous Telemetry Monitoring
--- NOTE | 2017-03-21 13:01 | PDOC PROGRESS REPORT ---
Subjective Progress Note for:: 03/21/17 Subjective:: Patient was sitting up in bed this morning having SOB. He was hardly able to answer questions. According to his nurse since she started taking care of him today he seems less alert and in more distress than when she was taking care of him yesterday. He also at the time had chills but did not notice any dysuria or fevers. He has had some sputum production and rigors. Urine output was 3.3L yesterday. Reason For Visit: ACUTE RESPIRATORY FAILURE WITH HYPOXEMIA Physical Exam Vital Signs: Temp Pulse Resp BP Pulse Ox 97.8 F 89 22 H 138/79 H 97 03/21/17 08:16 03/21/17 08:41 03/21/17 08:41 03/21/17 08:16 03/21/17 08:41 Intake & Output 03/20/17 03/21/17 03/22/17 06:59 06:59 06:59 Intake Total 1275 1370 Output Total 3500 3305 Balance -5 -1935 Weight 140.6 kg 136.4 kg General appearance: PRESENT: mild distress, morbidly obese Mouth exam: PRESENT: moist, tongue midline Neck exam: PRESENT: full ROM, tracheal deviation. ABSENT: JVD Respiratory exam: PRESENT: accessory muscle use, crackles, rales. ABSENT: clear to auscultation rowan, rhonchi, wheezes Cardiovascular exam: PRESENT: RRR, +S1, +S2 GI/Abdominal exam: PRESENT: soft. ABSENT: ascites, firm, guarding, tenderness Extremities exam: PRESENT: pedal edema - -trace+. ABSENT: tenderness Musculoskeletal exam: PRESENT: normal inspection. ABSENT: tenderness Neurological exam: PRESENT: alert, awake, oriented to person, oriented to place , oriented to time, oriented to situation Psychiatric exam: PRESENT: agitated, anxious Skin exam: PRESENT: dry, intact, warm. ABSENT: rash Results Laboratory Results: 03/21/17 05:30 03/21/17 05:30 03/21/17 03/21/17 03/21/17 05:30 05:30 10:30 WBC 6.9 RBC 3.29 L Hgb 9.5 L Hct 28.4 L MCV 86 MCH 28.8 MCHC 33.4 RDW 17.4 H Plt Count 236 Carbonic Acid 1.65 H HCO3/H2CO3 Ratio 17:1 ABG pH 7.34 L ABG pCO2 54.9 H ABG pO2 43.9 L ABG HCO3 29.2 H ABG O2 Saturation 76.2 L ABG Base Excess 2.8 FiO2 35% Sodium 143.6 Potassium 4.2 Chloride 104 Carbon Dioxide 27 Anion Gap 13 BUN 86 H Creatinine 3.35 H Est GFR ( Amer) 22 L Est GFR (Non-Af Amer) 18 L Glucose 106 Calcium 9.5 Magnesium 1.8 Iron 50.5 TIBC 282 % Saturation 18 Ferritin 141.00 Total Bilirubin 0.5 AST 16 L ALT 26 Alkaline Phosphatase 68 Total Protein 6.6 Albumin 3.6 03/18/17 03/18/17 03/19/17 18:10 23:40 05:41 Troponin I < 0.012 < 0.012 < 0.012 NT-Pro-B Natriuret Pep 00772 H Impressions: Chest X-Ray 03/18/17 15:42 IMPRESSION: Increasing bilateral airspace disease right greater than left. This most likely represents edema with superimposed effusion on the right. Assessment & Plan - Diagnosis (1) Acute on chronic diastolic (congestive) heart failure Is this a current diagnosis for this admission?: Yes Plan: improving with urine out put. Starting today he is receiving IV lasix. (2) COPD, severe Is this a current diagnosis for this admission?: Yes Plan: Dr. Daniels discussed his case [facility] . He though that his chest was tight, congested with wheezing. He recommended a sputum culture, IV steroids and antibiotics. (3) Acute kidney injury Is this a current diagnosis for this admission?: Yes Plan: looks to have resolved and he is down to baseline. Will monitor with the use of IV lasix (4) Pulmonary edema Qualifiers: Chronicity: acute Qualified Code(s): J81.0 - Acute pulmonary edema Plan: using lasix to help remove fluid. Also considering possible onset of pneumonia. Will order a CBC and cultures to rule out infection. Less likely since he did not have a fever this morning. (5) Kidney disease, chronic, stage IV (GFR 15-29 ml/min) Is this a current diagnosis for this admission?: Yes Plan: at baseline (6) Acute and chronic respiratory failure Qualifiers: Respiratory failure complication: hypoxia and hypercapnia Qualified Code(s) : J96.21 - Acute and chronic respiratory failure with hypoxia; J96.22 - Acute and chronic respiratory failure with hypercapnia; J96.22 - Acute and chronic respiratory failure with hypercapnia; J96.22 - Acute and chronic respiratory failure with hypercapnia Is this a current diagnosis for this admission?: Yes Plan: ABG was ordered (7) Anemia Plan: hemoglobin is trending up (8) Hypertension Qualifiers: Hypertension type: essential hypertension Qualified Code(s): I10 - Essential (primary) hypertension Is this a current diagnosis for this admission?: Yes Plan: currently controlled (9) Diabetes mellitus Qualifiers: Diabetes mellitus type: type 2 Diabetes mellitus complication status: with kidney complications Diabetes mellitus complication detail: with chronic kidney disease Diabetes mellitus intermediate project manager insulin use: with prison use Chronic kidney disease stage: stage 4 (severe) Qualified Code(s): E11.22 - Type 2 diabetes mellitus with diabetic chronic kidney disease; N18.4 - Chronic kidney disease, stage 4 (severe); N18.4 - Chronic kidney disease, stage 4 ( severe); N18.4 - Chronic kidney disease, stage 4 (severe); N18.4 - Chronic kidney disease, stage 4 (severe); Z79.4 - longterm (current) use of insulin; Z79.4 - longterm (current) use of insulin; Z79.4 - longterm (current) use of insulin; Z79.4 - roasterman (current) use of insulin Is this a current diagnosis for this admission?: Yes (10) Hyperkalemia Is this a current diagnosis for this admission?: Yes Plan: resolved
[2017-03-21 14:11] LABS: APPEARANCE,URINE CLOUDY; BILIRUBIN,URINE NEGATIVE (NEGATIVE); COLOR,URINE YELLOW; GLUCOSE, URINE NEGATIVE (NEGATIVE); KETONES,URINE NEGATIVE (NEGATIVE); LEUKOCYTE ESTERASE,URINE LARGE (NEGATIVE); NITRITE,URINE NEGATIVE (NEGATIVE); PROTEIN,URINE 100 mg/dL (NEGATIVE); URINE SPECIFIC GRAVITY 1.008; UROBILINOGEN,URINE NEGATIVE mg/dL (<2.0)
[2017-03-21 14:17] LABS: ABSOLUTE LYMPHOCYTES (AUTO) 0.8 10^3/uL (0.5-4.7); ABSOLUTE MONOCYTES (AUTO) 0.9 10^3/uL (0.1-1.4); ABSOLUTE NEUT (AUTO) 5.8 10^3/uL (1.7-8.2); BASOPHILS % (AUTO) 0.5 % (0-2); EOSINOPHILS % (AUTO) 0.3 % (0-6); HEMATOCRIT 28.2 % (37.9-51.0); HEMOGLOBIN 9.3 g/dL (13.5-17.0); LYMPHOCYTES % (AUTO) 10.5 % (13-45); MEAN CORPUSCULAR HEMOGLOBIN 28.5 pg (27.0-33.4); MEAN CORPUSCULAR HGB CONC 32.8 g/dL (32.0-36.0); MEAN CORPUSCULAR VOLUME 87 fl (80-97); MONOCYTES % (AUTO) 11.4 % (3-13); PLATELET COUNT 267 10^3/uL (150-450); RED BLOOD COUNT 3.25 10^6/uL (4.35-5.55); RED CELL DISTRIBUTION WIDTH 17.5 % (11.5-14.0); SEGMENTED NEUTROPHILS % (AUTO) 77.3 % (42-78); TOTAL CELLS COUNTED % (AUTO) 100 %; WHITE BLOOD COUNT 7.5 10^3/uL (4.0-10.5)
[2017-03-21] MEDS: ACETYLCYSTEINE 10% NEB 400 MG/4 ML VIAL NEB SCH ×2 (14:47→20:12)
--- NOTE | 2017-03-21 15:45 | RADIOLOGY REPORT (SQ) ---
EXAM DESCRIPTION: CHEST SINGLE VIEW COMPLETED DATE/TIME: 03/21/2017 3:27 pm REASON FOR STUDY: Hypoxia COMPARISON: 03/18/2017 NUMBER OF VIEWS: One view. TECHNIQUE: Single frontal radiographic image of the chest acquired. LIMITATIONS: Positioning. FINDINGS: LUNGS AND PLEURA: Improved aeration right lung with residual segmental airspace disease in the middle lobe and right lower lobe. Diffuse interstitial pattern in the left lung. MEDIASTINUM AND HEART: Stable heart size and mediastinal structures. SUPPORT DEVICES: Appropriate location without change. BONY STRUCTURES: No acute findings. HARDWARE: CABG. OTHER: No other significant finding. IMPRESSION: Persistent right lower lobe pneumonia with improved aeration. No evidence of cavitation or pneumothorax.
[2017-03-21] MEDS ORDERED: FUROSEMIDE 40 MG TABLET PO SCH (16:00)
[2017-03-21] MEDS: LORAZEPAM 1 MG TABLET PO PRN (16:14)
[2017-03-21] MEDS: METHYLPREDNISOLONE INJ 40 MG/1 ML SDV IV SCH ×2 (16:14→22:29)
[2017-03-21] MEDS: TAMSULOSIN HCL 0.4 MG CAP.SR.24H PO SCH (17:58)
[2017-03-21] MEDS: INSULIN LISPRO 100 UNIT/ML 3 ML VIAL SUBCUT PRN (22:30)
[2017-03-21] MEDS: FAMOTIDINE 20 MG TABLET PO SCH (22:30)
[2017-03-21] MEDS: CEFEPIME 1 GM/D5W RTU 1 GM/50 ML RTUPB IV SCH (22:31)
[2017-03-22] MEDS: ACETYLCYSTEINE 10% NEB 400 MG/4 ML VIAL NEB SCH ×4 (01:54→19:41)
[2017-03-22] MEDS: IPRATROPIUM/ALBUTEROL 0.5-2.5 MG/3 ML AMPUL NEB SCH ×4 (01:54→19:41)
[2017-03-22 05:22] LABS: HEMATOCRIT 27.9 % (37.9-51.0); HEMOGLOBIN 9.3 g/dL (13.5-17.0); MEAN CORPUSCULAR HEMOGLOBIN 28.8 pg (27.0-33.4); MEAN CORPUSCULAR HGB CONC 33.4 g/dL (32.0-36.0); MEAN CORPUSCULAR VOLUME 86 fl (80-97); PLATELET COUNT 245 10^3/uL (150-450); RED BLOOD COUNT 3.24 10^6/uL (4.35-5.55); RED CELL DISTRIBUTION WIDTH 17.3 % (11.5-14.0); WHITE BLOOD COUNT 4.8 10^3/uL (4.0-10.5)
[2017-03-22] MEDS: METHYLPREDNISOLONE INJ 40 MG/1 ML SDV IV SCH ×3 (05:30→21:22)
[2017-03-22] MEDS: LEVOTHYROXINE SODIUM 0.088 MG TABLET PO SCH (05:30)
[2017-03-22 05:45] LABS: ALANINE AMINOTRANSFERASE 24 U/L (21-72); ALBUMIN 3.7 g/dL (3.5-5.0); ALKALINE PHOSPHATASE 66 U/L (38-126); ANION GAP 13 (5-19); ASPARTATE AMINO TRANSFERASE 16 U/L (17-59); BILIRUBIN,DIRECT 0.4 mg/dL (0.0-0.4); BILIRUBIN,TOTAL 0.5 mg/dL (0.2-1.3); BLOOD UREA NITROGEN 92 mg/dL (7-20); CALCIUM 9.6 mg/dL (8.4-10.2); CARBON DIOXIDE 25 mmol/L (22-30); CHLORIDE 103 mmol/L (98-107); GLUCOSE 173 mg/dL (75-110); TOTAL PROTEIN 6.7 g/dL (6.3-8.2)
[2017-03-22 06:21] LABS: ABSOLUTE LYMPHOCYTES# (MANUAL) 0.3 10^3/uL (0.5-4.7); ABSOLUTE MONOCYTES # (MANUAL) 0.1 10^3/uL (0.1-1.4); ABSOLUTE NEUTROPHILS# (MANUAL) 4.4 10^3/uL (1.7-8.2); BAND NEUTROPHILS % (MANUAL) 2 % (3-5); BASOPHILS % (MANUAL) 0 % (0-2); EOSINOPHILS % (MANUAL) 0 % (0-6); LYMPHOCYTES % (MANUAL) 6 % (13-45); MONOCYTES % (MANUAL) 2 % (3-13); SEGMENTED NEUTROPHILS % (MAN) 90 % (42-78); TOTAL CELLS COUNTED 100
[2017-03-22 06:23] LABS: ANISOCYTOSIS 1+; POIKILOCYTOSIS 1+; TOXIC GRANULATION 1+
[2017-03-22 06:24] LABS: HELMET CELLS 1+; OVALOCYTES SLIGHT; PLATELET COMMENT ADEQUATE; PLATELET LARGE PRESENT; SCHISTOCYTES 1+; TEAR DROP CELLS SLIGHT
[2017-03-22] MEDS: BUDESONIDE NEB 0.5 MG/2 ML AMPUL NEB SCH ×2 (08:12→19:41)
[2017-03-22] MEDS: INSULIN LISPRO 100 UNIT/ML 3 ML VIAL SUBCUT PRN ×4 (08:28→22:16)
[2017-03-22] MEDS: ACETAMINOPHEN 325 MG TABLET PO PRN ×2 (09:56→22:10)
[2017-03-22] MEDS: INSULIN GLARGINE,HUM.REC.ANLOG 300 UNIT/3 ML INSULN.PEN SUBCUT SCH (09:56)
[2017-03-22] MEDS: DULOXETINE HCL 30 MG CAPSULE.DR PO SCH (09:58)
[2017-03-22] MEDS: FERROUS SULFATE 325 MG TABLET PO SCH ×2 (09:58→17:33)
[2017-03-22] MEDS: ASPIRIN 81 MG TABLET, CHEWABLE PO SCH (09:58)
[2017-03-22] MEDS: APIXABAN 2.5 MG TABLET PO SCH ×2 (09:59→21:20)
[2017-03-22] MEDS: MIDODRINE HCL 5 MG TABLET PO SCH (09:59)
[2017-03-22] MEDS: DILTIAZEM HCL 120 MG CAP.SR.24H PO SCH ×2 (10:00→21:22)
[2017-03-22] MEDS: METOPROLOL TARTRATE 50 MG TABLET PO SCH ×2 (10:00→21:21)
[2017-03-22] MEDS: CEFEPIME 1 GM/D5W RTU 1 GM/50 ML RTUPB IV SCH ×2 (10:01→21:20)
[2017-03-22] MEDS: CHLORHEXIDINE GLUCONATE 0.12% ORAL RINSE 15 ML UDC MM SCH ×2 (10:01→17:33)
[2017-03-22] MEDS: FUROSEMIDE INJ/PF 20 MG/2 ML SDV IV SCH (10:02)
[2017-03-22] MEDS: LORAZEPAM 1 MG TABLET PO PRN ×2 (11:55→23:55)
--- NOTE | 2017-03-22 13:46 | PDOC PROGRESS REPORT ---
Subjective Progress Note for:: 03/22/17 Reason For Visit: The patient was seen today.He is feeling better than when I saw him yesterday. His dyspnea has improved and he is coughing up easier. No c/o fever , chills, hemoptysis. Good urine output. Physical Exam Vital Signs: Temp Pulse Resp BP Pulse Ox 98.1 F 66 18 145/68 H 96 03/22/17 12:36 03/22/17 12:36 03/22/17 12:36 03/22/17 12:36 03/22/17 12:36 Intake & Output 03/21/17 03/22/17 03/23/17 06:59 06:59 06:59 Intake Total 1370 1084 475 Output Total 3305 3150 800 Balance -1934 Weight 136.4 kg 137.4 kg 137.4 kg General appearance: PRESENT: no acute distress Neck exam: PRESENT: tracheostomy Respiratory exam: PRESENT: clear to auscultation rowan, decreased breath sounds, rhonchi - Few scattered Cardiovascular exam: PRESENT: RRR, +S1, +S2 GI/Abdominal exam: PRESENT: soft. ABSENT: ascites, firm, guarding, tenderness Extremities exam: PRESENT: pedal edema Neurological exam: PRESENT: awake, oriented to person, oriented to place Psychiatric exam: PRESENT: appropriate affect Skin exam: ABSENT: erythema, mottled Results Laboratory Results: 03/22/17 04:27 03/22/17 04:27 03/21/17 03/21/17 03/22/17 13:25 13:55 04:27 WBC 7.5 4.8 RBC 3.25 L 3.24 L Hgb 9.3 L 9.3 L Hct 28.2 L 27.9 L MCV 87 86 MCH 28.5 28.8 MCHC 32.8 33.4 RDW 17.5 H 17.3 H Plt Count 267 245 Seg Neutrophils % 77.3 Not Reportable Lymphocytes % 10.5 L Not Reportable Monocytes % 11.4 Not Reportable Eosinophils % 0.3 Not Reportable Basophils % 0.5 Not Reportable Absolute Neutrophils 5.8 Not Reportable Absolute Lymphocytes 0.8 Not Reportable Absolute Monocytes 0.9 Not Reportable Absolute Eosinophils 0.0 Not Reportable Absolute Basophils 0.0 Not Reportable Sodium Potassium Chloride Carbon Dioxide Anion Gap BUN Creatinine Est GFR ( Amer) Est GFR (Non-Af Amer) Glucose Calcium Total Bilirubin AST ALT Alkaline Phosphatase Total Protein Albumin Urine Color YELLOW Urine Appearance CLOUDY Urine pH 5.0 Ur Specific [place] 1.008 Urine Protein 100 H Urine Glucose (UA) NEGATIVE Urine Ketones NEGATIVE Urine Blood MODERATE H Urine Nitrite NEGATIVE Ur Leukocyte Esterase LARGE H Urine WBC (Auto) 113 Urine RBC (Auto) 19 03/22/17 04:27 WBC RBC Hgb Hct MCV MCH MCHC RDW Plt Count Seg Neutrophils % Lymphocytes % Monocytes % Eosinophils % Basophils % Absolute Neutrophils Absolute Lymphocytes Absolute Monocytes Absolute Eosinophils Absolute Basophils Sodium 141.0 Potassium 5.0 Chloride 103 Carbon Dioxide 25 Anion Gap 13 BUN 92 H Creatinine 3.04 H Est GFR ( Amer) 25 L Est GFR (Non-Af Amer) 20 L Glucose 173 H Calcium 9.6 Total Bilirubin 0.5 AST 16 L ALT 24 Alkaline Phosphatase 66 Total Protein 6.7 Albumin 3.7 Urine Color Urine Appearance Urine pH Ur Specific [place] Urine Protein Urine Glucose (UA) Urine Ketones Urine Blood Urine Nitrite Ur Leukocyte Esterase Urine WBC (Auto) Urine RBC (Auto) 03/18/17 03/18/17 03/19/17 18:10 23:40 05:41 Troponin I < 0.012 < 0.012 < 0.012 NT-Pro-B Natriuret Pep 86226 H Impressions: Chest X-Ray 03/21/17 00:00 IMPRESSION: Persistent right lower lobe pneumonia with improved aeration. No evidence of cavitation or pneumothorax. Assessment & Plan - Diagnosis (1) Acute and chronic respiratory failure Qualifiers: Respiratory failure complication: hypoxia and hypercapnia Qualified Code(s) : J96.21 - Acute and chronic respiratory failure with hypoxia; J96.22 - Acute and chronic respiratory failure with hypercapnia; J96.22 - Acute and chronic respiratory failure with hypercapnia; J96.22 - Acute and chronic respiratory failure with hypercapnia Is this a current diagnosis for this admission?: Yes Plan: Likely predominant infective exacerberation of COPD. Began on steroids and antibiotics yesterday and he is starting to feel better. Coughing up phlegm more easily. (2) Kidney disease, chronic, stage IV (GFR 15-29 ml/min) Is this a current diagnosis for this admission?: Yes (3) Acute kidney injury Is this a current diagnosis for this admission?: Yes Plan: Likely ATN from Infective copd with a possible pre renal involvement from some CHF. His baseline creatinine is around 2.7- 3 and his latest renal nos are encouraging. Continue on current medications. Dose to a gfr of < 30 cc/min. (4) Atrial fibrillation and flutter Is this a current diagnosis for this admission?: Yes Plan: As per hospitalist. (5) Anemia Plan: Iron is adequate.Initiate other work up and plan to initiate EPO. (6) Diabetes mellitus Qualifiers: Diabetes mellitus type: type 2 Diabetes mellitus complication status: with kidney complications Diabetes mellitus complication detail: with chronic kidney disease Diabetes mellitus long term care phlebotomist insulin use: with correction use Chronic kidney disease stage: stage 4 (severe) Qualified Code(s): E11.22 - Type 2 diabetes mellitus with diabetic chronic kidney disease; N18.4 - Chronic kidney disease, stage 4 (severe); N18.4 - Chronic kidney disease, stage 4 ( severe); N18.4 - Chronic kidney disease, stage 4 (severe); N18.4 - Chronic kidney disease, stage 4 (severe); Z79.4 - MCFP (current) use of insulin; Z79.4 - MCFP (current) use of insulin; Z79.4 - MCFP (current) use of insulin; Z79.4 - MCFP (current) use of insulin Is this a current diagnosis for this admission?: Yes Plan: Adv tight control. (7) Tracheostomy dependence Is this a current diagnosis for this admission?: Yes Plan: As per hospitalist (8) Morbid obesity Plan: Adv on need for losing weight for decreasing long term care phlebotomist morbidity. (9) Congestive heart failure Qualifiers: Congestive heart failure type: unspecified Congestive heart failure chronicity: unspecified Qualified Code(s): I50.9 - Heart failure, unspecified Plan: Stable.
[2017-03-22] MEDS: TAMSULOSIN HCL 0.4 MG CAP.SR.24H PO SCH (17:32)
[2017-03-22] MEDS: NYSTATIN TOPICAL POWDER 15 GM TP SCH (20:28)
[2017-03-22] MEDS: FAMOTIDINE 20 MG TABLET PO SCH (21:22)
[2017-03-22] MEDS: LATANOPROST 0.005% OPH SOLN 2.5 ML OU SCH (21:27)
[2017-03-23] MEDS: IPRATROPIUM/ALBUTEROL 0.5-2.5 MG/3 ML AMPUL NEB SCH ×4 (02:15→20:01)
[2017-03-23] MEDS: ACETYLCYSTEINE 10% NEB 400 MG/4 ML VIAL NEB SCH ×4 (02:15→20:01)
[2017-03-23 05:29] LABS: HEMATOCRIT 27.4 % (37.9-51.0); HEMOGLOBIN 9.1 g/dL (13.5-17.0); MEAN CORPUSCULAR HEMOGLOBIN 28.9 pg (27.0-33.4); MEAN CORPUSCULAR HGB CONC 33.3 g/dL (32.0-36.0); MEAN CORPUSCULAR VOLUME 87 fl (80-97); PLATELET COUNT 234 10^3/uL (150-450); RED BLOOD COUNT 3.17 10^6/uL (4.35-5.55); RED CELL DISTRIBUTION WIDTH 17.4 % (11.5-14.0); WHITE BLOOD COUNT 7.1 10^3/uL (4.0-10.5)
[2017-03-23 05:54] LABS: ANION GAP 12 (5-19); BLOOD UREA NITROGEN 100 mg/dL (7-20); CALCIUM 9.5 mg/dL (8.4-10.2); CARBON DIOXIDE 27 mmol/L (22-30); CHLORIDE 102 mmol/L (98-107); GLUCOSE 174 mg/dL (75-110); MAGNESIUM 1.9 mg/dL (1.6-2.3); POTASSIUM 4.7 mmol/L (3.6-5.0); SODIUM 140.7 mmol/L (137-145)
[2017-03-23] MEDS: LEVOTHYROXINE SODIUM 0.088 MG TABLET PO SCH (06:32)
[2017-03-23] MEDS: METHYLPREDNISOLONE INJ 40 MG/1 ML SDV IV SCH ×3 (06:32→21:25)
[2017-03-23] MEDS: BUDESONIDE NEB 0.5 MG/2 ML AMPUL NEB SCH ×2 (08:16→20:01)
[2017-03-23] MEDS: INSULIN LISPRO 100 UNIT/ML 3 ML VIAL SUBCUT PRN ×4 (09:08→21:33)
[2017-03-23] MEDS: FUROSEMIDE INJ/PF 20 MG/2 ML SDV IV SCH (09:08)
[2017-03-23] MEDS: APIXABAN 2.5 MG TABLET PO SCH ×2 (09:08→21:33)
[2017-03-23] MEDS: INSULIN GLARGINE,HUM.REC.ANLOG 300 UNIT/3 ML INSULN.PEN SUBCUT SCH (09:08)
[2017-03-23] MEDS: DILTIAZEM HCL 120 MG CAP.SR.24H PO SCH ×2 (09:09→21:33)
[2017-03-23] MEDS: DULOXETINE HCL 30 MG CAPSULE.DR PO SCH (09:09)
[2017-03-23] MEDS: ASPIRIN 81 MG TABLET, CHEWABLE PO SCH (09:09)
[2017-03-23] MEDS: CHLORHEXIDINE GLUCONATE 0.12% ORAL RINSE 15 ML UDC MM SCH ×2 (09:10→17:22)
[2017-03-23] MEDS: FERROUS SULFATE 325 MG TABLET PO SCH ×2 (09:10→17:21)
[2017-03-23] MEDS: METOPROLOL TARTRATE 50 MG TABLET PO SCH ×2 (09:10→21:26)
[2017-03-23] MEDS: NYSTATIN TOPICAL POWDER 15 GM TP SCH ×2 (09:11→17:22)
[2017-03-23] MEDS: SILVER SULFADIAZINE 1% CREAM 50 GM TP SCH ×2 (09:11→17:22)
[2017-03-23] MEDS: CEFEPIME 1 GM/D5W RTU 1 GM/50 ML RTUPB IV SCH ×2 (09:14→21:25)
--- NOTE | 2017-03-23 15:19 | PROGRESS NOTE E ---
Progress Note NAME: DIAMOND KHAN : 1945 AGE: 71Y DATE: 03/23/2017 ROOM: 315 SUBJECTIVE: The patient is currently lying in bed. The patient states that he feels better today than he did yesterday. He denies any nausea, vomiting, diarrhea. No shortness of breath, dizziness, chest pain. No fevers, chills. The patient has been afebrile. Blood pressure has been in a good range, and the patient does not voice any other concerns at this time. REVIEW OF SYSTEMS: Rest of review of systems is negative. MEDICATIONS: Medications have been reviewed. OBJECTIVE: GENERAL: The patient is a 71-year-old male who is awake, alert and oriented to person, place, time and situation. He is verbal, conversational, and does not appear to be distressed. VITAL SIGNS FOLLOWS: Temperature is 97.5. Pulse 68. Respirations 18. Blood pressure is 165/69. Oxygen saturation is 96% on 6 L via trach collar. SKIN: Warm and dry. No rash. He is not diaphoretic. HEENT: Pupils are reactive. Conjunctivae are pink. NECK: No evidence of JVP. Tracheostomy is in place. CARDIOVASCULAR SYSTEM: Heart is regular. There is no murmur or rub. CHEST: Some coarse lung sounds throughout. ABDOMEN: Obese. EXTREMITIES: No clubbing, cyanosis. Patient has evidence of chronic lymphedema. PSYCHIATRIC: The patient does have a baseline flat affect. DIAGNOSTICS: Lab values are as follows. Hematology obtained on 03/23/2017: WBCs are 7.1; hemoglobin is 9.1; hematocrit is 27.4; platelet count is 234,000. Chemistry obtained on 03/23/2017: Sodium is 140, potassium 4.7, chloride is 102, carbon dioxide 27. BUN 100, creatinine 3.12, glucose 174. Calcium is 9.5. Magnesium is 1.9. IMPRESSION AND PLAN: 1. LEFT LOWER LOBE PNEUMONIA. Will continue antibiotic coverage. The patient symptomatically is improving. Will follow. 2. CHRONIC OBSTRUCTIVE PULMONARY DISEASE. THIS IS QUITE SEVERE. Continue the patient's nebulizers and follow. 3. [id number] DIASTOLIC CONGESTIVE HEART FAILURE. The patient appears optivolemic. 4. [id number] HYPOXEMIC RESPIRATORY FAILURE SECONDARY TO ALL OF THE ABOVE. THIS APPEARS TO BE IMPROVING. 5. HYPERKALEMIA, RESOLVED. 6. CHRONIC KIDNEY DISEASE STAGE 4. The patient's creatinine is at baseline. 7. HYPOTHYROIDISM, STABLE. 8. TRACHEOSTOMY DEPENDENCE. I discussed the case with General Surgery, who is willing to exchange the patient's tracheostomy. However, does need a size down cuff which is not stocked. This will have to be ordered Saturday. 9. MORBID OBESITY WITH A BMI OF 47. Will encourage weight reduction. 10. URINARY RETENTION. The patient does have a chronic Barragan. His 30 days is up today. Will exchange Barragan in the a.m. 11. CORONARY ARTERY DISEASE. Will continue the patient's home medications. 12. CHRONIC ANTICOAGULATION. THIS IS DUE TO THE PATIENT'S AFIB/A-FLUTTER. He is presently rate controlled and on Eliquis. DISPOSITION: The patient is a FULL CODE. Pending patient's symptomatology and diagnostic findings, will reevaluate in the a.m. TIME SPENT: Time spent on this followup including assessment, plan, physical examination, patient education, review of records, and family meeting is 25 minutes. DICTATING PHYSICIAN: GENE OLIVO NP [id number] PHY#: [id number] ID: [id number] JOB#: [id number] ACCT: [id number] cc: >
[2017-03-23] MEDS: TAMSULOSIN HCL 0.4 MG CAP.SR.24H PO SCH (17:21)
--- NOTE | 2017-03-23 17:42 | PROGRESS NOTE E ---
Progress Note NAME: DIAMOND KHAN : 1945 AGE: 71Y DATE: 03/22/2017 ROOM: 315 SUBJECTIVE: Mr. Khan is currently lying in bed. The patient is breathing. Evidently has improved in comparison to yesterday. The patient's says that he sounds much better. He has been producing some green sputum with suction. The patient has been afebrile. His blood pressures have been in a good range. The patient has been moving air without issue. He has no reported episodes of hypoxia, and the patient does not voice any other concerns at the time of review of systems. Rest of review of systems is negative. MEDICATIONS: Medications have been reviewed. OBJECTIVE: Mr. Khan is a 71-year-old male who is awake, alert. He is oriented to person, place, time, and situation. He does not appear to be distressed. Vital signs as follows: Temperature is 98.6. Pulse 67. Respirations 18. Blood pressure is 154/67. Oxygen saturation is 98% on 5 L trach collar. Skin is dry. He is no diaphoretic. HEENT: Pupils are reactive. Tracheostomy in place. No evidence of JVP. CVS: Heart is regular. No rubs. Chest is diminished, symmetrical and labored, very coarse. Abdomen is obese. No tenderness. Extremities: No clubbing, cyanosis, edema. Psychiatric: Appropriate affect, pleasant. DIAGNOSTIC LAB VALUES ARE FOLLOWS: Hematology 03/22/2017: WBCs are 4.8, hemoglobin is 9.3, hematocrit is 27.9, platelet count is 245,000. Chemistry panel 03/22/2017: Sodium is 141, potassium 5.0, chloride is 103, BUN 92, creatinine 3.04, glucose 173, calcium is 9.6, bilirubin 0.5, AST 16, ALT 24, alkaline phos 66, total protein is 6.7, albumin 3.7. IMPRESSION AND PLAN: 1. LEFT LOWER LOBE PNEUMONIA. Will continue broad spectrum coverage, given the patient's risk for Pseudomonas and follow. 2. CHRONIC OBSTRUCTIVE PULMONARY DISEASE EXACERBATION. The patient's symptoms overall are improved. Will continue steroids and current coverage and follow. 3. ACUTE ON CHRONIC HYPOXEMIC RESPIRATORY FAILURE. The patient's on home O2 setting. 4. HYPERKALEMIA. This appears resolved. 5. CHRONIC KIDNEY DISEASE STAGE 4. The patient's creatinine is now back at baseline. Do appreciate cardiology input on this. 6. HYPOTHYROIDISM. Stable. 7. TRACHEAL DEPENDENCE. 8. ACUTE ON CHRONIC DIASTOLIC CONGESTIVE HEART FAILURE. The patient appears euvolemic at this point. 9. CORONARY ARTERY DISEASE. Continue the patient's home medications. 10. DIABETES MELLITUS TYPE 2. Will continue current coverage. DISPOSITION: The patient is a full code. Pending patient's symptomatology and diagnostic findings, will reevaluate in the a.m. Time spent on this followup including assessment, plan, physical examination, patient education, review of records, family meeting is 25 minutes. DICTATING PHYSICIAN: GENE OLIVO NP [id number] [id number] PHY#: [id number] ID: [id number] JOB#: [id number] ACCT: [id number] cc: > MTDD
[2017-03-23] MEDS: ACETAMINOPHEN 325 MG TABLET PO PRN (21:26)
[2017-03-23] MEDS: FAMOTIDINE 20 MG TABLET PO SCH (21:26)
[2017-03-23] MEDS: LATANOPROST 0.005% OPH SOLN 2.5 ML OU SCH (21:33)
[2017-03-24] MEDS: LORAZEPAM 1 MG TABLET PO PRN (00:07)
[2017-03-24] MEDS: IPRATROPIUM/ALBUTEROL 0.5-2.5 MG/3 ML AMPUL NEB SCH ×4 (02:19→19:55)
[2017-03-24] MEDS: ACETYLCYSTEINE 10% NEB 400 MG/4 ML VIAL NEB SCH ×2 (02:19→08:13)
[2017-03-24] MEDS: METHYLPREDNISOLONE INJ 40 MG/1 ML SDV IV SCH ×2 (06:36→13:52)
[2017-03-24] MEDS: LEVOTHYROXINE SODIUM 0.088 MG TABLET PO SCH (06:36)
[2017-03-24] MEDS: INSULIN LISPRO 100 UNIT/ML 3 ML VIAL SUBCUT PRN ×4 (06:36→22:37)
[2017-03-24] MEDS: BUDESONIDE NEB 0.5 MG/2 ML AMPUL NEB SCH ×2 (08:13→19:54)
[2017-03-24] MEDS: APIXABAN 2.5 MG TABLET PO SCH ×2 (10:13→21:50)
[2017-03-24] MEDS: DULOXETINE HCL 30 MG CAPSULE.DR PO SCH (10:13)
[2017-03-24] MEDS: INSULIN GLARGINE,HUM.REC.ANLOG 300 UNIT/3 ML INSULN.PEN SUBCUT SCH (10:13)
[2017-03-24] MEDS: METOPROLOL TARTRATE 50 MG TABLET PO SCH ×2 (10:14→21:51)
[2017-03-24] MEDS: ASPIRIN 81 MG TABLET, CHEWABLE PO SCH (10:14)
[2017-03-24] MEDS: FERROUS SULFATE 325 MG TABLET PO SCH ×2 (10:15→17:11)
[2017-03-24] MEDS: FUROSEMIDE INJ/PF 20 MG/2 ML SDV IV SCH (10:15)
[2017-03-24] MEDS: DILTIAZEM HCL 120 MG CAP.SR.24H PO SCH ×2 (10:15→21:51)
[2017-03-24] MEDS: NYSTATIN TOPICAL POWDER 15 GM TP SCH ×2 (10:16→17:13)
[2017-03-24] MEDS: CHLORHEXIDINE GLUCONATE 0.12% ORAL RINSE 15 ML UDC MM SCH ×2 (10:16→17:12)
[2017-03-24] MEDS: SILVER SULFADIAZINE 1% CREAM 50 GM TP SCH ×2 (10:16→17:13)
[2017-03-24] MEDS: CEFEPIME 1 GM/D5W RTU 1 GM/50 ML RTUPB IV SCH ×2 (10:17→21:50)
[2017-03-24] MEDS: ACETAMINOPHEN 325 MG TABLET PO PRN ×2 (14:38→21:51)
--- NOTE | 2017-03-24 15:09 | PROGRESS NOTE E ---
Progress Note NAME: DIAMOND KHAN : 1945 AGE: 71Y DATE: 03/24/2017 ROOM: 315 SUBJECTIVE: The patient is lying in bed. He states that he feels okay today, a little better every day. He denies any nausea, vomiting, diarrhea. No dizziness or chest pain. Overall, feels his shortness of breath has resolved, as he has not had any. The patient has been having a decent amount of secretions from his tracheostomy. The patient feels he is overall oxygenating better. The patient has been afebrile. His blood pressures have been in a good range. The patient does not voice any other concerns at this time. BRIEF HISTORY: The patient is a 71-year-old male with a past medical history of tracheostomy, morbid obesity and general deconditioning. The patient presented to the emergency department due to increasing shortness of breath. The patient was found to have a left basilar pneumonia, as well as worsening kidney function. The patient has underlying chronic kidney disease, stage IV. Through the patient's course, he has remained afebrile. Blood pressures have been in a good range. The patient has been covered with antibiotic coverage. The patient did have persistent dyspnea though, and actually was diuresed. The patient was seen by Nephrology. Additionally, the patient developed wheezing, so it was felt that the patient's symptoms may be more due to COPD exacerbation; therefore, the patient was started on steroids, with significant improvement of symptoms. During the patient's course of stay, the patient and family have elected to proceed with rehab placement. The patient's tracheostomy has been in place since July and the patient apparently was supposed to have it changed. I did discuss this with Dr. Brooke, the surgicalist, over the weekend, who graciously agreed to exchange the tracheostomy. However, the patient does not have the next size lower nor do we have it stocked in our storeroom, as it would be ideal to have this on hand when exchanging a trach, in the event the patient does need to be downsized. Therefore, this will be ordered from the stockroom, and when available, Surgery will exchange this. However, it should not impede the patient's discharge, as he can follow up with ENT in town on an outpatient basis for this. The patient would like the trachea exchanged, given that he states, at times, it can be uncomfortable and he feels that it is "wore out." The patient has had no evidence of aspiration nor symptoms of this. REVIEW OF SYSTEMS: The rest of the review of systems is negative. MEDICATIONS: Reviewed. OBJECTIVE: GENERAL: The patient is 71-year-old male, who is awake, alert and oriented to person, place, time and situation. He is verbal and conversational and does not appear to be in any acute distress. VITAL SIGNS: Temperature is 97.4, pulse 63, respirations 18, blood pressure 136/63. Oxygen saturation is 99% on 6 liters via trach collar. SKIN: Warm and dry. He is quite pale. No rash. He is not diaphoretic. HEENT: Pupils are reactive. Mucous membranes are moist. Tracheostomy in place. There is no evidence of JVP. CVS: Heart is regular. There is no murmur or rub. CHEST: Clear, symmetrical, unlabored. ABDOMEN: Obese, soft. No area of focal tenderness. EXTREMITIES: No clubbing, cyanosis, edema. GENITOURINARY: Valverde is draining clear yellow urine. PSYCHIATRIC: Appropriate affect, pleasant mood. DIAGNOSTICS: Lab values are as follows: Hematology obtained on 03/23/2017: WBCs are 7.1, hemoglobin is 9.1, hematocrit is 27.4, platelet count is 234,000. Chemistry obtained on 03/23/2017: Sodium is 140, potassium 4.7, chloride is 102, carbon dioxide is 27. BUN 100, creatinine 3.12. Glucose 174, calcium is 9.5. Magnesium is 1.9. IMPRESSION AND PLAN: 1. LEFT LOWER LOBE PNEUMONIA. Will continue antibiotic coverage. The patient has responded well to this. 2. CHRONIC OBSTRUCTIVE PULMONARY DISEASE EXACERBATION. This is quite severe. The patient has responded well to scheduled nebulizers, as well as steroids. Will transition to oral steroids today. 3. ACUTE ON CHRONIC DIASTOLIC CONGESTIVE HEART FAILURE. The patient now appears to be optivolemic. Do appreciate Nephrology's input. 4. ACUTE ON CHRONIC HYPOXEMIC RESPIRATORY FAILURE, SECONDARY TO ALL THE ABOVE. The patient is improving. 5. HYPERKALEMIA, RESOLVED. 6. CHRONIC KIDNEY DISEASE, STAGE IV. The patient's creatinine is at baseline. 7. HYPOTHYROIDISM. This is stable. 8. TRACHEOSTOMY DEPENDENCE. I discussed the case with the weekend surgicalist, who was willing to do the exchange of the tracheostomy; however, he would like to have the next lower size trach on hand, which would be an XL 4. The storeroom does not stock this; however, I had made a note for nursing to call in the a.m. and order this from the stockroom. If this is available and the patient is still inhouse, Surgery has agreed to the exchange, if the surgicalist is on duty that is comfortable with this. I greatly appreciate this; however, if the patient has placement before this can be arranged, he can follow up outpatient with ENT. 9. MORBID OBESITY, WITH A BMI OF 47. Will encourage weight reduction. 10. URINARY RETENTION AND SUBSEQUENT CHRONIC VALVERDE. The patient's Valverde was exchanged yesterday on 03/23/2017. 11. CORONARY ARTERY DISEASE. Continue home medication. 12. AFIB/AFLUTTER. The patient is currently weight-controlled on Eliquis. 13. CHRONIC ANTICOAGULATION, DUE TO THE PATIENT'S AFIB/AFLUTTER. 12. DIABETES MELLITUS TYPE II. Increased basal. DISPOSITION: The patient is a FULL CODE. Pending the patient's symptomatology and diagnostic findings, will reevaluate in the a.m. The patient can go to rehab as soon as a bed is available. Time spent on this followup, including assessment, plan, physical examination, patient education and review of records is 25 minutes. DICTATING PHYSICIAN: GENE OLIVO NP [id number] [id number] PHY#: [id number] ID: [id number] JOB#: [id number] ACCT: [id number] cc: > [facility]
[2017-03-24] MEDS ORDERED: PREDNISONE 20 MG TABLET PO ONE (15:30)
[2017-03-24] MEDS: TAMSULOSIN HCL 0.4 MG CAP.SR.24H PO SCH (17:11)
[2017-03-24] MEDS: PREDNISONE 20 MG TABLET PO SCH (21:51)
[2017-03-24] MEDS: FAMOTIDINE 20 MG TABLET PO SCH (21:51)
[2017-03-24] MEDS: LATANOPROST 0.005% OPH SOLN 2.5 ML OU SCH (21:53)
[2017-03-25] MEDS: LORAZEPAM 1 MG TABLET PO PRN (00:02)
[2017-03-25] MEDS: IPRATROPIUM/ALBUTEROL 0.5-2.5 MG/3 ML AMPUL NEB SCH ×4 (02:23→19:54)
[2017-03-25 05:23] LABS: HEMATOCRIT 27.8 % (37.9-51.0); HEMOGLOBIN 9.2 g/dL (13.5-17.0); MEAN CORPUSCULAR HEMOGLOBIN 28.9 pg (27.0-33.4); MEAN CORPUSCULAR HGB CONC 33.2 g/dL (32.0-36.0); MEAN CORPUSCULAR VOLUME 87 fl (80-97); PLATELET COUNT 203 10^3/uL (150-450); RED BLOOD COUNT 3.19 10^6/uL (4.35-5.55); RED CELL DISTRIBUTION WIDTH 17.1 % (11.5-14.0); WHITE BLOOD COUNT 10.1 10^3/uL (4.0-10.5)
[2017-03-25 05:37] LABS: ANION GAP 14 (5-19); CALCIUM 9.1 mg/dL (8.4-10.2); CARBON DIOXIDE 22 mmol/L (22-30); CHLORIDE 104 mmol/L (98-107); GLUCOSE 229 mg/dL (75-110); POTASSIUM 4.2 mmol/L (3.6-5.0); SODIUM 140.3 mmol/L (137-145)
[2017-03-25 05:43] LABS: BLOOD UREA NITROGEN 118 mg/dL (7-20)
[2017-03-25] MEDS: LEVOTHYROXINE SODIUM 0.088 MG TABLET PO SCH (06:43)
[2017-03-25] MEDS: BUDESONIDE NEB 0.5 MG/2 ML AMPUL NEB SCH ×2 (09:38→19:54)
--- NOTE | 2017-03-25 10:36 | PDOC PROGRESS REPORT ---
Subjective Progress Note for:: 03/25/17 Subjective:: Patient was seen today sitting up in bed. He feels that he is doing much better. He denies SOB, chest pain, fevers, or chills. According to the nurse when discharge he will be going to an inpatient rehab facility. Reason For Visit: ACUTE RESPIRATORY FAILURE WITH HYPOXEMIA Physical Exam Vital Signs: Temp Pulse Resp BP Pulse Ox 98.2 F 64 18 129/73 H 100 03/25/17 07:35 03/25/17 07:35 03/25/17 07:35 03/25/17 07:35 03/25/17 07:35 Intake & Output 03/24/17 03/25/17 03/26/17 06:59 06:59 06:59 Intake Total 2192 2594 Output Total 2100 2100 Balance 92 494 Weight 139.2 kg 138.6 kg General appearance: PRESENT: no acute distress, morbidly obese, well-developed, well-nourished Mouth exam: PRESENT: moist, tongue midline Respiratory exam: PRESENT: crackles. ABSENT: accessory muscle use, clear to auscultation rowan, rales, rhonchi, wheezes Cardiovascular exam: PRESENT: RRR, +S1, +S2 GI/Abdominal exam: PRESENT: soft. ABSENT: ascites, firm, guarding, tenderness Extremities exam: ABSENT: pedal edema, tenderness Musculoskeletal exam: PRESENT: normal inspection. ABSENT: tenderness Neurological exam: PRESENT: alert, awake, oriented to person, oriented to place , oriented to time, oriented to situation Psychiatric exam: PRESENT: appropriate affect, normal mood Skin exam: PRESENT: dry, intact, warm Results Laboratory Results: 03/25/17 05:02 03/25/17 05:02 03/25/17 03/25/17 05:02 05:02 WBC 10.1 RBC 3.19 L Hgb 9.2 L Hct 27.8 L MCV 87 MCH 28.9 MCHC 33.2 RDW 17.1 H Plt Count 203 Sodium 140.3 Potassium 4.2 Chloride 104 Carbon Dioxide 22 Anion Gap 14 BUN 118 H Creatinine 2.96 H Est GFR ( Amer) 26 L Est GFR (Non-Af Amer) 21 L Glucose 229 H Calcium 9.1 Magnesium 2.0 03/18/17 03/18/17 03/19/17 18:10 23:40 05:41 Troponin I < 0.012 < 0.012 < 0.012 NT-Pro-B Natriuret Pep [id number] H Impressions: Chest X-Ray 03/21/17 00:00 IMPRESSION: Persistent right lower lobe pneumonia with improved aeration. No evidence of cavitation or pneumothorax. Assessment & Plan - Diagnosis (1) Acute and chronic respiratory failure Qualifiers: Respiratory failure complication: hypoxia and hypercapnia Qualified Code(s) : J96.21 - Acute and chronic respiratory failure with hypoxia; J96.22 - Acute and chronic respiratory failure with hypercapnia; J96.22 - Acute and chronic respiratory failure with hypercapnia; J96.22 - Acute and chronic respiratory failure with hypercapnia Is this a current diagnosis for this admission?: Yes Plan: Looks and sounds better. Currently still receiving antibiotics. Looks to be stable. (2) Acute kidney injury Is this a current diagnosis for this admission?: Yes Plan: looks to have resolved. He is down to his baseline creatinine of 2.9. At this point the patient's kidneys are stable. (3) Anemia Plan: On ferrous sulfate bid, labs currently pending. Depending on results will start epo (4) Kidney disease, chronic, stage IV (GFR 15-29 ml/min) Is this a current diagnosis for this admission?: Yes Plan: at baseline (5) COPD, severe Is this a current diagnosis for this admission?: Yes (6) Hypertension Qualifiers: Hypertension type: essential hypertension Qualified Code(s): I10 - Essential (primary) hypertension Is this a current diagnosis for this admission?: Yes Plan: controlled (7) Diabetes mellitus Qualifiers: Diabetes mellitus type: type 2 Diabetes mellitus complication status: with kidney complications Diabetes mellitus complication detail: with chronic kidney disease Diabetes mellitus half-way insulin use: with half-way use Chronic kidney disease stage: stage 4 (severe) Qualified Code(s): E11.22 - Type 2 diabetes mellitus with diabetic chronic kidney disease; N18.4 - Chronic kidney disease, stage 4 (severe); N18.4 - Chronic kidney disease, stage 4 ( severe); N18.4 - Chronic kidney disease, stage 4 (severe); N18.4 - Chronic kidney disease, stage 4 (severe); Z79.4 - terminal manager (current) use of insulin; Z79.4 - terminal manager (current) use of insulin; Z79.4 - terminal manager (current) use of insulin; Z79.4 - skilled nursing (current) use of insulin Is this a current diagnosis for this admission?: Yes Plan: Poorly controlled, patient needs to be on proper low carb diet, which he does not follow. (8) Acute on chronic diastolic (congestive) heart failure Is this a current diagnosis for this admission?: Yes Plan: resolved (9) Tracheostomy dependence Is this a current diagnosis for this admission?: Yes Plan: see notes per hospitalist
[2017-03-25] MEDS: INSULIN GLARGINE,HUM.REC.ANLOG 300 UNIT/3 ML INSULN.PEN SUBCUT SCH (10:37)
[2017-03-25] MEDS: CHLORHEXIDINE GLUCONATE 0.12% ORAL RINSE 15 ML UDC MM SCH ×2 (10:38→17:59)
[2017-03-25] MEDS: DULOXETINE HCL 30 MG CAPSULE.DR PO SCH (10:39)
[2017-03-25] MEDS: ASPIRIN 81 MG TABLET, CHEWABLE PO SCH (10:40)
[2017-03-25] MEDS: APIXABAN 2.5 MG TABLET PO SCH ×2 (10:40→20:58)
[2017-03-25] MEDS: FERROUS SULFATE 325 MG TABLET PO SCH ×2 (10:40→17:59)
[2017-03-25] MEDS: PREDNISONE 20 MG TABLET PO SCH ×2 (10:40→21:14)
[2017-03-25] MEDS: METOPROLOL TARTRATE 50 MG TABLET PO SCH ×2 (10:41→21:14)
[2017-03-25] MEDS: DILTIAZEM HCL 120 MG CAP.SR.24H PO SCH ×2 (10:41→21:13)
[2017-03-25] MEDS: FUROSEMIDE 40 MG TABLET PO SCH (10:41)
[2017-03-25] MEDS: CEFEPIME 1 GM/D5W RTU 1 GM/50 ML RTUPB IV SCH ×2 (10:43→21:14)
[2017-03-25] MEDS: NYSTATIN TOPICAL POWDER 15 GM TP SCH ×2 (10:49→18:04)
[2017-03-25] MEDS: SILVER SULFADIAZINE 1% CREAM 50 GM TP SCH ×2 (10:50→18:04)
--- NOTE | 2017-03-25 11:59 | PDOC PROGRESS REPORT ---
Subjective Progress Note for:: 03/25/17 Subjective:: The patient is resting in his bed. He has no overnight complaints. His tracheostomy is working properly. He states that he is just weak and is looking forward to going to rehab. He is hoping he can go to a facility fairly close to home. He denies fever chills. No chest pain, shortness of breath or heart palpitations. No nausea, vomiting or diarrhea. No dysuria, frequency or hematuria. Reason For Visit: ACUTE RESPIRATORY FAILURE WITH HYPOXEMIA Physical Exam Vital Signs: Temp Pulse Resp BP Pulse Ox 98.2 F 77 18 129/73 H 97 03/25/17 07:35 03/25/17 09:38 03/25/17 09:38 03/25/17 07:35 03/25/17 09:38 Intake & Output 03/24/17 03/25/17 03/26/17 06:59 06:59 06:59 Intake Total 2192 2594 Output Total 2100 2100 Balance 92 494 Weight 139.2 kg 138.6 kg General appearance: PRESENT: no acute distress, morbidly obese, other - He is chronically ill-appearing with a tracheostomy in place Head exam: PRESENT: atraumatic, normocephalic Mouth exam: PRESENT: other Throat exam: PRESENT: other - He has a tracheostomy in place that appears to be working properly Respiratory exam: PRESENT: clear to auscultation rowan, decreased breath sounds - He is diminished in the lower bases bilaterally. ABSENT: rales, rhonchi, wheezes GI/Abdominal exam: PRESENT: normal bowel sounds, soft, other - His abdomen is morbidly obese. I could not assess for organomegaly due to the patient's body habitus. ABSENT: distended, guarding, mass, rebound, tenderness Rectal exam: PRESENT: deferred Extremities exam: PRESENT: full ROM, pedal edema. ABSENT: calf tenderness, clubbing Neurological exam: PRESENT: alert, awake, oriented to person, oriented to place , oriented to time, oriented to situation, CN II-XII grossly intact. ABSENT: motor sensory deficit Psychiatric exam: PRESENT: appropriate affect, normal mood. ABSENT: homicidal ideation, suicidal ideation Skin exam: PRESENT: dry, intact, warm. ABSENT: cyanosis, rash Results Laboratory Results: 03/25/17 05:02 03/25/17 05:02 03/25/17 03/25/17 05:02 05:02 WBC 10.1 RBC 3.19 L Hgb 9.2 L Hct 27.8 L MCV 87 MCH 28.9 MCHC 33.2 RDW 17.1 H Plt Count 203 Sodium 140.3 Potassium 4.2 Chloride 104 Carbon Dioxide 22 Anion Gap 14 BUN 118 H Creatinine 2.96 H Est GFR ( Amer) 26 L Est GFR (Non-Af Amer) 21 L Glucose 229 H Calcium 9.1 Magnesium 2.0 03/18/17 03/18/17 03/19/17 18:10 23:40 05:41 Troponin I < 0.012 < 0.012 < 0.012 NT-Pro-B Natriuret Pep 80311 H Impressions: Chest X-Ray 03/21/17 00:00 IMPRESSION: Persistent right lower lobe pneumonia with improved aeration. No evidence of cavitation or pneumothorax. Assessment & Plan - Diagnosis (1) Acute and chronic respiratory failure with hypoxia Is this a current diagnosis for this admission?: Yes Plan: Resolved. This was due to underlying pneumonia and a COPD exacerbation as well as congestive heart failure. His acute respiratory failure has resolved and he is at his baseline. (2) Pneumonia Qualifiers: Lung location: unspecified part of lung Is this a current diagnosis for this admission?: Yes Plan: Concerns for gram negatives. Continue cefepime. (3) COPD exacerbation Is this a current diagnosis for this admission?: Yes Plan: Resolving. Continue current regimen (4) Acute on chronic diastolic (congestive) heart failure Is this a current diagnosis for this admission?: Yes Plan: Resolved. Currently he is stable (5) Acute on chronic renal failure Is this a current diagnosis for this admission?: Yes Plan: His creatinine is much improved. Nephrology is following and we certainly appreciate their input. (6) Hyperkalemia Is this a current diagnosis for this admission?: Yes Plan: Secondary to acute renal failure. Resolved. (7) Tracheostomy dependence Is this a current diagnosis for this admission?: Yes (8) Morbid obesity Is this a current diagnosis for this admission?: Yes Plan: Dietary discretion is advised (9) Urinary retention Is this a current diagnosis for this admission?: Yes Plan: Continue Barragan catheter (10) Coronary artery disease Qualifiers: Coronary Disease-Associated Artery/Lesion type: [place] artery [place] vs. transplanted heart: [place] heart Associated angina: angina presence unspecified Qualified Code(s): I25.10 - Atherosclerotic heart disease of [place] coronary artery without angina pectoris Plan: Continue home regimen (11) Atrial fibrillation Is this a current diagnosis for this admission?: Yes Plan: Stable (12) Chronic anticoagulation Is this a current diagnosis for this admission?: Yes Plan: Continue to watch him closely for signs of bleeding. He is anticoagulated due to his atrial fibrillation. (13) Diabetes mellitus Qualifiers: Diabetes mellitus type: type 2 Diabetes mellitus complication status: with kidney complications Diabetes mellitus complication detail: with chronic kidney disease Diabetes mellitus parts counterman insulin use: with half-way use Chronic kidney disease stage: stage 4 (severe) Qualified Code(s): E11.22 - Type 2 diabetes mellitus with diabetic chronic kidney disease; N18.4 - Chronic kidney disease, stage 4 (severe); N18.4 - Chronic kidney disease, stage 4 ( severe); N18.4 - Chronic kidney disease, stage 4 (severe); N18.4 - Chronic kidney disease, stage 4 (severe); Z79.4 - prison (current) use of insulin; Z79.4 - prison (current) use of insulin; Z79.4 - terminal supervisor (current) use of insulin; Z79.4 - terminal supervisor (current) use of insulin Is this a current diagnosis for this admission?: Yes Plan: Continue current regimen. Continue a carbohydrate controlled diet. (14) Anemia Is this a current diagnosis for this admission?: Yes Plan: Stable (15) Full code status Is this a current diagnosis for this admission?: Yes - Time Time Spent with patient: 25-34 minutes - Inpatient Certification Medical Necessity: Other - Inpatient hospitalization remains necessary for disposition. This patient is extremely debilitated after this prolonged hospitalization and he is requiring subacute rehabilitation. This is complicated due to his tracheostomy. He will be transitioned to a facility as soon as a bed is found. The discharge planners are working on this.
[2017-03-25] MEDS: INSULIN LISPRO 100 UNIT/ML 3 ML VIAL SUBCUT PRN ×3 (13:08→23:23)
[2017-03-25] MEDS: TAMSULOSIN HCL 0.4 MG CAP.SR.24H PO SCH (17:59)
[2017-03-25] MEDS: FAMOTIDINE 20 MG TABLET PO SCH (21:13)
[2017-03-25] MEDS: OXYCODONE HCL IR 5 MG TABLET PO PRN (21:13)
[2017-03-25] MEDS: LATANOPROST 0.005% OPH SOLN 2.5 ML OU SCH (21:14)
[2017-03-26] MEDS: IPRATROPIUM/ALBUTEROL 0.5-2.5 MG/3 ML AMPUL NEB SCH ×4 (01:55→19:44)
[2017-03-26 04:54] LABS: HEMOGLOBIN 9.5 g/dL (13.5-17.0); MEAN CORPUSCULAR HGB CONC 33.8 g/dL (32.0-36.0); MEAN CORPUSCULAR VOLUME 86 fl (80-97); PLATELET COUNT 200 10^3/uL (150-450); RED BLOOD COUNT 3.26 10^6/uL (4.35-5.55); RED CELL DISTRIBUTION WIDTH 17.4 % (11.5-14.0); WHITE BLOOD COUNT 10.6 10^3/uL (4.0-10.5)
[2017-03-26 05:14] LABS: ANION GAP 16 (5-19); CALCIUM 8.8 mg/dL (8.4-10.2); CARBON DIOXIDE 21 mmol/L (22-30); CHLORIDE 104 mmol/L (98-107); GLUCOSE 166 mg/dL (75-110); POTASSIUM 4.3 mmol/L (3.6-5.0); SODIUM 140.6 mmol/L (137-145)
[2017-03-26 05:22] LABS: BLOOD UREA NITROGEN 127 mg/dL (7-20)
[2017-03-26] MEDS: LEVOTHYROXINE SODIUM 0.088 MG TABLET PO SCH (05:47)
[2017-03-26] MEDS: BUDESONIDE NEB 0.5 MG/2 ML AMPUL NEB SCH ×2 (09:34→19:44)
[2017-03-26] MEDS: INSULIN LISPRO 100 UNIT/ML 3 ML VIAL SUBCUT PRN ×3 (09:36→18:06)
[2017-03-26] MEDS: PREDNISONE 20 MG TABLET PO SCH ×2 (09:37→21:04)
[2017-03-26] MEDS: DILTIAZEM HCL 120 MG CAP.SR.24H PO SCH ×2 (09:37→21:03)
[2017-03-26] MEDS: FERROUS SULFATE 325 MG TABLET PO SCH ×2 (09:38→18:06)
[2017-03-26] MEDS: FUROSEMIDE 40 MG TABLET PO SCH (09:38)
[2017-03-26] MEDS: APIXABAN 2.5 MG TABLET PO SCH ×2 (09:38→21:03)
[2017-03-26] MEDS: ASPIRIN 81 MG TABLET, CHEWABLE PO SCH (09:39)
[2017-03-26] MEDS: METOPROLOL TARTRATE 50 MG TABLET PO SCH ×2 (09:39→21:04)
[2017-03-26] MEDS: DULOXETINE HCL 30 MG CAPSULE.DR PO SCH (09:39)
[2017-03-26] MEDS: CHLORHEXIDINE GLUCONATE 0.12% ORAL RINSE 15 ML UDC MM SCH ×2 (09:40→18:06)
[2017-03-26] MEDS: INSULIN GLARGINE,HUM.REC.ANLOG 300 UNIT/3 ML INSULN.PEN SUBCUT SCH (09:40)
[2017-03-26] MEDS: CEFEPIME 1 GM/D5W RTU 1 GM/50 ML RTUPB IV SCH ×2 (09:42→21:05)
[2017-03-26] MEDS: NYSTATIN TOPICAL POWDER 15 GM TP SCH ×2 (09:47→18:07)
[2017-03-26] MEDS: SILVER SULFADIAZINE 1% CREAM 50 GM TP SCH ×2 (09:47→18:06)
--- NOTE | 2017-03-26 10:54 | PDOC PROGRESS REPORT ---
Subjective Subjective:: The patient is a 71-year-old male with a past medical history of tracheostomy, morbid obesity and general deconditioning. The patient presented to the emergency room with increasing shortness of breath and was found to have left basilar pneumonia as well as worsening kidney function. His kidney function at baseline is poor, stage IV. The patient's course has been unremarkable. He has been followed closely by nephrology. Later in the hospitalization it was felt that he was having a COPD exacerbation and he was started on steroids with significant improvement to his symptoms. General surgery was consulted to exchange the patient's trach however the patient does not have the next size lower nor do we have it in stock, as it would be ideal to have this on hand when exchanging the trach, in the event that the patient does need to be downsized. This has been ordered and when available the surgery service will exchange it. However it should not impede the patient's discharge and he can follow-up with ENT on an outpatient basis for this if it is not done prior to discharge. Discussions have been had with the patient's family and they have decided to pursue subacute rehabilitation at the time of discharge. He currently is waiting on a bed offer. Today when I saw the patient he has no complaints. No fever chills overnight. No chest pain, shortness of breath or heart palpitations. His tracheostomy is working well. No nausea, vomiting or diarrhea. No abdominal pain. No urinary complaints. Reason For Visit: ACUTE RESPIRATORY FAILURE WITH HYPOXEMIA Physical Exam Vital Signs: Temp Pulse Resp BP Pulse Ox 97.7 F 66 16 141/66 H 95 03/26/17 07:25 03/26/17 09:35 03/26/17 09:35 03/26/17 07:25 03/26/17 09:35 Intake & Output 03/25/17 03/26/17 03/27/17 06:59 06:59 06:59 Intake Total 2594 2053 Output Total 2100 1700 Balance 494 353 Weight 138.6 kg 140.3 kg General appearance: PRESENT: no acute distress, morbidly obese, other - He has a tracheostomy in place Head exam: PRESENT: atraumatic, normocephalic Mouth exam: PRESENT: moist, tongue midline Respiratory exam: PRESENT: clear to auscultation rowan. ABSENT: rales, rhonchi, wheezes Cardiovascular exam: PRESENT: RRR. ABSENT: diastolic murmur, rubs, systolic murmur GI/Abdominal exam: PRESENT: normal bowel sounds, soft, other - His abdomen is morbidly obese. ABSENT: distended, guarding, mass, rebound, tenderness Rectal exam: PRESENT: deferred Extremities exam: PRESENT: full ROM. ABSENT: calf tenderness, clubbing, pedal edema Neurological exam: PRESENT: alert, awake, oriented to person, oriented to place , oriented to time, oriented to situation, CN II-XII grossly intact. ABSENT: motor sensory deficit Psychiatric exam: PRESENT: appropriate affect, normal mood. ABSENT: homicidal ideation, suicidal ideation Skin exam: PRESENT: dry, intact, warm. ABSENT: cyanosis, rash Results Laboratory Results: 03/26/17 04:35 03/26/17 04:35 03/26/17 03/26/17 04:35 04:35 WBC 10.6 H RBC 3.26 L Hgb 9.5 L Hct 28.0 L MCV 86 MCH 29.0 MCHC 33.8 RDW 17.4 H Plt Count 200 Sodium 140.6 Potassium 4.3 Chloride 104 Carbon Dioxide 21 L Anion Gap 16 BUN 127 H Creatinine 3.00 H Est GFR ( Amer) 25 L Est GFR (Non-Af Amer) 21 L Glucose 166 H Calcium 8.8 03/18/17 03/18/17 03/19/17 18:10 23:40 05:41 Troponin I < 0.012 < 0.012 < 0.012 NT-Pro-B Natriuret Pep 13395 H Impressions: Chest X-Ray 03/21/17 00:00 IMPRESSION: Persistent right lower lobe pneumonia with improved aeration. No evidence of cavitation or pneumothorax. Assessment & Plan - Diagnosis (1) Acute and chronic respiratory failure with hypoxia Is this a current diagnosis for this admission?: Yes Plan: Resolved. This was due to underlying pneumonia and a COPD exacerbation as well as congestive heart failure. His acute respiratory failure has resolved and he is at his baseline. (2) Pneumonia Qualifiers: Lung location: unspecified part of lung Is this a current diagnosis for this admission?: Yes Plan: Concerns for gram negatives. Continue cefepime. This is day #6 of treatment. Would continue treating to complete a 10 day course here in the hospital. He can be changed over to an oral regimen at discharge. (3) COPD exacerbation Is this a current diagnosis for this admission?: Yes Plan: Resolving. Continue prednisone taper. I will cut his dose back today. N (4) Acute on chronic diastolic (congestive) heart failure Is this a current diagnosis for this admission?: Yes Plan: Resolved. Currently he is stable (5) Acute on chronic renal failure Is this a current diagnosis for this admission?: Yes Plan: His creatinine is much improved. Nephrology is following and we certainly appreciate their input. (6) Hyperkalemia Is this a current diagnosis for this admission?: Yes Plan: Secondary to acute renal failure. Resolved. (7) Tracheostomy dependence Is this a current diagnosis for this admission?: Yes (8) Morbid obesity Is this a current diagnosis for this admission?: Yes Plan: Dietary discretion is advised (9) Urinary retention Is this a current diagnosis for this admission?: Yes Plan: Continue Barragan catheter (10) Coronary artery disease Qualifiers: Coronary Disease-Associated Artery/Lesion type: [place] artery [place] vs. transplanted heart: [place] heart Associated angina: angina presence unspecified Qualified Code(s): I25.10 - Atherosclerotic heart disease of [place] coronary artery without angina pectoris Plan: Continue home regimen (11) Atrial fibrillation Is this a current diagnosis for this admission?: Yes Plan: Stable (12) Chronic anticoagulation Is this a current diagnosis for this admission?: Yes Plan: Continue to watch him closely for signs of bleeding. He is anticoagulated due to his atrial fibrillation. (13) Diabetes mellitus Qualifiers: Diabetes mellitus type: type 2 Diabetes mellitus complication status: with kidney complications Diabetes mellitus complication detail: with chronic kidney disease Diabetes mellitus termite control technician insulin use: with termite control technician use Chronic kidney disease stage: stage 4 (severe) Qualified Code(s): E11.22 - Type 2 diabetes mellitus with diabetic chronic kidney disease; N18.4 - Chronic kidney disease, stage 4 (severe); N18.4 - Chronic kidney disease, stage 4 ( severe); N18.4 - Chronic kidney disease, stage 4 (severe); N18.4 - Chronic kidney disease, stage 4 (severe); Z79.4 - nursing home (current) use of insulin; Z79.4 - nursing home (current) use of insulin; Z79.4 - 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 termite (current) use of insulin; Z79.4 - 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 termite (current) use of insulin Is this a current diagnosis for this admission?: Yes Plan: Continue current regimen. Continue a carbohydrate controlled diet. (14) Anemia Is this a current diagnosis for this admission?: Yes Plan: Stable (15) Full code status Is this a current diagnosis for this admission?: Yes - Time Time Spent with patient: 15-24 minutes - Inpatient Certification Medical Necessity: Need for IV Antibiotics, Other - Inpatient hospitalization remains necessary for disposition. The patient is significantly debilitated after this acute illness and will require placement for subacute rehabilitation' s. In the meantime he will continue parenteral antibiotics here in the hospital.
[2017-03-26] MEDS: ACETAMINOPHEN 325 MG TABLET PO PRN (14:24)
[2017-03-26 14:40] LABS: A/G RATIO. 1.1 (0.7-1.7); ALBUMIN 3 3.1 g/dL (2.9-4.4); ALPHA-1-GLOBULIN 0.2 g/dL (0.0-0.4); BETA GLOBULIN 0.8 g/dL (0.7-1.3); GAMMA GLOBULINS 1.1 g/dL (0.4-1.8); IMMUNOGLOBULIN A 214 mg/dL (61-437); IMMUNOGLOBULIN G 1128 mg/dL (700-1600); IMMUNOGLOBULIN M 240 mg/dL (20-172); MONOCLONAL-SPIKE Not Observed g/dL (Not Observed); PROTEIN TOTAL SERUM 6.2 g/dL (6.0-8.5)
--- NOTE | 2017-03-26 16:19 | PDOC PROGRESS REPORT ---
Subjective Progress Note for:: 03/26/17 Subjective:: Patient was seen today sitting up in bed receiving chest pt and a duoneb. He was unable to talk at the time due to the treatment he was receiving. He did shake his head to agree that he felt a lot better since when he arrived. According to the nurse that is taking care of him, we are just waiting on a bed at the rehab facility. Reason For Visit: ACUTE RESPIRATORY FAILURE WITH HYPOXEMIA Physical Exam Vital Signs: Temp Pulse Resp BP Pulse Ox 97.9 F 61 14 140/63 H 95 03/26/17 11:08 03/26/17 14:00 03/26/17 13:55 03/26/17 11:08 03/26/17 12:00 Intake & Output 03/25/17 03/26/17 03/27/17 06:59 06:59 06:59 Intake Total 2594 2053 444 Output Total 2100 1700 500 Balance 494 353 -56 Weight 138.6 kg 140.3 kg General appearance: PRESENT: no acute distress, well-developed, well-nourished Mouth exam: PRESENT: moist, neck supple Neck exam: PRESENT: full ROM. ABSENT: JVD Respiratory exam: PRESENT: wheezes. ABSENT: accessory muscle use, clear to auscultation rowan, crackles, rales, rhonchi Cardiovascular exam: PRESENT: RRR, +S1, +S2 GI/Abdominal exam: PRESENT: soft. ABSENT: ascites, firm, guarding, tenderness Extremities exam: ABSENT: pedal edema, tenderness Musculoskeletal exam: PRESENT: normal inspection. ABSENT: tenderness Neurological exam: PRESENT: alert, awake Skin exam: PRESENT: dry, intact, warm Results Laboratory Results: 03/26/17 04:35 03/26/17 04:35 03/23/17 03/26/17 03/26/17 04:30 04:35 04:35 WBC 10.6 H RBC 3.26 L Hgb 9.5 L Hct 28.0 L MCV 86 MCH 29.0 MCHC 33.8 RDW 17.4 H Plt Count 200 Sodium 140.6 Potassium 4.3 Chloride 104 Carbon Dioxide 21 L Anion Gap 16 BUN 127 H Creatinine 3.00 H Est GFR ( Amer) 25 L Est GFR (Non-Af Amer) 21 L Glucose 166 H Calcium 8.8 Total Protein 6.2 Albumin 3.1 03/21/17 14:33 Blood Blood Culture - Final NO GROWTH IN 5 DAYS 03/21/17 13:55 Blood Blood Culture - Final NO GROWTH IN 5 DAYS 03/18/17 03/18/17 03/19/17 18:10 23:40 05:41 Troponin I < 0.012 < 0.012 < 0.012 NT-Pro-B Natriuret Pep 33232 H Impressions: Chest X-Ray 03/21/17 00:00 IMPRESSION: Persistent right lower lobe pneumonia with improved aeration. No evidence of cavitation or pneumothorax. Assessment & Plan - Diagnosis (1) Acute and chronic respiratory failure Qualifiers: Respiratory failure complication: hypoxia and hypercapnia Qualified Code(s) : J96.21 - Acute and chronic respiratory failure with hypoxia; J96.22 - Acute and chronic respiratory failure with hypercapnia; J96.22 - Acute and chronic respiratory failure with hypercapnia; J96.22 - Acute and chronic respiratory failure with hypercapnia Is this a current diagnosis for this admission?: Yes Plan: looks to improved to baseline (2) Anemia Plan: awaiting results of some labs and will start him on epogen once results come back and he is able to give consent (3) Kidney disease, chronic, stage IV (GFR 15-29 ml/min) Is this a current diagnosis for this admission?: Yes Plan: at baseline (4) COPD, severe Is this a current diagnosis for this admission?: Yes (5) Hypertension Qualifiers: Hypertension type: essential hypertension Qualified Code(s): I10 - Essential (primary) hypertension Is this a current diagnosis for this admission?: Yes Plan: controlled (6) Diabetes mellitus Qualifiers: Diabetes mellitus type: type 2 Diabetes mellitus complication status: with kidney complications Diabetes mellitus complication detail: with chronic kidney disease Diabetes mellitus mcc insulin use: with termite control service representative use Chronic kidney disease stage: stage 4 (severe) Qualified Code(s): E11.22 - Type 2 diabetes mellitus with diabetic chronic kidney disease; N18.4 - Chronic kidney disease, stage 4 (severe); N18.4 - Chronic kidney disease, stage 4 ( severe); N18.4 - Chronic kidney disease, stage 4 (severe); N18.4 - Chronic kidney disease, stage 4 (severe); Z79.4 - [facility] (current) use of insulin; Z79.4 - oil heaterman (current) use of insulin; Z79.4 - [facility] (current) use of insulin; Z79.4 - [facility] (current) use of insulin Is this a current diagnosis for this admission?: Yes (7) Tracheostomy dependence Is this a current diagnosis for this admission?: Yes
[2017-03-26] MEDS: TAMSULOSIN HCL 0.4 MG CAP.SR.24H PO SCH (18:06)
[2017-03-26] MEDS: LORAZEPAM 1 MG TABLET PO PRN (21:04)
[2017-03-26] MEDS: FAMOTIDINE 20 MG TABLET PO SCH (21:04)
[2017-03-26] MEDS: LATANOPROST 0.005% OPH SOLN 2.5 ML OU SCH (21:05)
[2017-03-27] MEDS: OXYCODONE HCL IR 5 MG TABLET PO PRN (01:29)
[2017-03-27] MEDS: IPRATROPIUM/ALBUTEROL 0.5-2.5 MG/3 ML AMPUL NEB SCH ×4 (02:26→20:56)
[2017-03-27 05:21] LABS: MEAN CORPUSCULAR HGB CONC 33.5 g/dL (32.0-36.0); MEAN CORPUSCULAR VOLUME 87 fl (80-97); PLATELET COUNT 191 10^3/uL (150-450); RED BLOOD COUNT 3.12 10^6/uL (4.35-5.55); RED CELL DISTRIBUTION WIDTH 17.7 % (11.5-14.0); WHITE BLOOD COUNT 12.2 10^3/uL (4.0-10.5)
[2017-03-27 05:32] LABS: ANION GAP 13 (5-19); CALCIUM 8.7 mg/dL (8.4-10.2); CARBON DIOXIDE 22 mmol/L (22-30); CHLORIDE 104 mmol/L (98-107); GLUCOSE 221 mg/dL (75-110); POTASSIUM 4.6 mmol/L (3.6-5.0)
[2017-03-27 05:41] LABS: ABSOLUTE MONOCYTES # (MANUAL) 0.7 10^3/uL (0.1-1.4); ABSOLUTE NEUTROPHILS# (MANUAL) 10.4 10^3/uL (1.7-8.2); BAND NEUTROPHILS % (MANUAL) 4 % (3-5); BASOPHILS % (MANUAL) 0 % (0-2); EOSINOPHILS % (MANUAL) 1 % (0-6); LYMPHOCYTES % (MANUAL) 8 % (13-45); MONOCYTES % (MANUAL) 6 % (3-13); SEGMENTED NEUTROPHILS % (MAN) 77 % (42-78); TOTAL CELLS COUNTED 100
[2017-03-27 05:43] LABS: ANISOCYTOSIS 1+; OVALOCYTES SLIGHT; PLATELET COMMENT ADEQUATE; POIKILOCYTOSIS SLIGHT; SCHISTOCYTES SLIGHT; TOXIC GRANULATION 1+
[2017-03-27 05:44] LABS: METAMYELOCYTES % (MANUAL) 4 % (0)
[2017-03-27 05:45] LABS: BLOOD UREA NITROGEN 130 mg/dL (7-20)
[2017-03-27] MEDS: LEVOTHYROXINE SODIUM 0.088 MG TABLET PO SCH (06:00)
[2017-03-27] MEDS: BUDESONIDE NEB 0.5 MG/2 ML AMPUL NEB SCH ×2 (09:02→20:57)
[2017-03-27] MEDS: INSULIN LISPRO 100 UNIT/ML 3 ML VIAL SUBCUT PRN ×4 (09:33→22:20)
[2017-03-27] MEDS: ASPIRIN 81 MG TABLET, CHEWABLE PO SCH (09:35)
[2017-03-27] MEDS: PREDNISONE 20 MG TABLET PO SCH ×2 (09:36→21:33)
[2017-03-27] MEDS: FERROUS SULFATE 325 MG TABLET PO SCH ×2 (09:37→17:15)
[2017-03-27] MEDS: FUROSEMIDE 40 MG TABLET PO SCH (09:37)
[2017-03-27] MEDS: DILTIAZEM HCL 120 MG CAP.SR.24H PO SCH ×2 (09:37→21:32)
[2017-03-27] MEDS: SILVER SULFADIAZINE 1% CREAM 50 GM TP SCH ×2 (09:38→17:15)
[2017-03-27] MEDS: NYSTATIN TOPICAL POWDER 15 GM TP SCH ×2 (09:38→17:15)
[2017-03-27] MEDS: CHLORHEXIDINE GLUCONATE 0.12% ORAL RINSE 15 ML UDC MM SCH ×2 (09:41→17:15)
[2017-03-27] MEDS: APIXABAN 2.5 MG TABLET PO SCH ×2 (09:42→21:32)
[2017-03-27] MEDS: METOPROLOL TARTRATE 50 MG TABLET PO SCH ×2 (09:43→21:33)
[2017-03-27] MEDS: DULOXETINE HCL 30 MG CAPSULE.DR PO SCH (09:43)
[2017-03-27] MEDS: CEFEPIME 1 GM/D5W RTU 1 GM/50 ML RTUPB IV SCH ×2 (09:45→21:31)
[2017-03-27] MEDS ORDERED: EPOETIN ALFA INJ 20000 UNIT/1 ML VIAL (RENAL) SUBCUT SCH (10:30)
[2017-03-27] MEDS: INSULIN GLARGINE,HUM.REC.ANLOG 300 UNIT/3 ML INSULN.PEN SUBCUT SCH (11:03)
--- NOTE | 2017-03-27 13:20 | PDOC PROGRESS REPORT ---
Subjective Progress Note for:: 03/27/17 Subjective:: Patient was seen laying in his bed today. He remains in a stable state and says everyday his breathing gets better. Reason For Visit: ACUTE RESPIRATORY FAILURE WITH HYPOXEMIA Physical Exam Vital Signs: Temp Pulse Resp BP Pulse Ox 97.9 F 62 18 146/68 H 97 03/27/17 11:52 03/27/17 11:52 03/27/17 09:02 03/27/17 11:52 03/27/17 11:52 Intake & Output 03/26/17 03/27/17 03/28/17 06:59 06:59 06:59 Intake Total 2052 1683 Output Total 1699 2049 Balance 353 -366 Weight 140.3 kg 130.7 kg General appearance: PRESENT: no acute distress, well-developed, well-nourished Mouth exam: PRESENT: moist, neck supple Neck exam: PRESENT: full ROM. ABSENT: JVD Respiratory exam: PRESENT: clear to auscultation rowan. ABSENT: accessory muscle use, crackles, rales, rhonchi, wheezes Cardiovascular exam: PRESENT: RRR, +S1, +S2 GI/Abdominal exam: PRESENT: soft. ABSENT: ascites, firm, guarding, tenderness Extremities exam: ABSENT: pedal edema, tenderness Musculoskeletal exam: PRESENT: normal inspection. ABSENT: tenderness Neurological exam: PRESENT: alert, awake, oriented to person, oriented to place , oriented to time, oriented to situation Skin exam: PRESENT: dry, intact, warm Results Laboratory Results: 03/27/17 04:10 03/27/17 04:10 03/23/17 03/27/17 03/27/17 04:30 04:10 04:10 WBC 12.2 H RBC 3.12 L Hgb 9.0 L Hct 27.0 L MCV 87 MCH 29.0 MCHC 33.5 RDW 17.7 H Plt Count 191 Seg Neutrophils % Not Reportable Lymphocytes % Not Reportable Monocytes % Not Reportable Eosinophils % Not Reportable Basophils % Not Reportable Absolute Neutrophils Not Reportable Absolute Lymphocytes Not Reportable Absolute Monocytes Not Reportable Absolute Eosinophils Not Reportable Absolute Basophils Not Reportable Sodium 139.0 Potassium 4.6 Chloride 104 Carbon Dioxide 22 Anion Gap 13 BUN 130 H Creatinine 3.01 H Est GFR ( Amer) 25 L Est GFR (Non-Af Amer) 21 L Glucose 221 H Calcium 8.7 Magnesium 2.0 Total Protein 6.2 Albumin 3.1 03/21/17 14:33 Blood Blood Culture - Final NO GROWTH IN 5 DAYS 03/21/17 13:55 Blood Blood Culture - Final NO GROWTH IN 5 DAYS 03/18/17 03/18/17 03/19/17 18:10 23:40 05:41 Troponin I < 0.012 < 0.012 < 0.012 NT-Pro-B Natriuret Pep [id number] H Impressions: Chest X-Ray 03/21/17 00:00 IMPRESSION: Persistent right lower lobe pneumonia with improved aeration. No evidence of cavitation or pneumothorax. Assessment & Plan - Diagnosis (1) Acute and chronic respiratory failure Qualifiers: Respiratory failure complication: hypoxia and hypercapnia Qualified Code(s) : J96.21 - Acute and chronic respiratory failure with hypoxia; J96.22 - Acute and chronic respiratory failure with hypercapnia; J96.22 - Acute and chronic respiratory failure with hypercapnia; J96.22 - Acute and chronic respiratory failure with hypercapnia Is this a current diagnosis for this admission?: Yes Plan: looks to be at baseline (2) Anemia Plan: discussed procrit shot with the patient and he is willing to receive procrit shots. Giving procrit today and recommend biweekly procrit injections at the rehab facility. (3) Kidney disease, chronic, stage IV (GFR 15-29 ml/min) Is this a current diagnosis for this admission?: Yes Plan: at baseline (4) COPD, severe Is this a current diagnosis for this admission?: Yes (5) Hypertension Qualifiers: Hypertension type: essential hypertension Qualified Code(s): I10 - Essential (primary) hypertension Is this a current diagnosis for this admission?: Yes Plan: controlled (6) Diabetes mellitus Qualifiers: Diabetes mellitus type: type 2 Diabetes mellitus complication status: with kidney complications Diabetes mellitus complication detail: with chronic kidney disease Diabetes mellitus long-term insulin use: with long-term use Chronic kidney disease stage: stage 4 (severe) Qualified Code(s): E11.22 - Type 2 diabetes mellitus with diabetic chronic kidney disease; N18.4 - Chronic kidney disease, stage 4 (severe); N18.4 - Chronic kidney disease, stage 4 ( severe); N18.4 - Chronic kidney disease, stage 4 (severe); N18.4 - Chronic kidney disease, stage 4 (severe); Z79.4 - [facility] (current) use of insulin; Z79.4 - [facility] (current) use of insulin; Z79.4 - [facility] (current) use of insulin; Z79.4 - intermediate manager (current) use of insulin Is this a current diagnosis for this admission?: Yes (7) Tracheostomy dependence Is this a current diagnosis for this admission?: Yes
[2017-03-27 14:39] LABS: PATH REVIEW PATHOLOGIST REVIEWED
--- NOTE | 2017-03-27 15:31 | PDOC PROGRESS REPORT ---
Subjective Progress Note for:: 03/27/17 Subjective:: The patient is a 71-year-old male with a past medical history of tracheostomy, morbid obesity and general deconditioning. The patient presented to the emergency room with increasing shortness of breath and was found to have left basilar pneumonia as well as worsening kidney function. His kidney function at baseline is poor, stage IV. The patient's course has been unremarkable. He has been followed closely by nephrology. Later in the hospitalization it was felt that he was having a COPD exacerbation and he was started on steroids with significant improvement to his symptoms. General surgery was consulted to exchange the patient's trach however the patient does not have the next size lower nor do we have it in stock, as it would be ideal to have this on hand when exchanging the trach, in the event that the patient does need to be downsized. This has been ordered and when available the surgery service will exchange it. However it should not impede the patient's discharge and he can follow-up with ENT on an outpatient basis for this if it is not done prior to discharge. Discussions have been had with the patient's family and they have decided to pursue subacute rehabilitation at the time of discharge. He currently is waiting on a bed offer. Spouse says patient feels better and is breathing better Reason For Visit: ACUTE RESPIRATORY FAILURE WITH HYPOXEMIA Physical Exam Vital Signs: Temp Pulse Resp BP Pulse Ox 97.9 F 68 16 146/68 H 97 03/27/17 11:52 03/27/17 14:24 03/27/17 14:24 03/27/17 11:52 03/27/17 14:24 Intake & Output 03/26/17 03/27/17 03/28/17 06:59 06:59 06:59 Intake Total 2052 1683 Output Total 1699 2049 Balance 353 -366 Weight 140.3 kg 130.7 kg General appearance: PRESENT: no acute distress, morbidly obese, well-developed, well-nourished Head exam: PRESENT: atraumatic, normocephalic Eye exam: PRESENT: conjunctiva pink, EOMI, PERRLA. ABSENT: scleral icterus Ear exam: PRESENT: normal external ear exam Mouth exam: PRESENT: moist, tongue midline Neck exam: PRESENT: tracheostomy. ABSENT: carotid bruit, JVD, lymphadenopathy, thyromegaly Respiratory exam: PRESENT: clear to auscultation rowan, decreased breath sounds. ABSENT: rales, rhonchi, wheezes Cardiovascular exam: PRESENT: RRR. ABSENT: diastolic murmur, rubs, systolic murmur Pulses: PRESENT: normal dorsalis pedis pul Vascular exam: PRESENT: normal capillary refill GI/Abdominal exam: PRESENT: normal bowel sounds, soft. ABSENT: distended, guarding, mass, organolmegaly, rebound, tenderness Rectal exam: PRESENT: deferred Extremities exam: PRESENT: full ROM. ABSENT: calf tenderness, clubbing, pedal edema Neurological exam: PRESENT: alert, awake, oriented to person, oriented to place , oriented to time, oriented to situation, CN II-XII grossly intact. ABSENT: motor sensory deficit Psychiatric exam: PRESENT: appropriate affect, normal mood. ABSENT: homicidal ideation, suicidal ideation Skin exam: PRESENT: dry, intact, warm. ABSENT: cyanosis, rash Results Laboratory Results: 03/27/17 04:10 03/27/17 04:10 03/27/17 03/27/17 04:10 04:10 WBC 12.2 H RBC 3.12 L Hgb 9.0 L Hct 27.0 L MCV 87 MCH 29.0 MCHC 33.5 RDW 17.7 H Plt Count 191 Seg Neutrophils % Not Reportable Lymphocytes % Not Reportable Monocytes % Not Reportable Eosinophils % Not Reportable Basophils % Not Reportable Absolute Neutrophils Not Reportable Absolute Lymphocytes Not Reportable Absolute Monocytes Not Reportable Absolute Eosinophils Not Reportable Absolute Basophils Not Reportable Sodium 139.0 Potassium 4.6 Chloride 104 Carbon Dioxide 22 Anion Gap 13 BUN 130 H Creatinine 3.01 H Est GFR ( Amer) 25 L Est GFR (Non-Af Amer) 21 L Glucose 221 H Calcium 8.7 Magnesium 2.0 03/21/17 14:33 Blood Blood Culture - Final NO GROWTH IN 5 DAYS 03/21/17 13:55 Blood Blood Culture - Final NO GROWTH IN 5 DAYS 03/18/17 03/18/17 03/19/17 18:10 23:40 05:41 Troponin I < 0.012 < 0.012 < 0.012 NT-Pro-B Natriuret Pep [id number] H Impressions: Chest X-Ray 03/21/17 00:00 IMPRESSION: Persistent right lower lobe pneumonia with improved aeration. No evidence of cavitation or pneumothorax. Assessment & Plan - Time Time Spent with patient: 15-24 minutes - Inpatient Certification Medical Necessity: Need Close Monitoring Due to Risk of Patient Decompensation - Plan Summary Plan Summary: Assessment and plan Current diagnoses for this admission Acute on chronic respiratory failure with hypoxia likely secondary to underlying pneumonia and COPD exacerbation as well as congestive heart failure. Patient continues to improve and he apparently is close to his baseline. #2 pneumonia possibly gram-negative patient is on day 7 of 10 of cefepime. The plan is for him to complete his course prior to discharge. 3. COPD exacerbation, continue prednisone taper 4. Acute on chronic diastolic heart failure stable 5. Acute on chronic renal failure with improving creatinine. He is being followed by nephrology. 6. Hyperkalemia likely secondary to the diminished renal function this is resolved 7. Urinary retention chronic currently with Barragan catheter. 8. Stable coronary artery disease on home regimen 9. Atrial fibrillation stable 10. Chronic anticoagulation secondary to #9 above 11. 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
[2017-03-27] MEDS: TAMSULOSIN HCL 0.4 MG CAP.SR.24H PO SCH (17:15)
[2017-03-27] MEDS: ACETAMINOPHEN 325 MG TABLET PO PRN (20:06)
[2017-03-27] MEDS: FAMOTIDINE 20 MG TABLET PO SCH (21:33)
[2017-03-27] MEDS: LATANOPROST 0.005% OPH SOLN 2.5 ML OU SCH (21:34)
[2017-03-27] MEDS: LORAZEPAM 1 MG TABLET PO PRN (23:08)
[2017-03-28] MEDS: IPRATROPIUM/ALBUTEROL 0.5-2.5 MG/3 ML AMPUL NEB SCH ×3 (01:45→14:30)
[2017-03-28] MEDS: LEVOTHYROXINE SODIUM 0.088 MG TABLET PO SCH (06:11)
[2017-03-28] MEDS: BUDESONIDE NEB 0.5 MG/2 ML AMPUL NEB SCH (08:49)
[2017-03-28] MEDS: INSULIN LISPRO 100 UNIT/ML 3 ML VIAL SUBCUT PRN ×4 (10:55→23:16)
[2017-03-28] MEDS: INSULIN GLARGINE,HUM.REC.ANLOG 300 UNIT/3 ML INSULN.PEN SUBCUT SCH (10:55)
[2017-03-28] MEDS: CHLORHEXIDINE GLUCONATE 0.12% ORAL RINSE 15 ML UDC MM SCH ×2 (10:56→18:06)
[2017-03-28] MEDS: FERROUS SULFATE 325 MG TABLET PO SCH ×2 (10:57→18:06)
[2017-03-28] MEDS: FUROSEMIDE 40 MG TABLET PO SCH (10:57)
[2017-03-28] MEDS: PREDNISONE 20 MG TABLET PO SCH ×2 (10:57→22:31)
[2017-03-28] MEDS: METOPROLOL TARTRATE 50 MG TABLET PO SCH ×2 (10:58→22:31)
[2017-03-28] MEDS: ASPIRIN 81 MG TABLET, CHEWABLE PO SCH (10:59)
[2017-03-28] MEDS: DILTIAZEM HCL 120 MG CAP.SR.24H PO SCH ×2 (10:59→22:31)
[2017-03-28] MEDS: DULOXETINE HCL 30 MG CAPSULE.DR PO SCH (10:59)
[2017-03-28] MEDS: APIXABAN 2.5 MG TABLET PO SCH ×2 (11:00→22:31)
[2017-03-28] MEDS: SILVER SULFADIAZINE 1% CREAM 50 GM TP SCH ×2 (11:00→18:07)
[2017-03-28] MEDS: NYSTATIN TOPICAL POWDER 15 GM TP SCH ×2 (11:00→18:07)
[2017-03-28] MEDS: CEFEPIME 1 GM/D5W RTU 1 GM/50 ML RTUPB IV SCH (11:01)
[2017-03-28] MEDS: ACETAMINOPHEN 325 MG TABLET PO PRN (16:19)
[2017-03-28] MEDS ORDERED: BUDESONIDE NEB 0.5 MG/2 ML AMPUL NEB PRN (16:31)
--- NOTE | 2017-03-28 16:35 | PDOC PROGRESS REPORT ---
Subjective Progress Note for:: 03/28/17 Subjective:: The patient is a 71-year-old male with a past medical history of tracheostomy, morbid obesity and general deconditioning. The patient presented to the emergency room with increasing shortness of breath and was found to have left basilar pneumonia as well as worsening kidney function. His kidney function at baseline is poor, stage IV. The patient's course has been unremarkable. He has been followed closely by nephrology. Later in the hospitalization it was felt that he was having a COPD exacerbation and he was started on steroids with significant improvement to his symptoms. General surgery was consulted to exchange the patient's trach however the patient does not have the next size lower nor do we have it in stock, as it would be ideal to have this on hand when exchanging the trach, in the event that the patient does need to be downsized. This has been ordered and when available the surgery service will exchange it. However it should not impede the patient's discharge and he can follow-up with ENT on an outpatient basis for this if it is not done prior to discharge. Discussions have been had with the patient's family and they have decided to pursue subacute rehabilitation at the time of discharge. He currently is waiting on a bed offer. patient feels better and is breathing better Reason For Visit: ACUTE RESPIRATORY FAILURE WITH HYPOXEMIA Physical Exam Vital Signs: Temp Pulse Resp BP Pulse Ox 98.1 F 67 20 166/82 H 100 03/28/17 12:41 03/28/17 14:00 03/28/17 12:41 03/28/17 12:41 03/28/17 12:41 Intake & Output 03/27/17 03/28/17 03/29/17 06:59 06:59 06:59 Intake Total 1684 1848 575 Output Total 9878 1169 800 Balance -366 -1052 -225 Weight 130.7 kg 137.5 kg General appearance: PRESENT: no acute distress, well-developed, well-nourished Head exam: PRESENT: atraumatic, normocephalic Eye exam: PRESENT: conjunctiva pink, EOMI, PERRLA. ABSENT: scleral icterus Ear exam: PRESENT: normal external ear exam Mouth exam: PRESENT: moist, tongue midline Neck exam: PRESENT: tracheostomy. ABSENT: carotid bruit, JVD, lymphadenopathy, thyromegaly Respiratory exam: PRESENT: decreased breath sounds. ABSENT: rales, rhonchi, stridor, wheezes Cardiovascular exam: PRESENT: RRR. ABSENT: diastolic murmur, rubs, systolic murmur Pulses: PRESENT: normal dorsalis pedis pul Vascular exam: PRESENT: normal capillary refill GI/Abdominal exam: PRESENT: normal bowel sounds, soft. ABSENT: distended, guarding, mass, organolmegaly, rebound, tenderness Rectal exam: PRESENT: deferred Extremities exam: PRESENT: full ROM. ABSENT: calf tenderness, clubbing, pedal edema Neurological exam: PRESENT: alert, awake, oriented to person, oriented to place , oriented to time, oriented to situation, CN II-XII grossly intact. ABSENT: motor sensory deficit Psychiatric exam: PRESENT: appropriate affect, normal mood. ABSENT: homicidal ideation, suicidal ideation Skin exam: PRESENT: dry, intact, warm. ABSENT: cyanosis, rash Results Laboratory Results: 03/27/17 04:10 03/27/17 04:10 03/18/17 03/18/17 03/19/17 18:10 23:40 05:41 Troponin I < 0.012 < 0.012 < 0.012 NT-Pro-B Natriuret Pep [id number] H Impressions: Chest X-Ray 03/21/17 00:00 IMPRESSION: Persistent right lower lobe pneumonia with improved aeration. No evidence of cavitation or pneumothorax. Assessment & Plan - Time Time Spent with patient: 15-24 minutes Anticipated discharge: Acute Rehab Within: when bed available - Plan Summary Plan Summary: Assessment and plan Current diagnoses for this admission Acute on chronic respiratory failure with hypoxia likely secondary to underlying pneumonia and COPD exacerbation as well as congestive heart failure. Patient continues to improve and he apparently is close to his baseline. #2 pneumonia possibly gram-negative patient is on day 8 of 10 of cefepime. The plan is for him to complete his course prior to discharge to Rehab likely next week. 3. COPD exacerbation, continue prednisone taper 4. Acute on chronic diastolic heart failure stable 5. Acute on chronic renal failure with improving creatinine. He is being followed by nephrology. 6. Hyperkalemia likely secondary to the diminished renal function this is resolved 7. Urinary retention chronic currently with Barragan catheter. 8. Stable coronary artery disease on home regimen 9. Atrial fibrillation stable 10. Chronic anticoagulation secondary to #9 above 11. 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 Morbid obesity
[2017-03-28] MEDS: TAMSULOSIN HCL 0.4 MG CAP.SR.24H PO SCH (18:06)
[2017-03-28] MEDS: IPRATROPIUM/ALBUTEROL 0.5-2.5 MG/3 ML AMPUL NEB PRN (20:00)
[2017-03-28] MEDS: LATANOPROST 0.005% OPH SOLN 2.5 ML OU SCH (22:31)
[2017-03-28] MEDS: FAMOTIDINE 20 MG TABLET PO SCH (22:31)
[2017-03-28] MEDS: LORAZEPAM 1 MG TABLET PO PRN (22:37)
[2017-03-29] MEDS: OXYCODONE HCL IR 5 MG TABLET PO PRN (03:26)
[2017-03-29] MEDS: LEVOTHYROXINE SODIUM 0.088 MG TABLET PO SCH (05:06)
[2017-03-29] MEDS: INSULIN LISPRO 100 UNIT/ML 3 ML VIAL SUBCUT PRN ×4 (08:07→23:59)
[2017-03-29] MEDS: ACETAMINOPHEN 325 MG TABLET PO PRN (08:07)
[2017-03-29] MEDS: ASPIRIN 81 MG TABLET, CHEWABLE PO SCH (09:40)
[2017-03-29] MEDS: APIXABAN 2.5 MG TABLET PO SCH ×2 (09:40→23:49)
[2017-03-29] MEDS: DILTIAZEM HCL 120 MG CAP.SR.24H PO SCH ×2 (09:41→23:50)
[2017-03-29] MEDS: CHLORHEXIDINE GLUCONATE 0.12% ORAL RINSE 15 ML UDC MM SCH ×2 (09:41→18:38)
[2017-03-29] MEDS: DULOXETINE HCL 30 MG CAPSULE.DR PO SCH (09:42)
[2017-03-29] MEDS: FUROSEMIDE 40 MG TABLET PO SCH (09:43)
[2017-03-29] MEDS: FERROUS SULFATE 325 MG TABLET PO SCH ×2 (09:43→18:37)
[2017-03-29] MEDS: METOPROLOL TARTRATE 50 MG TABLET PO SCH ×2 (09:44→23:49)
[2017-03-29] MEDS: PREDNISONE 20 MG TABLET PO SCH (09:44)
[2017-03-29] MEDS: INSULIN GLARGINE,HUM.REC.ANLOG 300 UNIT/3 ML INSULN.PEN SUBCUT SCH (09:45)
[2017-03-29] MEDS: NYSTATIN TOPICAL POWDER 15 GM TP SCH (09:48)
[2017-03-29] MEDS: SILVER SULFADIAZINE 1% CREAM 50 GM TP SCH ×2 (09:50→18:39)
--- NOTE | 2017-03-29 16:43 | PDOC PROGRESS REPORT ---
Subjective Progress Note for:: 03/29/17 Subjective:: The patient is a 71-year-old male with a past medical history of tracheostomy, morbid obesity and general deconditioning. The patient presented to the emergency room with increasing shortness of breath and was found to have left basilar pneumonia as well as worsening kidney function. His kidney function at baseline is poor, stage IV. The patient's course has been unremarkable. He has been followed closely by nephrology. Later in the hospitalization it was felt that he was having a COPD exacerbation and he was started on steroids with significant improvement to his symptoms. General surgery was consulted to exchange the patient's trach however the patient does not have the next size lower nor do we have it in stock, as it would be ideal to have this on hand when exchanging the trach, in the event that the patient does need to be downsized. This has been ordered and when available the surgery service will exchange it. However it should not impede the patient's discharge and he can follow-up with ENT on an outpatient basis for this if it is not done prior to discharge. Discussions have been had with the patient's family and they have decided to pursue subacute rehabilitation at the time of discharge. He currently is waiting on a bed offer. patient feels better and is breathing better. He was evaluated by [facility] today and a bed will be made available once he is ready Reason For Visit: ACUTE RESPIRATORY FAILURE WITH HYPOXEMIA Physical Exam Vital Signs: Temp Pulse Resp BP Pulse Ox 98.3 F 62 20 156/71 H 100 03/29/17 12:31 03/29/17 14:00 03/29/17 12:31 03/29/17 12:31 03/29/17 12:31 Intake & Output 03/28/17 03/29/17 03/30/17 06:59 06:59 06:59 Intake Total 1848 1680 485 Output Total 2900 1421 700 Balance -1052 -595 -215 Weight 137.5 kg 135.7 kg General appearance: PRESENT: no acute distress, morbidly obese Head exam: PRESENT: atraumatic Neck exam: PRESENT: tracheostomy Respiratory exam: PRESENT: rhonchi Cardiovascular exam: PRESENT: RRR. ABSENT: diastolic murmur, rubs, systolic murmur Vascular exam: PRESENT: normal capillary refill GI/Abdominal exam: PRESENT: normal bowel sounds, soft. ABSENT: ascites, diminished bowel sounds, distended, firm, guarding, hernia, hyperactive bowel sounds, hypoactive bowel sounds, mass, Ponce's sign, organolmegaly, rebound, rigid, tenderness, other Rectal exam: PRESENT: deferred Gentrourinary exam: PRESENT: indwelling catheter Neurological exam: PRESENT: alert, awake Psychiatric exam: PRESENT: flat affect Results Laboratory Results: 03/27/17 04:10 03/27/17 04:10 03/18/17 03/18/17 03/19/17 18:10 23:40 05:41 Troponin I < 0.012 < 0.012 < 0.012 NT-Pro-B Natriuret Pep [id number] H Impressions: Chest X-Ray 03/21/17 00:00 IMPRESSION: Persistent right lower lobe pneumonia with improved aeration. No evidence of cavitation or pneumothorax. Assessment & Plan - Time Time Spent with patient: 15-24 minutes - Inpatient Certification Medical Necessity: Need for IV Antibiotics, Risk of Complication if Not Cared For in Hospital - Plan Summary Plan Summary: Assessment and plan Current diagnoses for this admission Acute on chronic respiratory failure with hypoxia likely secondary to underlying pneumonia and COPD exacerbation as well as congestive heart failure. Patient continues to improve and he apparently is close to his respiratory baseline. #2 pneumonia possibly gram-negative patient is on day 9 of 10 of cefepime. The plan is for him to complete his course prior to discharge to LTAC likely next week. 3. COPD exacerbation, continue prednisone taper 4. Acute on chronic diastolic heart failure stable 5. Acute on chronic renal failure with improving creatinine. He is being followed by nephrology. 6. Hyperkalemia likely secondary to the diminished renal function this is resolved 7. Urinary retention chronic currently with Barragan catheter. Will recheck UA due to cloudy urine. Catheter was just recently changed 8. Stable coronary artery disease on home regimen 9. Atrial fibrillation stable 10. Chronic anticoagulation secondary to #9 above 11. 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 Morbid obesity
[2017-03-29] MEDS: TAMSULOSIN HCL 0.4 MG CAP.SR.24H PO SCH (18:37)
[2017-03-29 19:00] LABS: APPEARANCE,URINE TURBID; BILIRUBIN,URINE NEGATIVE (NEGATIVE); COLOR,URINE YELLOW; GLUCOSE, URINE NEGATIVE (NEGATIVE); KETONES,URINE NEGATIVE (NEGATIVE); LEUKOCYTE ESTERASE,URINE LARGE (NEGATIVE); NITRITE,URINE NEGATIVE (NEGATIVE); PROTEIN,URINE 100 mg/dL (NEGATIVE); URINE SPECIFIC GRAVITY 1.009; UROBILINOGEN,URINE NEGATIVE mg/dL (<2.0)
[2017-03-29] MEDS: IPRATROPIUM/ALBUTEROL 0.5-2.5 MG/3 ML AMPUL NEB PRN (21:17)
[2017-03-29] MEDS: FAMOTIDINE 20 MG TABLET PO SCH (23:49)
[2017-03-29] MEDS: LATANOPROST 0.005% OPH SOLN 2.5 ML OU SCH (23:58)
[2017-03-30 05:38] LABS: HEMATOCRIT 28.6 % (37.9-51.0); HEMOGLOBIN 9.5 g/dL (13.5-17.0); MEAN CORPUSCULAR HEMOGLOBIN 28.6 pg (27.0-33.4); MEAN CORPUSCULAR HGB CONC 33.1 g/dL (32.0-36.0); MEAN CORPUSCULAR VOLUME 87 fl (80-97); PLATELET COUNT 181 10^3/uL (150-450); RED BLOOD COUNT 3.31 10^6/uL (4.35-5.55); RED CELL DISTRIBUTION WIDTH 17.3 % (11.5-14.0)
[2017-03-30] MEDS: LEVOTHYROXINE SODIUM 0.088 MG TABLET PO SCH (05:41)
[2017-03-30 05:51] LABS: ANION GAP 11 (5-19); CALCIUM 9.5 mg/dL (8.4-10.2); CARBON DIOXIDE 22 mmol/L (22-30); CHLORIDE 107 mmol/L (98-107); GLUCOSE 102 mg/dL (75-110); POTASSIUM 4.6 mmol/L (3.6-5.0); SODIUM 140.2 mmol/L (137-145)
[2017-03-30 06:00] LABS: BLOOD UREA NITROGEN 124 mg/dL (7-20)
[2017-03-30 06:56] LABS: ABSOLUTE LYMPHOCYTES# (MANUAL) 1.8 10^3/uL (0.5-4.7); ABSOLUTE MONOCYTES # (MANUAL) 1.1 10^3/uL (0.1-1.4); ABSOLUTE NEUTROPHILS# (MANUAL) 11.1 10^3/uL (1.7-8.2); BASOPHILS % (MANUAL) 0 % (0-2); EOSINOPHILS % (MANUAL) 0 % (0-6); LYMPHOCYTES % (MANUAL) 13 % (13-45); MONOCYTES % (MANUAL) 8 % (3-13); SEGMENTED NEUTROPHILS % (MAN) 79 % (42-78); TOTAL CELLS COUNTED 100
[2017-03-30 06:58] LABS: ANISOCYTOSIS 1+; STOMATOCYTES 1+; TEAR DROP CELLS SLIGHT
[2017-03-30 06:59] LABS: PLATELET COMMENT ADEQUATE
[2017-03-30] MEDS: METOPROLOL TARTRATE 50 MG TABLET PO SCH ×2 (10:59→23:24)
[2017-03-30] MEDS: ASPIRIN 81 MG TABLET, CHEWABLE PO SCH (11:01)
[2017-03-30] MEDS: DILTIAZEM HCL 120 MG CAP.SR.24H PO SCH ×2 (11:01→23:24)
[2017-03-30] MEDS: PREDNISONE 20 MG TABLET PO SCH (11:01)
[2017-03-30] MEDS: FERROUS SULFATE 325 MG TABLET PO SCH ×2 (11:01→17:52)
[2017-03-30] MEDS: FUROSEMIDE 40 MG TABLET PO SCH (11:02)
[2017-03-30] MEDS: DULOXETINE HCL 30 MG CAPSULE.DR PO SCH (11:02)
[2017-03-30] MEDS: APIXABAN 2.5 MG TABLET PO SCH ×2 (11:02→23:24)
[2017-03-30] MEDS: INSULIN GLARGINE,HUM.REC.ANLOG 300 UNIT/3 ML INSULN.PEN SUBCUT SCH (11:02)
[2017-03-30] MEDS: CHLORHEXIDINE GLUCONATE 0.12% ORAL RINSE 15 ML UDC MM SCH ×2 (11:02→18:30)
[2017-03-30] MEDS: SILVER SULFADIAZINE 1% CREAM 50 GM TP SCH ×2 (11:03→17:53)
[2017-03-30] MEDS: INSULIN LISPRO 100 UNIT/ML 3 ML VIAL SUBCUT PRN ×3 (12:24→23:23)
--- NOTE | 2017-03-30 12:59 | PDOC DISCHARGE SUMMARY ---
General - Admit/Disc Date/PCP Admission Date/Primary Care Provider: 03/18/17 17:14 SAMARIA LIMON PA-C Discharge Date: 04/01/17 - Discharge Diagnosis (1) Acute and chronic respiratory failure with hypoxia Is this a current diagnosis for this admission?: Yes (2) Acute on chronic diastolic (congestive) heart failure Is this a current diagnosis for this admission?: Yes (3) Acute on chronic renal failure Is this a current diagnosis for this admission?: Yes Summary: Patient's Lasix had been on hold due to acute on chronic Renal failure. Initial Cr/BUN on admission was 4.2 and 74 and it is currently 2.85 and 120. Would suggest close monitoring of BMP and further adjustments of his medications as needed (4) Atrial fibrillation Is this a current diagnosis for this admission?: Yes (5) COPD exacerbation Is this a current diagnosis for this admission?: Yes (6) Chronic anticoagulation Is this a current diagnosis for this admission?: Yes (7) Hyperkalemia Is this a current diagnosis for this admission?: Yes Summary: Resolved (8) Morbid obesity Is this a current diagnosis for this admission?: Yes (10) Urinary retention Is this a current diagnosis for this admission?: Yes (11) UTI (urinary tract infection) Is this a current diagnosis for this admission?: Yes Summary: Patient has a chronic catheter. Repeat UA shows pyuria but Urine culture was negative. No further treatment needed - Additional Information Resuscitation Status: Full Code Discharge Diet: Cardiac, Diabetic Discharge Activity: Activity As Tolerated, Balance Activity w/Rest Prescriptions: RX: Lorazepam [Ativan 1 mg Tablet] 1 mg PO Q12HP PRN #14 tablet PRN Reason: Anxiety Home Medications: RX: Apixaban [Eliquis 2.5 mg Tablet] 2.5 mg PO Q12 03/19/17 RX: Diltiazem HCl [Diltiazem ER] 120 mg PO Q12 03/19/17 RX: Duloxetine HCl [Cymbalta] 60 mg PO DAILY 03/19/17 RX: Famotidine [Pepcid] 20 mg PO QHS 03/19/17 RX: Ferrous Sulfate [Feosol 325 mg Tablet] 325 mg PO BID 03/19/17 RX: Tamsulosin HCl [Flomax 0.4 mg Cap.sr] 0.4 mg PO DAILY 03/19/17 RX: Budesonide [Pulmicort Neb 0.5 mg/2 ml Ampul] 0.5 mg NEB [id number] PRN ampul.neb 03/30/17 RX: Chlorhexidine Gluconate [Periogard 0.12% Oral Rinse 15 ml] 15 ml MM BID udc 03/30/17 RX: Colchicine [Colcrys 0.6 mg Tablet] 0.6 mg PO DAILYP PRN tablet 03/30/17 RX: Epoetin Rod [Procrit Inj 20,000 Unit/1 ml Vial (Renal)] 20,000 unit SUBCUT [id number] ml 03/30/17 RX: Furosemide [Lasix 40 mg Tablet] 40 mg PO DAILY tablet 03/30/17 RX: Insulin Glargine,Hum.rec.anlog [Lantus Insulin 100 Unit/mL] 25 unit SUBCUT DAILY insuln.pen 03/30/17 RX: Insulin Lispro [Humalog Insulin (Lispro) 100 unit/mL] 0 - 12 unit SUBCUT ACHSP PRN unit 03/30/17 RX: Ipratropium/Albuterol Sulfate [Duoneb 3 ml Ampul] 3 ml NEB [id number] PRN vial.neb 03/30/17 RX: Latanoprost [Xalatan 0.005% Oph Soln 2.5 ml] 1 drop OU QHS bottle 03/30/17 RX: Levothyroxine Sodium [Synthroid 0.088 mg Tablet] 0.088 mg PO Q6AM tablet RX: Lorazepam [Ativan 1 mg Tablet] 1 mg PO Q12HP PRN #14 tablet 03/30/17 RX: Metoprolol Tartrate [Lopressor 50 mg Tablet] 75 mg PO Q12 tablet 03/30/17 RX: Silver Sulfadiazine [Silvadene 1% Cream 50 gm] 1 applic TP BID tube History of Present Illness Patient complains of: Patient was admitted with increasing shortness of breath and found to have acute on chronic respiratory failure with pneumonia. Patient has chronic respiratory failure with a tracheostomy tube although indications are unclear to me at this time. History of Present Illness: DIAMOND KHAN SR is a 71 year old male Hospital Course Hospital Course: He was also found to have compensated CHF, acute kidney injury, hyperkalemia and COPD which will treated during this admission. He was started on intravenous cefepime which he received for 10 days have been completed treatment while in hospital. He has remained hemodynamically stable. Patient does have a chronic catheter and he does have some pyuria but it is unclear if this is a true infection or just colonization. I suggest follow-up with repeat urinalysis and urine culture and further treatment if needed although as stated above patient just received 10 days of cefepime. His respiratory status has been stable with completion of his IV antibiotics and no further intervention is being planned patient is being discharged to an LTAC although was admitted from home. Physical Exam Vital Signs: Temp Pulse Resp BP Pulse Ox 98.3 F 65 19 132/80 H 100 03/30/17 07:14 03/30/17 07:14 03/30/17 07:14 03/30/17 07:14 03/30/17 07:14 Intake & Output 03/29/17 03/30/17 03/31/17 06:59 06:59 06:59 Intake Total 1680 1305 Output Total 2275 2525 Balance -595 -1220 Weight 135.7 kg 129.2 kg General appearance: PRESENT: no acute distress, morbidly obese, obese Head exam: PRESENT: atraumatic Eye exam: PRESENT: conjunctiva pink, EOMI, PERRLA. ABSENT: scleral icterus Ear exam: PRESENT: normal external ear exam Mouth exam: PRESENT: moist, tongue midline Neck exam: PRESENT: tracheostomy. ABSENT: carotid bruit, JVD, lymphadenopathy, thyromegaly Respiratory exam: PRESENT: decreased breath sounds Cardiovascular exam: PRESENT: RRR. ABSENT: diastolic murmur, rubs, systolic murmur Pulses: PRESENT: normal dorsalis pedis pul Vascular exam: PRESENT: normal capillary refill GI/Abdominal exam: PRESENT: normal bowel sounds, soft. ABSENT: distended, guarding, mass, organolmegaly, rebound, tenderness Rectal exam: PRESENT: deferred Gentrourinary exam: PRESENT: indwelling catheter Extremities exam: PRESENT: full ROM. ABSENT: calf tenderness, clubbing, pedal edema Neurological exam: PRESENT: alert, awake, oriented to person, oriented to place , oriented to time, oriented to situation, CN II-XII grossly intact. ABSENT: motor sensory deficit Psychiatric exam: PRESENT: appropriate affect, normal mood. ABSENT: homicidal ideation, suicidal ideation Skin exam: PRESENT: other - Stage 1 Decubitus Results Laboratory Results: 03/30/17 04:58 03/30/17 04:58 03/29/17 03/30/17 03/30/17 18:15 04:58 04:58 WBC 14.0 H RBC 3.31 L Hgb 9.5 L Hct 28.6 L MCV 87 MCH 28.6 MCHC 33.1 RDW 17.3 H Plt Count 181 Seg Neutrophils % Not Reportable Lymphocytes % Not Reportable Monocytes % Not Reportable Eosinophils % Not Reportable Basophils % Not Reportable Absolute Neutrophils Not Reportable Absolute Lymphocytes Not Reportable Absolute Monocytes Not Reportable Absolute Eosinophils Not Reportable Absolute Basophils Not Reportable Sodium 140.2 Potassium 4.6 Chloride 107 Carbon Dioxide 22 Anion Gap 11 BUN 124 H Creatinine 2.59 H Est GFR ( Amer) 30 L Est GFR (Non-Af Amer) 25 L Glucose 102 Calcium 9.5 Urine Color YELLOW Urine Appearance TURBID Urine pH 5.0 Ur Specific [place] 1.009 Urine Protein 100 H Urine Glucose (UA) NEGATIVE Urine Ketones NEGATIVE Urine Blood MODERATE H Urine Nitrite NEGATIVE Ur Leukocyte Esterase LARGE H Urine WBC (Auto) >182 Urine RBC (Auto) >182 03/18/17 03/18/17 03/19/17 18:10 23:40 05:41 Troponin I < 0.012 < 0.012 < 0.012 NT-Pro-B Natriuret Pep 91130 H Labs- All tests 24 hr 03/31/17 03/31/17 03/31/17 12:54 15:17 21:45 POC Glucose 133 H 139 H 207 H 04/01/17 05:47 POC Glucose 98 Labs- Last Values WBC 15.3 10^3/uL (4.0-10.5) H 03/31/17 04:29 RBC 3.31 10^6/uL (4.35-5.55) L 03/31/17 04:29 Hgb 9.5 g/dL (13.5-17.0) L 03/31/17 04:29 Hct 29.2 % (37.9-51.0) L 03/31/17 04:29 MCV 88 fl (80-97) 03/31/17 04:29 MCH 28.7 pg (27.0-33.4) 03/31/17 04:29 MCHC 32.6 g/dL (32.0-36.0) 03/31/17 04:29 RDW 17.5 % (11.5-14.0) H 03/31/17 04:29 Plt Count 166 10^3/uL (150-450) 03/31/17 04:29 Total Counted 100 03/31/17 04:29 Seg Neutrophils % Not Reportable 03/31/17 04:29 Seg Neuts % (Manual) 83 % (42-78) H 03/31/17 04:29 Band Neutrophils % 1 % (3-5) L 03/31/17 04:29 Lymphocytes % Not Reportable 03/31/17 04:29 Lymphocytes % (Manual) 13 % (13-45) 03/31/17 04:29 Atypical Lymphs % 1 % (0) 03/18/17 15:43 Monocytes % Not Reportable 03/31/17 04:29 Monocytes % (Manual) 2 % (3-13) L 03/31/17 04:29 Eosinophils % Not Reportable 03/31/17 04:29 Eosinophils % (Manual) 0 % (0-6) 03/31/17 04:29 Basophils % Not Reportable 03/31/17 04:29 Basophils % (Manual) 0 % (0-2) 03/31/17 04:29 Metamyelocytes % 1 % (0) H 03/31/17 04:29 Absolute Neutrophils Not Reportable 03/31/17 04:29 Abs Neuts (Manual) 13.0 10^3/uL (1.7-8.2) H 03/31/17 04:29 Absolute Lymphocytes Not Reportable 03/31/17 04:29 Abs Lymphs (Manual) 2.0 10^3/uL (0.5-4.7) 03/31/17 04:29 Absolute Monocytes Not Reportable 03/31/17 04:29 Abs Monocytes (Manual) 0.3 10^3/uL (0.1-1.4) 03/31/17 04:29 Absolute Eosinophils Not Reportable 03/31/17 04:29 Absolute Eos (Manual) 0.0 10^3/uL (0.0-0.6) 03/31/17 04:29 Absolute Basophils Not Reportable 03/31/17 04:29 Abs Basophils (Manual) 0.0 10^3/uL (0.0-0.2) 03/31/17 04:29 Toxic Granulation 1+ 03/27/17 04:10 Large Platelets PRESENT 03/22/17 04:27 Platelet Comment ADEQUATE 03/31/17 04:29 Hypochromasia SLIGHT 03/18/17 15:43 Poikilocytosis SLIGHT 03/31/17 04:29 Basophilic Stippling PRESENT 03/30/17 04:58 Anisocytosis 1+ 03/31/17 04:29 Tear Drop Cells SLIGHT 03/30/17 04:58 Ovalocytes SLIGHT 03/31/17 04:29 Stomatocytes 1+ 03/30/17 04:58 Helmet Cells 1+ 03/22/17 04:27 Schistocytes SLIGHT 03/27/17 04:10 Carbonic Acid 1.65 mmol/L (1.05-1.35) H 03/21/17 10:30 HCO3/H2CO3 Ratio 17:1 03/21/17 10:30 ABG pH 7.34 (7.35-7.45) L 03/21/17 10:30 ABG pCO2 54.9 mmHg (35-45) H 03/21/17 10:30 ABG pO2 43.9 mmHg (80-100) L 03/21/17 10:30 ABG HCO3 29.2 mmol/L (20-26) H 03/21/17 10:30 ABG Total CO2 30.8 mmol/L (23-27) H 03/21/17 10:30 ABG O2 Saturation 76.2 % (94-98) L 03/21/17 10:30 ABG Base Excess 2.8 mmol/L 03/21/17 10:30 FiO2 35% 03/21/17 10:30 Sodium 143.2 mmol/L (137-145) 03/31/17 04:29 Potassium 5.1 mmol/L (3.6-5.0) H 03/31/17 04:29 Chloride 108 mmol/L (98-107) H 03/31/17 04:29 Carbon Dioxide 24 mmol/L (22-30) 03/31/17 04:29 Anion Gap 11 (5-19) 03/31/17 04:29 BUN 120 mg/dL (7-20) H 03/31/17 04:29 Creatinine 2.85 mg/dL (0.52-1.25) H 03/31/17 04:29 Est GFR ( Amer) 27 (>60) L 03/31/17 04:29 Est GFR (Non-Af Amer) 22 (>60) L 03/31/17 04:29 Glucose 105 mg/dL (75-110) 03/31/17 04:29 POC Glucose 98 mg/dL (70-110) 04/01/17 05:47 Calcium 9.3 mg/dL (8.4-10.2) 03/31/17 04:29 Magnesium 2.0 mg/dL (1.6-2.3) 03/27/17 04:10 Iron 50.5 ug/dL (49-181) 03/21/17 05:30 TIBC 282 ug/dL (250-450) 03/21/17 05:30 % Saturation 18 % 03/21/17 05:30 Ferritin 141.00 ng/mL (17.9-464.0) 03/21/17 05:30 Total Bilirubin 0.5 mg/dL (0.2-1.3) 03/22/17 04:27 Direct Bilirubin 0.4 mg/dL (0.0-0.4) 03/22/17 04:27 Neonat Total Bilirubin Not Reportable 03/22/17 04:27 Neonat Direct Bilirubin Not Reportable 03/22/17 04:27 Neonat Indirect Bili Not Reportable 03/22/17 04:27 AST 16 U/L (17-59) L 03/22/17 04:27 ALT 24 U/L (21-72) 03/22/17 04:27 Alkaline Phosphatase 66 U/L (38-126) 03/22/17 04:27 Creatine Kinase 55 U/L (55-170) 03/18/17 15:43 CK-MB (CK-2) 2.96 ng/mL (<4.55) 03/18/17 15:43 Troponin I < 0.012 ng/mL 03/19/17 05:41 NT-Pro-B Natriuret Pep 38019 pg/mL (5-900) H 03/19/17 05:41 Total Protein 6.2 g/dL (6.0-8.5) 03/23/17 04:30 Albumin 3.1 g/dL (2.9-4.4) 03/23/17 04:30 Globulin 3.1 g/dL (2.2-3.9) 03/23/17 04:30 Albumin/Globulin Ratio 1.1 (0.7-1.7) 03/23/17 04:30 Lhtub-7-Chqeelgyh 0.2 g/dL (0.0-0.4) 03/23/17 04:30 Fwsth-1-Vvsnkpjjo 0.9 g/dL (0.4-1.0) 03/23/17 04:30 Beta Globulins 0.8 g/dL (0.7-1.3) 03/23/17 04:30 Gamma Globulins 1.1 g/dL (0.4-1.8) 03/23/17 04:30 M-Paul Not Observed g/dL (Not Observed) 03/23/17 04:30 TSH 1.68 uIU/mL (0.47-4.68) 03/19/17 14:45 Immunoglobulin A 214 mg/dL (61-437) 03/23/17 04:30 Immunoglobulin G 1128 mg/dL (700-1600) 03/23/17 04:30 Immunoglobulin M 240 mg/dL (20-172) H 03/23/17 04:30 Serum Immunofixation Comment (.) 03/23/17 04:30 Immunofixation Note Comment (.) 03/23/17 04:30 Urine Color YELLOW 03/29/17 18:15 Urine Appearance TURBID 03/29/17 18:15 Urine pH 5.0 (5.0-9.0) 03/29/17 18:15 Ur Specific [place] 1.009 03/29/17 18:15 Urine Protein 100 mg/dL (NEGATIVE) H 03/29/17 18:15 Urine Glucose (UA) NEGATIVE mg/dL (NEGATIVE) 03/29/17 18:15 Urine Ketones NEGATIVE mg/dL (NEGATIVE) 03/29/17 18:15 Urine Blood MODERATE (NEGATIVE) H 03/29/17 18:15 Urine Nitrite NEGATIVE (NEGATIVE) 03/29/17 18:15 Urine Bilirubin NEGATIVE (NEGATIVE) 03/29/17 18:15 Urine Urobilinogen NEGATIVE mg/dL (<2.0) 03/29/17 18:15 Ur Leukocyte Esterase LARGE (NEGATIVE) H 03/29/17 18:15 Urine WBC (Auto) >182 /HPF 03/29/17 18:15 Urine RBC (Auto) >182 /HPF 03/29/17 18:15 Urine Bacteria (Auto) 1+ /HPF 03/21/17 13:25 Urine WBC Clumps MANY /HPF 03/21/17 13:25 Squamous Epi Cells Auto <1 /HPF 03/21/17 13:25 Urine Mucus (Auto) FEW /LPF 03/29/17 18:15 Urine Yeast (Budding) PRESENT /HPF 03/29/17 18:15 Urine Ascorbic Acid NEGATIVE (NEGATIVE) 03/29/17 18:15 Slides for Path Review PATHOLOGIST REVIEWED 03/27/17 04:10 Impressions: Chest X-Ray 03/21/17 00:00 IMPRESSION: Persistent right lower lobe pneumonia with improved aeration. No evidence of cavitation or pneumothorax. Qualifiers PATEINT BEING DISCHARGED WITH ANY OF THE FOLLOWING DIAGNOSIS?: Heart Failure VTE patient discharged on overlapping Therapy?: No Plan Discharge Plan: Patient has underlying CKD stage 4 however his creatinine has been improving from 4.2 down to 2.85 however his BUN is up to 120 today. His Lasix had been decreased to 40 mg daily but I will suggest reevaluation and possible increased hydration with close follow-up of his kidney function and further adjustment of his diuretic is indicated. Patient is a full code Time Spent: Greater than 30 Minutes
[2017-03-30] MEDS: IPRATROPIUM/ALBUTEROL 0.5-2.5 MG/3 ML AMPUL NEB PRN (15:23)
[2017-03-30] MEDS: LORAZEPAM 1 MG TABLET PO PRN (15:54)
--- NOTE | 2017-03-30 17:26 | PDOC PROGRESS REPORT ---
Subjective Subjective:: The patient is a 71-year-old male with a past medical history of tracheostomy, morbid obesity and general deconditioning. The patient presented to the emergency room with increasing shortness of breath and was found to have left basilar pneumonia as well as worsening kidney function. His kidney function at baseline is poor, stage IV. The patient's course has been unremarkable. He has been followed closely by nephrology. Later in the hospitalization it was felt that he was having a COPD exacerbation and he was started on steroids with significant improvement to his symptoms. General surgery was consulted to exchange the patient's trach however the patient does not have the next size lower nor do we have it in stock, as it would be ideal to have this on hand when exchanging the trach, in the event that the patient does need to be downsized. This has been ordered and when available the surgery service will exchange it. However it should not impede the patient's discharge and he can follow-up with ENT on an outpatient basis for this if it is not done prior to discharge. Discussions have been had with the patient's family and they have decided to pursue subacute rehabilitation at the time of discharge. Plan is to dc to LTAC in am Reason For Visit: ACUTE RESPIRATORY FAILURE WITH HYPOXEMIA Physical Exam Vital Signs: Temp Pulse Resp BP Pulse Ox 98.4 F 68 18 146/65 H 96 03/30/17 14:45 03/30/17 15:28 03/30/17 15:28 03/30/17 14:45 03/30/17 15:28 Intake & Output 03/29/17 03/30/17 03/31/17 06:59 06:59 06:59 Intake Total 1680 1305 236 Output Total 9055 8875 675 Balance -595 -1220 -439 Weight 135.7 kg 129.2 kg General appearance: PRESENT: no acute distress, well-developed, well-nourished Head exam: PRESENT: atraumatic, normocephalic Eye exam: PRESENT: conjunctiva pink, EOMI, PERRLA. ABSENT: scleral icterus Ear exam: PRESENT: normal external ear exam Mouth exam: PRESENT: moist, tongue midline Neck exam: PRESENT: tracheostomy. ABSENT: carotid bruit, JVD, lymphadenopathy, thyromegaly Respiratory exam: PRESENT: decreased breath sounds. ABSENT: rales, rhonchi, wheezes Cardiovascular exam: PRESENT: RRR. ABSENT: diastolic murmur, rubs, systolic murmur Pulses: PRESENT: normal dorsalis pedis pul Vascular exam: PRESENT: normal capillary refill GI/Abdominal exam: PRESENT: normal bowel sounds, soft. ABSENT: distended, guarding, mass, organolmegaly, rebound, tenderness Rectal exam: PRESENT: deferred Extremities exam: PRESENT: full ROM. ABSENT: calf tenderness, clubbing, pedal edema Neurological exam: PRESENT: alert, awake, oriented to person, oriented to place , oriented to time, oriented to situation, CN II-XII grossly intact. ABSENT: motor sensory deficit Psychiatric exam: PRESENT: appropriate affect, normal mood. ABSENT: homicidal ideation, suicidal ideation Skin exam: PRESENT: dry, intact, warm. ABSENT: cyanosis, rash Results Laboratory Results: 03/30/17 04:58 03/30/17 04:58 03/29/17 03/30/17 03/30/17 18:15 04:58 04:58 WBC 14.0 H RBC 3.31 L Hgb 9.5 L Hct 28.6 L MCV 87 MCH 28.6 MCHC 33.1 RDW 17.3 H Plt Count 181 Seg Neutrophils % Not Reportable Lymphocytes % Not Reportable Monocytes % Not Reportable Eosinophils % Not Reportable Basophils % Not Reportable Absolute Neutrophils Not Reportable Absolute Lymphocytes Not Reportable Absolute Monocytes Not Reportable Absolute Eosinophils Not Reportable Absolute Basophils Not Reportable Sodium 140.2 Potassium 4.6 Chloride 107 Carbon Dioxide 22 Anion Gap 11 BUN 124 H Creatinine 2.59 H Est GFR ( Amer) 30 L Est GFR (Non-Af Amer) 25 L Glucose 102 Calcium 9.5 Urine Color YELLOW Urine Appearance TURBID Urine pH 5.0 Ur Specific [place] 1.009 Urine Protein 100 H Urine Glucose (UA) NEGATIVE Urine Ketones NEGATIVE Urine Blood MODERATE H Urine Nitrite NEGATIVE Ur Leukocyte Esterase LARGE H Urine WBC (Auto) >182 Urine RBC (Auto) >182 03/18/17 03/18/17 03/19/17 18:10 23:40 05:41 Troponin I < 0.012 < 0.012 < 0.012 NT-Pro-B Natriuret Pep 06056 H Impressions: Chest X-Ray 03/21/17 00:00 IMPRESSION: Persistent right lower lobe pneumonia with improved aeration. No evidence of cavitation or pneumothorax. Assessment & Plan - Diagnosis (2) Atrial fibrillation Is this a current diagnosis for this admission?: Yes (3) Acute and chronic respiratory failure with hypoxia Is this a current diagnosis for this admission?: Yes Plan: Cont tracheostomy (4) Acute on chronic diastolic (congestive) heart failure Is this a current diagnosis for this admission?: Yes (5) Acute on chronic renal failure Is this a current diagnosis for this admission?: Yes Plan: On chronic kidney disease (6) COPD exacerbation Is this a current diagnosis for this admission?: Yes Plan: Taper steroid (7) Chronic anticoagulation Is this a current diagnosis for this admission?: Yes (8) Hyperkalemia Is this a current diagnosis for this admission?: Yes Plan: Resolved (9) Morbid obesity Is this a current diagnosis for this admission?: Yes (10) Urinary retention Is this a current diagnosis for this admission?: Yes Plan: Barragan catheter (11) UTI (urinary tract infection) Qualifiers: Urinary tract infection type: catheter-associated UTI Indwelling urinary catheter type: indwelling urethral catheter Encounter type: initial encounter Qualified Code(s): T83.511A - Infection and inflammatory reaction due to indwelling urethral catheter, initial encounter Plan: Check UC - Time Time Spent with patient: 15-24 minutes Medications reviewed and adjusted accordingly: Yes Anticipated discharge: Other - LTAC - Inpatient Certification Medical Necessity: Other - Awaiting transfer to LTAC
[2017-03-30] MEDS: TAMSULOSIN HCL 0.4 MG CAP.SR.24H PO SCH (17:53)
[2017-03-30] MEDS: 1/2 NORMAL SALINE 1,000 ML IV PRN (18:21)
[2017-03-30] MEDS: FAMOTIDINE 20 MG TABLET PO SCH (23:24)
[2017-03-30] MEDS: LATANOPROST 0.005% OPH SOLN 2.5 ML OU SCH (23:24)
[2017-03-31] MEDS: OXYCODONE HCL IR 5 MG TABLET PO PRN (03:08)
[2017-03-31 04:56] LABS: HEMATOCRIT 29.2 % (37.9-51.0); HEMOGLOBIN 9.5 g/dL (13.5-17.0); MEAN CORPUSCULAR HEMOGLOBIN 28.7 pg (27.0-33.4); MEAN CORPUSCULAR HGB CONC 32.6 g/dL (32.0-36.0); MEAN CORPUSCULAR VOLUME 88 fl (80-97); PLATELET COUNT 166 10^3/uL (150-450); RED BLOOD COUNT 3.31 10^6/uL (4.35-5.55); RED CELL DISTRIBUTION WIDTH 17.5 % (11.5-14.0); WHITE BLOOD COUNT 15.3 10^3/uL (4.0-10.5)
[2017-03-31] MEDS: 1/2 NORMAL SALINE 1,000 ML IV PRN (05:02)
[2017-03-31 05:27] LABS: ABSOLUTE MONOCYTES # (MANUAL) 0.3 10^3/uL (0.1-1.4); BAND NEUTROPHILS % (MANUAL) 1 % (3-5); BASOPHILS % (MANUAL) 0 % (0-2); EOSINOPHILS % (MANUAL) 0 % (0-6); LYMPHOCYTES % (MANUAL) 13 % (13-45); METAMYELOCYTES % (MANUAL) 1 % (0); MONOCYTES % (MANUAL) 2 % (3-13); SEGMENTED NEUTROPHILS % (MAN) 83 % (42-78); TOTAL CELLS COUNTED 100
[2017-03-31 05:28] LABS: ANISOCYTOSIS 1+; PLATELET COMMENT ADEQUATE
[2017-03-31 05:29] LABS: ANION GAP 11 (5-19); BLOOD UREA NITROGEN 120 mg/dL (7-20); CALCIUM 9.3 mg/dL (8.4-10.2); CARBON DIOXIDE 24 mmol/L (22-30); CHLORIDE 108 mmol/L (98-107); GLUCOSE 105 mg/dL (75-110); POTASSIUM 5.1 mmol/L (3.6-5.0); SODIUM 143.2 mmol/L (137-145)
[2017-03-31 05:30] LABS: POIKILOCYTOSIS SLIGHT
[2017-03-31 05:31] LABS: OVALOCYTES SLIGHT
[2017-03-31] MEDS: LEVOTHYROXINE SODIUM 0.088 MG TABLET PO SCH (06:51)
[2017-03-31] MEDS: METOPROLOL TARTRATE 50 MG TABLET PO SCH ×2 (10:06→22:34)
[2017-03-31] MEDS: APIXABAN 2.5 MG TABLET PO SCH ×2 (10:16→22:33)
[2017-03-31] MEDS: ASPIRIN 81 MG TABLET, CHEWABLE PO SCH (10:16)
[2017-03-31] MEDS: PREDNISONE 20 MG TABLET PO SCH (10:16)
[2017-03-31] MEDS: INSULIN GLARGINE,HUM.REC.ANLOG 300 UNIT/3 ML INSULN.PEN SUBCUT SCH (10:16)
[2017-03-31] MEDS: FERROUS SULFATE 325 MG TABLET PO SCH ×2 (10:17→17:28)
[2017-03-31] MEDS: DULOXETINE HCL 30 MG CAPSULE.DR PO SCH (10:17)
[2017-03-31] MEDS: DILTIAZEM HCL 120 MG CAP.SR.24H PO SCH ×2 (10:17→22:33)
[2017-03-31] MEDS: SILVER SULFADIAZINE 1% CREAM 50 GM TP SCH ×2 (10:18→17:28)
[2017-03-31] MEDS: CHLORHEXIDINE GLUCONATE 0.12% ORAL RINSE 15 ML UDC MM SCH ×2 (10:30→17:28)
--- NOTE | 2017-03-31 16:32 | PDOC PROGRESS REPORT ---
Subjective Progress Note for:: 03/31/17 Subjective:: The patient is a 71-year-old male with a past medical history of tracheostomy, morbid obesity and general deconditioning. The patient presented to the emergency room with increasing shortness of breath and was found to have left basilar pneumonia as well as worsening kidney function. His kidney function at baseline is poor, stage IV. The patient's course has been unremarkable. He has been followed closely by nephrology. Later in the hospitalization it was felt that he was having a COPD exacerbation and he was started on steroids with significant improvement to his symptoms. General surgery was consulted to exchange the patient's trach however the patient does not have the next size lower nor do we have it in stock, as it would be ideal to have this on hand when exchanging the trach, in the event that the patient does need to be downsized. This has been ordered and when available the surgery service will exchange it. However it should not impede the patient's discharge and he can follow-up with ENT on an outpatient basis for this if it is not done prior to discharge. Plan is to dc to LTAC in am Reason For Visit: ACUTE RESPIRATORY FAILURE WITH HYPOXEMIA Physical Exam Vital Signs: Temp Pulse Resp BP Pulse Ox 97.7 F 73 15 157/75 H 98 03/31/17 12:53 03/31/17 14:00 03/31/17 12:53 03/31/17 12:53 03/31/17 12:53 Intake & Output 03/30/17 03/31/17 04/01/17 06:59 06:59 06:59 Intake Total 1305 2130 0 Output Total 2525 2375 650 Balance -1220 -245 -650 Weight 129.2 kg 144.6 kg General appearance: PRESENT: no acute distress, cooperative, morbidly obese Head exam: PRESENT: atraumatic Mouth exam: PRESENT: dry mucosa Neck exam: PRESENT: tracheostomy Respiratory exam: PRESENT: clear to auscultation rowan. ABSENT: rales, rhonchi, wheezes Cardiovascular exam: PRESENT: RRR. ABSENT: diastolic murmur, rubs, systolic murmur Rectal exam: PRESENT: deferred Extremities exam: PRESENT: +1 edema Neurological exam: PRESENT: alert, awake, oriented to person, oriented to place , oriented to time Skin exam: PRESENT: other - Stage 1 Decubitus to R hip Results Laboratory Results: 03/31/17 04:29 03/31/17 04:29 03/31/17 03/31/17 04:29 04:29 WBC 15.3 H RBC 3.31 L Hgb 9.5 L Hct 29.2 L MCV 88 MCH 28.7 MCHC 32.6 RDW 17.5 H Plt Count 166 Seg Neutrophils % Not Reportable Lymphocytes % Not Reportable Monocytes % Not Reportable Eosinophils % Not Reportable Basophils % Not Reportable Absolute Neutrophils Not Reportable Absolute Lymphocytes Not Reportable Absolute Monocytes Not Reportable Absolute Eosinophils Not Reportable Absolute Basophils Not Reportable Sodium 143.2 Potassium 5.1 H Chloride 108 H Carbon Dioxide 24 Anion Gap 11 BUN 120 H Creatinine 2.85 H Est GFR ( Amer) 27 L Est GFR (Non-Af Amer) 22 L Glucose 105 Calcium 9.3 03/18/17 03/18/17 03/19/17 18:10 23:40 05:41 Troponin I < 0.012 < 0.012 < 0.012 NT-Pro-B Natriuret Pep 33062 H Impressions: Chest X-Ray 03/21/17 00:00 IMPRESSION: Persistent right lower lobe pneumonia with improved aeration. No evidence of cavitation or pneumothorax. Assessment & Plan - Diagnosis (1) Status post tracheostomy Is this a current diagnosis for this admission?: Yes Plan: Cont same (2) Atrial fibrillation Qualifiers: Atrial fibrillation type: chronic Qualified Code(s): I48.2 - Chronic atrial fibrillation Is this a current diagnosis for this admission?: Yes Plan: Currently sinus (3) Acute and chronic respiratory failure with hypoxia Is this a current diagnosis for this admission?: Yes Plan: Cont tracheostomy (4) Acute on chronic diastolic (congestive) heart failure Is this a current diagnosis for this admission?: Yes Plan: Hold Lasix for today due to his kidney function (5) Acute on chronic renal failure Is this a current diagnosis for this admission?: Yes Plan: On chronic kidney disease Monitor kidney function (6) COPD exacerbation Is this a current diagnosis for this admission?: Yes Plan: Continue to Taper steroid (7) Chronic anticoagulation Is this a current diagnosis for this admission?: Yes Plan: Cont Apixaban (8) Hyperkalemia Is this a current diagnosis for this admission?: Yes Plan: Resolved (9) Morbid obesity Is this a current diagnosis for this admission?: Yes (10) Urinary retention Is this a current diagnosis for this admission?: Yes Plan: Barragan catheter, chronic indwelling, changed during this admission (11) UTI (urinary tract infection) Qualifiers: Urinary tract infection type: catheter-associated UTI Indwelling urinary catheter type: indwelling urethral catheter Encounter type: initial encounter Qualified Code(s): T83.511A - Infection and inflammatory reaction due to indwelling urethral catheter, initial encounter Plan: UC shows no growth. No further intervention needed. Pyuria likely from chronic catheterization and not a true infection. - Time Time Spent with patient: 15-24 minutes Medications reviewed and adjusted accordingly: Yes Anticipated discharge: Other - LTAC - Inpatient Certification Medical Necessity: Other - Awaiting Safe discharge to LTAC
[2017-03-31] MEDS: IPRATROPIUM/ALBUTEROL 0.5-2.5 MG/3 ML AMPUL NEB PRN ×2 (16:34→21:20)
[2017-03-31] MEDS: TAMSULOSIN HCL 0.4 MG CAP.SR.24H PO SCH (17:28)
[2017-03-31] MEDS: LORAZEPAM 1 MG TABLET PO PRN (21:06)
[2017-03-31] MEDS: INSULIN LISPRO 100 UNIT/ML 3 ML VIAL SUBCUT PRN (22:33)
[2017-03-31] MEDS: FAMOTIDINE 20 MG TABLET PO SCH (22:33)
[2017-03-31] MEDS: LATANOPROST 0.005% OPH SOLN 2.5 ML OU SCH (22:34)
[2017-04-01] MEDS: 1/2 NORMAL SALINE 1,000 ML IV PRN (03:45)
[2017-04-01] MEDS: OXYCODONE HCL IR 5 MG TABLET PO PRN (03:45)
[2017-04-01] MEDS: LEVOTHYROXINE SODIUM 0.088 MG TABLET PO SCH (06:44)
[2017-04-01] MEDS: IPRATROPIUM/ALBUTEROL 0.5-2.5 MG/3 ML AMPUL NEB PRN ×2 (08:08→13:47)
[2017-04-01] MEDS: METOPROLOL TARTRATE 50 MG TABLET PO SCH (10:36)
[2017-04-01] MEDS: INSULIN GLARGINE,HUM.REC.ANLOG 300 UNIT/3 ML INSULN.PEN SUBCUT SCH (10:36)
[2017-04-01] MEDS: CHLORHEXIDINE GLUCONATE 0.12% ORAL RINSE 15 ML UDC MM SCH (10:36)
[2017-04-01] MEDS: FERROUS SULFATE 325 MG TABLET PO SCH (10:37)
[2017-04-01] MEDS: ASPIRIN 81 MG TABLET, CHEWABLE PO SCH (10:38)
[2017-04-01] MEDS: DILTIAZEM HCL 120 MG CAP.SR.24H PO SCH (10:38)
[2017-04-01] MEDS: DULOXETINE HCL 30 MG CAPSULE.DR PO SCH (10:38)
[2017-04-01] MEDS: APIXABAN 2.5 MG TABLET PO SCH (10:38)
[2017-04-01] MEDS: PREDNISONE 20 MG TABLET PO SCH (10:39)
[2017-04-01] MEDS: SILVER SULFADIAZINE 1% CREAM 50 GM TP SCH (10:39)
[2017-04-01 13:19] VITALS: BP 138/68
[2017-04-01] MEDS: LORAZEPAM 1 MG TABLET PO PRN (15:54)
== END 2017-04-01 16:17 | DRG 189 ==
LOC: ER 15:05 → UNDOADMIN 17:14 → EH 17:14 → 3W 03-19 03:38
PROVIDERS: ADMIT Internal Medicine; ATTEND Internal Medicine
PROC: 3E0F73Z Introduction of Anti-inflammatory into Respiratory Tract, Via Natural or Artificial Opening (ICD-10-PCS; principal; 2017-03-19)
DX: J96.21 Acute and chronic respiratory failure with hypoxia (principal); J18.9 Pneumonia, unspecified organism; I50.33 Acute on chronic diastolic (congestive) heart failure; I13.0 Hypertensive heart and chronic kidney disease with heart failure and stage 1 through stage 4 chronic kidney disease, or unspecified chronic kidney disease; N17.9 Acute kidney failure, unspecified; N18.4 Chronic kidney disease, stage 4 (severe); J44.1 Chronic obstructive pulmonary disease with (acute) exacerbation; Z68.42 Body mass index [BMI] 45.0-49.9, adult; J44.0 Chronic obstructive pulmonary disease with (acute) lower respiratory infection; T83.511A Infection and inflammatory reaction due to indwelling urethral catheter, initial encounter; J96.22 Acute and chronic respiratory failure with hypercapnia; E87.5 Hyperkalemia; E66.01 Morbid (severe) obesity due to excess calories; I48.0 Paroxysmal atrial fibrillation; E11.22 Type 2 diabetes mellitus with diabetic chronic kidney disease; D63.1 Anemia in chronic kidney disease; I25.10 Atherosclerotic heart disease of native coronary artery without angina pectoris; E78.00 Pure hypercholesterolemia, unspecified; E03.9 Hypothyroidism, unspecified; F32.9 Major depressive disorder, single episode, unspecified; N40.1 Benign prostatic hyperplasia with lower urinary tract symptoms; R33.8 Other retention of urine; L89.211 Pressure ulcer of right hip, stage 1; Z99.81 Dependence on supplemental oxygen; Z88.8 Allergy status to other drugs, medicaments and biological substances; I25.2 Old myocardial infarction; Z93.0 Tracheostomy status; Z95.1 Presence of aortocoronary bypass graft; Z87.891 Personal history of nicotine dependence; Z79.01 Long term (current) use of anticoagulants; Z79.899 Other long term (current) drug therapy; Z79.4 Long term (current) use of insulin; Z74.01 Bed confinement status; Z83.6 Family history of other diseases of the respiratory system; Z82.49 Family history of ischemic heart disease and other diseases of the circulatory system; Z83.3 Family history of diabetes mellitus
CPT/HCPCS: 36415; 36600; 71045; 80048; 80053; 81001; 82550; 82553; 82728; 82803; 82962; 83540; 83550; 83735; 83880; 84132; 84443; 84484; 85025; 85027; 86320; 87040; 87086; 93005; 93010; 93306; 94667; 94668; 99291; G8978-GP; G8979-GP; J0692; J1815; J1940; J2920; J3490; J7512; J7620; Q4081